=== PATIENT | male | born 1970 | race Two or more races ===

== ENCOUNTER 2018-01-15 20:19 | Inpatient (IN) | payer OTHER ==
[~2018-01-15] VITALS: Ht 175.3 cm; Wt 124.3 kg
[2018-01-15 20:30] VITALS: BP 57/24
[2018-01-15] MEDS ORDERED: Lidocaine 1% 10mg/ml/Epi 0.005mg/ml 30ml vial INJ ONE ×3 (21:14→22:18)
[2018-01-15] MEDS ORDERED: Vancomycin 1.5gm/D5W 250ml 250 ML IVPB ONE (21:30)
[2018-01-15] MEDS ORDERED: Piperacillin/Tazobactam 4.5 GM in NS 110 ML IVPB ONE (21:30)
[2018-01-15] MEDS ORDERED: NS 1000ml 3,500 ML IVLG ONE (21:30)
[2018-01-15 21:44] VITALS: BP 83/33
[2018-01-15 21:58] LABS: HEMATOCRIT 36.5 % (42.0-52.0); HEMOGLOBIN 12.8 G/DL (14.2-18.0); MEAN CORPUSCULAR VOLUME 92 FL (80-99); PLATELET COUNT 131 K/UL (150-450); RED BLOOD COUNT 3.95 M/UL (4.70-6.10); RED CELL DISTRIBUTION WIDTH 10.5 % (11.6-14.8)
[2018-01-15 22:00] VITALS: BP 79/83
[2018-01-15 22:10] LABS: WHITE BLOOD COUNT 22.9 K/UL (4.8-10.8)
[2018-01-15] MEDS ORDERED: Lidocaine 1% 10mg/ml/Epi 0.005mg/ml 30ml vial INJ SCH (22:15)
[2018-01-15 22:19] LABS: ALANINE AMINOTRANSFERASE 34 U/L (12-78); ALBUMIN 2.9 G/DL (3.4-5.0); ALBUMIN/GLOBULIN RATIO 0.9 (1.0-2.7); ALKALINE PHOSPHATASE 140 U/L (46-116); ANION GAP 29 mmol/L (5-15); ASPARTATE AMINO TRANSFERASE 20 U/L (15-37); BLOOD UREA NITROGEN 79 mg/dL (7-18); CALCIUM 7.8 MG/DL (8.5-10.1); CHLORIDE 74 MMOL/L (98-107); CREATININE 5.9 MG/DL (0.55-1.30); POTASSIUM 3.8 MMOL/L (3.5-5.1)
[2018-01-15 22:23] LABS: SODIUM 111 MMOL/L (136-145)
[2018-01-15 22:24] LABS: CARBON DIOXIDE 8 MMOL/L (21-32)
[2018-01-15 22:30] VITALS: BP 82/32
[2018-01-15 23:00] VITALS: BP 77/26
[2018-01-15 23:08] LABS: APPEARANCE,URINE CLEAR; BILIRUBIN, URINE NEGATIVE (NEGATIVE); COLOR,URINE PALE YELLOW; GLUCOSE, URINE (UA) 4+ (NEGATIVE); KETONES,URINE 3+ (NEGATIVE); LEUKOCYTE ESTERASE ,URINE NEGATIVE (NEGATIVE); NITRITE,URINE NEGATIVE (NEGATIVE); PH,URINE 5 (4.5-8.0); PROTEIN,URINE 1+ (NEGATIVE); UROBILINOGEN,URINE NORMAL MG/DL (0.0-1.0)
[2018-01-15 23:09] LABS: CKMB 7.9 NG/ML (0.0-3.6)
[2018-01-15] MEDS ORDERED: DOPamine 400mg/250ml 250 ML IV ONE (23:15)
[2018-01-15 23:30] VITALS: BP 91/36
[2018-01-16] VITALS (23 sets, daily range): BP systolic 85–129; BP diastolic 15–64
[2018-01-16] MEDS ORDERED: Insulin Human Regular 100units/ml 3ml ONE ×3 (00:27→03:20)
--- NOTE | 2018-01-16 01:57 | Emergency Room Report ---
History of Present Illness General Chief Complaint: Altered Mental Status Source: Family Member, EMS Present Illness HPI Patient presents with complaints of weakness Patient's girlfriend provides most of the history Patient himself is acutely ill altered Friend reports that the patient for the past 2 weeks has been feeling very weak He is on Humira shots And was seen last at [facility] At that time his blood pressure was low and it was recommended for him to hold his blood pressure medication Over the next several days patient continued to decompensate Last 2 days patient felt significantly worse and weak And was brought to the ER today again patient himself essentially too weak and lethargic to have appropriate history Girlfriend reports 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 There has been no reports of vomiting or diarrhea Patient has not been eating well Allergies: Coded Allergies: No Known Allergies (Unverified , 01/15/18) Patient History Past Medical History: see triage record Pertinent Family History: none Reviewed Nursing Documentation: PMH: Agreed; PSxH: Agreed Nursing Documentation-PMH Past Medical History: No History, Except For Hx Hypertension: Yes Review of Systems All Other Systems: negative except mentioned in HPI Physical Exam Vital Signs Date Time Temp Pulse Resp B/P (MAP) Pulse Ox O2 Delivery O2 Flow Rate FiO2 01/15/18 20:11 73 16 127/153 63 Nasal Cannula 3.0 01/15/18 22:31 100 Sp02 EP Interpretation: reviewed, abnormal - 63% which is abnormal oxygenation , on a nonrebreather patient is saturating at 95% which is normal General Appearance: severe distress - Lethargic Head: normocephalic, atraumatic Eyes: bilateral eye PERRL ENT: dry mucus membranes Neck: supple, thyroid normal Respiratory: crackles - Bilaterally, appears tachypneic Cardiovascular #1: regular rate, rhythm, no edema Gastrointestinal: non tender, soft Musculoskeletal: other - Patient is extremely weak and lethargic, sluggish to move and responds to physical stimuli Neurologic: responsive - 2 physical and verbal stimuli however extremely lethargic weak to respond, Skin: other - Patient has mottling of bilateral lower extremity with purpura Lymphatic: no adenopathy Procedures Critical Care Time Critical Care Time 90 minutes for multiple re-evaluations critical presentation Extended stay in the emergency room requiring multiple repeat evaluations critical findings concerning for organ failure and possible not including any procedural time, Central Line Central Line : Consent: Emergent Central Line Lumen: triple Maximal Sterile Barrier Tech: yes cap, yes mask, yes sterile gown, yes sterile gloves, yes large sterile sheet, yes hand hygiene, yes chlorhexidine prep Central Line Postion: femoral (R) Anesthesia: Lidocaine cc's of anesthesia: 3 Complications: none Central Line Post Position: sutured Attempts: One Patient Tolerated: Well Complications: None Intubation Intubation : Consent: Emergent Intubation Method: orotracheal Tube Size (cm): 8.0 Medications: Succinylcholine Breath Sounds after Intubation: equal Intubation Complications: no complications Post Intubation Xray: Yes Progress/Xray Impression: see xray note Attempts: One Patient Tolerated: Well Complications: None Medical Decision Making Diagnostic Impression: Primary Impression: Septic shock Additional Impression: DKA (diabetic ketoacidoses) ER Course Patient presents extremely ill In critical condition Requiring acute intervention with antibiotics and IV fluids Patient appears to be in septic shock requiring pressors Aggressive hydration was initiated Patient's white blood cell count is elevated Glucose is also dangerously elevated with signs of severe acidosis Patient requiring insulin drip and ICU admission Labs Test 01/15/18 20:23 01/15/18 21:28 01/15/18 21:35 01/15/18 23:30 Arterial Blood pH 7.069 (7.350-7.450) Arterial Blood Partial Pressure CO2 19.6 mmHg (35.0-45.0) Arterial Blood Partial Pressure O2 308.1 mmHg (75.0-100.0) Arterial Blood HCO3 5.5 mmol/L (22.0-26.0) Arterial Blood Oxygen Saturation 98.9 % (92.0-98.0) Arterial Blood Base Excess -22.9 Harsha Test Positive White Blood Count 22.9 K/UL (4.8-10.8) Red Blood Count 3.95 M/UL (4.70-6.10) Hemoglobin 12.8 G/DL (14.2-18.0) Hematocrit 36.5 % (42.0-52.0) Mean Corpuscular Volume 92 FL (80-99) Mean Corpuscular Hemoglobin 32.3 PG (27.0-31.0) Mean Corpuscular Hemoglobin Concent 35.0 G/DL (32.0-36.0) Red Cell Distribution Width 10.5 % (11.6-14.8) Platelet Count 131 K/UL (150-450) Mean Platelet Volume 8.4 FL (6.5-10.1) Neutrophils (%) (Auto) % (45.0-75.0) Lymphocytes (%) (Auto) % (20.0-45.0) Monocytes (%) (Auto) % (1.0-10.0) Eosinophils (%) (Auto) % (0.0-3.0) Basophils (%) (Auto) % (0.0-2.0) Differential Total Cells Counted 100 Neutrophils % (Manual) 78 % (45-75) Lymphocytes % (Manual) 9 % (20-45) Monocytes % (Manual) 6 % (1-10) Eosinophils % (Manual) 0 % (0-3) Basophils % (Manual) 0 % (0-2) Band Neutrophils 7 % (0-8) Platelet Estimate Decreased Platelet Morphology Normal Red Blood Cell Morphology Normal Sodium Level 111 MMOL/L (136-145) Potassium Level 3.8 MMOL/L (3.5-5.1) Chloride Level 74 MMOL/L (98-107) Carbon Dioxide Level 8 MMOL/L (21-32) Anion Gap 29 mmol/L (5-15) Blood Urea Nitrogen 79 mg/dL (7-18) Creatinine 5.9 MG/DL (0.55-1.30) Estimat Glomerular Filtration Rate 10.4 mL/min (>60) Glucose Level 1296 MG/DL (74-106) Osmolality 353 mOsm/kg (297-317) Lactic Acid Level 3.30 mmol/L (0.66-2.22) 2.20 mmol/L (0.66-2.22) Calcium Level 7.8 MG/DL (8.5-10.1) Magnesium Level 3.5 MG/DL (1.8-2.4) Total Bilirubin 1.0 MG/DL (0.2-1.0) Aspartate Amino Transf (AST/SGOT) 20 U/L (15-37) Alanine Aminotransferase (ALT/SGPT) 34 U/L (12-78) Alkaline Phosphatase 140 U/L (46-116) Total Creatine Kinase 309 U/L (26-308) Creatine Kinase MB 7.9 NG/ML (0.0-3.6) Creatine Kinase MB Relative Index 2.5 Troponin I 0.000 ng/mL (0.000-0.056) Total Protein 6.0 G/DL (6.4-8.2) Albumin 2.9 G/DL (3.4-5.0) Globulin 3.1 g/dL Albumin/Globulin Ratio 0.9 (1.0-2.7) Triglycerides Level 436 MG/DL (30-150) Lipase 05367 U/L (73-393) Serum Alcohol < 3 mg/dL Acetone Level Positive-moderate (NEGATIVE) Urine Color Pale yellow Urine Appearance Clear Urine pH 5 (4.5-8.0) Urine Specific [place] 1.010 (1.005-1.035) Urine Protein 1+ (NEGATIVE) Urine Glucose (UA) 4+ (NEGATIVE) Urine Ketones 3+ (NEGATIVE) Urine Occult Blood 4+ (NEGATIVE) Urine Nitrite Negative (NEGATIVE) Urine Bilirubin Negative (NEGATIVE) Urine Urobilinogen Normal MG/DL (0.0-1.0) Urine Leukocyte Esterase Negative (NEGATIVE) Urine RBC 2-4 /HPF (0 - 0) Urine WBC 0-2 /HPF (0 - 0) Urine Squamous Epithelial Cells None /LPF (NONE/OCC) Urine Bacteria Few /HPF (NONE) Urine Opiates Screen Negative (NEGATIVE) Urine Barbiturates Screen Negative (NEGATIVE) Phencyclidine (PCP) Screen Negative (NEGATIVE) Urine Amphetamines Screen Negative (NEGATIVE) Urine Benzodiazepines Screen Negative (NEGATIVE) Urine Cocaine Screen Negative (NEGATIVE) Urine Marijuana (THC) Screen Negative (NEGATIVE) Test 01/15/18 23:47 Arterial Blood pH 7.046 (7.350-7.450) Arterial Blood Partial Pressure CO2 22.7 mmHg (35.0-45.0) Arterial Blood Partial Pressure O2 104.2 mmHg (75.0-100.0) Arterial Blood HCO3 6.1 mmol/L (22.0-26.0) Arterial Blood Oxygen Saturation 96.6 % (92.0-98.0) Arterial Blood Base Excess -22.9 Harsha Test Positive Rhythm Strip Diag. Results EP Interpretation: yes Rate: 77 Rhythm: NSR, no PVC's, no ectopy Chest X-Ray Diagnostic Results Chest X-Ray Diagnostic Results #1: Chest X-Ray Ordered: Yes # of Views/Limited/Complete: 1 View Indication: Chest Pain EP Interpretation: Yes Interpretation: no consolidation, no pneumothorax, other - poor inspiraion Impression: No acute disease Electronically Signed by: Lakesha Heart DO Chest X-Ray Diagnostic Results #2: Chest X-Ray Ordered: Yes # of Views/Limited/Complete: 1 View Indication: Other - Intubation EP Interpretation: Yes Interpretation: no consolidation, no effusion, no pneumothorax, other - ET tube appropriate Impression: No acute disease - ET tube appropriately positioned Electronically Signed by: Lakesha Heart DO Last Vital Signs Date Time Temp Pulse Resp B/P (MAP) Pulse Ox O2 Delivery O2 Flow Rate FiO2 01/16/18 01:20 81/34 01/16/18 01:05 27 01/16/18 00:00 80 100 Mechanical Ventilator 01/15/18 22:31 100 01/15/18 20:30 15.0 Status: improved Disposition: ADMITTED INPATIENT Condition: Critical Referrals: [facility],REFERRING (PCP) Lakesha Heart DO January 16, 2018 01:57
[2018-01-16] MEDS ORDERED: fentaNYL 100 mcg/2 mL IV ONE (02:45)
[2018-01-16] MEDS ORDERED: Insulin Human Regular 100units/ml 3ml IV ONE ×2 (03:30)
--- NOTE | 2018-01-16 04:15 | History and Physical Report ---
DATE OF ADMISSION: 01/15/2018 HISTORY OF PRESENT ILLNESS: This is a 47-year-old male with history of psoriasis, on biologic agent Humira. The patient has been admitted to an outside hospital and was discharged. He was brought to the hospital today with hyperglycemia. He was also hypotensive. He required to be intubated. Because he is unable to provide any history, his /caregiver at the bedside provided most of the history. The patient is hypotensive. The patient has a previous history of Red man syndrome, etiology uncertain. The patient received a central line and IV antibiotics in the emergency room and [place]. He was was admitted to the hospital for further management and care. PAST MEDICAL HISTORY: Psoriasis only. There is no clear history of diabetes mellitus. MEDICATIONS: Home medications, not known or reconciled. ALLERGIES: None reported. REVIEW OF SYSTEMS: Unobtainable. PHYSICAL EXAMINATION: GENERAL: Reveals a 47-year-old male. VITAL SIGNS: Blood pressure 80/60, heart rate 104, respirations 18, and he is afebrile. HEENT: Unremarkable. LUNGS: Decreased breath sounds bilaterally. ABDOMEN: Soft. SKIN: He has bilateral skin mottling.g LABORATORY DATA: Lab testing shows white count 22,000, hemoglobin 12, and platelet count is normal. Sodium 111, bicarbonate of 8, chloride 74, creatinine 5.9, and glucose 1296. Osmolality 53. Lactic acid 3.3. IMPRESSION: 1. Respiratory failure. 2. Severe hyponatremia. 3. Hyperglycemia. 4. Diabetic ketoacidosis. 5. Sepsis. 6. Hypotension. DISCUSSION: The patient is critically ill. His chances of survival are poor. We will start him on normal saline, IV insulin, broad-spectrum antibiotics, aggressive IV fluid hydration, central line care, pressors, [place]. Full Code for now. Discussed with the ER physician. Prognosis again discussed was grave. The patient may also benefit from steroids given his use of Humira as a biologic agent. Matt Kessler M.D. DR: UBALDO JOB#: [id number] CC:
[2018-01-16] MEDS ORDERED: DOPamine 400mg/250ml 250 ML IV ONE ×2 (04:37→05:15)
[2018-01-16] MEDS ORDERED: Sodium Bicarbonate 50ml Carp IV ONE (05:15)
[2018-01-16] MEDS ORDERED: Morphine Sulfate 4mg/ml Inj IM PRN (08:15)
[2018-01-16] MEDS ORDERED: LORazepam Inj 2mg/ml 1ml IV PRN (08:30)
[2018-01-16] MEDS ORDERED: Insulin Human Regular 100units/ml 3ml IV PRN ×2 (08:45→12:00)
[2018-01-16] MEDS ORDERED: Insulin Rate Change 1 Each MISC PRN ×2 (09:00→12:00)
[2018-01-16] MEDS ORDERED: Pantoprazole Inj IVP SCH (09:00)
[2018-01-16] MEDS ORDERED: Morphine Sulfate 4mg/ml Inj IVP PRN (09:05)
[2018-01-16] MEDS: DOPamine 400mg/250ml 250 ML IV SCH ×3 (09:11→18:44)
[2018-01-16] MEDS: Heparin 5000 units/ml inj SUBQ SCH ×2 (09:17→20:58)
[2018-01-16 10:30] LABS: ANION GAP 20 mmol/L (5-15); BLOOD UREA NITROGEN 71 mg/dL (7-18); CALCIUM 7.1 MG/DL (8.5-10.1); CARBON DIOXIDE 12 MMOL/L (21-32); CHLORIDE 93 MMOL/L (98-107); CREATININE 4.9 MG/DL (0.55-1.30); PHOSPHORUS 1.2 MG/DL (2.5-4.9); SODIUM 125 MMOL/L (136-145)
[2018-01-16 10:35] LABS: POTASSIUM 2.2 MMOL/L (3.5-5.1)
[2018-01-16] MEDS: Insulin Human Regular 100units/ml 3ml IV PRN ×9 (11:20→23:23)
--- NOTE | 2018-01-16 11:25 | Diagnostic Imaging Report ---
Indication: Reason For Exam: SOB Technique: One view of the chest Comparison: none Findings: There is a lateral pulmonary interstitial edema. The pleural spaces are clear. The heart size is normal. Impression: Bilateral pulmonary interstitial edema
--- NOTE | 2018-01-16 11:30 | Diagnostic Imaging Report ---
Indication: Post intubation Technique: One view of the chest Comparison: 01/15/2018 Findings: Interim endotracheal intubation, endotracheal tube tip projecting approximately 4 cm above the tiesha. Slightly better aeration of the lungs. There is mild interstitial congestion again demonstrated Impression: Satisfactory endotracheal intubation Persistent mild interstitial congestion
[2018-01-16 11:47] LABS: HEMATOCRIT 35.3 % (42.0-52.0); HEMOGLOBIN 12.9 G/DL (14.2-18.0); MEAN CORPUSCULAR VOLUME 85 FL (80-99); PLATELET COUNT 81 K/UL (150-450); RED BLOOD COUNT 4.14 M/UL (4.70-6.10); RED CELL DISTRIBUTION WIDTH 9.7 % (11.6-14.8); WHITE BLOOD COUNT 8.2 K/UL (4.8-10.8)
[2018-01-16] MEDS ORDERED: Piperacillin/Tazobactam 3.375 GM in NS 110 ML IVPB SCH (12:00)
--- NOTE | 2018-01-16 12:50 | Consultation ---
Consult Note Consult Note asked to eval at the request of Dr Kessler Patient seen in ICU Intubated on Vent on Pressors low urine out put GF at bedside patient have history of HTN and Psoriasis on BP meds and [place] Assessment/Plan acute renal failure- Hypotensive on pressors acute respiratory failure Diabetic Ketoacidosis Low Na, Low K Sepsis Pressors- Insulin drip NS labs at 1600 discussed with RN per orders ALANNA MAHONEY January 16, 2018 12:50
[2018-01-16] MEDS: Hydrocortisone 100mg Inj IV SCH ×2 (13:10→18:57)
[2018-01-16] MEDS ORDERED: Potassium Chloride 40 MEQ in Sodium Chloride 500ML 550 ML IVPB ONE ×2 (13:30→20:00)
--- NOTE | 2018-01-16 13:53 | Pulmonology Progress Note ---
Assessment/Plan Assessment/Plan 1. Respiratory failure. 2. Severe hyponatremia. 3. Hyperglycemia. 4. Diabetic ketoacidosis. 5. Sepsis. 6. Hypotension. DISCUSSION: The patient is critically ill. His chances of survival are poor. continue normal saline, IV insulin, broad-spectrum antibiotics, aggressive IV fluid hydration, central line care, pressors, [place]. Full Code for now. Discussed with the ER physician. discussed with all consultants The patient may also benefit from steroids given his use of Humira as a biologic agent. Matt Kessler M.D. Subjective Interval Events: remains critically ill in ICU. On multiple pressors. Constitutional: Reports: no symptoms HEENT: Repors: no symptoms Respiratory: Reports: no symptoms Cardiovascular: Reports: no symptoms Gastrointestinal/Abdominal: Reports: no symptoms Genitourinary: Reports: no symptoms Allergies: Coded Allergies: No Known Allergies (Unverified , 01/15/18) Objective Last 24 Hour Vital Signs Date Time Temp Pulse Resp B/P (MAP) Pulse Ox O2 Delivery O2 Flow Rate FiO2 01/16/18 13:04 83/40 01/16/18 12:31 111 32 45 01/16/18 12:00 45 01/16/18 11:33 107 35 45 01/16/18 11:02 45/20 01/16/18 10:19 105 38 45 01/16/18 09:11 98/54 01/16/18 08:00 45 01/16/18 07:34 88 28 50 01/16/18 06:40 89 26 129/64 100 Mechanical Ventilator 01/16/18 06:30 86 27 100 01/16/18 06:20 89 26 129/64 100 Mechanical Ventilator 01/16/18 06:00 97.8 90 27 117/50 100 Mechanical Ventilator 97.8 01/16/18 05:39 27 119/56 01/16/18 05:30 86 22 119/56 100 Mechanical Ventilator 01/16/18 05:24 113/50 01/16/18 05:12 83 22 100 01/16/18 05:12 83 22 Mechanical Ventilator 100 01/16/18 05:00 81 25 109/46 100 Mechanical Ventilator 01/16/18 04:33 85 20 97/43 100 Mechanical Ventilator 01/16/18 04:00 86 20 111/48 100 Mechanical Ventilator 01/16/18 03:30 82 18 104/48 100 Mechanical Ventilator 01/16/18 03:20 84 21 Mechanical Ventilator 100 01/16/18 03:20 84 21 100 01/16/18 03:00 17 102/50 01/16/18 02:54 89 19 94/40 100 Mechanical Ventilator 01/16/18 02:30 88 27 98/44 100 Mechanical Ventilator 01/16/18 02:30 27 107/21 01/16/18 01:30 87 25 93/34 100 Mechanical Ventilator 01/16/18 01:20 81/34 01/16/18 01:15 88 27 100 01/16/18 01:15 88 27 Mechanical Ventilator 100 01/16/18 01:05 /17 01/16/18 01:05 27 /17 01/16/18 01:00 87 26 89/24 100 Mechanical Ventilator 01/16/18 00:50 78/24 01/16/18 00:50 28 78/24 01/16/18 00:30 84 27 99/18 100 Mechanical Ventilator 01/16/18 00:20 27 96/23 01/16/18 00:08 97/22 01/16/18 00:00 80 27 99/15 100 Mechanical Ventilator 01/15/18 23:55 25 96/22 01/15/18 23:40 91/46 01/15/18 23:40 29 91/36 01/15/18 23:30 74 27 91/36 100 Mechanical Ventilator 01/15/18 23:25 20 75/22 18 23:22 75/22 01/15/18 23:10 22 72/24 01/15/18 23:00 74 26 77/26 01/15/18 22:31 69 28 100 01/15/18 22:31 69 28 Mechanical Ventilator 100 01/15/18 22:30 74 25 82/32 100 Mechanical Ventilator 01/15/18 22:00 67 21 79/83 100 01/15/18 21:44 74 27 83/33 100 Non-Rebreather 01/15/18 20:30 99.1 73 23 57/24 99 Non-Rebreather 15.0 99.1 01/15/18 20:11 73 16 127/153 63 Nasal Cannula 3.0 Intake and Output 01/15/18 01/16/18 19:00 07:00 Output Total 225 ml Balance -225 ml Output Urine Total 225 ml General Appearance: no acute distress HEENT: normocephalic Respiratory/Chest: chest wall non-tender, lungs clear Cardiovascular: normal peripheral pulses, normal rate Abdomen: normal bowel sounds Laboratory Tests 01/15/18 20:23: Arterial Blood pH 7.069*L, Arterial Blood Partial Pressure CO2 19.6*L, Arterial Blood Partial Pressure O2 308.1H, Arterial Blood HCO3 5.5L, Arterial Blood Oxygen Saturation 98.9H, Arterial Blood Base Excess -22.9, Harsha Test Positive 01/15/18 21:28: White Blood Count 22.9*H, Red Blood Count 3.95L, Hemoglobin 12.8L, Hematocrit 36.5L, Mean Corpuscular Volume 92, Mean Corpuscular Hemoglobin 32.3H, Mean Corpuscular Hemoglobin Concent 35.0, Red Cell Distribution Width 10.5L, Platelet Count 131L, Mean Platelet Volume 8.4, Neutrophils (%) (Auto) , Lymphocytes (%) (Auto) , Monocytes (%) (Auto) , Eosinophils (%) (Auto) , Basophils (%) (Auto) , Differential Total Cells Counted 100, Neutrophils % ( Manual) 78H, Lymphocytes % (Manual) 9L, Monocytes % (Manual) 6, Eosinophils % ( Manual) 0, Basophils % (Manual) 0, Band Neutrophils 7, Platelet Estimate DecreasedL, Platelet Morphology Normal, Red Blood Cell Morphology Normal, Sodium Level 111*L, Potassium Level 3.8, Chloride Level 74L, Carbon Dioxide Level 8*L, Anion Gap 29H, Blood Urea Nitrogen 79H, Creatinine 5.9H, Estimat Glomerular Filtration Rate 10.4, Glucose Level 1296*H, Osmolality 353H, Lactic Acid Level 3.30H, Calcium Level 7.8L, Magnesium Level 3.5H, Total Bilirubin 1.0 , Aspartate Amino Transf (AST/SGOT) 20, Alanine Aminotransferase (ALT/SGPT) 34, Alkaline Phosphatase 140H, Total Creatine Kinase 309H, Creatine Kinase MB 7.9H, Creatine Kinase MB Relative Index 2.5, Troponin I 0.000, Total Protein 6.0L, Albumin 2.9L, Globulin 3.1, Albumin/Globulin Ratio 0.9L, Triglycerides Level 436H, Lipase 97354R, Serum Alcohol < 3, Acetone Level Positive-moderate 01/15/18 21:35: Urine Color Pale yellow, Urine Appearance Clear, Urine pH 5, Urine Specific [place] 1.010, Urine Protein 1+H, Urine Glucose (UA) 4+H, Urine Ketones 3+H, Urine Occult Blood 4+H, Urine Nitrite Negative, Urine Bilirubin Negative, Urine Urobilinogen Normal, Urine Leukocyte Esterase Negative, Urine RBC 2-4H, Urine WBC 0-2, Urine Squamous Epithelial Cells None, Urine Bacteria Few, Urine Opiates Screen Negative, Urine Barbiturates Screen Negative, Phencyclidine (PCP ) Screen Negative, Urine Amphetamines Screen Negative, Urine Benzodiazepines Screen Negative, Urine Cocaine Screen Negative, Urine Marijuana (THC) Screen Negative 01/15/18 23:30: Lactic Acid Level 2.20 01/15/18 23:47: Arterial Blood pH 7.046*L, Arterial Blood Partial Pressure CO2 22.7*L, Arterial Blood Partial Pressure O2 104.2H, Arterial Blood HCO3 6.1L, Arterial Blood Oxygen Saturation 96.6, Arterial Blood Base Excess -22.9, Harsha Test Positive 01/16/18 08:30: Sodium Level 125#L, Potassium Level 2.2*L, Chloride Level 93L, Carbon Dioxide Level 12L, Anion Gap 20H, Blood Urea Nitrogen 71H, Creatinine 4.9H, Estimat Glomerular Filtration Rate 12.9, Glucose Level 630#*H, Hemoglobin A1c 13.1H, Calcium Level 7.1L, Phosphorus Level 1.2L, Magnesium Level 2.7H, Triglycerides Level 836H 01/16/18 10:40: Arterial Blood pH 7.230*L, Arterial Blood Partial Pressure CO2 22.8*L, Arterial Blood Partial Pressure O2 169.4H, Arterial Blood HCO3 9.3L, Arterial Blood Oxygen Saturation 98.5H, Arterial Blood Base Excess -16.2, Harsha Test Positive 01/16/18 11:20: White Blood Count 8.2#, Red Blood Count 4.14L, Hemoglobin 12.9L, Hematocrit 35.3L, Mean Corpuscular Volume 85, Mean Corpuscular Hemoglobin 31.2H, Mean Corpuscular Hemoglobin Concent 36.7H, Red Cell Distribution Width 9.7L, Platelet Count 81L, Mean Platelet Volume 9.4, Neutrophils (%) (Auto) , Lymphocytes (%) (Auto) , Monocytes (%) (Auto) , Eosinophils (%) (Auto) , Basophils (%) (Auto) , Differential Total Cells Counted 100, Neutrophils % ( Manual) 68, Lymphocytes % (Manual) 13L, Monocytes % (Manual) 7, Eosinophils % ( Manual) 0, Basophils % (Manual) 0, Band Neutrophils 12H, Platelet Estimate DecreasedL, Platelet Morphology Normal, Red Blood Cell Morphology Normal, Prothrombin Time 10.5, Prothromb Time International Ratio 1.0, Activated Partial Thromboplast Time 25 Current Medications Medications (Trade) Dose Ordered Sig/Alana Route PRN Reason Start Time Stop Time Status Last Admin Dose Admin Dextrose (Dextrose 50%) 25 ml PRN PRN IV HYPOGLYCEMIA 01/16/18 12:00 02/15/18 11:59 Dextrose (Dextrose 50%) 50 ml PRN PRN IV HYPOGLYCEMIA 01/16/18 12:00 02/15/18 11:59 Dopamine HCl/ Dextrose 250 ml @ 0 mls/hr Q24H IV 01/16/18 08:45 02/15/18 08:44 01/16/18 09:11 Heparin Sodium (Porcine) (Heparin 5000 units/ml) 5,000 units EVERY 12 HOURS SUBQ 01/16/18 09:00 02/15/18 08:59 01/16/18 09:17 Hydrocortisone (Solu-CORTEF) 50 mg EVERY 6 HOURS IV 01/16/18 12:00 02/15/18 11:59 01/16/18 13:10 Insulin Human Regular (NovoLIN R) 5 units PRN PRN IV BS 200-299 01/16/18 12:00 02/15/18 11:59 Insulin Human Regular (NovoLIN R) 10 units PRN PRN IV BS=>300 01/16/18 12:00 02/15/18 11:59 01/16/18 13:07 Insulin Human Regular 100 units/ Sodium Chloride 101 ml @ 0 mls/hr Q24H IV 01/16/18 12:30 02/15/18 12:29 01/16/18 12:30 Linezolid 300 ml @ 300 mls/hr Q12HR IVPB 01/16/18 13:00 01/23/18 12:59 Lorazepam (Ativan 2mg/ml 1ml) 1 mg Q2H PRN IV For Anxiety 01/16/18 08:30 01/23/18 08:29 Miscellaneous Medication (Insulin Rate Change) 1 ea PRN PRN MISC Hyperglycemia 01/16/18 12:00 02/15/18 11:59 Morphine Sulfate (Morphine Sulfate) 2 mg Q2H PRN IVP For Pain 01/16/18 09:05 01/23/18 09:04 Norepinephrine Bitartrate 4 mg/ Dextrose 250 ml @ 0 mls/hr Q24H IV 01/16/18 10:45 02/15/18 10:44 01/16/18 13:04 Pantoprazole (Protonix) 40 mg Q12HR IVP 01/16/18 21:00 02/15/18 08:59 Piperacillin Sod/ Tazobactam Sod 2.25 gm/Sodium Chloride 55 ml @ 110 mls/hr Q8H IV 01/16/18 10:00 01/23/18 09:59 Potassium Chloride 40 meq/ Sodium Chloride 570 ml @ 142.5 mls/ hr ONCE ONCE IVPB 01/16/18 13:30 01/16/18 17:29 01/16/18 12:43 Potassium Chloride 40 meq/ Sodium Chloride 570 ml @ 142.5 mls/ hr ONCE ONCE IVPB 01/16/18 20:00 01/16/18 23:59 Sodium Chloride 1,000 ml @ 200 mls/hr Q5H IV 01/16/18 09:00 02/15/18 08:59 01/16/18 08:50 Sodium Phosphate 30 mm/Sodium Chloride 285 ml @ 47.5 mls/hr ONCE ONCE IVPB 01/16/18 14:30 01/16/18 20:29 Matt Kessler MD January 16, 2018 13:53
[2018-01-16] MEDS ORDERED: Sodium Phosphate 30 MM in NS 275 ML IVPB ONE (14:30)
--- NOTE | 2018-01-16 14:32 | Cardiology Report ---
APPROVED REPORT EKG Measurement Heart [id number] [id number] Normal sinus rhythm T wave abnormality, consider inferior ischemia Abnormal ECG
[2018-01-16] MEDS: Sodium Bicarbonate 100 ML in D5W 1000ml 1,000 ML IV SCH (15:36)
[2018-01-16 16:52] LABS: ALANINE AMINOTRANSFERASE 11 U/L (12-78); ALBUMIN 2.1 G/DL (3.4-5.0); ALBUMIN/GLOBULIN RATIO 0.7 (1.0-2.7); ALKALINE PHOSPHATASE 103 U/L (46-116); ANION GAP 23 mmol/L (5-15); ASPARTATE AMINO TRANSFERASE 79 U/L (15-37); BILIRUBIN,TOTAL 0.7 MG/DL (0.2-1.0); BLOOD UREA NITROGEN 69 mg/dL (7-18); CALCIUM 6.7 MG/DL (8.5-10.1); CARBON DIOXIDE 8 MMOL/L (21-32); CHLORIDE 100 MMOL/L (98-107); CREATINE KINASE 3401 U/L (26-308); CREATININE 5.6 MG/DL (0.55-1.30); GAMMA GLUTAMYL TRANSPEPTIDASE 289 U/L (5-85); PHOSPHORUS 0.6 MG/DL (2.5-4.9); POTASSIUM 2.5 MMOL/L (3.5-5.1); SODIUM 131 MMOL/L (136-145)
[2018-01-16 16:57] LABS: HEMATOCRIT 34.4 % (42.0-52.0); HEMOGLOBIN 12.9 G/DL (14.2-18.0); MEAN CORPUSCULAR VOLUME 82 FL (80-99); PLATELET COUNT 83 K/UL (150-450); RED BLOOD COUNT 4.17 M/UL (4.70-6.10); RED CELL DISTRIBUTION WIDTH 9.9 % (11.6-14.8); WHITE BLOOD COUNT 15.4 K/UL (4.8-10.8)
[2018-01-16] MEDS: Insulin Rate Change 1 Each MISC PRN ×2 (17:19→18:00)
--- NOTE | 2018-01-16 17:30 | Consultation ---
DATE OF CONSULTATION: 01/16/2018 INFECTIOUS DISEASES CONSULTATION CONSULTING PHYSICIAN: Bruce Waller M.D. REFERRING PHYSICIAN: Matt Kessler M.D. REASON FOR CONSULTATION: Sepsis. HISTORY OF PRESENT ILLNESS: This is a 47-year-old gentleman with history of psoriasis, on Humira, with history of heavy alcohol use who came in with hyperglycemia and hypotension. He has been intubated and an Infectious Diseases consultation has been obtained for antibiotics. PAST MEDICAL HISTORY: 1. History of psoriasis, on Humira. 2. History of red man syndrome. SOCIAL HISTORY: He used to drink alcohol heavily. Rest of the history is unknown. REVIEW OF SYSTEMS: Unable to obtain currently. FAMILY HISTORY: Unknown. MEDICATIONS: As an inpatient, he is on potassium, hydrocortisone, norepinephrine, Zosyn, morphine, Protonix, insulin, dopamine, lorazepam, and IV vancomycin. ALLERGIES: No known drug allergies. PHYSICAL EXAMINATION: VITAL SIGNS: Temperature of 97.8, T-max of 99.1, pulse of 105, respiratory rate 38, blood pressure 45/20, and O2 saturation of 100%. HEENT: Pupils are equally reactive to light and accommodation. Mouth appears clean without thrush. The patient is intubated. NECK: Supple. No adenopathy. No JVD. CARDIOVASCULAR: Regular rate and rhythm. No murmurs. LUNGS: Clear to auscultation bilaterally. No crackles. No wheezes. ABDOMEN: Soft and nontender. No organomegaly. EXTREMITIES: No cyanosis, no clubbing, no edema. Right groin catheter noted. LABORATORY DATA: White count of 22.9, hemoglobin 12.8, hematocrit 36.5, MCV 92, and platelet count of 131 with neutrophils of 78%. Sodium 125, potassium 2.2, chloride 93, bicarbonate of 12, BUN 71, creatinine 4.9, glucose of 630, calcium 7.1, triglycerides of 836. Lipase of 13,427. Glucose of 1296 on 01/15/2018. Sodium of 111, BUN of 79, creatinine of 5.9 on 01/15/2018. AST 20, ALT 34, alkaline phosphatase 140. CK of 309, CK-MB of 7.9. UA is showing 0 to 2 white cells. Blood cultures are pending. Chest x-ray is showing bilateral pulmonary edema. ASSESSMENT: This is a 47-year-old gentleman with history of heavy alcohol use and psoriasis, on Humira, who comes in with: 1. Diabetic ketoacidosis, could be secondary to urinary tract infection. 2. We would like to rule out pneumonia. 3. Renal failure. 4. Severe pancreatitis. 5. Renal failure. 6. Shock. PLAN: 1. Continue Zosyn. 2. Discontinue vancomycin. 3. We will start the patient on linezolid. 4. We will order urine cultures and sputum cultures. 5. We will follow up cultures and adjust antibiotics accordingly. I would like to thank Dr. Kessler for this consultation. Bruce Waller M.D. DR: PRATIMA JOB#: [id number] CC: Matt Kessler M.D.; Fax#: [phone]
[2018-01-16] MEDS ORDERED: D5W 275ml ONE (17:39)
[2018-01-16] MEDS: Piperacillin/Tazobactam 2.25 GM in NS 55 ML IV SCH ×2 (18:00→18:33)
[2018-01-16] MEDS: NOREPINEPHRINE BITARTRATE IV SCH (20:57)
[2018-01-16] MEDS: SODIUM CHLORIDE IV SCH (20:57)
[2018-01-16] MEDS: Pantoprazole Inj IVP SCH (20:58)
[2018-01-16] MEDS ORDERED: Sodium Phosphate 30 MM in NS 275 ML IVPB SCH (23:00)
[2018-01-16] MEDS ORDERED: NS IVPB SCH (23:30)
[2018-01-16] MEDS ORDERED: MEROPENEM IVPB SCH (23:30)
[2018-01-17] VITALS (57 sets, daily range): BP systolic 80–157; BP diastolic 24–67
[2018-01-17] MEDS: Hydrocortisone 100mg Inj IV SCH ×5 (00:02→23:50)
[2018-01-17] MEDS: Acetaminophen 650mg/20.3ml NG PRN ×2 (00:31→22:05)
[2018-01-17] MEDS: DOPamine 400mg/250ml 250 ML IV SCH ×8 (00:51→22:52)
[2018-01-17] MEDS: Insulin Human Regular 100units/ml 3ml IV PRN ×3 (03:56→22:58)
[2018-01-17] MEDS: NOREPINEPHRINE BITARTRATE IV SCH ×2 (05:57→15:27)
[2018-01-17] MEDS: SODIUM CHLORIDE IV SCH ×2 (05:57→15:27)
[2018-01-17] MEDS ORDERED: Lidocaine 1% Plain 30 ml INJ SCH (07:00)
[2018-01-17] MEDS ORDERED: Heparin 2000 units/Ns 1000ml INJ SCH (07:00)
--- NOTE | 2018-01-17 08:20 | Pulmonology Progress Note ---
Assessment/Plan Assessment/Plan 1. Respiratory failure. 2. Severe hyponatremia. 3. Hyperglycemia. 4. Diabetic ketoacidosis. 5. Sepsis. 6. Hypotension. DISCUSSION: The patient is critically ill. His chances of survival are poor. continue normal saline, IV insulin, broad-spectrum antibiotics, aggressive IV fluid hydration, central line care, pressors, Amrenta. Full Code for now. Discussed with the ER physician. discussed with all consultants The patient may also benefit from steroids given his use of Humira as a biologic agent. Slowly improving Discussed with mother and GF PICC today Matt Kessler M.D. Subjective Interval Events: Improved Constitutional: Reports: no symptoms HEENT: Repors: no symptoms Respiratory: Reports: no symptoms Cardiovascular: Reports: no symptoms Allergies: Coded Allergies: No Known Allergies (Unverified , 01/15/18) Objective Last 24 Hour Vital Signs Date Time Temp Pulse Resp B/P (MAP) Pulse Ox O2 Delivery O2 Flow Rate FiO2 01/17/18 07:30 102 34 94/55 94 Mechanical Ventilator 40 01/17/18 07:05 102 35 45 01/17/18 07:00 84/54 01/17/18 07:00 84/54 01/17/18 07:00 100 33 84/54 98 Mechanical Ventilator 40 01/17/18 06:47 84/34 01/17/18 06:30 100 33 83/48 97 Mechanical Ventilator 40 01/17/18 06:00 98.4 98 33 80/44 100 Mechanical Ventilator 40 98.4 01/17/18 06:00 85/43 01/17/18 06:00 85/43 01/17/18 05:57 86/49 01/17/18 05:30 98 33 88/48 100 Mechanical Ventilator 40 01/17/18 05:00 91/43 01/17/18 05:00 91/43 01/17/18 05:00 99 34 91/43 100 Mechanical Ventilator 40 01/17/18 04:52 100 35 45 01/17/18 04:30 100 34 81/26 100 Mechanical Ventilator 40 01/17/18 04:00 102 01/17/18 04:00 99.0 104 34 90/52 100 Mechanical Ventilator 40 99.0 01/17/18 04:00 45 01/17/18 04:00 90/52 01/17/18 04:00 /52 01/17/18 03:52 90/52 01/17/18 03:52 90/01/17/18 03:30 106 34 90/52 100 Mechanical Ventilator 40 01/17/18 03:30 104 36 45 01/17/18 03:00 85/52 01/17/18 03:00 85/52 01/17/18 03:00 100.5 108 35 85/52 100 Mechanical Ventilator 40 100.5 01/17/18 02:30 110 35 103/49 100 Mechanical Ventilator 40 01/17/18 02:00 101.0 114 35 97/59 100 Mechanical Ventilator 40 101.0 01/17/18 02:00 97/59 01/17/18 02:00 97/59 01/17/18 01:30 116 35 97/60 100 Mechanical Ventilator 40 01/17/18 01:30 112 36 45 01/17/18 01:26 102.3 01/17/18 01:00 102.6 119 38 104/55 100 Mechanical Ventilator 40 102.6 01/17/18 01:00 104/55 01/17/18 01:00 104/55 01/17/18 01:00 104/55 01/17/18 01:00 104/55 01/17/18 00:51 86/52 01/17/18 00:31 103.8 01/17/18 00:30 123 39 97/58 100 Mechanical Ventilator 40 01/17/18 00:00 45 01/17/18 00:00 128 01/17/18 00:00 103.0 127 39 94/58 100 Mechanical Ventilator 40 103.0 01/17/18 00:00 94/58 01/17/18 00:00 94/58 01/16/18 23:30 131 39 45 01/16/18 23:30 130 38 94/51 100 Mechanical Ventilator 40 01/16/18 23:00 104.0 132 38 85/50 100 Mechanical Ventilator 40 104.0 01/16/18 23:00 85/50 01/16/18 23:00 85/50 01/16/18 22:30 104.0 133 38 89/41 100 Mechanical Ventilator 40 104.0 01/16/18 22:00 102.9 133 38 92/47 100 Mechanical Ventilator 40 102.9 01/16/18 22:00 92/47 01/16/18 22:00 92/47 01/16/18 21:30 129 35 93/48 100 Mechanical Ventilator 40 01/16/18 21:02 134 38 45 01/16/18 21:00 101.0 129 35 85/46 100 Mechanical Ventilator 40 101.0 01/16/18 21:00 85/46 01/16/18 21:00 85/46 01/16/18 20:57 85/44 01/16/18 20:30 130 35 85/46 100 Mechanical Ventilator 40 01/16/18 20:00 45 01/16/18 20:00 101.0 131 35 100/53 100 Mechanical Ventilator 40 101.0 01/16/18 20:00 84/46 01/16/18 20:00 84/46 01/16/18 20:00 131 01/16/18 19:30 131 36 45 01/16/18 19:30 135 35 100/58 100 Mechanical Ventilator 40 01/16/18 19:00 136 35 86/46 100 Mechanical Ventilator 40 01/16/18 19:00 86/46 01/16/18 19:00 86/46 01/16/18 18:44 107/48 01/16/18 17:50 73/41 01/16/18 16:54 124 33 45 01/16/18 16:00 75/39 01/16/18 16:00 45 01/16/18 16:00 118 01/16/18 15:38 68/39 01/16/18 15:26 109 33 45 01/16/18 15:26 84/40 01/16/18 15:00 84/40 18 15:00 84/40 01/16/18 14:00 85/43 01/16/18 14:00 85/43 01/16/18 13:04 83/40 01/16/18 13:00 87/42 01/16/18 13:00 87/42 01/16/18 12:31 111 32 45 01/16/18 12:00 45 01/16/18 12:00 79/47 01/16/18 12:00 79/47 01/16/18 12:00 118 01/16/18 11:33 107 35 45 01/16/18 11:02 45/20 01/16/18 11:00 66/36 01/16/18 10:19 105 38 45 01/16/18 10:00 75/41 01/16/18 09:11 98/54 Intake and Output 01/16/18 01/17/18 19:00 07:00 Intake Total 1411.971 ml 4998.093 ml Output Total 233 ml 0 ml Balance 1178.971 ml 4998.093 ml Intake IV Total 1411.971 ml 4998.093 ml Output Urine Total 233 ml 0 ml General Appearance: no acute distress HEENT: normocephalic Respiratory/Chest: chest wall non-tender, lungs clear Cardiovascular: normal peripheral pulses, normal rate Abdomen: normal bowel sounds Microbiology Date/Time Source Procedure Growth Status 01/15/18 21:28 Blood Blood Culture - Preliminary NO GROWTH AFTER 24 HOURS Resulted 01/15/18 21:15 Blood Blood Culture - Preliminary NO GROWTH AFTER 24 HOURS Resulted Laboratory Tests 01/16/18 08:30: Sodium Level 125#L, Potassium Level 2.2*L, Chloride Level 93L, Carbon Dioxide Level 12L, Anion Gap 20H, Blood Urea Nitrogen 71H, Creatinine 4.9H, Estimat Glomerular Filtration Rate 12.9, Glucose Level 630#*H, Hemoglobin A1c 13.1H, Calcium Level 7.1L, Phosphorus Level 1.2L, Magnesium Level 2.7H, Triglycerides Level 836H 01/16/18 10:40: Arterial Blood pH 7.230*L, Arterial Blood Partial Pressure CO2 22.8*L, Arterial Blood Partial Pressure O2 169.4H, Arterial Blood HCO3 9.3L, Arterial Blood Oxygen Saturation 98.5H, Arterial Blood Base Excess -16.2, Harsha Test Positive 01/16/18 11:20: White Blood Count 8.2#, Red Blood Count 4.14L, Hemoglobin 12.9L, Hematocrit 35.3L, Mean Corpuscular Volume 85, Mean Corpuscular Hemoglobin 31.2H, Mean Corpuscular Hemoglobin Concent 36.7H, Red Cell Distribution Width 9.7L, Platelet Count 81L, Mean Platelet Volume 9.4, Neutrophils (%) (Auto) , Lymphocytes (%) (Auto) , Monocytes (%) (Auto) , Eosinophils (%) (Auto) , Basophils (%) (Auto) , Differential Total Cells Counted 100, Neutrophils % ( Manual) 68, Lymphocytes % (Manual) 13L, Monocytes % (Manual) 7, Eosinophils % ( Manual) 0, Basophils % (Manual) 0, Band Neutrophils 12H, Platelet Estimate DecreasedL, Platelet Morphology Normal, Red Blood Cell Morphology Normal, Prothrombin Time 10.5, Prothromb Time International Ratio 1.0, Activated Partial Thromboplast Time 25 01/16/18 16:00: Sodium Level 131L, Potassium Level 2.5*L, Chloride Level 100, Carbon Dioxide Level 8*L, Anion Gap 23H, Blood Urea Nitrogen 69H, Creatinine 5.6H, Estimat Glomerular Filtration Rate 11.1, Glucose Level 288#H, Calcium Level 6.7L, Phosphorus Level 0.6*L, Magnesium Level 2.0, White Blood Count 15.4#H, Red Blood Count 4.17L, Hemoglobin 12.9L, Hematocrit 34.4L, Mean Corpuscular Volume 82, Mean Corpuscular Hemoglobin 30.9, Mean Corpuscular Hemoglobin Concent 37.5H , Red Cell Distribution Width 9.9L, Platelet Count 83L, Mean Platelet Volume 9.0 , Neutrophils (%) (Auto) , Lymphocytes (%) (Auto) , Monocytes (%) (Auto) , Eosinophils (%) (Auto) , Basophils (%) (Auto) , Differential Total Cells Counted 100, Neutrophils % (Manual) 57, Lymphocytes % (Manual) 10L, Monocytes % (Manual) 9, Eosinophils % (Manual) 0, Basophils % (Manual) 0, Band Neutrophils 24H, Platelet Estimate DecreasedL, Platelet Morphology Normal, Red Blood Cell Morphology Normal, Lactic Acid Level 6.70H, Uric Acid 12.9H, Total Bilirubin 0.7 , Gamma Glutamyl Transpeptidase 289H, Aspartate Amino Transf (AST/SGOT) 79H, Alanine Aminotransferase (ALT/SGPT) 11L, Alkaline Phosphatase 103, Total Creatine Kinase 3401H, C-Reactive Protein, Quantitative 22.8H, Pro-B-Type Natriuretic Peptide 5311H, Total Protein 4.9L, Albumin 2.1L, Globulin 2.8, Albumin/Globulin Ratio 0.7L 01/16/18 18:18: Arterial Blood pH 7.177*L, Arterial Blood Partial Pressure CO2 23.5*L, Arterial Blood Partial Pressure O2 97.2, Arterial Blood HCO3 8.5L, Arterial Blood Oxygen Saturation 97.1, Arterial Blood Base Excess -18.1, Harsha Test Positive 01/16/18 19:20: Lactic Acid Level 5.60H Current Medications Medications (Trade) Dose Ordered Sig/Alana Route PRN Reason Start Time Stop Time Status Last Admin Dose Admin Acetaminophen (Tylenol) 500 mg Q6HR PRN NG Fever/Headache/Mild Pain 01/16/18 23:15 02/15/18 23:14 01/17/18 00:31 Chlorhexidine Gluconate (Марина-Hex 2%) 1 applic DAILY@2000 TOPIC 01/17/18 20:00 02/16/18 19:59 Dextrose (Dextrose 50%) 25 ml PRN PRN IV HYPOGLYCEMIA 01/16/18 14:30 02/15/18 14:29 Dextrose (Dextrose 50%) 50 ml PRN PRN IV HYPOGLYCEMIA 01/16/18 14:30 02/15/18 14:29 Dopamine HCl/ Dextrose 250 ml @ 0 mls/hr Q24H IV 01/16/18 08:45 02/15/18 08:44 01/17/18 06:47 Fluconazole/ Sodium Chloride 100 ml @ 100 mls/hr Q24H IV 01/17/18 00:00 01/24/18 00:00 01/17/18 00:20 Heparin Sodium (Porcine) (Heparin 5000 units/ml) 5,000 units EVERY 12 HOURS SUBQ 01/16/18 09:00 02/15/18 08:59 01/16/18 09:17 Hydrocortisone (Solu-CORTEF) 50 mg EVERY 6 HOURS IV 01/16/18 12:00 02/15/18 11:59 01/17/18 05:56 Insulin Human Regular (NovoLIN R) 5 units PRN PRN IV BS 200-299 01/16/18 14:30 02/15/18 14:29 01/17/18 03:56 Insulin Human Regular (NovoLIN R) 10 units PRN PRN IV BS=>300 01/16/18 14:30 02/15/18 14:29 01/16/18 16:14 Insulin Human Regular 100 units/ Sodium Chloride 101 ml @ 0 mls/hr Q24H IV 01/16/18 15:00 02/15/18 14:59 01/17/18 00:53 Linezolid 300 ml @ 300 mls/hr Q12HR IVPB 01/16/18 13:00 01/23/18 12:59 01/16/18 20:58 Lorazepam (Ativan 2mg/ml 1ml) 1 mg Q2H PRN IV For Anxiety 01/16/18 08:30 01/23/18 08:29 Meropenem 500 mg/ Sodium Chloride 55 ml @ 110 mls/hr Q24H IVPB 01/17/18 22:00 01/22/18 21:59 Miscellaneous Medication (Insulin Rate Change) 1 ea PRN PRN MISC Hyperglycemia 01/16/18 14:30 02/15/18 14:29 01/16/18 18:00 Morphine Sulfate (Morphine Sulfate) 2 mg Q2H PRN IVP For Pain 01/16/18 09:05 01/23/18 09:04 Norepinephrine Bitartrate 16 mg/ Sodium Chloride 566 ml @ 0 mls/hr Q24H IV 01/16/18 21:00 02/15/18 20:59 01/17/18 05:57 Pantoprazole (Protonix) 40 mg Q12HR IVP 01/16/18 21:00 02/15/18 08:59 01/16/18 20:58 Sodium Bicarbonate 100 ml/Dextrose 1,100 ml @ 50 mls/hr Q22H IV 01/16/18 15:30 02/15/18 15:29 01/16/18 15:36 Sodium Chloride 1,000 ml @ 100 mls/hr Q10H IV 01/16/18 15:30 02/15/18 15:29 01/17/18 01:50 Matt Kessler MD January 17, 2018 08:20
[2018-01-17] MEDS: Insulin Rate Change 1 Each MISC PRN ×8 (08:44→18:10)
[2018-01-17 08:50] LABS: HEMATOCRIT 36.6 % (42.0-52.0); MEAN CORPUSCULAR VOLUME 84 FL (80-99); PLATELET COUNT 68 K/UL (150-450); RED BLOOD COUNT 4.35 M/UL (4.70-6.10); RED CELL DISTRIBUTION WIDTH 10.3 % (11.6-14.8)
[2018-01-17 08:57] LABS: HEMOGLOBIN 13.4 G/DL (14.2-18.0)
[2018-01-17] MEDS: Heparin 5000 units/ml inj SUBQ SCH (09:00)
[2018-01-17] MEDS: Pantoprazole Inj IVP SCH ×2 (09:20→20:29)
--- NOTE | 2018-01-17 09:26 | Diagnostic Imaging Report ---
Indication: Shortness of breath Technique: One view of the chest Comparison: 01/15/2018 Findings: Interim nasogastric intubation, nasogastric tube tip projected at the level of the gastric antrum. Stable satisfactory position of endotracheal tube. Right infrahilar atelectatic changes are again demonstrated. The heart size is normal. Impression: Right infrahilar atelectasis. No acute process otherwise Satisfactory nasogastric intubation Other stable findings as described
--- NOTE | 2018-01-17 09:27 | Diagnostic Imaging Report ---
Indication: Post nasogastric tube placement Technique: Supine view of the upper abdomen Comparison: none Findings: There is a nasogastric tube in place. On the initial image, this is coiled in the gastric fundus. On subsequent image, it has been advanced, tip at the level gastric body antrum junction. The bowel gas pattern is grossly unremarkable. Impression: Satisfactory nasogastric intubation
[2018-01-17 09:46] LABS: ALANINE AMINOTRANSFERASE 42 U/L (12-78); ALBUMIN 1.9 G/DL (3.4-5.0); ALBUMIN/GLOBULIN RATIO 0.6 (1.0-2.7); ALKALINE PHOSPHATASE 116 U/L (46-116); ANION GAP 22 mmol/L (5-15); ASPARTATE AMINO TRANSFERASE 171 U/L (15-37); BILIRUBIN,TOTAL 1.2 MG/DL (0.2-1.0); BLOOD UREA NITROGEN 69 mg/dL (7-18); CARBON DIOXIDE 11 MMOL/L (21-32); CHLORIDE 97 MMOL/L (98-107); CREATININE 6.3 MG/DL (0.55-1.30); GAMMA GLUTAMYL TRANSPEPTIDASE 399 U/L (5-85); PHOSPHORUS 6.1 MG/DL (2.5-4.9); POTASSIUM 3.2 MMOL/L (3.5-5.1); SODIUM 130 MMOL/L (136-145)
[2018-01-17 09:49] LABS: CALCIUM 5.8 MG/DL (8.5-10.1)
[2018-01-17 10:11] LABS: BILIRUBIN,DIRECT 0.7 MG/DL (0.0-0.3)
[2018-01-17] MEDS ORDERED: Sodium Citrate 30ml NG ONE (10:15)
--- NOTE | 2018-01-17 10:21 | Nephrology Progress Note ---
Assessment/Plan Problem List: (1) Septic shock (2) DKA (diabetic ketoacidoses) (3) Acute renal failure (ARF) Assessment acute renal failure- Hypotensive on pressors acute respiratory failure Diabetic Ketoacidosis Low Na, Low K Sepsis Plan Pressors- Insulin drip NS HD trial discussed with RN per orders Subjective ROS Limited/Unobtainable: Yes Objective Objective Last 24 Hour Vital Signs Date Time Temp Pulse Resp B/P (MAP) Pulse Ox O2 Delivery O2 Flow Rate FiO2 01/17/18 09:56 98/50 01/17/18 09:12 107 33 45 01/17/18 07:30 102 34 94/55 94 Mechanical Ventilator 40 01/17/18 07:05 102 35 45 01/17/18 07:00 84/54 01/17/18 07:00 84/54 01/17/18 07:00 100 33 84/54 98 Mechanical Ventilator 40 01/17/18 06:47 84/34 01/17/18 06:30 100 33 83/48 97 Mechanical Ventilator 40 01/17/18 06:00 98.4 98 33 80/44 100 Mechanical Ventilator 40 98.4 01/17/18 06:00 85/43 01/17/18 06:00 85/43 01/17/18 05:57 86/49 01/17/18 05:30 98 33 88/48 100 Mechanical Ventilator 40 01/17/18 05:00 91/43 01/17/18 05:00 91/43 01/17/18 05:00 99 34 91/43 100 Mechanical Ventilator 40 01/17/18 04:52 100 35 45 01/17/18 04:30 100 34 81/26 100 Mechanical Ventilator 40 01/17/18 04:00 102 01/17/18 04:00 99.0 104 34 90/52 100 Mechanical Ventilator 40 99.0 01/17/18 04:00 45 01/17/18 04:00 90/52 01/17/18 04:00 90/52 01/17/18 03:52 90/52 01/17/18 03:52 90/52 01/17/18 03:30 106 34 90/52 100 Mechanical Ventilator 40 01/17/18 03:30 104 36 45 01/17/18 03:00 85/52 01/17/18 03:00 85/52 01/17/18 03:00 100.5 108 35 85/52 100 Mechanical Ventilator 40 100.5 01/17/18 02:30 110 35 103/49 100 Mechanical Ventilator 40 01/17/18 02:00 101.0 114 35 97/59 100 Mechanical Ventilator 40 101.0 01/17/18 02:00 97/59 01/17/18 02:00 97/59 01/17/18 01:30 116 35 97/60 100 Mechanical Ventilator 40 01/17/18 01:30 112 36 45 01/17/18 01:26 102.3 01/17/18 01:00 102.6 119 38 104/55 100 Mechanical Ventilator 40 102.6 01/17/18 01:00 104/55 01/17/18 01:00 104/55 01/17/18 01:00 104/55 01/17/18 01:00 104/55 01/17/18 00:51 86/52 01/17/18 00:31 103.8 01/17/18 00:30 123 39 97/58 100 Mechanical Ventilator 40 01/17/18 00:00 45 01/17/18 00:00 128 01/17/18 00:00 103.0 127 39 94/58 100 Mechanical Ventilator 40 103.0 01/17/18 00:00 94/58 01/17/18 00:00 94/58 01/16/18 23:30 131 39 45 01/16/18 23:30 130 38 94/51 100 Mechanical Ventilator 40 01/16/18 23:00 104.0 132 38 85/50 100 Mechanical Ventilator 40 104.0 01/16/18 23:00 85/50 01/16/18 23:00 85/50 01/16/18 22:30 104.0 133 38 89/41 100 Mechanical Ventilator 40 104.0 01/16/18 22:00 102.9 133 38 92/47 100 Mechanical Ventilator 40 102.9 01/16/18 22:00 92/47 01/16/18 22:00 92/47 01/16/18 21:30 129 35 93/48 100 Mechanical Ventilator 40 01/16/18 21:02 134 38 45 01/16/18 21:00 101.0 129 35 85/46 100 Mechanical Ventilator 40 101.0 01/16/18 21:00 85/46 01/16/18 21:00 85/46 01/16/18 20:57 85/44 01/16/18 20:30 130 35 85/46 100 Mechanical Ventilator 40 01/16/18 20:00 45 01/16/18 20:00 101.0 131 35 100/53 100 Mechanical Ventilator 40 101.0 01/16/18 20:00 84/46 18 20:00 84/46 18 20:00 131 01/16/18 19:30 131 36 45 01/16/18 19:30 135 35 100/58 100 Mechanical Ventilator 40 01/16/18 19:00 136 35 86/46 100 Mechanical Ventilator 40 01/16/18 19:00 86/46 01/16/18 19:00 86/46 01/16/18 18:44 107/48 01/16/18 17:50 73/41 01/16/18 16:54 124 33 45 01/16/18 16:00 75/39 01/16/18 16:00 45 01/16/18 16:00 118 01/16/18 15:38 68/39 01/16/18 15:26 109 33 45 01/16/18 15:26 84/40 01/16/18 15:00 84/40 01/16/18 15:00 84/40 01/16/18 14:00 85/43 01/16/18 14:00 85/43 01/16/18 13:04 83/40 01/16/18 13:00 87/42 01/16/18 13:00 87/42 01/16/18 12:31 111 32 45 01/16/18 12:00 45 01/16/18 12:00 79/47 01/16/18 12:00 79/47 01/16/18 12:00 118 01/16/18 11:33 107 35 45 01/16/18 11:02 45/20 01/16/18 11:00 66/36 Intake and Output 01/16/18 01/17/18 19:00 07:00 Intake Total 1411.971 ml 4998.093 ml Output Total 233 ml 0 ml Balance 1178.971 ml 4998.093 ml Intake IV Total 1411.971 ml 4998.093 ml Output Urine Total 233 ml 0 ml Laboratory Tests 01/16/18 10:40: Arterial Blood pH 7.230*L, Arterial Blood Partial Pressure CO2 22.8*L, Arterial Blood Partial Pressure O2 169.4H, Arterial Blood HCO3 9.3L, Arterial Blood Oxygen Saturation 98.5H, Arterial Blood Base Excess -16.2, Harsha Test Positive 01/16/18 11:20: White Blood Count 8.2#, Red Blood Count 4.14L, Hemoglobin 12.9L, Hematocrit 35.3L, Mean Corpuscular Volume 85, Mean Corpuscular Hemoglobin 31.2H, Mean Corpuscular Hemoglobin Concent 36.7H, Red Cell Distribution Width 9.7L, Platelet Count 81L, Mean Platelet Volume 9.4, Neutrophils (%) (Auto) , Lymphocytes (%) (Auto) , Monocytes (%) (Auto) , Eosinophils (%) (Auto) , Basophils (%) (Auto) , Differential Total Cells Counted 100, Neutrophils % ( Manual) 68, Lymphocytes % (Manual) 13L, Monocytes % (Manual) 7, Eosinophils % ( Manual) 0, Basophils % (Manual) 0, Band Neutrophils 12H, Platelet Estimate DecreasedL, Platelet Morphology Normal, Red Blood Cell Morphology Normal, Prothrombin Time 10.5, Prothromb Time International Ratio 1.0, Activated Partial Thromboplast Time 25 01/16/18 16:00: White Blood Count 15.4#H, Red Blood Count 4.17L, Hemoglobin 12.9L, Hematocrit 34.4L, Mean Corpuscular Volume 82, Mean Corpuscular Hemoglobin 30.9, Mean Corpuscular Hemoglobin Concent 37.5H, Red Cell Distribution Width 9.9L, Platelet Count 83L, Mean Platelet Volume 9.0, Neutrophils (%) (Auto) , Lymphocytes (%) (Auto) , Monocytes (%) (Auto) , Eosinophils (%) (Auto) , Basophils (%) (Auto) , Differential Total Cells Counted 100, Neutrophils % ( Manual) 57, Lymphocytes % (Manual) 10L, Monocytes % (Manual) 9, Eosinophils % ( Manual) 0, Basophils % (Manual) 0, Band Neutrophils 24H, Platelet Estimate DecreasedL, Platelet Morphology Normal, Red Blood Cell Morphology Normal, Sodium Level 131L, Potassium Level 2.5*L, Chloride Level 100, Carbon Dioxide Level 8*L, Anion Gap 23H, Blood Urea Nitrogen 69H, Creatinine 5.6H, Estimat Glomerular Filtration Rate 11.1, Glucose Level 288#H, Lactic Acid Level 6.70H, Uric Acid 12.9H, Calcium Level 6.7L, Phosphorus Level 0.6*L, Magnesium Level 2.0 , Total Bilirubin 0.7, Gamma Glutamyl Transpeptidase 289H, Aspartate Amino Transf (AST/SGOT) 79H, Alanine Aminotransferase (ALT/SGPT) 11L, Alkaline Phosphatase 103, Total Creatine Kinase 3401H, C-Reactive Protein, Quantitative 22.8H, Pro-B-Type Natriuretic Peptide 5311H, Total Protein 4.9L, Albumin 2.1L, Globulin 2.8, Albumin/Globulin Ratio 0.7L 01/16/18 18:18: Arterial Blood pH 7.177*L, Arterial Blood Partial Pressure CO2 23.5*L, Arterial Blood Partial Pressure O2 97.2, Arterial Blood HCO3 8.5L, Arterial Blood Oxygen Saturation 97.1, Arterial Blood Base Excess -18.1, Harsha Test Positive 01/16/18 19:20: Lactic Acid Level 5.60H 01/17/18 08:40: Lactic Acid Level 4.80H, White Blood Count 22.0H, Red Blood Count 4.35L, Hemoglobin 13.4L, Hematocrit 36.6L, Mean Corpuscular Volume 84, Mean Corpuscular Hemoglobin 31.2H, Mean Corpuscular Hemoglobin Concent 36.6H, Red Cell Distribution Width 10.3L, Platelet Count 68L, Mean Platelet Volume 11.9H, Neutrophils (%) (Auto) , Lymphocytes (%) (Auto) , Monocytes (%) (Auto) , Eosinophils (%) (Auto) , Basophils (%) (Auto) , Neutrophils % (Manual) [Pending] , Lymphocytes % (Manual) [Pending], Platelet Estimate [Pending], Platelet Morphology [Pending], Sodium Level 130L, Potassium Level 3.2L, Chloride Level 97L, Carbon Dioxide Level 11L, Anion Gap 22H, Blood Urea Nitrogen 69H, Creatinine 6.3H, Estimat Glomerular Filtration Rate 9.7, Glucose Level 186#H, Uric Acid 12.1H, Calcium Level 5.8*L, Phosphorus Level 6.1H, Magnesium Level 1.7L, Total Bilirubin 1.2H, Direct Bilirubin 0.7H, Gamma Glutamyl Transpeptidase 399H, Aspartate Amino Transf (AST/SGOT) 171H, Alanine Aminotransferase (ALT/SGPT) 42, Alkaline Phosphatase 116, Troponin I 0.661H, C- Reactive Protein, Quantitative 43.2H, Pro-B-Type Natriuretic Peptide 26685Q, Total Protein 5.2L, Albumin 1.9L, Globulin 3.3, Albumin/Globulin Ratio 0.6L Height (Feet): 5 Height (Inches): 7.00 Weight (Pounds): 264 EENT: other - on vent Cardiovascular: tachycardia Respiratory/Chest: decreased breath sounds Abdomen: distended ALANNA MAHONEY January 17, 2018 10:21
[2018-01-17] MEDS ORDERED: Sodium Citrate 30ml ORAL SCH (10:25)
--- NOTE | 2018-01-17 11:08 | Infectious Diseases Prog Note ---
Assessment/Plan Assessment/Plan A; Septic shock Pancreatitis Acute renal failure Acute respiratory failure DKA Pulmonry edema Psoriasis P: Continue Meropenem, Linezolid Will f/u cultures case was D/W mother in bedside Subjective ROS Limited/Unobtainable: Yes Constitutional: Reports: fever, other - [id number] Cardiovascular: Reports: other - on 2 pressors, on maximal dose Genitourinary: Reports: other - oliguric Allergies: Coded Allergies: No Known Allergies (Unverified , 01/15/18) Objective Vital Signs Last 24 Hour Vital Signs Date Time Temp Pulse Resp B/P (MAP) Pulse Ox O2 Delivery O2 Flow Rate FiO2 01/17/18 09:56 98/50 01/17/18 09:12 107 33 45 01/17/18 07:30 102 34 94/55 94 Mechanical Ventilator 40 01/17/18 07:05 102 35 45 01/17/18 07:00 84/54 01/17/18 07:00 84/54 01/17/18 07:00 100 33 84/54 98 Mechanical Ventilator 40 01/17/18 06:47 84/34 01/17/18 06:30 100 33 83/48 97 Mechanical Ventilator 40 01/17/18 06:00 98.4 98 33 80/44 100 Mechanical Ventilator 40 98.4 01/17/18 06:00 85/43 01/17/18 06:00 85/43 01/17/18 05:57 86/49 01/17/18 05:30 98 33 88/48 100 Mechanical Ventilator 40 01/17/18 05:00 91/43 01/17/18 05:00 91/43 01/17/18 05:00 99 34 91/43 100 Mechanical Ventilator 40 01/17/18 04:52 100 35 45 01/17/18 04:30 100 34 81/26 100 Mechanical Ventilator 40 01/17/18 04:00 102 01/17/18 04:00 99.0 104 34 90/52 100 Mechanical Ventilator 40 99.0 01/17/18 04:00 45 01/17/18 04:00 90/52 01/17/18 04:00 90/52 01/17/18 03:52 90/52 01/17/18 03:52 90/52 01/17/18 03:30 106 34 90/52 100 Mechanical Ventilator 40 01/17/18 03:30 104 36 45 01/17/18 03:00 85/52 01/17/18 03:00 85/52 01/17/18 03:00 100.5 108 35 85/52 100 Mechanical Ventilator 40 100.5 01/17/18 02:30 110 35 103/49 100 Mechanical Ventilator 40 01/17/18 02:00 101.0 114 35 97/59 100 Mechanical Ventilator 40 101.0 01/17/18 02:00 97/59 01/17/18 02:00 97/59 01/17/18 01:30 116 35 97/60 100 Mechanical Ventilator 40 01/17/18 01:30 112 36 45 01/17/18 01:26 102.3 01/17/18 01:00 102.6 119 38 104/55 100 Mechanical Ventilator 40 102.6 01/17/18 01:00 104/55 01/17/18 01:00 104/55 01/17/18 01:00 104/55 01/17/18 01:00 104/55 01/17/18 00:51 86/52 01/17/18 00:31 103.8 01/17/18 00:30 123 39 97/58 100 Mechanical Ventilator 40 01/17/18 00:00 45 01/17/18 00:00 128 01/17/18 00:00 103.0 127 39 94/58 100 Mechanical Ventilator 40 103.0 01/17/18 00:00 94/58 01/17/18 00:00 94/58 01/16/18 23:30 131 39 45 01/16/18 23:30 130 38 94/51 100 Mechanical Ventilator 40 01/16/18 23:00 104.0 132 38 85/50 100 Mechanical Ventilator 40 104.0 01/16/18 23:00 85/50 01/16/18 23:00 85/50 01/16/18 22:30 104.0 133 38 89/41 100 Mechanical Ventilator 40 104.0 01/16/18 22:00 102.9 133 38 92/47 100 Mechanical Ventilator 40 102.9 01/16/18 22:00 92/47 01/16/18 22:00 92/47 01/16/18 21:30 129 35 93/48 100 Mechanical Ventilator 40 01/16/18 21:02 134 38 45 5/15/18 21:00 101.0 129 35 85/46 100 Mechanical Ventilator 40 101.0 01/16/18 21:00 85/46 18 21:00 85/46 18 20:57 85/44 18 20:30 130 35 85/46 100 Mechanical Ventilator 40 18 20:00 45 01/16/18 20:00 101.0 131 35 100/53 100 Mechanical Ventilator 40 101.0 01/16/18 20:00 84/46 18 20:00 84/46 18 20:00 131 18 19:30 131 36 45 01/16/18 19:30 135 35 100/58 100 Mechanical Ventilator 40 01/16/18 19:00 136 35 86/46 100 Mechanical Ventilator 40 01/16/18 19:00 86/46 18 19:00 86/46 18 18:44 107/48 01/16/18 17:50 73/41 01/16/18 16:54 124 33 45 01/16/18 16:00 75/39 01/16/18 16:00 45 01/16/18 16:00 118 01/16/18 15:38 68/39 01/16/18 15:26 109 33 45 01/16/18 15:26 84/40 01/16/18 15:00 84/40 01/16/18 15:00 84/40 01/16/18 14:00 85/43 01/16/18 14:00 85/43 01/16/18 13:04 83/40 01/16/18 13:00 87/42 01/16/18 13:00 87/42 01/16/18 12:31 111 32 45 01/16/18 12:00 45 01/16/18 12:00 79/47 01/16/18 12:00 79/47 01/16/18 12:00 118 01/16/18 11:33 107 35 45 01/16/18 11:02 45/20 Height (Feet): 5 Height (Inches): 7.00 Weight (Pounds): 264 General Appearance: other - obese HEENT: other - orally intubated Respiratory/Chest: lungs clear, other - on ventilator Cardiovascular: tachycardia Abdomen: soft, non tender Extremities: no edema, other - cold extremities Skin: rash, other - levido reticularis on both legs Neurologic/Psychiatric: alert, responsive, other - on restraint Microbiology Date/Time Source Procedure Growth Status 01/15/18 21:28 Blood Blood Culture - Preliminary NO GROWTH AFTER 24 HOURS Resulted 01/15/18 21:15 Blood Blood Culture - Preliminary NO GROWTH AFTER 24 HOURS Resulted Laboratory Tests Test 01/16/18 11:20 01/16/18 16:00 01/16/18 18:18 01/16/18 19:20 White Blood Count 8.2 K/UL (4.8-10.8) # 15.4 K/UL (4.8-10.8) #H Red Blood Count 4.14 M/UL (4.70-6.10) L 4.17 M/UL (4.70-6.10) L Hemoglobin 12.9 G/DL (14.2-18.0) L 12.9 G/DL (14.2-18.0) L Hematocrit 35.3 % (42.0-52.0) L 34.4 % (42.0-52.0) L Mean Corpuscular Volume 85 FL (80-99) 82 FL (80-99) Mean Corpuscular Hemoglobin 31.2 PG (27.0-31.0) H 30.9 PG (27.0-31.0) Mean Corpuscular Hemoglobin Concent 36.7 G/DL (32.0-36.0) H 37.5 G/DL (32.0-36.0) H Red Cell Distribution Width 9.7 % (11.6-14.8) L 9.9 % (11.6-14.8) L Platelet Count 81 K/UL (150-450) L 83 K/UL (150-450) L Mean Platelet Volume 9.4 FL (6.5-10.1) 9.0 FL (6.5-10.1) Neutrophils (%) (Auto) % (45.0-75.0) % (45.0-75.0) Lymphocytes (%) (Auto) % (20.0-45.0) % (20.0-45.0) Monocytes (%) (Auto) % (1.0-10.0) % (1.0-10.0) Eosinophils (%) (Auto) % (0.0-3.0) % (0.0-3.0) Basophils (%) (Auto) % (0.0-2.0) % (0.0-2.0) Differential Total Cells Counted 100 100 Neutrophils % (Manual) 68 % (45-75) 57 % (45-75) Lymphocytes % (Manual) 13 % (20-45) L 10 % (20-45) L Monocytes % (Manual) 7 % (1-10) 9 % (1-10) Eosinophils % (Manual) 0 % (0-3) 0 % (0-3) Basophils % (Manual) 0 % (0-2) 0 % (0-2) Band Neutrophils 12 % (0-8) H 24 % (0-8) H Platelet Estimate Decreased L Decreased L Platelet Morphology Normal Normal Red Blood Cell Morphology Normal Normal Prothrombin Time 10.5 SEC (9.30-11.50) Prothromb Time International Ratio 1.0 (0.9-1.1) Activated Partial Thromboplast Time 25 SEC (23-33) Sodium Level 131 MMOL/L (136-145) L Potassium Level 2.5 MMOL/L (3.5-5.1) *L Chloride Level 100 MMOL/L (98-107) Carbon Dioxide Level 8 MMOL/L (21-32) *L Anion Gap 23 mmol/L (5-15) H Blood Urea Nitrogen 69 mg/dL (7-18) H Creatinine 5.6 MG/DL (0.55-1.30) H Estimat Glomerular Filtration Rate 11.1 mL/min (>60) Glucose Level 288 MG/DL (74-106) #H Lactic Acid Level 6.70 mmol/L (0.66-2.22) H 5.60 mmol/L (0.66-2.22) H Uric Acid 12.9 MG/DL (2.6-7.2) H Calcium Level 6.7 MG/DL (8.5-10.1) L Phosphorus Level 0.6 MG/DL (2.5-4.9) *L Magnesium Level 2.0 MG/DL (1.8-2.4) Total Bilirubin 0.7 MG/DL (0.2-1.0) Gamma Glutamyl Transpeptidase 289 U/L (5-85) H Aspartate Amino Transf (AST/SGOT) 79 U/L (15-37) H Alanine Aminotransferase (ALT/SGPT) 11 U/L (12-78) L Alkaline Phosphatase 103 U/L (46-116) Total Creatine Kinase 3401 U/L (26-308) H C-Reactive Protein, Quantitative 22.8 mg/dL (0.00-0.90) H Pro-B-Type Natriuretic Peptide 5311 pg/mL (0-125) H Total Protein 4.9 G/DL (6.4-8.2) L Albumin 2.1 G/DL (3.4-5.0) L Globulin 2.8 g/dL Albumin/Globulin Ratio 0.7 (1.0-2.7) L Arterial Blood pH 7.177 (7.350-7.450) Arterial Blood Partial Pressure CO2 23.5 mmHg (35.0-45.0) *L Arterial Blood Partial Pressure O2 97.2 mmHg (75.0-100.0) Arterial Blood HCO3 8.5 mmol/L (22.0-26.0) L Arterial Blood Oxygen Saturation 97.1 % (92.0-98.0) Arterial Blood Base Excess -18.1 Harsha Test Positive Test 01/17/18 08:40 White Blood Count 22.0 K/UL (4.8-10.8) H Red Blood Count 4.35 M/UL (4.70-6.10) L Hemoglobin 13.4 G/DL (14.2-18.0) L Hematocrit 36.6 % (42.0-52.0) L Mean Corpuscular Volume 84 FL (80-99) Mean Corpuscular Hemoglobin 31.2 PG (27.0-31.0) H Mean Corpuscular Hemoglobin Concent 36.6 G/DL (32.0-36.0) H Red Cell Distribution Width 10.3 % (11.6-14.8) L Platelet Count 68 K/UL (150-450) L Mean Platelet Volume 11.9 FL (6.5-10.1) H Neutrophils (%) (Auto) % (45.0-75.0) Lymphocytes (%) (Auto) % (20.0-45.0) Monocytes (%) (Auto) % (1.0-10.0) Eosinophils (%) (Auto) % (0.0-3.0) Basophils (%) (Auto) % (0.0-2.0) Differential Total Cells Counted 100 Neutrophils % (Manual) 41 % (45-75) L Lymphocytes % (Manual) 8 % (20-45) L Monocytes % (Manual) 9 % (1-10) Eosinophils % (Manual) 0 % (0-3) Basophils % (Manual) 0 % (0-2) Metamyelocytes % 5 % (0-0) H Myelocytes % 1 % (0-0) H Band Neutrophils 36 % (0-8) H Platelet Estimate Decreased L Platelet Morphology Normal Red Blood Cell Morphology Normal Sodium Level 130 MMOL/L (136-145) L Potassium Level 3.2 MMOL/L (3.5-5.1) L Chloride Level 97 MMOL/L (98-107) L Carbon Dioxide Level 11 MMOL/L (21-32) L Anion Gap 22 mmol/L (5-15) H Blood Urea Nitrogen 69 mg/dL (7-18) H Creatinine 6.3 MG/DL (0.55-1.30) H Estimat Glomerular Filtration Rate 9.7 mL/min (>60) Glucose Level 186 MG/DL (74-106) #H Lactic Acid Level 4.80 mmol/L (0.66-2.22) H Uric Acid 12.1 MG/DL (2.6-7.2) H Calcium Level 5.8 MG/DL (8.5-10.1) *L Phosphorus Level 6.1 MG/DL (2.5-4.9) H Magnesium Level 1.7 MG/DL (1.8-2.4) L Total Bilirubin 1.2 MG/DL (0.2-1.0) H Direct Bilirubin 0.7 MG/DL (0.0-0.3) H Gamma Glutamyl Transpeptidase 399 U/L (5-85) H Aspartate Amino Transf (AST/SGOT) 171 U/L (15-37) H Alanine Aminotransferase (ALT/SGPT) 42 U/L (12-78) Alkaline Phosphatase 116 U/L (46-116) Troponin I 0.661 ng/mL (0.000-0.056) C-Reactive Protein, Quantitative 43.2 mg/dL (0.00-0.90) H Pro-B-Type Natriuretic Peptide 17380 pg/mL (0-125) H Total Protein 5.2 G/DL (6.4-8.2) L Albumin 1.9 G/DL (3.4-5.0) L Globulin 3.3 g/dL Albumin/Globulin Ratio 0.6 (1.0-2.7) L Current Medications Medications (Trade) Dose Ordered Sig/Alana Route PRN Reason Start Time Stop Time Status Last Admin Dose Admin Acetaminophen (Tylenol) 500 mg Q6HR PRN NG Fever/Headache/Mild Pain 01/16/18 23:15 02/15/18 23:14 01/17/18 00:31 Calcium Gluconate 2 gm/Sodium Chloride 130 ml @ 130 mls/hr ONCE ONCE IVPB 01/17/18 11:30 01/17/18 12:29 Chlorhexidine Gluconate (Марина-Hex 2%) 1 applic DAILY@2000 TOPIC 01/17/18 20:00 02/16/18 19:59 Dextrose (Dextrose 50%) 25 ml PRN PRN IV HYPOGLYCEMIA 01/16/18 14:30 02/15/18 14:29 Dextrose (Dextrose 50%) 50 ml PRN PRN IV HYPOGLYCEMIA 01/16/18 14:30 02/15/18 14:29 Dopamine HCl/ Dextrose 250 ml @ 0 mls/hr Q24H IV 01/16/18 08:45 02/15/18 08:44 01/17/18 09:56 Fluconazole/ Sodium Chloride 100 ml @ 100 mls/hr Q24H IV 01/17/18 00:00 01/24/18 00:00 01/17/18 00:20 Heparin Sodium (Porcine) (Heparin 5000 units/ml) 5,000 units EVERY 12 HOURS SUBQ 01/16/18 09:00 02/15/18 08:59 01/16/18 09:17 Hydrocortisone (Solu-CORTEF) 50 mg EVERY 6 HOURS IV 01/16/18 12:00 02/15/18 11:59 01/17/18 05:56 Insulin Human Regular (NovoLIN R) 5 units PRN PRN IV BS 200-299 01/16/18 14:30 02/15/18 14:29 01/17/18 03:56 Insulin Human Regular (NovoLIN R) 10 units PRN PRN IV BS=>300 01/16/18 14:30 02/15/18 14:29 01/16/18 16:14 Insulin Human Regular 100 units/ Sodium Chloride 101 ml @ 0 mls/hr Q24H IV 01/16/18 15:00 02/15/18 14:59 01/17/18 00:53 Linezolid 300 ml @ 300 mls/hr Q12HR IVPB 01/16/18 13:00 01/23/18 12:59 01/17/18 10:53 Lorazepam (Ativan 2mg/ml 1ml) 1 mg Q2H PRN IV For Anxiety 01/16/18 08:30 01/23/18 08:29 Magnesium Sulfate 100 ml @ 100 mls/hr ONCE ONCE IVPB 01/17/18 10:30 01/17/18 11:29 01/17/18 10:53 Meropenem 500 mg/ Sodium Chloride 55 ml @ 110 mls/hr Q24H IVPB 01/17/18 22:00 01/22/18 21:59 Miscellaneous Medication (Insulin Rate Change) 1 ea PRN PRN MISC Hyperglycemia 01/16/18 14:30 02/15/18 14:29 01/17/18 10:09 Morphine Sulfate (Morphine Sulfate) 2 mg Q2H PRN IVP For Pain 01/16/18 09:05 01/23/18 09:04 Norepinephrine Bitartrate 16 mg/ Sodium Chloride 566 ml @ 0 mls/hr Q24H IV 01/16/18 21:00 02/15/18 20:59 01/17/18 05:57 Pantoprazole (Protonix) 40 mg Q12HR IVP 01/16/18 21:00 02/15/18 08:59 01/17/18 09:20 Sodium Bicarbonate 100 ml/Dextrose 1,100 ml @ 50 mls/hr Q22H IV 01/16/18 15:30 02/15/18 15:29 01/16/18 15:36 Sodium Chloride 1,000 ml @ 100 mls/hr Q10H IV 01/16/18 15:30 02/15/18 15:29 01/17/18 10:53 Sodium Citrate (Bicitra) 30 ml EVERY 6 HOURS NG 01/17/18 12:00 02/16/18 11:59 Sodium Citrate (Bicitra) 45 ml ONCE ORAL 01/17/18 10:25 02/16/18 10:24 01/17/18 10:53 KIRBY MONTES January 17, 2018 11:08
[2018-01-17] MEDS ORDERED: Calcium Gluconate 10% 2 GM in NS 110 ML IVPB ONE (11:30)
[2018-01-17] MEDS: Sodium Citrate 30ml NG SCH ×3 (12:34→23:50)
[2018-01-17] MEDS: Sodium Bicarbonate 100 ML in D5W 1000ml 1,000 ML IV SCH (12:47)
[2018-01-17] MEDS ORDERED: Calcium Gluconate 10% 2 GM in NS 110 ML IVPB SCH (13:00)
[2018-01-17] MEDS ORDERED: Heparin 5000 units/ml inj SUBQ SCH (13:30)
--- NOTE | 2018-01-17 15:22 | Diagnostic Imaging Report ---
Indication: Interim dialysis catheter placement Technique: One view of the chest Comparison: 6 hours earlier Findings: Interim placement of a left subclavian temporary dialysis catheter, tip which projects at the level of the superior vena cava. No gross pneumothorax. Normal heart size. Endotracheal and nasogastric tubes remain Impression: Satisfactory position of left subclavian temporary dialysis catheter, suitable for use. No radiographically evident complication
--- NOTE | 2018-01-17 17:45 | Consultation ---
DATE OF CONSULTATION: 01/17/2018 ENDOCRINOLOGY CONSULTATION CONSULTING PHYSICIAN: Milton Denis M.D. REFERRING PHYSICIAN: Matt Kessler M.D. REASON OF CONSULTATION: Diabetic ketoacidosis. HISTORY OF PRESENT ILLNESS: The patient is an unfortunate 47-year-old male who presented to the hospital with altered mental status and weakness. The patient has psoriasis, was on Humira, last dose at [facility], and at that time blood pressure was low and he was recommended to
--- NOTE | 2018-01-17 18:27 | Operative Note - PDOC ---
Operative Note Operative Note Date of Operation/Procedure: January 17, 2018 Pre-op Diagnosis: renal insufficiency requiring HD Procedure: left subclavian temp HD catheter insertion Post-op Diagnosis: same as pre-op Surgeon: meenakshi Anesthesia: local Specimen: none Complications: none Condition: stable Estimated Blood Loss: minimal Drains: none Implant(s) used?: No Indications for Procedure 47M requiring HD and needs temporary HD catheter. consent obtained from patient and family. procedure performed at bedside. Description of Procedure patient made comfortable at bedside. left chest wall prepped and draped in standard surgical fashion. left subclavian vein cannulated with finder needle on second pass. wire placed over finder needed. needle removed. skin incision made around wire. dilators used to dilate tract. following this the 13f 15cm temporary hemodialysis catheter was inserted over the wire. wire removed and discarded. ports aspirated and flushed without complication. heparin 1.2cc placed in each port as directed. line sutured in two places using nylon suture. site cleaned and dressings applied. xray performed and line in good positioning. Presley Sosa January 17, 2018 18:27
[2018-01-17] MEDS ORDERED: Dyna-Hex 2% Top Sol 2oz TOPIC SCH (20:00)
[2018-01-17] MEDS: Dyna-Hex 2% Top Sol 2oz TOPIC SCH (20:14)
[2018-01-17] MEDS: Meropenem 500mg/NS 55ml IVPB SCH ×2 (22:05)
[2018-01-17] MEDS ORDERED: Sterile Water Irrig 1000ml IRRIG ONE (22:14)
[2018-01-17] MEDS ORDERED: NS 275ml ONE (22:14)
[2018-01-17] MEDS ORDERED: Tubing IV Secondary IV ONE (22:14)
[2018-01-17] MEDS ORDERED: Sterile Water For Irrig 2000ml IRRIG ONE (22:14)
[2018-01-18] VITALS (54 sets, daily range): BP systolic 55–131; BP diastolic 19–84
[2018-01-18] MEDS: SODIUM CHLORIDE IV SCH ×3 (01:52→19:24)
[2018-01-18] MEDS: NOREPINEPHRINE BITARTRATE IV SCH ×3 (01:52→19:24)
[2018-01-18] MEDS: Hydrocortisone 100mg Inj IV SCH ×3 (05:23→21:46)
[2018-01-18] MEDS: Sodium Citrate 30ml NG SCH ×3 (05:23→18:09)
[2018-01-18 06:20] LABS: HEMATOCRIT 30.4 % (42.0-52.0); HEMOGLOBIN 11.1 G/DL (14.2-18.0); MEAN CORPUSCULAR VOLUME 84 FL (80-99); PLATELET COUNT 40 K/UL (150-450); RED BLOOD COUNT 3.61 M/UL (4.70-6.10); RED CELL DISTRIBUTION WIDTH 10.7 % (11.6-14.8); WHITE BLOOD COUNT 16.6 K/UL (4.8-10.8)
--- NOTE | 2018-01-18 06:51 | General Progress Note ---
Assessment/Plan Problem List: (1) Septic shock ICD Codes: A41.9 - Sepsis, unspecified organism; R65.21 - Severe sepsis with septic shock SNOMED: 71105064 (2) DKA (diabetic ketoacidoses) ICD Codes: E13.10 - Other specified diabetes mellitus with ketoacidosis without coma SNOMED: 720319734, 26245598 (3) Acute renal failure (ARF) ICD Codes: N17.9 - Acute kidney failure, unspecified SNOMED: 85364514 Assessment/Plan am labs pending condition remains critical continue to manage hyperglycemia with insulin gtt Subjective ROS Limited/Unobtainable: Yes Allergies: Coded Allergies: No Known Allergies (Unverified , 01/15/18) Subjective events noted - interval notes reviewed Objective Last 24 Hour Vital Signs Date Time Temp Pulse Resp B/P (MAP) Pulse Ox O2 Delivery O2 Flow Rate FiO2 01/18/18 04:48 115 26 40 01/18/18 04:00 40 01/18/18 03:00 112 30 92/49 100 Mechanical Ventilator 40 01/18/18 02:45 112 31 82/40 100 Mechanical Ventilator 40 01/18/18 02:44 113 31 40 01/18/18 02:30 118 32 91/34 100 Mechanical Ventilator 40 01/18/18 02:15 116 34 81/40 100 Mechanical Ventilator 40 01/18/18 02:00 118 34 82/44 100 Mechanical Ventilator 40 01/18/18 02:00 92/41 01/18/18 02:00 92/41 01/18/18 01:52 100/76 01/18/18 01:45 124 28 102/57 100 Mechanical Ventilator 40 01/18/18 01:30 124 28 102/57 100 Mechanical Ventilator 40 01/18/18 01:29 126 30 40 01/18/18 01:15 123 33 100/59 100 Mechanical Ventilator 40 01/18/18 01:00 122 33 89/47 100 Mechanical Ventilator 40 01/18/18 01:00 89/47 01/18/18 01:00 89/47 01/18/18 00:45 123 34 105/56 100 Mechanical Ventilator 40 01/18/18 00:30 123 33 98/63 100 Mechanical Ventilator 40 01/18/18 00:15 123 34 102/61 100 Mechanical Ventilator 40 01/18/18 00:00 101.0 124 33 102/57 100 Mechanical Ventilator 40 101.0 01/18/18 00:00 40 18 00:00 102/57 18 00:00 102/57 01/17/18 23:45 126 33 105/63 99 Mechanical Ventilator 40 01/17/18 23:30 126 33 105/63 99 Mechanical Ventilator 40 18 23:15 124 33 106/67 99 Mechanical Ventilator 40 01/17/18 23:10 121 34 40 01/17/18 23:00 100.6 119 31 108/58 99 Mechanical Ventilator 40 100.6 01/17/18 23:00 108/58 01/17/18 23:00 108/58 01/17/18 22:52 100.6 01/17/18 22:52 91/52 01/17/18 22:45 119 31 91/52 99 Mechanical Ventilator 40 01/17/18 22:30 120 31 111/61 96 Mechanical Ventilator 40 01/17/18 22:15 121 33 120/40 97 Mechanical Ventilator 40 01/17/18 22:05 100.2 01/17/18 22:00 100.2 120 33 102/61 97 Mechanical Ventilator 40 100.2 01/17/18 22:00 102/61 01/17/18 22:00 102/61 01/17/18 21:45 121 33 106/56 97 Mechanical Ventilator 40 01/17/18 21:30 118 33 111/55 97 Mechanical Ventilator 40 01/17/18 21:15 119 33 157/49 97 Mechanical Ventilator 40 01/17/18 21:04 123 31 40 01/17/18 21:00 119 33 119/63 97 Mechanical Ventilator 40 01/17/18 21:00 119/63 18 21:00 119/63 01/17/18 20:45 118 33 110/54 97 Mechanical Ventilator 40 01/17/18 20:30 117 33 119/58 97 Mechanical Ventilator 40 01/17/18 20:15 116 33 124/65 98 Mechanical Ventilator 40 01/17/18 20:00 99.0 114 31 101/62 98 Mechanical Ventilator 40 99.0 01/17/18 20:00 40 1618 20:00 101/62 18 20:00 101/62 01/17/18 19:31 Mechanical Ventilator 5/16/18 19:30 112 29 106/57 98 Mechanical Ventilator 40 5/16/18 19:15 100/49 5/16/18 19:10 94 29 40 5/16/18 19:00 100/49 5/16/18 19:00 100/49 5/16/18 19:00 107 29 100/49 98 Mechanical Ventilator 40 5/16/18 18:30 110 29 102/59 99 Mechanical Ventilator 45 5/16/18 18:00 108/64 5/16/18 18:00 108/64 5/16/18 18:00 112 29 108/64 93 Mechanical Ventilator 45 5/16/18 17:30 104 29 113/50 93 Mechanical Ventilator 45 5/16/18 17:00 92 29 105/50 94 Mechanical Ventilator 45 5/16/18 17:00 78/65 5/16/18 17:00 78/65 5/16/18 16:40 103 29 45 5/16/18 16:30 98.8 97 28 106/55 92 Mechanical Ventilator 45 98.8 5/16/18 16:05 101 5/16/18 16:00 45 5/16/18 16:00 91/53 5/16/18 16:00 91/53 5/16/18 16:00 99 31 91/53 96 Mechanical Ventilator 45 5/16/18 15:54 91/53 5/16/18 15:30 99 32 92/45 93 Mechanical Ventilator 45 5/16/18 15:27 81/46 5/16/18 15:11 98 33 45 5/16/18 15:10 Mechanical Ventilator 15.0 45 5/16/18 15:00 99 33 101/47 91 Mechanical Ventilator 45 5/16/18 15:00 101/47 5/16/18 14:30 99.9 107 36 100/64 96 Mechanical Ventilator 45 99.9 5/16/18 14:00 105 36 101/55 100 Mechanical Ventilator 45 5/16/18 14:00 101/55 5/16/18 14:00 101/55 5/16/18 13:45 105 35 88/46 97 Mechanical Ventilator 45 5/16/18 13:30 105 36 93/24 97 Mechanical Ventilator 45 5/16/18 13:00 109 37 80/43 94 Mechanical Ventilator 45 5/16/18 13:00 108 34 45 5/16/18 13:00 80/43 5/16/18 13:00 80/43 01/17/18 12:46 93/49 01/17/18 12:30 103 30 91/35 93 Mechanical Ventilator 45 01/17/18 12:05 111 01/17/18 12:00 45 01/17/18 12:00 100.6 111 38 97/36 93 Mechanical Ventilator 45 100.6 01/17/18 12:00 97/36 01/17/18 12:00 97/36 01/17/18 11:40 111 30 45 01/17/18 11:30 112 38 100/52 91 Mechanical Ventilator 45 01/17/18 11:00 112 37 97/58 98 Mechanical Ventilator 45 01/17/18 11:00 97/58 01/17/18 11:00 97/58 01/17/18 10:30 110 37 94/40 96 Mechanical Ventilator 45 01/17/18 10:00 108 35 97/59 98 Mechanical Ventilator 45 01/17/18 10:00 97/59 01/17/18 10:00 97/59 01/17/18 09:56 98/50 01/17/18 09:30 106 37 102/54 100 Mechanical Ventilator 45 01/17/18 09:12 107 33 45 01/17/18 09:00 105 30 85/52 98 Mechanical Ventilator 45 01/17/18 09:00 85/52 01/17/18 09:00 85/52 01/17/18 08:30 104 37 97/47 95 Mechanical Ventilator 45 01/17/18 08:00 92/58 01/17/18 08:00 92/58 01/17/18 08:00 99.0 103 38 92/58 96 Mechanical Ventilator 45 99.0 01/17/18 08:00 103 01/17/18 08:00 45 01/17/18 07:30 102 34 94/55 94 Mechanical Ventilator 40 01/17/18 07:05 102 35 45 01/17/18 07:00 84/54 01/17/18 07:00 84/54 01/17/18 07:00 100 33 84/54 98 Mechanical Ventilator 40 Intake and Output 01/17/18 01/18/18 19:00 07:00 Intake Total 4163.862 ml 2404.157 ml Output Total 20 ml 0 ml Balance 4143.862 ml 2404.157 ml Intake IV Total 4103.862 ml 2404.157 ml Other 60 ml Output Urine Total 20 ml 0 ml Hemodialysis UF 0 ml Laboratory Tests 01/17/18 08:40: White Blood Count 22.0H, Red Blood Count 4.35L, Hemoglobin 13.4L, Hematocrit 36.6L, Mean Corpuscular Volume 84, Mean Corpuscular Hemoglobin 31.2H, Mean Corpuscular Hemoglobin Concent 36.6H, Red Cell Distribution Width 10.3L, Platelet Count 68L, Mean Platelet Volume 11.9H, Neutrophils (%) (Auto) , Lymphocytes (%) (Auto) , Monocytes (%) (Auto) , Eosinophils (%) (Auto) , Basophils (%) (Auto) , Differential Total Cells Counted 100, Neutrophils % ( Manual) 41L, Lymphocytes % (Manual) 8L, Monocytes % (Manual) 9, Eosinophils % ( Manual) 0, Basophils % (Manual) 0, Metamyelocytes % 5H, Myelocytes % 1H, Band Neutrophils 36H, Platelet Estimate DecreasedL, Platelet Morphology Normal, Red Blood Cell Morphology Normal, Sodium Level 130L, Potassium Level 3.2L, Chloride Level 97L, Carbon Dioxide Level 11L, Anion Gap 22H, Blood Urea Nitrogen 69H, Creatinine 6.3H, Estimat Glomerular Filtration Rate 9.7, Glucose Level 186#H, Lactic Acid Level 4.80H, Uric Acid 12.1H, Calcium Level 5.8*L, Phosphorus Level 6.1H, Magnesium Level 1.7L, Total Bilirubin 1.2H, Direct Bilirubin 0.7H, Gamma Glutamyl Transpeptidase 399H, Aspartate Amino Transf (AST/SGOT) 171H, Alanine Aminotransferase (ALT/SGPT) 42, Alkaline Phosphatase 116, Troponin I 0.661H, C- Reactive Protein, Quantitative 43.2H, Pro-B-Type Natriuretic Peptide [id number], Total Protein 5.2L, Albumin 1.9L, Globulin 3.3, Albumin/Globulin Ratio 0.6L 01/18/18 05:15: White Blood Count 16.6H, Red Blood Count 3.61L, Hemoglobin 11.1L, Hematocrit 30.4L, Mean Corpuscular Volume 84, Mean Corpuscular Hemoglobin 30.6, Mean Corpuscular Hemoglobin Concent 36.4H, Red Cell Distribution Width 10.7L, Platelet Count 40L, Mean Platelet Volume 11.6H, Neutrophils (%) (Auto) , Lymphocytes (%) (Auto) , Monocytes (%) (Auto) , Eosinophils (%) (Auto) , Basophils (%) (Auto) , Neutrophils % (Manual) [Pending], Lymphocytes % (Manual) [Pending], Platelet Estimate [Pending], Platelet Morphology [Pending], Sodium Level [Pending], Potassium Level [Pending], Chloride Level [Pending], Carbon Dioxide Level [Pending], Blood Urea Nitrogen [Pending], Creatinine [Pending], Estimat Glomerular Filtration Rate [Pending], Glucose Level [Pending], Calcium Level [Pending] Height (Feet): 5 Height (Inches): 7.00 Weight (Pounds): 286 General Appearance: severe distress Neck: normal alignment Cardiovascular: tachycardia Respiratory/Chest: decreased breath sounds Abdomen: normal bowel sounds Pelvis: normal external exam Edema: 1+ Arm (L), 1+ Arm (R), 1+ Leg (L), 1+ Leg (R), 1+ Pedal (L), 1+ Pedal ( R), 1+ Generalized Objective Item Value Date Time Bedside Blood Glucose 167 mg/dl H 01/18/18 0600 Bedside Blood Glucose 198 mg/dl H 01/18/18 0200 Bedside Blood Glucose 200 mg/dl H 01/17/18 2258 Bedside Blood Glucose 139 mg/dl H 01/17/18 1810 Bedside Blood Glucose 219 mg/dl H 01/17/18 1419 Bedside Blood Glucose 165 mg/dl H 01/17/18 1009 Bedside Blood Glucose 151 mg/dl H 01/17/18 0600 MATTEO VU January 18, 2018 06:51
[2018-01-18 07:05] LABS: ANION GAP 20 mmol/L (5-15); BLOOD UREA NITROGEN 53 mg/dL (7-18); CARBON DIOXIDE 16 MMOL/L (21-32); CHLORIDE 99 MMOL/L (98-107); CREATININE 5.3 MG/DL (0.55-1.30); SODIUM 135 MMOL/L (136-145)
[2018-01-18 07:06] LABS: POTASSIUM 2.6 MMOL/L (3.5-5.1)
[2018-01-18 07:07] LABS: CALCIUM 5.6 MG/DL (8.5-10.1)
[2018-01-18 08:15] LABS: ALANINE AMINOTRANSFERASE 44 U/L (12-78); ALBUMIN 1.6 G/DL (3.4-5.0); ALKALINE PHOSPHATASE 121 U/L (46-116); ASPARTATE AMINO TRANSFERASE 167 U/L (15-37); BILIRUBIN,DIRECT 0.5 MG/DL (0.0-0.3); GAMMA GLUTAMYL TRANSPEPTIDASE 278 U/L (5-85); PHOSPHORUS 4.5 MG/DL (2.5-4.9)
[2018-01-18] MEDS: KCl 20mEq 100ml Premix IVPB SCH ×2 (08:45→11:48)
[2018-01-18] MEDS: Pantoprazole Inj IVP SCH ×2 (08:45→21:45)
[2018-01-18] MEDS: Sodium Bicarbonate 100 ML in D5W 1000ml 1,000 ML IV SCH ×2 (08:46→14:30)
[2018-01-18] MEDS ORDERED: Calcium Gluconate 10% 2 GM in NS 110 ML IVPB SCH (09:00)
[2018-01-18] MEDS ORDERED: Potassium Chloride 40 MEQ in Sodium Chloride 500ML 550 ML IVPB SCH (09:00)
[2018-01-18] MEDS: Insulin Rate Change 1 Each MISC PRN ×9 (09:11→19:17)
--- NOTE | 2018-01-18 09:58 | Pulmonology Progress Note ---
Assessment/Plan Assessment/Plan 1. Respiratory failure. 2. Severe hyponatremia. Improved 3. Hyperglycemia. On insulin gtt 4. Diabetic ketoacidosis. Improved; ph now 7.3 5. Sepsis. on broad spectrum abx; ID following 6. Hypotension. Remains on levo and dopa DISCUSSION: Continue normal saline, IV insulin, broad-spectrum, antibiotics, aggressive IV fluid hydration, central line care, pressors, [place]. Full Code for now. Discussed with all consultants I will decrease steroids S/p HD Has thrombocytopenia; likely drug related Slowly improving Discussed with mother and GF Matt Kessler M.D. Subjective Interval Events: Remains awake and responsive Constitutional: Reports: no symptoms HEENT: Repors: no symptoms Respiratory: Reports: no symptoms Cardiovascular: Reports: no symptoms Gastrointestinal/Abdominal: Reports: no symptoms Genitourinary: Reports: no symptoms Allergies: Coded Allergies: No Known Allergies (Unverified , 01/15/18) Objective Last 24 Hour Vital Signs Date Time Temp Pulse Resp B/P (MAP) Pulse Ox O2 Delivery O2 Flow Rate FiO2 01/18/18 08:34 116 27 40 01/18/18 07:11 112 27 40 01/18/18 07:00 105/49 01/18/18 07:00 105/49 01/18/18 07:00 115 27 98/41 97 Mechanical Ventilator 40 01/18/18 06:30 113 27 105/49 95 Mechanical Ventilator 40 01/18/18 06:00 114 27 95/46 95 Mechanical Ventilator 40 01/18/18 06:00 95/46 01/18/18 06:00 95/46 01/18/18 05:30 113 27 104/46 96 Mechanical Ventilator 40 01/18/18 05:00 114 27 102/49 95 Mechanical Ventilator 40 01/18/18 05:00 102/49 01/18/18 05:00 102/49 01/18/18 04:48 115 26 40 01/18/18 04:30 114 30 98/43 99 Mechanical Ventilator 40 01/18/18 04:00 99.3 114 30 84/35 99 Mechanical Ventilator 40 99.3 01/18/18 04:00 40 5/17/18 04:00 84/45 517/18 04:00 84/35 517/18 04:00 116 01/18/18 03:30 112 30 98/43 99 Mechanical Ventilator 40 517/18 03:00 92/49 517/18 03:00 92/49 17/18 03:00 112 30 92/49 100 Mechanical Ventilator 40 517/18 02:45 112 31 82/40 100 Mechanical Ventilator 40 517/18 02:44 113 31 40 17/18 02:30 118 32 91/34 100 Mechanical Ventilator 40 17/18 02:15 116 34 81/40 100 Mechanical Ventilator 40 17/18 02:00 118 34 82/44 100 Mechanical Ventilator 40 17/18 02:00 92/41 5/18 02:00 92/41 01/18/18 01:52 100/76 01/18/ 01:45 124 28 102/57 100 Mechanical Ventilator 40 01/18/18 01:30 124 28 102/57 100 Mechanical Ventilator 40 01/18/ 01:29 126 30 40 01/18/ 01:15 123 33 100/59 100 Mechanical Ventilator 40 01/18/18 01:00 122 33 89/47 100 Mechanical Ventilator 40 01/18/18 01:00 89/47 18 01:00 89/47 01/18/18 00:45 123 34 105/56 100 Mechanical Ventilator 40 01/18/18 00:30 123 33 98/63 100 Mechanical Ventilator 40 18 00:15 123 34 102/61 100 Mechanical Ventilator 40 18 00:00 101.0 124 33 102/57 100 Mechanical Ventilator 40 101.0 01/18/18 00:00 40 17/18 00:00 102/57 517/18 00:00 102/57 17/18 00:00 122 01/17/18 23:45 126 33 105/63 99 Mechanical Ventilator 40 516/18 23:30 126 33 105/63 99 Mechanical Ventilator 40 5/16/18 23:15 124 33 106/67 99 Mechanical Ventilator 40 516/18 23:10 121 34 40 5/16/18 23:00 100.6 119 31 108/58 99 Mechanical Ventilator 40 100.6 5/16/18 23:00 108/58 516/18 23:00 108/58 16/18 22:52 100.6 516/18 22:52 91/52 518 22:45 119 31 91/52 99 Mechanical Ventilator 40 16/18 22:30 120 31 111/61 96 Mechanical Ventilator 40 16/18 22:15 121 33 120/40 97 Mechanical Ventilator 40 18 22:05 100.2 1618 22:00 100.2 120 33 102/61 97 Mechanical Ventilator 40 100.2 1618 22:00 102/61 16/18 22:00 102/61 01/17/18 21:45 121 33 106/56 97 Mechanical Ventilator 40 01/17/18 21:30 118 33 111/55 97 Mechanical Ventilator 40 16/18 21:15 119 33 157/49 97 Mechanical Ventilator 40 18 21:04 123 31 40 01/17/18 21:00 119 33 119/63 97 Mechanical Ventilator 40 01/17/18 21:00 119/63 516/18 21:00 119/63 01/17/18 20:45 118 33 110/54 97 Mechanical Ventilator 40 01/17/18 20:30 117 33 119/58 97 Mechanical Ventilator 40 01/17/18 20:15 116 33 124/65 98 Mechanical Ventilator 40 01/17/18 20:00 99.0 114 31 101/62 98 Mechanical Ventilator 40 99.0 01/17/18 20:00 40 01/17/18 20:00 101/62 18 20:00 101/62 18 20:00 114 1618 19:31 Mechanical Ventilator 01/17/18 19:30 112 29 106/57 98 Mechanical Ventilator 40 16/18 19:15 100/49 16/18 19:10 94 29 40 16/18 19:00 100/49 16/18 19:00 100/49 16/18 19:00 107 29 100/49 98 Mechanical Ventilator 40 16/18 18:30 110 29 102/59 99 Mechanical Ventilator 45 16/18 18:00 108/64 516/18 18:00 108/64 5/16/18 18:00 112 29 108/64 93 Mechanical Ventilator 45 5/16/18 17:30 104 29 113/50 93 Mechanical Ventilator 45 5/16/18 17:00 92 29 105/50 94 Mechanical Ventilator 45 5/16/18 17:00 78/65 516/18 17:00 78/65 516/18 16:40 103 29 45 /16/18 16:30 98.8 97 28 106/55 92 Mechanical Ventilator 45 98.8 01/17/18 16:05 101 01/17/18 16:00 45 16/18 16:00 91/53 51618 16:00 91/53 16/18 16:00 99 31 91/53 96 Mechanical Ventilator 45 01/17/18 15:54 91/53 18 15:30 99 32 92/45 93 Mechanical Ventilator 45 16/18 15:27 81/46 16/18 15:11 98 33 45 01/17/18 15:10 Mechanical Ventilator 15.0 45 01/17/18 15:00 99 33 101/47 91 Mechanical Ventilator 45 18 15:00 101/47 18 14:30 99.9 107 36 100/64 96 Mechanical Ventilator 45 99.9 01/17/18 14:00 105 36 101/55 100 Mechanical Ventilator 45 01/17/18 14:00 101/55 18 14:00 101/55 01/17/18 13:45 105 35 88/46 97 Mechanical Ventilator 45 01/17/18 13:30 105 36 93/24 97 Mechanical Ventilator 45 01/17/18 13:00 109 37 80/43 94 Mechanical Ventilator 45 1618 13:00 108 34 45 1618 13:00 80/43 51618 13:00 80/43 16/18 12:46 93/49 01/17/18 12:30 103 30 91/35 93 Mechanical Ventilator 45 16 12:05 111 18 12:00 45 1618 12:00 100.6 111 38 97/36 93 Mechanical Ventilator 45 100.6 01/17/18 12:00 97/36 01/17/18 12:00 97/36 01/17/18 11:40 111 30 45 01/17/18 11:30 112 38 100/52 91 Mechanical Ventilator 45 01/17/18 11:00 112 37 97/58 98 Mechanical Ventilator 45 01/17/18 11:00 97/58 01/17/18 11:00 97/58 01/17/18 10:30 110 37 94/40 96 Mechanical Ventilator 45 01/17/18 10:00 108 35 97/59 98 Mechanical Ventilator 45 01/17/18 10:00 97/59 01/17/18 10:00 97/59 01/17/18 09:56 98/50 Intake and Output 01/17/18 01/18/18 19:00 07:00 Intake Total 4163.862 ml 3595.197 ml Output Total 20 ml 0 ml Balance 4143.862 ml 3595.197 ml Intake IV Total 4103.862 ml 3595.197 ml Other 60 ml Output Urine Total 20 ml 0 ml Hemodialysis UF 0 ml General Appearance: no acute distress HEENT: normocephalic Respiratory/Chest: chest wall non-tender, lungs clear Cardiovascular: normal peripheral pulses, normal rate Abdomen: normal bowel sounds Extremities: no cyanosis Skin: no rash Microbiology Date/Time Source Procedure Growth Status 01/15/18 21:28 Blood Blood Culture - Preliminary NO GROWTH AFTER 48 HOURS Resulted 01/15/18 21:15 Blood Blood Culture - Preliminary Resulted 01/15/18 21:20 Rectum VRE Culture - Final Enterococcus Faecalis - Vre Complete Laboratory Tests 01/18/18 05:15: White Blood Count 16.6H, Red Blood Count 3.61L, Hemoglobin 11.1L, Hematocrit 30.4L, Mean Corpuscular Volume 84, Mean Corpuscular Hemoglobin 30.6, Mean Corpuscular Hemoglobin Concent 36.4H, Red Cell Distribution Width 10.7L, Platelet Count 40L, Mean Platelet Volume 11.6H, Neutrophils (%) (Auto) , Lymphocytes (%) (Auto) , Monocytes (%) (Auto) , Eosinophils (%) (Auto) , Basophils (%) (Auto) , Differential Total Cells Counted 100, Neutrophils % ( Manual) 82H, Lymphocytes % (Manual) 3L, Monocytes % (Manual) 4, Eosinophils % ( Manual) 2, Basophils % (Manual) 2, Band Neutrophils 7, Platelet Estimate DecreasedL, Platelet Morphology Normal, Hypochromasia 1+, Anisocytosis 2+, Sodium Level 135L, Potassium Level 2.6*L, Chloride Level 99, Carbon Dioxide Level 16L, Anion Gap 20H, Blood Urea Nitrogen 53H, Creatinine 5.3H, Estimat Glomerular Filtration Rate 11.8, Glucose Level 178H, Calcium Level 5.6*L, Phosphorus Level 4.5, Magnesium Level 1.8, Total Bilirubin 1.0, Direct Bilirubin 0.5H, Gamma Glutamyl Transpeptidase 278H, Aspartate Amino Transf (AST/ SGOT) 167H, Alanine Aminotransferase (ALT/SGPT) 44, Alkaline Phosphatase 121H, Troponin I 0.183H, Total Protein 4.8L, Albumin 1.6L 01/18/18 08:40: Arterial Blood pH 7.303L, Arterial Blood Partial Pressure CO2 31.1L, Arterial Blood Partial Pressure O2 75.6, Arterial Blood HCO3 15.1L, Arterial Blood Oxygen Saturation 94.4, Arterial Blood Base Excess -10.2, Harsha Test Positive Current Medications Medications (Trade) Dose Ordered Sig/Alana Route PRN Reason Start Time Stop Time Status Last Admin Dose Admin Acetaminophen (Tylenol) 500 mg Q6HR PRN NG Fever/Headache/Mild Pain 01/16/18 23:15 02/15/18 23:14 01/17/18 22:05 Calcium Gluconate 2 gm/Sodium Chloride 130 ml @ 65 mls/hr ONCE IVPB 01/18/18 09:00 01/18/18 10:30 01/18/18 08:46 Chlorhexidine Gluconate (Марина-Hex 2%) 1 applic DAILY@2000 TOPIC 01/17/18 20:00 02/16/18 19:59 01/17/18 20:14 Dextrose (Dextrose 50%) 25 ml PRN PRN IV HYPOGLYCEMIA 01/16/18 14:30 02/15/18 14:29 Dextrose (Dextrose 50%) 50 ml PRN PRN IV HYPOGLYCEMIA 01/16/18 14:30 02/15/18 14:29 Dopamine HCl/ Dextrose 250 ml @ 0 mls/hr Q24H IV 01/16/18 08:45 02/15/18 08:44 01/17/18 22:52 Fluconazole/ Sodium Chloride 100 ml @ 100 mls/hr Q24H IV 01/17/18 00:00 01/24/18 00:00 01/17/18 23:50 Hydrocortisone (Solu-CORTEF) 50 mg EVERY 6 HOURS IV 01/16/18 12:00 02/15/18 11:59 01/18/18 05:23 Insulin Human Regular (NovoLIN R) 5 units PRN PRN IV BS 200-299 01/16/18 14:30 02/15/18 14:29 01/17/18 22:58 Insulin Human Regular (NovoLIN R) 10 units PRN PRN IV BS=>300 01/16/18 14:30 02/15/18 14:29 01/16/18 16:14 Insulin Human Regular 100 units/ Sodium Chloride 101 ml @ 0 mls/hr Q24H IV 01/16/18 15:00 02/15/18 14:59 01/18/18 01:51 Linezolid 300 ml @ 300 mls/hr Q12HR IVPB 01/16/18 13:00 01/23/18 12:59 01/17/18 20:29 Lorazepam (Ativan 2mg/ml 1ml) 1 mg Q2H PRN IV For Anxiety 01/16/18 08:30 01/23/18 08:29 Meropenem 500 mg/ Sodium Chloride 55 ml @ 110 mls/hr Q24H IVPB 01/17/18 22:00 01/22/18 21:59 01/17/18 22:05 Miscellaneous Medication (Insulin Rate Change) 1 ea PRN PRN MISC Hyperglycemia 01/16/18 14:30 02/15/18 14:29 01/18/18 09:11 Morphine Sulfate (Morphine Sulfate) 2 mg Q2H PRN IVP For Pain 01/16/18 09:05 01/23/18 09:04 Norepinephrine Bitartrate 16 mg/ Sodium Chloride 566 ml @ 0 mls/hr Q24H IV 01/16/18 21:00 02/15/18 20:59 01/18/18 01:52 Pantoprazole (Protonix) 40 mg Q12HR IVP 01/16/18 21:00 02/15/18 08:59 01/18/18 08:45 Potassium Chloride 100 ml @ 50 mls/hr Q2H IVPB 01/18/18 08:30 01/18/18 12:29 01/18/18 08:45 Sodium Bicarbonate 100 ml/Dextrose 1,100 ml @ 50 mls/hr Q22H IV 01/16/18 15:30 02/15/18 15:29 01/18/18 08:46 Sodium Chloride 1,000 ml @ 100 mls/hr Q10H IV 01/16/18 15:30 02/15/18 15:29 01/18/18 05:23 Sodium Citrate (Bicitra) 30 ml EVERY 6 HOURS NG 01/17/18 12:00 02/16/18 11:59 01/18/18 05:23 Matt Kessler MD January 18, 2018 09:57
--- NOTE | 2018-01-18 10:04 | Infectious Diseases Prog Note ---
Assessment/Plan Assessment/Plan A; Septic shock Bacteremia with GPC VRE colonization Pancreatitis Acute renal failure Acute respiratory failure DKA Pulmonary edema Psoriasis Thrombocytopenia Hypokalemia & Hypocalcemia P: Continue Meropenem, change Linezolid to Vancomycin Will f/u cultures case was D/W mother in bedside Subjective ROS Limited/Unobtainable: Yes Constitutional: Reports: fever, other - [id number] Cardiovascular: Reports: other - on Levophed & Dopamin Genitourinary: Reports: other - started on HD last night Endocrine: Reports: other - on Insulin drip Allergies: Coded Allergies: No Known Allergies (Unverified , 01/15/18) Objective Vital Signs Last 24 Hour Vital Signs Date Time Temp Pulse Resp B/P (MAP) Pulse Ox O2 Delivery O2 Flow Rate FiO2 01/18/18 08:34 116 27 40 01/18/18 07:11 112 27 40 01/18/18 07:00 105/49 01/18/18 07:00 105/49 01/18/18 07:00 115 27 98/41 97 Mechanical Ventilator 40 01/18/18 06:30 113 27 105/49 95 Mechanical Ventilator 40 01/18/18 06:00 114 27 95/46 95 Mechanical Ventilator 40 01/18/18 06:00 95/46 01/18/18 06:00 95/46 01/18/18 05:30 113 27 104/46 96 Mechanical Ventilator 40 01/18/18 05:00 114 27 102/49 95 Mechanical Ventilator 40 01/18/18 05:00 102/49 01/18/18 05:00 102/49 01/18/18 04:48 115 26 40 01/18/18 04:30 114 30 98/43 99 Mechanical Ventilator 40 01/18/18 04:00 99.3 114 30 84/35 99 Mechanical Ventilator 40 99.3 01/18/18 04:00 40 01/18/18 04:00 84/45 01/18/18 04:00 84/35 01/18/18 04:00 116 01/18/18 03:30 112 30 98/43 99 Mechanical Ventilator 40 01/18/18 03:00 92/49 01/18/18 03:00 92/49 01/18/18 03:00 112 30 92/49 100 Mechanical Ventilator 40 01/18/18 02:45 112 31 82/40 100 Mechanical Ventilator 40 5/17/18 02:44 113 31 40 517/18 02:30 118 32 91/34 100 Mechanical Ventilator 40 517/18 02:15 116 34 81/40 100 Mechanical Ventilator 40 17/18 02:00 118 34 82/44 100 Mechanical Ventilator 40 17/18 02:00 92/41 01/18/18 02:00 92/41 01/18/18 01:52 100/76 01/18/18 01:45 124 28 102/57 100 Mechanical Ventilator 40 01/18/18 01:30 124 28 102/57 100 Mechanical Ventilator 40 01/18/18 01:29 126 30 40 01/18/18 01:15 123 33 100/59 100 Mechanical Ventilator 40 01/18/ 01:00 122 33 89/47 100 Mechanical Ventilator 40 01/18/ 01:00 89/47 18 01:00 89/47 01/18/18 00:45 123 34 105/56 100 Mechanical Ventilator 40 01/18/18 00:30 123 33 98/63 100 Mechanical Ventilator 40 01/18/18 00:15 123 34 102/61 100 Mechanical Ventilator 40 01/18/18 00:00 101.0 124 33 102/57 100 Mechanical Ventilator 40 101.0 01/18/18 00:00 40 01/18/18 00:00 102/57 18 00:00 102/57 01/18/18 00:00 122 01/17/18 23:45 126 33 105/63 99 Mechanical Ventilator 40 01/17/18 23:30 126 33 105/63 99 Mechanical Ventilator 40 01/17/18 23:15 124 33 106/67 99 Mechanical Ventilator 40 01/17/18 23:10 121 34 40 16/18 23:00 100.6 119 31 108/58 99 Mechanical Ventilator 40 100.6 16/18 23:00 108/58 516/18 23:00 108/58 16/18 22:52 100.6 16/18 22:52 91/52 16/18 22:45 119 31 91/52 99 Mechanical Ventilator 40 16/18 22:30 120 31 111/61 96 Mechanical Ventilator 40 16/18 22:15 121 33 120/40 97 Mechanical Ventilator 40 16/18 22:05 100.2 5/16/18 22:00 100.2 120 33 102/61 97 Mechanical Ventilator 40 100.2 16/18 22:00 102/61 516/18 22:00 102/61 16/18 21:45 121 33 106/56 97 Mechanical Ventilator 40 5/16/18 21:30 118 33 111/55 97 Mechanical Ventilator 40 5/16/18 21:15 119 33 157/49 97 Mechanical Ventilator 40 16/18 21:04 123 31 40 16/18 21:00 119 33 119/63 97 Mechanical Ventilator 40 16/18 21:00 119/63 516/18 21:00 119/63 16/18 20:45 118 33 110/54 97 Mechanical Ventilator 40 16/18 20:30 117 33 119/58 97 Mechanical Ventilator 40 16/18 20:15 116 33 124/65 98 Mechanical Ventilator 40 16/18 20:00 99.0 114 31 101/62 98 Mechanical Ventilator 40 99.0 01/17/18 20:00 40 16/18 20:00 101/62 516/18 20:00 101/62 16/18 20:00 114 16/18 19:31 Mechanical Ventilator 18 19:30 112 29 106/57 98 Mechanical Ventilator 40 16/18 19:15 100/49 16/18 19:10 94 29 40 16/18 19:00 100/49 516/18 19:00 100/49 16/18 19:00 107 29 100/49 98 Mechanical Ventilator 40 16/18 18:30 110 29 102/59 99 Mechanical Ventilator 45 5/16/18 18:00 108/64 516/18 18:00 108/64 5/16/18 18:00 112 29 108/64 93 Mechanical Ventilator 45 5/16/18 17:30 104 29 113/50 93 Mechanical Ventilator 45 5/16/18 17:00 92 29 105/50 94 Mechanical Ventilator 45 5/16/18 17:00 78/65 516/18 17:00 78/65 5/16/18 16:40 103 29 45 5/16/18 16:30 98.8 97 28 106/55 92 Mechanical Ventilator 45 98.8 5/16/18 16:05 101 5/16/18 16:00 45 5/16/18 16:00 91/53 5/16/18 16:00 91/53 5/16/18 16:00 99 31 91/53 96 Mechanical Ventilator 45 5/16/18 15:54 91/53 5/16/18 15:30 99 32 92/45 93 Mechanical Ventilator 45 5/16/18 15:27 81/46 5/16/18 15:11 98 33 45 5/16/18 15:10 Mechanical Ventilator 15.0 45 5/16/18 15:00 99 33 101/47 91 Mechanical Ventilator 45 5/16/18 15:00 101/47 5/16/18 14:30 99.9 107 36 100/64 96 Mechanical Ventilator 45 99.9 1618 14:00 105 36 101/55 100 Mechanical Ventilator 45 /16/18 14:00 101/55 16/18 14:00 101/55 01/17/18 13:45 105 35 88/46 97 Mechanical Ventilator 45 16/18 13:30 105 36 93/24 97 Mechanical Ventilator 45 16/18 13:00 109 37 80/43 94 Mechanical Ventilator 45 16/18 13:00 108 34 45 5/16/18 13:00 80/43 5/16/18 13:00 80/43 5/16/18 12:46 93/49 16/18 12:30 103 30 91/35 93 Mechanical Ventilator 45 5/16/18 12:05 111 /16/18 12:00 45 16/18 12:00 100.6 111 38 97/36 93 Mechanical Ventilator 45 100.6 16/18 12:00 97/36 5/16/18 12:00 97/36 516/18 11:40 111 30 45 /16/18 11:30 112 38 100/52 91 Mechanical Ventilator 45 5/16/18 11:00 112 37 97/58 98 Mechanical Ventilator 45 5/16/18 11:00 97/58 516/18 11:00 97/58 16/18 10:30 110 37 94/40 96 Mechanical Ventilator 45 5/16/18 10:00 108 35 97/59 98 Mechanical Ventilator 45 5/16/18 10:00 97/59 5/16/18 10:00 97/59 Height (Feet): 5 Height (Inches): 7.00 Weight (Pounds): 286 HEENT: other - orally intubated Respiratory/Chest: lungs clear, other - on ventilator Cardiovascular: tachycardia, other - left subclavian HD catheter Abdomen: soft, non tender, other - NG tube Extremities: no edema Skin: rash, other - Levido reticularis Microbiology Date/Time Source Procedure Growth Status 01/15/18 21:28 Blood Blood Culture - Preliminary NO GROWTH AFTER 48 HOURS Resulted 01/15/18 21:15 Blood Blood Culture - Preliminary Resulted 01/15/18 21:20 Rectum VRE Culture - Final Enterococcus Faecalis - Vre Complete Laboratory Tests Test 01/18/18 05:15 01/18/18 08:40 White Blood Count 16.6 K/UL (4.8-10.8) H Red Blood Count 3.61 M/UL (4.70-6.10) L Hemoglobin 11.1 G/DL (14.2-18.0) L Hematocrit 30.4 % (42.0-52.0) L Mean Corpuscular Volume 84 FL (80-99) Mean Corpuscular Hemoglobin 30.6 PG (27.0-31.0) Mean Corpuscular Hemoglobin Concent 36.4 G/DL (32.0-36.0) H Red Cell Distribution Width 10.7 % (11.6-14.8) L Platelet Count 40 K/UL (150-450) L Mean Platelet Volume 11.6 FL (6.5-10.1) H Neutrophils (%) (Auto) % (45.0-75.0) Lymphocytes (%) (Auto) % (20.0-45.0) Monocytes (%) (Auto) % (1.0-10.0) Eosinophils (%) (Auto) % (0.0-3.0) Basophils (%) (Auto) % (0.0-2.0) Differential Total Cells Counted 100 Neutrophils % (Manual) 82 % (45-75) H Lymphocytes % (Manual) 3 % (20-45) L Monocytes % (Manual) 4 % (1-10) Eosinophils % (Manual) 2 % (0-3) Basophils % (Manual) 2 % (0-2) Band Neutrophils 7 % (0-8) Platelet Estimate Decreased L Platelet Morphology Normal Hypochromasia 1+ Anisocytosis 2+ Sodium Level 135 MMOL/L (136-145) L Potassium Level 2.6 MMOL/L (3.5-5.1) *L Chloride Level 99 MMOL/L (98-107) Carbon Dioxide Level 16 MMOL/L (21-32) L Anion Gap 20 mmol/L (5-15) H Blood Urea Nitrogen 53 mg/dL (7-18) H Creatinine 5.3 MG/DL (0.55-1.30) H Estimat Glomerular Filtration Rate 11.8 mL/min (>60) Glucose Level 178 MG/DL (74-106) H Calcium Level 5.6 MG/DL (8.5-10.1) *L Phosphorus Level 4.5 MG/DL (2.5-4.9) Magnesium Level 1.8 MG/DL (1.8-2.4) Total Bilirubin 1.0 MG/DL (0.2-1.0) Direct Bilirubin 0.5 MG/DL (0.0-0.3) H Gamma Glutamyl Transpeptidase 278 U/L (5-85) H Aspartate Amino Transf (AST/SGOT) 167 U/L (15-37) H Alanine Aminotransferase (ALT/SGPT) 44 U/L (12-78) Alkaline Phosphatase 121 U/L (46-116) H Troponin I 0.183 ng/mL (0.000-0.056) Total Protein 4.8 G/DL (6.4-8.2) L Albumin 1.6 G/DL (3.4-5.0) L Arterial Blood pH 7.303 (7.350-7.450) Arterial Blood Partial Pressure CO2 31.1 mmHg (35.0-45.0) L Arterial Blood Partial Pressure O2 75.6 mmHg (75.0-100.0) Arterial Blood HCO3 15.1 mmol/L (22.0-26.0) L Arterial Blood Oxygen Saturation 94.4 % (92.0-98.0) Arterial Blood Base Excess -10.2 Harsha Test Positive Current Medications Medications (Trade) Dose Ordered Sig/Alana Route PRN Reason Start Time Stop Time Status Last Admin Dose Admin Acetaminophen (Tylenol) 500 mg Q6HR PRN NG Fever/Headache/Mild Pain 01/16/18 23:15 02/15/18 23:14 01/17/18 22:05 Calcium Gluconate 2 gm/Sodium Chloride 130 ml @ 65 mls/hr ONCE IVPB 01/18/18 09:00 01/18/18 10:30 01/18/18 08:46 Chlorhexidine Gluconate (Марина-Hex 2%) 1 applic DAILY@2000 TOPIC 01/17/18 20:00 02/16/18 19:59 01/17/18 20:14 Dextrose (Dextrose 50%) 25 ml PRN PRN IV HYPOGLYCEMIA 01/16/18 14:30 02/15/18 14:29 Dextrose (Dextrose 50%) 50 ml PRN PRN IV HYPOGLYCEMIA 01/16/18 14:30 02/15/18 14:29 Dopamine HCl/ Dextrose 250 ml @ 0 mls/hr Q24H IV 01/16/18 08:45 02/15/18 08:44 01/17/18 22:52 Fluconazole/ Sodium Chloride 100 ml @ 100 mls/hr Q24H IV 01/17/18 00:00 01/24/18 00:00 01/17/18 23:50 Hydrocortisone (Solu-CORTEF) 50 mg EVERY 6 HOURS IV 01/16/18 12:00 02/15/18 11:59 01/18/18 05:23 Insulin Human Regular (NovoLIN R) 5 units PRN PRN IV BS 200-299 01/16/18 14:30 02/15/18 14:29 01/17/18 22:58 Insulin Human Regular (NovoLIN R) 10 units PRN PRN IV BS=>300 01/16/18 14:30 02/15/18 14:29 01/16/18 16:14 Insulin Human Regular 100 units/ Sodium Chloride 101 ml @ 0 mls/hr Q24H IV 01/16/18 15:00 02/15/18 14:59 01/18/18 01:51 Linezolid 300 ml @ 300 mls/hr Q12HR IVPB 01/16/18 13:00 01/23/18 12:59 01/17/18 20:29 Lorazepam (Ativan 2mg/ml 1ml) 1 mg Q2H PRN IV For Anxiety 01/16/18 08:30 01/23/18 08:29 Meropenem 500 mg/ Sodium Chloride 55 ml @ 110 mls/hr Q24H IVPB 01/17/18 22:00 01/22/18 21:59 01/17/18 22:05 Miscellaneous Medication (Insulin Rate Change) 1 ea PRN PRN MISC Hyperglycemia 01/16/18 14:30 02/15/18 14:29 01/18/18 09:11 Morphine Sulfate (Morphine Sulfate) 2 mg Q2H PRN IVP For Pain 01/16/18 09:05 01/23/18 09:04 Norepinephrine Bitartrate 16 mg/ Sodium Chloride 566 ml @ 0 mls/hr Q24H IV 01/16/18 21:00 02/15/18 20:59 01/18/18 01:52 Pantoprazole (Protonix) 40 mg Q12HR IVP 01/16/18 21:00 02/15/18 08:59 01/18/18 08:45 Potassium Chloride 100 ml @ 50 mls/hr Q2H IVPB 01/18/18 08:30 01/18/18 12:29 01/18/18 08:45 Sodium Bicarbonate 100 ml/Dextrose 1,100 ml @ 50 mls/hr Q22H IV 01/16/18 15:30 02/15/18 15:29 01/18/18 08:46 Sodium Chloride 1,000 ml @ 100 mls/hr Q10H IV 01/16/18 15:30 02/15/18 15:29 01/18/18 05:23 Sodium Citrate (Bicitra) 30 ml EVERY 6 HOURS NG 01/17/18 12:00 02/16/18 11:59 01/18/18 05:23 KIRBY MONTES January 18, 2018 10:04
[2018-01-18] MEDS: DOPamine 400mg/250ml 250 ML IV SCH ×2 (11:51→18:37)
[2018-01-18] MEDS ORDERED: Sodium Bicarbonate 50ml Carp ONE (12:00)
[2018-01-18] MEDS ORDERED: Calcium Chloride 10% 10ml carpuject IVP ONE (12:00)
--- NOTE | 2018-01-18 12:46 | Nephrology Progress Note ---
Assessment/Plan Problem List: (1) Septic shock (2) DKA (diabetic ketoacidoses) (3) Acute renal failure (ARF) Assessment acute renal failure- Hypotensive on pressors acute respiratory failure Diabetic Ketoacidosis Low Na, Low K Sepsis high lipase Plan monitor lipase Albumin bollous Pressors- Insulin drip bicitra HD 01/17 next 01/19 Ca iv discussed with RN discussed with Mom and GF Betsy per orders Subjective ROS Limited/Unobtainable: Yes Objective Objective Last 24 Hour Vital Signs Date Time Temp Pulse Resp B/P (MAP) Pulse Ox O2 Delivery O2 Flow Rate FiO2 01/18/18 12:00 40 01/18/18 11:51 94/51 01/18/18 11:00 99.2 110 24 105/52 99 Mechanical Ventilator 40 99.2 01/18/18 10:52 102 24 40 01/18/18 10:30 114 25 112/49 99 Mechanical Ventilator 40 01/18/18 10:07 70/35 01/18/18 10:00 113 25 83/42 100 Mechanical Ventilator 40 01/18/18 09:30 113 25 94/45 100 Mechanical Ventilator 40 01/18/18 09:00 113 25 97/47 100 Mechanical Ventilator 40 01/18/18 08:43 116 01/18/18 08:34 116 27 40 01/18/18 08:30 117 26 103/53 99 Mechanical Ventilator 40 01/18/18 08:00 99.6 112 26 101/49 98 Mechanical Ventilator 40 99.6 01/18/18 08:00 40 01/18/18 07:30 113 26 87/53 97 Mechanical Ventilator 40 01/18/18 07:11 112 27 40 01/18/18 07:00 105/49 01/18/18 07:00 105/49 01/18/18 07:00 115 27 98/41 97 Mechanical Ventilator 40 01/18/18 06:30 113 27 105/49 95 Mechanical Ventilator 40 01/18/18 06:00 114 27 95/46 95 Mechanical Ventilator 40 01/18/18 06:00 95/46 01/18/18 06:00 95/46 01/18/18 05:30 113 27 104/46 96 Mechanical Ventilator 40 01/18/18 05:00 114 27 102/49 95 Mechanical Ventilator 40 01/18/18 05:00 102/49 5/17/18 05:00 102/49 517/18 04:48 115 26 40 5/17/18 04:30 114 30 98/43 99 Mechanical Ventilator 40 517/18 04:00 99.3 114 30 84/35 99 Mechanical Ventilator 40 99.3 17/18 04:00 40 17/18 04:00 84/45 517/18 04:00 84/35 517/18 04:00 116 17/18 03:30 112 30 98/43 99 Mechanical Ventilator 40 517/18 03:00 92/49 517/18 03:00 92/49 517/18 03:00 112 30 92/49 100 Mechanical Ventilator 40 517/18 02:45 112 31 82/40 100 Mechanical Ventilator 40 517/18 02:44 113 31 40 17/18 02:30 118 32 91/34 100 Mechanical Ventilator 40 517/18 02:15 116 34 81/40 100 Mechanical Ventilator 40 17/18 02:00 118 34 82/44 100 Mechanical Ventilator 40 17/18 02:00 92/41 517/18 02:00 92/41 17/18 01:52 100/76 517/18 01:45 124 28 102/57 100 Mechanical Ventilator 40 01/18/18 01:30 124 28 102/57 100 Mechanical Ventilator 40 17/18 01:29 126 30 40 17/18 01:15 123 33 100/59 100 Mechanical Ventilator 40 517/18 01:00 122 33 89/47 100 Mechanical Ventilator 40 517/18 01:00 89/47 517/18 01:00 89/47 517/18 00:45 123 34 105/56 100 Mechanical Ventilator 40 517/18 00:30 123 33 98/63 100 Mechanical Ventilator 40 517/18 00:15 123 34 102/61 100 Mechanical Ventilator 40 517/18 00:00 101.0 124 33 102/57 100 Mechanical Ventilator 40 101.0 17/18 00:00 40 5/17/18 00:00 102/57 517/18 00:00 102/57 517/18 00:00 122 16/18 23:45 126 33 105/63 99 Mechanical Ventilator 40 5/16/18 23:30 126 33 105/63 99 Mechanical Ventilator 40 16/18 23:15 124 33 106/67 99 Mechanical Ventilator 40 16/18 23:10 121 34 40 16/18 23:00 100.6 119 31 108/58 99 Mechanical Ventilator 40 100.6 1618 23:00 108/58 16/18 23:00 108/58 18 22:52 100.6 1618 22:52 91/52 16/18 22:45 119 31 91/52 99 Mechanical Ventilator 40 16/18 22:30 120 31 111/61 96 Mechanical Ventilator 40 16/18 22:15 121 33 120/40 97 Mechanical Ventilator 40 01/17/18 22:05 100.2 01/17/18 22:00 100.2 120 33 102/61 97 Mechanical Ventilator 40 100.2 18 22:00 102/61 18 22:00 102/61 01/17/18 21:45 121 33 106/56 97 Mechanical Ventilator 40 01/17/18 21:30 118 33 111/55 97 Mechanical Ventilator 40 01/17/18 21:15 119 33 157/49 97 Mechanical Ventilator 40 18 21:04 123 31 40 18 21:00 119 33 119/63 97 Mechanical Ventilator 40 1618 21:00 119/63 1618 21:00 119/63 18 20:45 118 33 110/54 97 Mechanical Ventilator 40 01/17/18 20:30 117 33 119/58 97 Mechanical Ventilator 40 01/17/18 20:15 116 33 124/65 98 Mechanical Ventilator 40 18 20:00 99.0 114 31 101/62 98 Mechanical Ventilator 40 99.0 18 20:00 40 1618 20:00 101/62 18 20:00 101/62 01/17/18 20:00 114 01/17/18 19:31 Mechanical Ventilator 01/17/18 19:30 112 29 106/57 98 Mechanical Ventilator 40 16/18 19:15 100/49 516/18 19:10 94 29 40 1618 19:00 100/49 51618 19:00 100/49 5/16/18 19:00 107 29 100/49 98 Mechanical Ventilator 40 16/18 18:30 110 29 102/59 99 Mechanical Ventilator 45 16/18 18:00 108/64 51618 18:00 108/64 1618 18:00 112 29 108/64 93 Mechanical Ventilator 45 16/18 17:30 104 29 113/50 93 Mechanical Ventilator 45 1618 17:00 92 29 105/50 94 Mechanical Ventilator 45 16/18 17:00 78/65 1618 17:00 78/65 18 16:40 103 29 45 18 16:30 98.8 97 28 106/55 92 Mechanical Ventilator 45 98.8 01/17/18 16:05 101 01/17/18 16:00 45 01/17/18 16:00 91/53 18 16:00 91/53 01/17/18 16:00 99 31 91/53 96 Mechanical Ventilator 45 01/17/18 15:54 91/53 01/17/18 15:30 99 32 92/45 93 Mechanical Ventilator 45 01/17/18 15:27 81/46 18 15:11 98 33 45 01/17/18 15:10 Mechanical Ventilator 15.0 45 01/17/18 15:00 99 33 101/47 91 Mechanical Ventilator 45 18 15:00 101/47 01/17/18 14:30 99.9 107 36 100/64 96 Mechanical Ventilator 45 99.9 01/17/18 14:00 105 36 101/55 100 Mechanical Ventilator 45 01/17/18 14:00 101/55 18 14:00 101/55 01/17/18 13:45 105 35 88/46 97 Mechanical Ventilator 45 18 13:30 105 36 93/24 97 Mechanical Ventilator 45 18 13:00 109 37 80/43 94 Mechanical Ventilator 45 18 13:00 108 34 45 1618 13:00 80/43 1618 13:00 80/43 18 12:46 93/49 Intake and Output 18 01/18/18 19:00 07:00 Intake Total 4163.862 ml 3595.197 ml Output Total 20 ml 0 ml Balance 4143.862 ml 3595.197 ml Intake IV Total 4103.862 ml 3595.197 ml Other 60 ml Output Urine Total 20 ml 0 ml Hemodialysis UF 0 ml Laboratory Tests 01/18/18 05:15: White Blood Count 16.6H, Red Blood Count 3.61L, Hemoglobin 11.1L, Hematocrit 30.4L, Mean Corpuscular Volume 84, Mean Corpuscular Hemoglobin 30.6, Mean Corpuscular Hemoglobin Concent 36.4H, Red Cell Distribution Width 10.7L, Platelet Count 40L, Mean Platelet Volume 11.6H, Neutrophils (%) (Auto) , Lymphocytes (%) (Auto) , Monocytes (%) (Auto) , Eosinophils (%) (Auto) , Basophils (%) (Auto) , Differential Total Cells Counted 100, Neutrophils % ( Manual) 82H, Lymphocytes % (Manual) 3L, Monocytes % (Manual) 4, Eosinophils % ( Manual) 2, Basophils % (Manual) 2, Band Neutrophils 7, Platelet Estimate DecreasedL, Platelet Morphology Normal, Hypochromasia 1+, Anisocytosis 2+, Sodium Level 135L, Potassium Level 2.6*L, Chloride Level 99, Carbon Dioxide Level 16L, Anion Gap 20H, Blood Urea Nitrogen 53H, Creatinine 5.3H, Estimat Glomerular Filtration Rate 11.8, Glucose Level 178H, Calcium Level 5.6*L, Phosphorus Level 4.5, Magnesium Level 1.8, Total Bilirubin 1.0, Direct Bilirubin 0.5H, Gamma Glutamyl Transpeptidase 278H, Aspartate Amino Transf (AST/ SGOT) 167H, Alanine Aminotransferase (ALT/SGPT) 44, Alkaline Phosphatase 121H, Troponin I 0.183H, Total Protein 4.8L, Albumin 1.6L 01/18/18 08:40: Arterial Blood pH 7.303L, Arterial Blood Partial Pressure CO2 31.1L, Arterial Blood Partial Pressure O2 75.6, Arterial Blood HCO3 15.1L, Arterial Blood Oxygen Saturation 94.4, Arterial Blood Base Excess -10.2, Harsha Test Positive Height (Feet): 5 Height (Inches): 7.00 Weight (Pounds): 286 General Appearance: no apparent distress EENT: other - on vent Cardiovascular: tachycardia Respiratory/Chest: decreased breath sounds Abdomen: distended FORADANJanuary 18, 2018 12:46
--- NOTE | 2018-01-18 13:58 | Emergency Room Report ---
History of Present Illness General Chief Complaint: Altered Mental Status Source: Significant Other Present Illness Allergies: Coded Allergies: No Known Allergies (Unverified , 01/15/18) Nursing Documentation-[facility] Past Medical History Deferred: Pt Cognitively Impaired Past Medical History: No History, Except For Hx Hypertension: Yes Physical Exam Vital Signs Date Time Temp Pulse Resp B/P (MAP) Pulse Ox O2 Delivery O2 Flow Rate FiO2 01/15/18 20:11 73 16 127/153 63 Nasal Cannula 3.0 01/15/18 20:30 99.1 99.1 01/15/18 22:31 100 Procedures Central Line Central Line : Consent: Emergent Central Line Lumen: triple Maximal Sterile Barrier Tech: yes cap, yes mask, yes sterile gown, yes sterile gloves, yes large sterile sheet, yes hand hygiene, yes chlorhexidine prep Central Line Postion: femoral (R) Complications: none Central Line Post Position: sutured Attempts: One Patient Tolerated: Well Complications: None CPR/Code Blue CPR/Code Blue Narrative I was called upstairs to a CODE BLUE Upon arrival the patient was in asystole CPR in progress There was no IV access as it was reported that the central line had been dislodged Patient has CPR in progress Central line is placed refer to the note for specifics Patient provided with epinephrine Calcium chloride and sodium bicarbonate refer to the code sheet for full specifics Accu-Chek was over 150 CPR continued and we did regain palpable pulses Blood pressure retaken shows a 130/70 Patient's care is handed to the admitting physician Patient is in critical condition Status post cardiopulmonary arrest Medical Decision Making Last Vital Signs Date Time Temp Pulse Resp B/P (MAP) Pulse Ox O2 Delivery O2 Flow Rate FiO2 01/18/18 12:53 108 26 40 01/18/18 11:51 94/51 01/18/18 11:00 99.2 99 Mechanical Ventilator 99.2 01/17/18 15:10 15.0 Disposition: ADMITTED INPATIENT Condition: Critical Referrals: [facility],REFERRING (PCP) Lakesha Heart DO January 18, 2018 13:58
[2018-01-18] MEDS: Insulin Human Regular 100units/ml 3ml IV PRN ×2 (14:31→16:23)
[2018-01-18] MEDS: Calcium Gluconate 10% 1 GM in NS 110 ML IVPB SCH ×2 (15:30→21:46)
[2018-01-18 19:22] LABS: ALANINE AMINOTRANSFERASE 47 U/L (12-78); ALBUMIN 2.1 G/DL (3.4-5.0); ALBUMIN/GLOBULIN RATIO 0.8 (1.0-2.7); ALKALINE PHOSPHATASE 151 U/L (46-116); ANION GAP 19 mmol/L (5-15); ASPARTATE AMINO TRANSFERASE 139 U/L (15-37); BLOOD UREA NITROGEN 57 mg/dL (7-18); CARBON DIOXIDE 18 MMOL/L (21-32); CHLORIDE 101 MMOL/L (98-107); CREATININE 5.7 MG/DL (0.55-1.30); PHOSPHORUS 5.8 MG/DL (2.5-4.9); POTASSIUM 3.2 MMOL/L (3.5-5.1); SODIUM 138 MMOL/L (136-145)
[2018-01-18 19:25] LABS: CALCIUM 5.8 MG/DL (8.5-10.1)
[2018-01-18] MEDS: Dyna-Hex 2% Top Sol 2oz TOPIC SCH (19:54)
[2018-01-18] MEDS ORDERED: Vancomycin 1.5 GM/D5W 250ML IVPB ONE (20:00)
[2018-01-18] MEDS: Meropenem 500mg/NS 55ml IVPB SCH ×2 (21:46)
[2018-01-19] VITALS (56 sets, daily range): BP systolic 88–146; BP diastolic 35–98
[2018-01-19] MEDS ORDERED: DOPamine 400mg/250ml 250 ML IV ONE (00:32)
[2018-01-19] MEDS: Sodium Bicarbonate 100 ML in D5W 1000ml 1,000 ML IV SCH ×2 (00:36→17:00)
[2018-01-19] MEDS: DOPamine 400mg/250ml 250 ML IV SCH ×2 (00:37→10:09)
[2018-01-19] MEDS: Sodium Citrate 30ml NG SCH ×3 (00:44→12:23)
[2018-01-19 05:05] LABS: HEMATOCRIT 24.2 % (42.0-52.0); MEAN CORPUSCULAR VOLUME 86 FL (80-99); PLATELET COUNT 39 K/UL (150-450); RED BLOOD COUNT 2.81 M/UL (4.70-6.10); RED CELL DISTRIBUTION WIDTH 11.3 % (11.6-14.8); WHITE BLOOD COUNT 13.9 K/UL (4.8-10.8)
[2018-01-19 05:52] LABS: AMMONIA 35 umol/L (11-32)
[2018-01-19 06:01] LABS: ALANINE AMINOTRANSFERASE 47 U/L (12-78); ALBUMIN 1.9 G/DL (3.4-5.0); ALBUMIN/GLOBULIN RATIO 0.6 (1.0-2.7); ALKALINE PHOSPHATASE 227 U/L (46-116); ANION GAP 16 mmol/L (5-15); ASPARTATE AMINO TRANSFERASE 117 U/L (15-37); BILIRUBIN,TOTAL 1.2 MG/DL (0.2-1.0); BLOOD UREA NITROGEN 58 mg/dL (7-18); CARBON DIOXIDE 20 MMOL/L (21-32); CHLORIDE 99 MMOL/L (98-107); CHOLESTEROL 109 MG/DL (< 200); CREATININE 5.8 MG/DL (0.55-1.30); GAMMA GLUTAMYL TRANSPEPTIDASE 365 U/L (5-85); HDL CHOLESTEROL 6 MG/DL (40-60); POTASSIUM 2.9 MMOL/L (3.5-5.1); SODIUM 135 MMOL/L (136-145); TRIGLYCERIDES 257 MG/DL (30-150)
[2018-01-19] MEDS: Hydrocortisone 100mg Inj IV SCH ×3 (06:26→21:54)
[2018-01-19] MEDS: Calcium Gluconate 10% 1 GM in NS 110 ML IVPB SCH (06:26)
--- NOTE | 2018-01-19 06:30 | Consultation ---
DATE OF CONSULTATION: 01/17/2018 CARDIOLOGY CONSULTATION CONSULTING PHYSICIAN: Ernie Ashford M.D. REQUESTING PHYSICIAN: Matt Kessler M.D. REASON FOR CONSULTATION: Elevated troponin following cardiopulmonary arrest. HISTORY OF PRESENT ILLNESS: This 47-year-old male with history of psoriatic arthritis on immunosuppressive therapy, presented to the emergency room two days ago with diabetes out of control and associated hypotension. DKA was diagnosed and he was admitted to the intensive care unit. Central access was obtained. IV antibiotics were initiated as well as volume resuscitation. His blood pressure remained low and pressors were required. He did have a slight elevation in his troponin level subsequently as well. This morning however his central line was pulled out, bleeding was noted, and subsequently a cardiopulmonary arrest occurred. The patient was rapidly resuscitated and is now on dual pressors and ventilator support. OBJECTIVE: GENERAL: Orally intubated. VITAL SIGNS: Blood pressure 90/50, pulse 124, respiratory rate 25 and afebrile. LUNGS: Bilateral breath sounds. HEART: Regular rhythm. Rapid rate. Normal S1 and S2. ABDOMEN: Soft. EXTREMITIES: Trace edema. Decreased peripheral perfusion. LABORATORY AND DIAGNOSTIC DATA: Monitor reveals sinus tachycardia with episodes of atrial fibrillation. Labs, white count 16.6 and hemoglobin 11.1. Sodium 138, potassium 3.3, bicarbonate 18, BUN 57, and creatinine 5.7. Albumin 2.1. Troponin peak is 0.183 and presently 0.099. IMPRESSION: 1. DKA. 2. Cardiopulmonary arrest. 3. Multiorgan system failure. 4. Acute myocardial infarction due to hypoperfusion. 5. Probable sepsis with shock. 6. Paroxysmal atrial fibrillation. 7. Acute renal failure. PLAN: 1. Continue ventilator support. 2. Volume resuscitation. 3. Electrolyte replacement. 4. Taper pressors as able. 5. Continue renal dopamine once able. 6. DVT and stress ulcer prophylaxes. 7. Condition is critical and prognosis is guarded. Ernie Ashford M.D. DR: JOHN JOB#: [id number] CC:
[2018-01-19 06:40] LABS: BILIRUBIN,DIRECT 0.7 MG/DL (0.0-0.3)
[2018-01-19] MEDS ORDERED: Calcium Gluconate 10% 1 GM in NS 110 ML IVPB ONE (08:15)
--- NOTE | 2018-01-19 08:58 | Pulmonology Progress Note ---
Assessment/Plan Assessment/Plan 1. Respiratory failure. 2. Severe hyponatremia. Improved 3. Hyperglycemia. On insulin gtt 4. Diabetic ketoacidosis. Improved; ph now 7.3 5. Sepsis. on broad spectrum abx; ID following 6. Hypotension. Remains on levo and dopa 7. S/p arrest DISCUSSION: Continue normal saline, IV insulin, broad-spectrum, antibiotics, aggressive IV fluid hydration, central line care, pressors, Armenta. Full Code for now. Discussed with all consultants I will decrease steroids; continue for now S/p HD; will again get HD today Continue bicarb gtt Has thrombocytopenia; likely drug related; stable for now Slowly improving Begin nutrition Matt Kessler M.D. Subjective Interval Events: Suffered arrest yesterday after triple lumen dislodged Constitutional: Reports: no symptoms HEENT: Repors: no symptoms Respiratory: Reports: no symptoms Cardiovascular: Reports: no symptoms Gastrointestinal/Abdominal: Reports: no symptoms Genitourinary: Reports: no symptoms Allergies: Coded Allergies: No Known Allergies (Unverified , 01/15/18) Objective Last 24 Hour Vital Signs Date Time Temp Pulse Resp B/P (MAP) Pulse Ox O2 Delivery O2 Flow Rate FiO2 01/19/18 07:07 117 23 50 01/19/18 07:00 104 14 119/53 100 Mechanical Ventilator 50 01/19/18 06:30 103 14 114/49 100 Mechanical Ventilator 50 01/19/18 06:00 104 16 114/62 100 Mechanical Ventilator 50 01/19/18 05:30 106 17 106/47 99 Mechanical Ventilator 50 01/19/18 05:08 115 19 50 01/19/18 05:00 110 18 106/39 100 Mechanical Ventilator 50 01/19/18 04:30 110 18 112/41 100 Mechanical Ventilator 50 01/19/18 04:00 98.6 115 19 138/51 100 Mechanical Ventilator 50 98.6 01/19/18 04:00 50 01/19/18 04:00 115 01/19/18 03:30 112 19 132/61 100 Mechanical Ventilator 50 01/19/18 03:10 101 20 50 01/19/18 03:00 105 18 132/55 100 Mechanical Ventilator 50 5/18/18 02:30 102 19 109/63 100 Mechanical Ventilator 50 5/18/18 02:00 101 16 105/62 100 Mechanical Ventilator 50 5/18/18 01:30 101 16 126/47 99 Mechanical Ventilator 50 5/18/18 01:22 104 23 50 5/18/18 01:00 108 19 133/48 99 Mechanical Ventilator 50 5/18/18 00:37 128/56 5/18/18 00:30 109 18 128/56 99 Mechanical Ventilator 50 5/18/18 00:00 50 5/18/18 00:00 98.7 114 20 124/49 99 Mechanical Ventilator 50 98.7 5/18/18 00:00 111 5/17/18 23:30 112 18 101/71 99 Mechanical Ventilator 50 5/17/18 23:05 117 19 50 5/17/18 23:00 115 19 110/49 100 Mechanical Ventilator 50 5/17/18 22:30 105 21 126/59 100 Mechanical Ventilator 50 5/17/18 22:00 105 19 130/62 100 Mechanical Ventilator 50 5/17/18 21:30 105 19 131/64 100 Mechanical Ventilator 100 5/17/18 21:08 92 23 60 5/17/18 21:00 98 19 74/26 100 Mechanical Ventilator 100 5/17/18 20:30 101 21 102/61 100 Mechanical Ventilator 100 5/17/18 20:00 108 5/17/18 20:00 108 17 109/55 100 Mechanical Ventilator 100 5/17/18 20:00 100 5/17/18 19:30 98.3 111 17 115/44 99 Mechanical Ventilator 100 98.3 517/18 19:25 114 21 70 5/17/18 19:24 112/67 5/17/18 19:00 101/46 5/17/18 19:00 101/46 5/17/18 19:00 97.9 113 22 112/67 97 Mechanical Ventilator 100 97.9 5/17/18 18:37 107/40 5/17/18 18:30 97.2 111 22 107/40 97 Mechanical Ventilator 100 97.2 5/17/18 18:00 101/38 5/17/18 18:00 101/38 5/17/18 18:00 97.2 109 22 101/38 97 Mechanical Ventilator 100 97.2 5/17/18 17:30 97.2 115 22 89/44 97 Mechanical Ventilator 100 97.2 18 17:10 113 18 40 18 17:00 97.4 115 22 99/53 97 Mechanical Ventilator 100 97.4 18 17:00 99/53 18 17:00 99/53 01/18/18 16:30 97.5 115 21 102/49 97 Mechanical Ventilator 100 97.5 18 16:00 97.5 116 21 100/49 97 Mechanical Ventilator 100 97.5 18 16:00 100/49 18 16:00 100/49 18 16:00 100 01/18/18 16:00 117 18 15:30 97.9 116 23 100/52 98 Mechanical Ventilator 100 97.9 01/18/18 15:00 97.8 115 22 89/52 96 Mechanical Ventilator 100 97.8 01/18/18 15:00 89/52 18 15:00 89/52 18 14:39 118 20 40 18 14:30 97.8 105 22 87/63 90 Mechanical Ventilator 100 97.8 01/18/18 14:00 97.8 109 20 102/84 97 Mechanical Ventilator 100 97.8 18 14:00 102/84 18 14:00 102/84 01/18/18 13:30 98.1 117 16 105/49 96 Mechanical Ventilator 100 98.1 01/18/18 13:25 108 22 40 18 13:00 87 25 55/19 98 Mechanical Ventilator 40 18 13:00 55/19 18 13:00 55/19 18 12:53 108 26 40 18 12:30 99.1 114 23 121/50 99 Mechanical Ventilator 40 99.1 01/18/18 12:00 108 18 12:00 40 01/18/18 12:00 107/51 01/18/18 12:00 107/51 18 12:00 99.1 110 24 107/51 99 Mechanical Ventilator 40 99.1 18 11:51 94/51 5/17/18 11:30 99.2 110 23 98/48 99 Mechanical Ventilator 40 99.2 01/18/18 11:00 86/47 01/18/18 11:00 86/46 01/18/18 11:00 99.2 110 24 105/52 99 Mechanical Ventilator 40 99.2 01/18/18 10:52 102 24 40 01/18/18 10:30 114 25 112/49 99 Mechanical Ventilator 40 01/18/18 10:07 70/35 01/18/18 10:00 83/42 01/18/18 10:00 83/42 01/18/18 10:00 113 25 83/42 100 Mechanical Ventilator 40 01/18/18 09:30 113 25 94/45 100 Mechanical Ventilator 40 01/18/18 09:00 97/47 01/18/18 09:00 97/47 01/18/18 09:00 113 25 97/47 100 Mechanical Ventilator 40 Intake and Output 01/18/18 01/19/18 19:00 07:00 Intake Total 3725.735 ml 1796.6958 ml Output Total 60 ml 80 ml Balance 3665.735 ml 1716.6958 ml Intake IV Total 3725.735 ml 1796.6958 ml Output Urine Total 60 ml 80 ml General Appearance: no acute distress HEENT: normocephalic Respiratory/Chest: chest wall non-tender, lungs clear Cardiovascular: normal peripheral pulses, normal rate Abdomen: normal bowel sounds Extremities: no cyanosis Laboratory Tests 01/18/18 13:15: C-Reactive Protein, Quantitative 50.6H, Random Vancomycin Level 7.8 01/18/18 13:55: Arterial Blood pH 7.142*L, Arterial Blood Partial Pressure CO2 47.4H, Arterial Blood Partial Pressure O2 102.4H, Arterial Blood HCO3 15.8L, Arterial Blood Oxygen Saturation 95.9, Arterial Blood Base Excess -12.7, Harsha Test Positive 01/18/18 18:15: Sodium Level 138, Potassium Level 3.2L, Chloride Level 101, Carbon Dioxide Level 18L, Anion Gap 19H, Blood Urea Nitrogen 57H, Creatinine 5.7H, Estimat Glomerular Filtration Rate 10.8, Glucose Level 129H, Calcium Level 5.8*L, Phosphorus Level 5.8H, Total Bilirubin 1.0, Aspartate Amino Transf (AST/SGOT) 139H, Alanine Aminotransferase (ALT/SGPT) 47, Alkaline Phosphatase 151H, Troponin I 0.099H, Total Protein 4.7L, Albumin 2.1L, Globulin 2.6, Albumin/ Globulin Ratio 0.8L 01/19/18 04:30: Sodium Level 135L, Potassium Level 2.9L, Chloride Level 99, Carbon Dioxide Level 20L, Anion Gap 16H, Blood Urea Nitrogen 58H, Creatinine 5.8H, Estimat Glomerular Filtration Rate 10.6, Glucose Level 145H, Calcium Level 6.0L, Phosphorus Level 5.0H, Total Bilirubin 1.2H, Aspartate Amino Transf (AST/SGOT) 117H, Alanine Aminotransferase (ALT/SGPT) 47, Alkaline Phosphatase 227H, Troponin I 0.066H, Total Protein 5.0L, Albumin 1.9L, Globulin 3.1, Albumin/ Globulin Ratio 0.6L, White Blood Count 13.9H, Red Blood Count 2.81L, Hemoglobin 9.0L, Hematocrit 24.2L, Mean Corpuscular Volume 86, Mean Corpuscular Hemoglobin 32.2H, Mean Corpuscular Hemoglobin Concent 37.3H, Red Cell Distribution Width 11.3L, Platelet Count 39L, Mean Platelet Volume 11.8H, Neutrophils (%) (Auto) , Lymphocytes (%) (Auto) , Monocytes (%) (Auto) , Eosinophils (%) (Auto) , Basophils (%) (Auto) , Differential Total Cells Counted 100, Neutrophils % ( Manual) 59, Lymphocytes % (Manual) 8L, Monocytes % (Manual) 9, Eosinophils % ( Manual) 0, Basophils % (Manual) 0, Metamyelocytes % 4H, Band Neutrophils 20H, Platelet Estimate DecreasedL, Platelet Morphology Normal, Red Blood Cell Morphology Normal, Lactic Acid Level 3.40H, Uric Acid 8.5H, Magnesium Level 1.7L , Direct Bilirubin 0.7H, Gamma Glutamyl Transpeptidase 365H, Ammonia 35H, Pro-B- Type Natriuretic Peptide 9107H, Triglycerides Level 257H, Cholesterol Level 109 , LDL Cholesterol 39, HDL Cholesterol 6L, Cholesterol/HDL Ratio 18.2H, Lipase 680H Current Medications Medications (Trade) Dose Ordered Sig/Alana Route PRN Reason Start Time Stop Time Status Last Admin Dose Admin Acetaminophen (Tylenol) 500 mg Q6HR PRN NG Fever/Headache/Mild Pain 01/16/18 23:15 02/15/18 23:14 01/17/18 22:05 Calcium Gluconate 2 gm/Sodium Chloride 130 ml @ 120 mls/hr Q8H IVPB 01/19/18 14:00 02/17/18 13:59 Chlorhexidine Gluconate (Марина-Hex 2%) 1 applic DAILY@2000 TOPIC 01/17/18 20:00 02/16/18 19:59 01/18/18 19:54 Dextrose (Dextrose 50%) 25 ml PRN PRN IV HYPOGLYCEMIA 01/16/18 14:30 02/15/18 14:29 Dextrose (Dextrose 50%) 50 ml PRN PRN IV HYPOGLYCEMIA 01/16/18 14:30 02/15/18 14:29 Dopamine HCl/ Dextrose 250 ml @ 0 mls/hr Q24H IV 01/16/18 08:45 02/15/18 08:44 01/19/18 00:37 Fluconazole/ Sodium Chloride 100 ml @ 100 mls/hr Q24H IV 01/17/18 00:00 01/24/18 00:00 01/19/18 00:00 Hydrocortisone (Solu-CORTEF) 25 mg EVERY 8 HOURS IV 01/18/18 14:00 02/17/18 13:59 01/19/18 06:26 Insulin Human Regular (NovoLIN R) 5 units PRN PRN IV BS 200-299 01/16/18 14:30 02/15/18 14:29 01/18/18 16:23 Insulin Human Regular (NovoLIN R) 10 units PRN PRN IV BS=>300 01/16/18 14:30 02/15/18 14:29 01/16/18 16:14 Insulin Human Regular 100 units/ Sodium Chloride 101 ml @ 0 mls/hr Q24H IV 01/16/18 15:00 02/15/18 14:59 01/18/18 17:26 Lorazepam (Ativan 2mg/ml 1ml) 1 mg Q2H PRN IV For Anxiety 01/16/18 08:30 01/23/18 08:29 Magnesium Sulfate 100 ml @ 100 mls/hr ONCE ONCE IVPB 01/19/18 09:00 01/19/18 09:59 Meropenem 500 mg/ Sodium Chloride 55 ml @ 110 mls/hr Q24H IVPB 01/17/18 22:00 01/22/18 21:59 01/18/18 21:46 Miscellaneous Medication (Insulin Rate Change) 1 ea PRN PRN MISC Hyperglycemia 01/16/18 14:30 02/15/18 14:29 01/18/18 19:17 Morphine Sulfate (Morphine Sulfate) 2 mg Q2H PRN IVP For Pain 01/16/18 09:05 01/23/18 09:04 Norepinephrine Bitartrate 16 mg/ Sodium Chloride 566 ml @ 0 mls/hr Q24H IV 01/16/18 21:00 02/15/18 20:59 01/18/18 19:24 Pantoprazole (Protonix) 40 mg Q12HR IVP 01/16/18 21:00 02/15/18 08:59 01/18/18 21:45 Potassium Chloride 100 ml @ 50 mls/hr ONCE ONCE IVPB 01/19/18 09:00 01/19/18 10:59 Sodium Bicarbonate 100 ml/Dextrose 1,100 ml @ 75 mls/hr [id number] IV 01/18/18 14:00 02/15/18 13:59 01/19/18 00:36 Sodium Citrate (Bicitra) 30 ml EVERY 6 HOURS NG 01/17/18 12:00 02/16/18 11:59 01/19/18 06:26 Vancomycin HCl (Vanco rx to dose) 1 ea DAILY PRN MISC Per rx protocol 01/18/18 10:15 02/17/18 10:14 Matt Kessler MD January 19, 2018 08:58
[2018-01-19] MEDS: Insulin Rate Change 1 Each MISC PRN ×2 (09:33→10:21)
[2018-01-19] MEDS: Pantoprazole Inj IVP SCH ×2 (09:39→20:22)
[2018-01-19] MEDS: Acetaminophen 650mg/20.3ml NG PRN (10:02)
--- NOTE | 2018-01-19 11:10 | Infectious Diseases Prog Note ---
Assessment/Plan Assessment/Plan antibiotics : vancomycin iv, meropenem, fluconazole A 1. gram positive sepsis 2. septic shock improving 3. pancreatitis improving 4. DKA resolved 5. renal failure 6. respiratory failure 7. 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 continue vancomycin iv, meropenem, fluconazole 2. will follow up cultures 3. 2 d echo Subjective ROS Limited/Unobtainable: Yes Allergies: Coded Allergies: No Known Allergies (Unverified , 01/15/18) Objective Vital Signs Last 24 Hour Vital Signs Date Time Temp Pulse Resp B/P (MAP) Pulse Ox O2 Delivery O2 Flow Rate FiO2 01/19/18 10:43 98 16 40 01/19/18 10:09 112/71 01/19/18 10:02 99.5 01/19/18 09:00 95 23 50 01/19/18 08:00 50 01/19/18 08:00 107 01/19/18 07:07 117 23 50 18 07:00 104 14 119/53 100 Mechanical Ventilator 50 01/19/18 06:30 103 14 114/49 100 Mechanical Ventilator 50 01/19/18 06:00 104 16 114/62 100 Mechanical Ventilator 50 18 05:30 106 17 106/47 99 Mechanical Ventilator 50 01/19/18 05:08 115 19 50 01/19/18 05:00 110 18 106/39 100 Mechanical Ventilator 50 18 04:30 110 18 112/41 100 Mechanical Ventilator 50 01/19/18 04:00 98.6 115 19 138/51 100 Mechanical Ventilator 50 98.6 18 04:00 50 18 04:00 115 01/19/18 03:30 112 19 132/61 100 Mechanical Ventilator 50 18 03:10 101 20 50 18/18 03:00 105 18 132/55 100 Mechanical Ventilator 50 01/19/18 02:30 102 19 109/63 100 Mechanical Ventilator 50 18 02:00 101 16 105/62 100 Mechanical Ventilator 50 01/19/18 01:30 101 16 126/47 99 Mechanical Ventilator 50 01/19/18 01:22 104 23 50 01/19/18 01:00 108 19 133/48 99 Mechanical Ventilator 50 01/19/18 00:37 128/56 518/18 00:30 109 18 128/56 99 Mechanical Ventilator 50 18/18 00:00 50 18/18 00:00 98.7 114 20 124/49 99 Mechanical Ventilator 50 98.7 18/18 00:00 111 17/18 23:30 112 18 101/71 99 Mechanical Ventilator 50 17/18 23:05 117 19 50 517/18 23:00 115 19 110/49 100 Mechanical Ventilator 50 17/18 22:30 105 21 126/59 100 Mechanical Ventilator 50 17/18 22:00 105 19 130/62 100 Mechanical Ventilator 50 17/18 21:30 105 19 131/64 100 Mechanical Ventilator 100 17/18 21:08 92 23 60 17/18 21:00 98 19 74/26 100 Mechanical Ventilator 100 17/18 20:30 101 21 102/61 100 Mechanical Ventilator 100 17/18 20:00 108 17/18 20:00 108 17 109/55 100 Mechanical Ventilator 100 01/18/18 20:00 100 01/18/18 19:30 98.3 111 17 115/44 99 Mechanical Ventilator 100 98.3 01/18/18 19:25 114 21 70 17/18 19:24 112/67 17/18 19:00 101/46 17/18 19:00 101/46 01/18/18 19:00 97.9 113 22 112/67 97 Mechanical Ventilator 100 97.9 17/18 18:37 107/40 17/18 18:30 97.2 111 22 107/40 97 Mechanical Ventilator 100 97.2 17/18 18:00 101/38 17/18 18:00 101/38 17/18 18:00 97.2 109 22 101/38 97 Mechanical Ventilator 100 97.2 17/18 17:30 97.2 115 22 89/44 97 Mechanical Ventilator 100 97.2 17/18 17:10 113 18 40 17/18 17:00 97.4 115 22 99/53 97 Mechanical Ventilator 100 97.4 17/18 17:00 99/53 517/18 17:00 99/53 17/18 16:30 97.5 115 21 102/49 97 Mechanical Ventilator 100 97.5 01/18/18 16:00 97.5 116 21 100/49 97 Mechanical Ventilator 100 97.5 01/18/18 16:00 100/49 01/18/18 16:00 100/49 01/18/18 16:00 100 01/18/18 16:00 117 01/18/18 15:30 97.9 116 23 100/52 98 Mechanical Ventilator 100 97.9 01/18/18 15:00 97.8 115 22 89/52 96 Mechanical Ventilator 100 97.8 01/18/18 15:00 89/52 01/18/18 15:00 89/52 01/18/18 14:39 118 20 40 01/18/18 14:30 97.8 105 22 87/63 90 Mechanical Ventilator 100 97.8 01/18/18 14:00 97.8 109 20 102/84 97 Mechanical Ventilator 100 97.8 01/18/18 14:00 102/84 01/18/18 14:00 102/84 01/18/18 13:30 98.1 117 16 105/49 96 Mechanical Ventilator 100 98.1 01/18/18 13:25 108 22 40 01/18/18 13:00 87 25 55/19 98 Mechanical Ventilator 40 01/18/18 13:00 55/19 01/18/18 13:00 55/19 01/18/18 12:53 108 26 40 01/18/18 12:30 99.1 114 23 121/50 99 Mechanical Ventilator 40 99.1 01/18/18 12:00 108 01/18/18 12:00 40 01/18/18 12:00 107/51 01/18/18 12:00 107/51 01/18/18 12:00 99.1 110 24 107/51 99 Mechanical Ventilator 40 99.1 01/18/18 11:51 94/51 01/18/18 11:30 99.2 110 23 98/48 99 Mechanical Ventilator 40 99.2 Height (Feet): 5 Height (Inches): 9.00 Weight (Pounds): 283 HEENT: other - intubated Respiratory/Chest: lungs clear Cardiovascular: normal rate, regular rhythm, no gallop/murmur Abdomen: soft, non tender Extremities: no clubbing - + edema, left subclavian catheter, other Laboratory Tests Test 5/17/18 13:15 01/18/18 13:55 01/18/18 18:15 01/19/18 04:30 C-Reactive Protein, Quantitative 50.6 mg/dL (0.00-0.90) H Random Vancomycin Level 7.8 ug/mL Arterial Blood pH 7.142 (7.350-7.450) Arterial Blood Partial Pressure CO2 47.4 mmHg (35.0-45.0) H Arterial Blood Partial Pressure O2 102.4 mmHg (75.0-100.0) H Arterial Blood HCO3 15.8 mmol/L (22.0-26.0) L Arterial Blood Oxygen Saturation 95.9 % (92.0-98.0) Arterial Blood Base Excess -12.7 Harsha Test Positive Sodium Level 138 MMOL/L (136-145) 135 MMOL/L (136-145) L Potassium Level 3.2 MMOL/L (3.5-5.1) L 2.9 MMOL/L (3.5-5.1) L Chloride Level 101 MMOL/L (98-107) 99 MMOL/L (98-107) Carbon Dioxide Level 18 MMOL/L (21-32) L 20 MMOL/L (21-32) L Anion Gap 19 mmol/L (5-15) H 16 mmol/L (5-15) H Blood Urea Nitrogen 57 mg/dL (7-18) H 58 mg/dL (7-18) H Creatinine 5.7 MG/DL (0.55-1.30) H 5.8 MG/DL (0.55-1.30) H Estimat Glomerular Filtration Rate 10.8 mL/min (>60) 10.6 mL/min (>60) Glucose Level 129 MG/DL (74-106) H 145 MG/DL (74-106) H Calcium Level 5.8 MG/DL (8.5-10.1) *L 6.0 MG/DL (8.5-10.1) L Phosphorus Level 5.8 MG/DL (2.5-4.9) H 5.0 MG/DL (2.5-4.9) H Total Bilirubin 1.0 MG/DL (0.2-1.0) 1.2 MG/DL (0.2-1.0) H Aspartate Amino Transf (AST/SGOT) 139 U/L (15-37) H 117 U/L (15-37) H Alanine Aminotransferase (ALT/SGPT) 47 U/L (12-78) 47 U/L (12-78) Alkaline Phosphatase 151 U/L (46-116) H 227 U/L (46-116) H Troponin I 0.099 ng/mL (0.000-0.056) 0.066 ng/mL (0.000-0.056) Total Protein 4.7 G/DL (6.4-8.2) L 5.0 G/DL (6.4-8.2) L Albumin 2.1 G/DL (3.4-5.0) L 1.9 G/DL (3.4-5.0) L Globulin 2.6 g/dL 3.1 g/dL Albumin/Globulin Ratio 0.8 (1.0-2.7) L 0.6 (1.0-2.7) L White Blood Count 13.9 K/UL (4.8-10.8) H Red Blood Count 2.81 M/UL (4.70-6.10) L Hemoglobin 9.0 G/DL (14.2-18.0) L Hematocrit 24.2 % (42.0-52.0) L Mean Corpuscular Volume 86 FL (80-99) Mean Corpuscular Hemoglobin 32.2 PG (27.0-31.0) H Mean Corpuscular Hemoglobin Concent 37.3 G/DL (32.0-36.0) H Red Cell Distribution Width 11.3 % (11.6-14.8) L Platelet Count 39 K/UL (150-450) L Mean Platelet Volume 11.8 FL (6.5-10.1) H Neutrophils (%) (Auto) % (45.0-75.0) Lymphocytes (%) (Auto) % (20.0-45.0) Monocytes (%) (Auto) % (1.0-10.0) Eosinophils (%) (Auto) % (0.0-3.0) Basophils (%) (Auto) % (0.0-2.0) Differential Total Cells Counted 100 Neutrophils % (Manual) 59 % (45-75) Lymphocytes % (Manual) 8 % (20-45) L Monocytes % (Manual) 9 % (1-10) Eosinophils % (Manual) 0 % (0-3) Basophils % (Manual) 0 % (0-2) Metamyelocytes % 4 % (0-0) H Band Neutrophils 20 % (0-8) H Platelet Estimate Decreased L Platelet Morphology Normal Red Blood Cell Morphology Normal Lactic Acid Level 3.40 mmol/L (0.66-2.22) H Uric Acid 8.5 MG/DL (2.6-7.2) H Magnesium Level 1.7 MG/DL (1.8-2.4) L Direct Bilirubin 0.7 MG/DL (0.0-0.3) H Gamma Glutamyl Transpeptidase 365 U/L (5-85) H Ammonia 35 umol/L (11-32) H Pro-B-Type Natriuretic Peptide 9107 pg/mL (0-125) H Triglycerides Level 257 MG/DL (30-150) H Cholesterol Level 109 MG/DL (< 200) LDL Cholesterol 39 mg/dL (<100) HDL Cholesterol 6 MG/DL (40-60) L Cholesterol/HDL Ratio 18.2 (3.3-4.4) H Lipase 680 U/L (73-393) H Test 01/19/18 08:50 Arterial Blood pH 7.290 (7.350-7.450) Arterial Blood Partial Pressure CO2 43.3 mmHg (35.0-45.0) Arterial Blood Partial Pressure O2 93.4 mmHg (75.0-100.0) Arterial Blood HCO3 20.6 mmol/L (22.0-26.0) L Arterial Blood Oxygen Saturation 96.7 % (92.0-98.0) Arterial Blood Base Excess -5.5 Harsha Test Positive Current Medications Medications (Trade) Dose Ordered Sig/Alana Route PRN Reason Start Time Stop Time Status Last Admin Dose Admin Acetaminophen (Tylenol) 500 mg Q6HR PRN NG Fever/Headache/Mild Pain 01/16/18 23:15 02/15/18 23:14 01/19/18 10:02 Calcium Gluconate 2 gm/Sodium Chloride 130 ml @ 120 mls/hr Q8H IVPB 01/19/18 14:00 02/17/18 13:59 Chlorhexidine Gluconate (Марина-Hex 2%) 1 applic DAILY@2000 TOPIC 01/17/18 20:00 02/16/18 19:59 01/18/18 19:54 Dextrose (Dextrose 50%) 25 ml PRN PRN IV HYPOGLYCEMIA 01/16/18 14:30 02/15/18 14:29 Dextrose (Dextrose 50%) 50 ml PRN PRN IV HYPOGLYCEMIA 01/16/18 14:30 02/15/18 14:29 Dopamine HCl/ Dextrose 250 ml @ 0 mls/hr Q24H IV 01/16/18 08:45 02/15/18 08:44 01/19/18 10:09 Fluconazole/ Sodium Chloride 100 ml @ 100 mls/hr Q24H IV 01/17/18 00:00 01/24/18 00:00 01/19/18 00:00 Hydrocortisone (Solu-CORTEF) 25 mg EVERY 8 HOURS IV 01/18/18 14:00 02/17/18 13:59 01/19/18 06:26 Insulin Human Regular (NovoLIN R) 5 units PRN PRN IV BS 200-299 01/16/18 14:30 02/15/18 14:29 01/18/18 16:23 Insulin Human Regular (NovoLIN R) 10 units PRN PRN IV BS=>300 01/16/18 14:30 02/15/18 14:29 01/16/18 16:14 Insulin Human Regular 100 units/ Sodium Chloride 101 ml @ 0 mls/hr Q24H IV 01/16/18 15:00 02/15/18 14:59 01/19/18 10:21 Lorazepam (Ativan 2mg/ml 1ml) 1 mg Q2H PRN IV For Anxiety 01/16/18 08:30 01/23/18 08:29 Meropenem 500 mg/ Sodium Chloride 55 ml @ 110 mls/hr Q24H IVPB 01/17/18 22:00 01/22/18 21:59 01/18/18 21:46 Miscellaneous Medication (Insulin Rate Change) 1 ea PRN PRN MISC Hyperglycemia 01/16/18 14:30 02/15/18 14:29 01/19/18 10:21 Morphine Sulfate (Morphine Sulfate) 2 mg Q2H PRN IVP For Pain 01/16/18 09:05 01/23/18 09:04 Norepinephrine Bitartrate 16 mg/ Sodium Chloride 566 ml @ 0 mls/hr Q24H IV 5/15/18 21:00 02/15/18 20:59 01/18/18 19:24 Pantoprazole (Protonix) 40 mg Q12HR IVP 01/16/18 21:00 02/15/18 08:59 01/19/18 09:39 Sodium Bicarbonate 100 ml/Dextrose 1,100 ml @ 75 mls/hr [id number] IV 01/18/18 14:00 02/15/18 13:59 01/19/18 00:36 Sodium Citrate (Bicitra) 30 ml EVERY 6 HOURS NG 01/17/18 12:00 02/16/18 11:59 01/19/18 06:26 Vancomycin HCl (Vanco rx to dose) 1 ea DAILY PRN MISC Per rx protocol 01/18/18 10:15 02/17/18 10:14 NADEGE MALIK January 19, 2018 11:10
--- NOTE | 2018-01-19 11:48 | Diagnostic Imaging Report ---
Indication: Dyspnea Technique: One view of the chest Comparison: 01/17/2018 Findings: Left subclavian temporary dialysis catheter, nasogastric tube, endotracheal tube all remain in stable satisfactory positions. There is increasing left perihilar and right perihilar and basilar atelectasis. There may be a small amount of pleural fluid bilaterally. Heart size is normal. Impression: Increasing bilateral atelectasis and possible small bilateral pleural effusions, over 2 days Other stable findings as described
--- NOTE | 2018-01-19 16:01 | Nephrology Progress Note ---
Assessment/Plan Problem List: (1) Septic shock (2) DKA (diabetic ketoacidoses) (3) Acute renal failure (ARF) Assessment acute renal failure- Hypotensive on pressors acute respiratory failure Diabetic Ketoacidosis Low Na, Low K Sepsis high lipase Plan HD today monitor lipase Pressors- Insulin drip DC bicitra HD 01/17 next 01/19 Ca iv discussed with RN discussed with Mom and GF Betsy per orders Subjective ROS Limited/Unobtainable: Yes Objective Objective Last 24 Hour Vital Signs Date Time Temp Pulse Resp B/P (MAP) Pulse Ox O2 Delivery O2 Flow Rate FiO2 01/19/18 15:30 105 16 120/60 100 Mechanical Ventilator 40 01/19/18 15:09 Mechanical Ventilator 15.0 40 01/19/18 15:00 88 16 115/45 100 Mechanical Ventilator 40 01/19/18 14:47 104 19 40 01/19/18 14:30 98.5 98 16 110/50 100 Mechanical Ventilator 40 98.5 01/19/18 14:00 82 16 97/42 100 Mechanical Ventilator 40 01/19/18 13:30 111 16 137/62 100 Mechanical Ventilator 40 01/19/18 13:29 101 16 40 01/19/18 13:00 107 16 127/70 100 Mechanical Ventilator 40 01/19/18 13:00 Mechanical Ventilator 15.0 40 01/19/18 12:30 103 16 106/58 100 Mechanical Ventilator 40 01/19/18 12:00 99.4 105 16 103/44 100 Mechanical Ventilator 40 99.4 01/19/18 12:00 40 01/19/18 12:00 105 01/19/18 11:30 103 16 108/48 100 Mechanical Ventilator 40 01/19/18 11:00 100 16 107/43 100 Mechanical Ventilator 40 01/19/18 10:43 98 16 40 01/19/18 10:32 99.2 01/19/18 10:30 106 16 111/42 100 Mechanical Ventilator 40 01/19/18 10:09 112/71 01/19/18 10:02 99.5 01/19/18 10:00 106 16 146/54 100 Mechanical Ventilator 50 01/19/18 09:30 95 16 88/35 100 Mechanical Ventilator 50 01/19/18 09:00 95 23 50 01/19/18 09:00 103 16 113/45 100 Mechanical Ventilator 50 5/18/18 08:30 108 16 132/54 100 Mechanical Ventilator 50 5/18/18 08:00 104 16 128/63 100 Mechanical Ventilator 50 5/18/18 08:00 50 5/18/18 08:00 107 5/18/18 07:30 99.0 103 14 117/56 100 Mechanical Ventilator 50 99.0 5/18/18 07:07 117 23 50 5/18/18 07:00 104 14 119/53 100 Mechanical Ventilator 50 5/18/18 06:30 103 14 114/49 100 Mechanical Ventilator 50 5/18/18 06:00 104 16 114/62 100 Mechanical Ventilator 50 5/18/18 05:30 106 17 106/47 99 Mechanical Ventilator 50 5/18/18 05:08 115 19 50 5/18/18 05:00 110 18 106/39 100 Mechanical Ventilator 50 5/18/18 04:30 110 18 112/41 100 Mechanical Ventilator 50 5/18/18 04:00 98.6 115 19 138/51 100 Mechanical Ventilator 50 98.6 5/18/18 04:00 50 5/18/18 04:00 115 5/18/18 03:30 112 19 132/61 100 Mechanical Ventilator 50 5/18/18 03:10 101 20 50 5/18/18 03:00 105 18 132/55 100 Mechanical Ventilator 50 5/18/18 02:30 102 19 109/63 100 Mechanical Ventilator 50 5/18/18 02:00 101 16 105/62 100 Mechanical Ventilator 50 5/18/18 01:30 101 16 126/47 99 Mechanical Ventilator 50 5/18/18 01:22 104 23 50 5/18/18 01:00 108 19 133/48 99 Mechanical Ventilator 50 5/18/18 00:37 128/56 5/18/18 00:30 109 18 128/56 99 Mechanical Ventilator 50 5/18/18 00:00 50 5/18/18 00:00 98.7 114 20 124/49 99 Mechanical Ventilator 50 98.7 5/18/18 00:00 111 5/17/18 23:30 112 18 101/71 99 Mechanical Ventilator 50 5/17/18 23:05 117 19 50 5/17/18 23:00 115 19 110/49 100 Mechanical Ventilator 50 5/17/18 22:30 105 21 126/59 100 Mechanical Ventilator 50 5/17/18 22:00 105 19 130/62 100 Mechanical Ventilator 50 01/18/18 21:30 105 19 131/64 100 Mechanical Ventilator 100 01/18/18 21:08 92 23 60 01/18/18 21:00 98 19 74/26 100 Mechanical Ventilator 100 01/18/18 20:30 101 21 102/61 100 Mechanical Ventilator 100 01/18/18 20:00 108 01/18/18 20:00 108 17 109/55 100 Mechanical Ventilator 100 01/18/18 20:00 100 01/18/18 19:30 98.3 111 17 115/44 99 Mechanical Ventilator 100 98.3 01/18/18 19:25 114 21 70 01/18/18 19:24 112/67 01/18/18 19:00 101/46 01/18/18 19:00 101/46 01/18/18 19:00 97.9 113 22 112/67 97 Mechanical Ventilator 100 97.9 01/18/18 18:37 107/40 01/18/18 18:30 97.2 111 22 107/40 97 Mechanical Ventilator 100 97.2 01/18/18 18:00 101/38 18 18:00 101/38 01/18/18 18:00 97.2 109 22 101/38 97 Mechanical Ventilator 100 97.2 01/18/18 17:30 97.2 115 22 89/44 97 Mechanical Ventilator 100 97.2 01/18/18 17:10 113 18 40 01/18/18 17:00 97.4 115 22 99/53 97 Mechanical Ventilator 100 97.4 01/18/18 17:00 99/53 01/18/18 17:00 99/53 01/18/18 16:30 97.5 115 21 102/49 97 Mechanical Ventilator 100 97.5 Intake and Output 01/18/18 01/19/18 19:00 07:00 Intake Total 3725.735 ml 1796.6958 ml Output Total 60 ml 80 ml Balance 3665.735 ml 1716.6958 ml Intake IV Total 3725.735 ml 1796.6958 ml Output Urine Total 60 ml 80 ml Laboratory Tests 01/18/18 18:15: Sodium Level 138, Potassium Level 3.2L, Chloride Level 101, Carbon Dioxide Level 18L, Anion Gap 19H, Blood Urea Nitrogen 57H, Creatinine 5.7H, Estimat Glomerular Filtration Rate 10.8, Glucose Level 129H, Calcium Level 5.8*L, Phosphorus Level 5.8H, Total Bilirubin 1.0, Aspartate Amino Transf (AST/SGOT) 139H, Alanine Aminotransferase (ALT/SGPT) 47, Alkaline Phosphatase 151H, Troponin I 0.099H, Total Protein 4.7L, Albumin 2.1L, Globulin 2.6, Albumin/ Globulin Ratio 0.8L 01/19/18 04:30: Sodium Level 135L, Potassium Level 2.9L, Chloride Level 99, Carbon Dioxide Level 20L, Anion Gap 16H, Blood Urea Nitrogen 58H, Creatinine 5.8H, Estimat Glomerular Filtration Rate 10.6, Glucose Level 145H, Calcium Level 6.0L, Phosphorus Level 5.0H, Total Bilirubin 1.2H, Aspartate Amino Transf (AST/SGOT) 117H, Alanine Aminotransferase (ALT/SGPT) 47, Alkaline Phosphatase 227H, Troponin I 0.066H, Total Protein 5.0L, Albumin 1.9L, Globulin 3.1, Albumin/ Globulin Ratio 0.6L, White Blood Count 13.9H, Red Blood Count 2.81L, Hemoglobin 9.0L, Hematocrit 24.2L, Mean Corpuscular Volume 86, Mean Corpuscular Hemoglobin 32.2H, Mean Corpuscular Hemoglobin Concent 37.3H, Red Cell Distribution Width 11.3L, Platelet Count 39L, Mean Platelet Volume 11.8H, Neutrophils (%) (Auto) , Lymphocytes (%) (Auto) , Monocytes (%) (Auto) , Eosinophils (%) (Auto) , Basophils (%) (Auto) , Differential Total Cells Counted 100, Neutrophils % ( Manual) 59, Lymphocytes % (Manual) 8L, Monocytes % (Manual) 9, Eosinophils % ( Manual) 0, Basophils % (Manual) 0, Metamyelocytes % 4H, Band Neutrophils 20H, Platelet Estimate DecreasedL, Platelet Morphology Normal, Red Blood Cell Morphology Normal, Lactic Acid Level 3.40H, Uric Acid 8.5H, Magnesium Level 1.7L , Direct Bilirubin 0.7H, Gamma Glutamyl Transpeptidase 365H, Ammonia 35H, Pro-B- Type Natriuretic Peptide 9107H, Triglycerides Level 257H, Cholesterol Level 109 , LDL Cholesterol 39, HDL Cholesterol 6L, Cholesterol/HDL Ratio 18.2H, Lipase 680H 01/19/18 08:50: Arterial Blood pH 7.290L, Arterial Blood Partial Pressure CO2 43.3, Arterial Blood Partial Pressure O2 93.4, Arterial Blood HCO3 20.6L, Arterial Blood Oxygen Saturation 96.7, Arterial Blood Base Excess -5.5, Harsha Test Positive 01/19/18 15:30: Lactic Acid Level [Pending] Height (Feet): 5 Height (Inches): 9.00 Weight (Pounds): 283 General Appearance: lethargic Cardiovascular: tachycardia Respiratory/Chest: decreased breath sounds Abdomen: distended Extremities: other - swollen ALANNA MAHONEY January 19, 2018 16:01
[2018-01-19] MEDS: Calcium Gluconate 10% 2 GM in NS 110 ML IVPB SCH ×2 (16:31→21:54)
[2018-01-19] MEDS: NOREPINEPHRINE BITARTRATE IV SCH (17:00)
[2018-01-19] MEDS: SODIUM CHLORIDE IV SCH (17:00)
[2018-01-19] MEDS: Dyna-Hex 2% Top Sol 2oz TOPIC SCH (19:44)
[2018-01-19] MEDS: Meropenem 500mg/NS 55ml IVPB SCH ×2 (21:54)
--- NOTE | 2018-01-19 23:46 | Progress Note ---
DATE: 01/19/2018 CARDIOLOGY PROGRESS NOTE SUBJECTIVE: The patient remains in the intensive care unit, orally intubated, hypotensive, on pressors. He is responsive. Pressors were tapered significantly over the last 8 hours with dopamine discontinued, but Levophed remained now at high dose. The patient has been on hemodialysis for acute renal failure. OBJECTIVE: VITAL SIGNS: Blood pressure 110/50, pulse 98, respiratory rate 16, and afebrile. CARDIOVASCULAR: A 1+ dependent edema. LUNGS: Bilateral breath sounds. Oral ET tube. ABDOMEN: Distended, but soft. LABORATORY AND DIAGNOSTIC DATA: sinus tachycardia with paroxysms of atrial fibrillation albeit less frequent over the past 24 hours. White count 13.9, hemoglobin 9. ABG, pH 7.29, pCO2 43, pO2 93. Sodium 135, potassium 2.9, BUN 58, creatinine 5.8. Lactic acid 3.4 this morning and 1.9 this afternoon. Magnesium 1.7. Albumin 1.9. Natriuretic peptide assay is 9100. IMPRESSION: 1. Diabetic ketoacidosis. 2. Shock. 3. Sepsis. 4. Hypovolemia. 5. Acute myocardial infarction. 6. Paroxysmal atrial fibrillation. 7. Hypokalemia. 8. Hypomagnesemia. 9. Lactic acidosis, resolved. 10. Acute renal failure, now on dialysis. PLAN: 1. Adjust dialysis bath for low potassium. 2. Continue tapering off pressors. 3. Broad-spectrum antibiotic. 4. Magnesium supplementation. 5. Monitor for malignant arrhythmias. 6. Fluid removal as tolerated by blood pressure parameters. 7. Trend natriuretic peptide assay. 8. The patient remains critical and guarded. Kalpesh Lucio JOB#: [id number] CC:
[2018-01-20] VITALS (59 sets, daily range): BP systolic 85–126; BP diastolic 34–64
[2018-01-20 05:10] LABS: HEMATOCRIT 21.4 % (42.0-52.0); HEMOGLOBIN 7.6 G/DL (14.2-18.0); MEAN CORPUSCULAR VOLUME 87 FL (80-99); PLATELET COUNT 29 K/UL (150-450); RED BLOOD COUNT 2.47 M/UL (4.70-6.10); RED CELL DISTRIBUTION WIDTH 11.4 % (11.6-14.8); WHITE BLOOD COUNT 10.4 K/UL (4.8-10.8)
[2018-01-20] MEDS: NOREPINEPHRINE BITARTRATE IV SCH (05:36)
[2018-01-20] MEDS: SODIUM CHLORIDE IV SCH (05:36)
[2018-01-20 05:57] LABS: ALANINE AMINOTRANSFERASE 48 U/L (12-78); ALBUMIN 1.6 G/DL (3.4-5.0); ALBUMIN/GLOBULIN RATIO 0.5 (1.0-2.7); ALKALINE PHOSPHATASE 499 U/L (46-116); ANION GAP 12 mmol/L (5-15); ASPARTATE AMINO TRANSFERASE 83 U/L (15-37); BILIRUBIN,TOTAL 1.3 MG/DL (0.2-1.0); BLOOD UREA NITROGEN 41 mg/dL (7-18); CALCIUM 6.9 MG/DL (8.5-10.1); CARBON DIOXIDE 25 MMOL/L (21-32); CHLORIDE 101 MMOL/L (98-107); PHOSPHORUS 4.3 MG/DL (2.5-4.9); POTASSIUM 2.8 MMOL/L (3.5-5.1); SODIUM 137 MMOL/L (136-145)
[2018-01-20 06:01] LABS: BILIRUBIN,DIRECT 0.6 MG/DL (0.0-0.3)
[2018-01-20] MEDS: Calcium Gluconate 10% 2 GM in NS 110 ML IVPB SCH ×3 (06:07→22:27)
[2018-01-20] MEDS: Hydrocortisone 100mg Inj IV SCH ×3 (06:07→22:00)
--- NOTE | 2018-01-20 06:38 | General Progress Note ---
Assessment/Plan Problem List: (1) Septic shock ICD Codes: A41.9 - Sepsis, unspecified organism; R65.21 - Severe sepsis with septic shock SNOMED: 59754175 (2) DKA (diabetic ketoacidoses) ICD Codes: E13.10 - Other specified diabetes mellitus with ketoacidosis without coma SNOMED: 568050127, 79764329 (3) Acute renal failure (ARF) ICD Codes: N17.9 - Acute kidney failure, unspecified SNOMED: 62236207 Assessment/Plan condition remains critical insulin gtt rate at 3-4 units/hour will DC insulin gtt start Novolog 6 units every 4 hours + NISS q4h Subjective ROS Limited/Unobtainable: Yes Allergies: Coded Allergies: No Known Allergies (Unverified , 01/15/18) Subjective events noted - interval notes reviewed remained intubated in icu - on pressors and insulin drip Objective Last 24 Hour Vital Signs Date Time Temp Pulse Resp B/P (MAP) Pulse Ox O2 Delivery O2 Flow Rate FiO2 01/20/18 06:15 100 17 110/49 99 Mechanical Ventilator 40 01/20/18 06:00 99 15 94/46 99 Mechanical Ventilator 40 01/20/18 05:45 100 18 110/56 99 Mechanical Ventilator 40 01/20/18 05:36 104/50 01/20/18 05:30 104 18 104/50 99 Mechanical Ventilator 40 01/20/18 05:28 102 22 40 01/20/18 05:15 104 18 104/50 99 Mechanical Ventilator 40 01/20/18 05:00 106 13 88/60 97 Mechanical Ventilator 40 01/20/18 04:45 98 16 87/63 99 Mechanical Ventilator 40 01/20/18 04:30 93 16 92/45 100 Mechanical Ventilator 40 01/20/18 04:15 93 16 110/42 100 Mechanical Ventilator 40 01/20/18 04:00 98.3 99 15 106/42 100 Mechanical Ventilator 40 98.3 01/20/18 04:00 40 01/20/18 04:00 93 01/20/18 03:45 99 17 104/50 100 Mechanical Ventilator 40 01/20/18 03:30 95 16 107/38 99 Mechanical Ventilator 40 01/20/18 03:15 93 17 92/64 100 Mechanical Ventilator 40 01/20/18 03:00 97 17 106/49 Mechanical Ventilator 40 5/19/18 02:58 95 19 40 5/19/18 02:45 94 17 98/40 Mechanical Ventilator 40 5/19/18 02:30 84 14 115/47 Mechanical Ventilator 40 5/19/18 02:15 97 17 122/49 Mechanical Ventilator 40 5/19/18 02:00 95 18 97/47 Mechanical Ventilator 40 5/19/18 01:45 94 17 102/43 Mechanical Ventilator 40 5/19/18 01:30 93 17 112/50 100 Mechanical Ventilator 40 5/19/18 01:18 89 20 40 5/19/18 01:15 95 16 93/41 100 Mechanical Ventilator 40 5/19/18 01:00 94 16 93/50 100 Mechanical Ventilator 40 5/19/18 00:45 96 17 108/45 100 Mechanical Ventilator 40 5/19/18 00:30 92 16 96/52 100 Mechanical Ventilator 40 5/19/18 00:15 96 14 109/50 100 Mechanical Ventilator 40 5/19/18 00:00 89 5/19/18 00:00 97.8 99 18 116/49 99 Mechanical Ventilator 40 97.8 5/19/18 00:00 40 5/18/18 23:45 95 16 100/37 100 Mechanical Ventilator 40 5/18/18 23:30 90 17 118/50 100 Mechanical Ventilator 40 5/18/18 23:20 102 17 40 5/18/18 23:15 97 18 103/54 100 Mechanical Ventilator 40 5/18/18 23:00 93 16 121/49 100 Mechanical Ventilator 40 5/18/18 22:45 100 19 114/41 100 Mechanical Ventilator 40 5/18/18 22:30 96 15 116/60 100 Mechanical Ventilator 40 5/18/18 22:15 102 18 123/57 100 Mechanical Ventilator 40 5/18/18 22:00 97.9 96 17 123/55 100 Mechanical Ventilator 40 97.9 5/18/18 21:45 99 18 116/56 100 Mechanical Ventilator 40 5/18/18 21:30 100 18 127/61 100 Mechanical Ventilator 40 5/18/18 21:13 104 23 40 5/18/18 21:00 99 16 144/98 100 Mechanical Ventilator 40 5/18/18 20:45 99 18 123/63 100 Mechanical Ventilator 40 5/18/18 20:30 103 19 129/57 100 Mechanical Ventilator 40 5/18/18 20:15 99 15 130/52 100 Mechanical Ventilator 40 5/18/18 20:00 97 5/18/18 20:00 98.0 91 15 130/57 100 Mechanical Ventilator 40 98.0 5/18/18 20:00 40 5/18/18 19:45 94 18 138/57 100 Mechanical Ventilator 40 5/18/18 19:30 98 19 129/49 99 Mechanical Ventilator 40 5/18/18 19:12 92 19 40 5/18/18 19:00 98.6 98 16 131/56 100 Mechanical Ventilator 40 98.6 5/18/18 18:30 93 16 121/61 98 Mechanical Ventilator 40 5/18/18 18:00 95 16 105/44 100 Mechanical Ventilator 40 5/18/18 17:30 102 16 115/46 100 Mechanical Ventilator 40 5/18/18 17:27 Mechanical Ventilator 15.0 40 5/18/18 17:25 Mechanical Ventilator 15.0 40 5/18/18 17:25 95 19 40 5/18/18 17:00 105/66 5/18/18 17:00 104 16 104/46 100 Mechanical Ventilator 40 5/18/18 16:30 113 16 130/70 100 Mechanical Ventilator 40 5/18/18 16:00 111 16 116/66 100 Mechanical Ventilator 40 5/18/18 16:00 103 5/18/18 16:00 40 5/18/18 15:30 105 16 120/60 100 Mechanical Ventilator 40 5/18/18 15:09 Mechanical Ventilator 15.0 40 5/18/18 15:00 88 16 115/45 100 Mechanical Ventilator 40 5/18/18 14:47 104 19 40 5/18/18 14:30 98.5 98 16 110/50 100 Mechanical Ventilator 40 98.5 5/18/18 14:00 82 16 97/42 100 Mechanical Ventilator 40 5/18/18 13:30 111 16 137/62 100 Mechanical Ventilator 40 5/18/18 13:29 101 16 40 5/18/18 13:00 107 16 127/70 100 Mechanical Ventilator 40 5/18/18 13:00 Mechanical Ventilator 15.0 40 5/18/18 12:30 103 16 106/58 100 Mechanical Ventilator 40 5/18/18 12:00 99.4 105 16 103/44 100 Mechanical Ventilator 40 99.4 5/18/18 12:00 40 01/19/18 12:00 105 01/19/18 11:30 103 16 108/48 100 Mechanical Ventilator 40 01/19/18 11:00 100 16 107/43 100 Mechanical Ventilator 40 01/19/18 10:43 98 16 40 01/19/18 10:32 99.2 01/19/18 10:30 106 16 111/42 100 Mechanical Ventilator 40 01/19/18 10:09 112/71 01/19/18 10:02 99.5 01/19/18 10:00 106 16 146/54 100 Mechanical Ventilator 50 01/19/18 09:30 95 16 88/35 100 Mechanical Ventilator 50 01/19/18 09:00 95 23 50 01/19/18 09:00 103 16 113/45 100 Mechanical Ventilator 50 01/19/18 08:30 108 16 132/54 100 Mechanical Ventilator 50 01/19/18 08:00 104 16 128/63 100 Mechanical Ventilator 50 01/19/18 08:00 50 01/19/18 08:00 107 01/19/18 07:30 99.0 103 14 117/56 100 Mechanical Ventilator 50 99.0 01/19/18 07:07 117 23 50 01/19/18 07:00 104 14 119/53 100 Mechanical Ventilator 50 Intake and Output 01/19/18 01/20/18 19:00 07:00 Intake Total 2118.375 ml 1105.64 ml Output Total 180 ml 195 ml Balance 1938.375 ml 910.64 ml Intake IV Total 2118.375 ml 1105.64 ml Output Urine Total 180 ml 195 ml Hemodialysis UF 0 ml # Bowel Movements 1 Laboratory Tests 01/19/18 08:50: Arterial Blood pH 7.290L, Arterial Blood Partial Pressure CO2 43.3, Arterial Blood Partial Pressure O2 93.4, Arterial Blood HCO3 20.6L, Arterial Blood Oxygen Saturation 96.7, Arterial Blood Base Excess -5.5, Harsha Test Positive 01/19/18 15:30: Lactic Acid Level 1.90 01/20/18 04:20: Lactic Acid Level 1.70, White Blood Count 10.4, Red Blood Count 2.47L, Hemoglobin 7.6L, Hematocrit 21.4L, Mean Corpuscular Volume 87, Mean Corpuscular Hemoglobin 30.7, Mean Corpuscular Hemoglobin Concent 35.3, Red Cell Distribution Width 11.4L, Platelet Count 29L, Mean Platelet Volume 13.4H, Neutrophils (%) (Auto) , Lymphocytes (%) (Auto) , Monocytes (%) (Auto) , Eosinophils (%) (Auto) , Basophils (%) (Auto) , Neutrophils % (Manual) [Pending] , Lymphocytes % (Manual) [Pending], Platelet Estimate [Pending], Platelet Morphology [Pending], Sodium Level 137, Potassium Level 2.8L, Chloride Level 101 , Carbon Dioxide Level 25, Anion Gap 12, Blood Urea Nitrogen 41H, Creatinine 4.0H, Estimat Glomerular Filtration Rate 16.3, Glucose Level 137H, Uric Acid 6.1 , Calcium Level 6.9L, Phosphorus Level 4.3, Magnesium Level 1.8, Total Bilirubin 1.3H, Direct Bilirubin 0.6H, Aspartate Amino Transf (AST/SGOT) 83H, Alanine Aminotransferase (ALT/SGPT) 48, Alkaline Phosphatase 499H, Troponin I 0.040, C-Reactive Protein, Quantitative 28.5H, Pro-B-Type Natriuretic Peptide 7074H, Total Protein 4.7L, Albumin 1.6L, Globulin 3.1, Albumin/Globulin Ratio 0.5L, Lipase 161 Height (Feet): 5 Height (Inches): 9.00 Weight (Pounds): 285 General Appearance: severe distress Neck: normal alignment Cardiovascular: tachycardia Respiratory/Chest: decreased breath sounds Abdomen: hypoactive bowel sounds Pelvis: normal external exam Edema: no edema noted Arm (L), no edema noted Arm (R), no edema noted Leg (L), no edema noted Leg (R), no edema noted Pedal (L), no edema noted Pedal (R), no edema noted Generalized Objective Current Medications Medications (Trade) Dose Ordered Sig/Alana Route PRN Reason Start Time Stop Time Status Last Admin Dose Admin Acetaminophen (Tylenol) 500 mg Q6HR PRN NG Fever/Headache/Mild Pain 01/16/18 23:15 02/15/18 23:14 01/19/18 10:02 Calcium Gluconate 2 gm/Sodium Chloride 130 ml @ 120 mls/hr Q8H IVPB 01/19/18 14:00 02/17/18 13:59 01/20/18 06:07 Chlorhexidine Gluconate (Марина-Hex 2%) 1 applic DAILY@2000 TOPIC 01/17/18 20:00 02/16/18 19:59 01/19/18 19:44 Dextrose (Dextrose 50%) 25 ml PRN PRN IV HYPOGLYCEMIA 01/16/18 14:30 02/15/18 14:29 Dextrose (Dextrose 50%) 50 ml PRN PRN IV HYPOGLYCEMIA 01/16/18 14:30 02/15/18 14:29 Dopamine HCl/ Dextrose 250 ml @ 0 mls/hr Q24H IV 01/16/18 08:45 02/15/18 08:44 01/19/18 10:09 Fluconazole/ Sodium Chloride 100 ml @ 100 mls/hr Q24H IV 01/17/18 00:00 01/24/18 00:00 01/19/18 23:37 Hydrocortisone (Solu-CORTEF) 25 mg EVERY 8 HOURS IV 01/18/18 14:00 02/17/18 13:59 01/20/18 06:07 Insulin Human Regular (NovoLIN R) 5 units PRN PRN IV BS 200-299 01/16/18 14:30 02/15/18 14:29 01/18/18 16:23 Insulin Human Regular (NovoLIN R) 10 units PRN PRN IV BS=>300 01/16/18 14:30 02/15/18 14:29 01/16/18 16:14 Insulin Human Regular 100 units/ Sodium Chloride 101 ml @ 0 mls/hr Q24H IV 01/16/18 15:00 02/15/18 14:59 01/19/18 10:21 Lorazepam (Ativan 2mg/ml 1ml) 1 mg Q2H PRN IV For Anxiety 01/16/18 08:30 01/23/18 08:29 01/19/18 13:42 Meropenem 500 mg/ Sodium Chloride 55 ml @ 110 mls/hr Q24H IVPB 01/17/18 22:00 01/22/18 21:59 01/19/18 21:54 Miscellaneous Medication (Insulin Rate Change) 1 ea PRN PRN MISC Hyperglycemia 01/16/18 14:30 02/15/18 14:29 01/19/18 10:21 Morphine Sulfate (Morphine Sulfate) 2 mg Q2H PRN IVP For Pain 01/16/18 09:05 01/23/18 09:04 Norepinephrine Bitartrate 16 mg/ Sodium Chloride 566 ml @ 0 mls/hr Q24H IV 01/16/18 21:00 02/15/18 20:59 01/20/18 05:36 Pantoprazole (Protonix) 40 mg Q12HR IVP 01/16/18 21:00 02/15/18 08:59 01/19/18 20:22 Sodium Bicarbonate 100 ml/Dextrose 1,100 ml @ 75 mls/hr [id number] IV 01/18/18 14:00 02/15/18 13:59 01/19/18 17:00 Vancomycin HCl (Vanco rx to dose) 1 ea DAILY PRN MISC Per rx protocol 01/18/18 10:15 02/17/18 10:14 Item Value Date Time Bedside Blood Glucose 129 mg/dl H 01/20/18 0600 Bedside Blood Glucose 111 mg/dl 01/20/18 0200 Bedside Blood Glucose 135 mg/dl H 01/19/18 2200 Bedside Blood Glucose 124 mg/dl H 01/19/18 1800 Bedside Blood Glucose 128 mg/dl H 01/19/18 1400 Bedside Blood Glucose 135 mg/dl H 01/19/18 1021 MATTEO VU January 20, 2018 06:38
[2018-01-20] MEDS: Pantoprazole Inj IVP SCH ×2 (08:49→20:51)
[2018-01-20] MEDS: NovoLOG Insulin Flexpen SUBQ SCH ×8 (08:51→20:54)
[2018-01-20] MEDS: D5NS 1,000 ML IV SCH ×2 (10:02→22:27)
--- NOTE | 2018-01-20 10:32 | Pulmonology Progress Note ---
Assessment/Plan Assessment/Plan 1. Respiratory failure. 2. Severe hyponatremia. Improved 3. Hyperglycemia. Off insulin gtt 4. Diabetic ketoacidosis. Improved; ph now 7.36 5. Sepsis. on broad spectrum abx; ID following 6. Hypotension. Remains on levo; no longer on dopa 7. S/p arrest DISCUSSION: Continue normal saline, broad-spectrum, antibiotics, aggressive IV fluid hydration, central line care, pressors, Armenta. Full Code for now. Discussed with all consultants I will decrease steroids; continue for now S/p HD; Continue bicarb gtt Has thrombocytopenia; likely drug related; stable for now Slowly improving Begin weaning Begin nutrition Matt Kessler M.D. Subjective Interval Events: awake and responsive Constitutional: Reports: no symptoms HEENT: Repors: no symptoms Respiratory: Reports: no symptoms Cardiovascular: Reports: no symptoms Gastrointestinal/Abdominal: Reports: no symptoms Allergies: Coded Allergies: No Known Allergies (Unverified , 01/15/18) Objective Last 24 Hour Vital Signs Date Time Temp Pulse Resp B/P (MAP) Pulse Ox O2 Delivery O2 Flow Rate FiO2 01/20/18 09:07 92 16 40 01/20/18 08:00 40 01/20/18 08:00 96 16 90/40 100 Mechanical Ventilator 40 01/20/18 08:00 96 01/20/18 07:30 98.5 92 16 96/41 100 Mechanical Ventilator 40 98.5 01/20/18 07:00 94 16 97/36 100 Mechanical Ventilator 40 01/20/18 07:00 105/49 01/20/18 06:35 102 17 40 01/20/18 06:30 100 16 107/43 100 Mechanical Ventilator 40 01/20/18 06:15 100 17 110/49 99 Mechanical Ventilator 40 01/20/18 06:00 99 15 94/46 99 Mechanical Ventilator 40 01/20/18 05:45 100 18 110/56 99 Mechanical Ventilator 40 01/20/18 05:36 104/50 01/20/18 05:30 104 18 104/50 99 Mechanical Ventilator 40 01/20/18 05:28 102 22 40 5/19/18 05:15 104 18 104/50 99 Mechanical Ventilator 40 5/19/18 05:00 106 13 88/60 97 Mechanical Ventilator 40 5/19/18 04:45 98 16 87/63 99 Mechanical Ventilator 40 5/19/18 04:30 93 16 92/45 100 Mechanical Ventilator 40 5/19/18 04:15 93 16 110/42 100 Mechanical Ventilator 40 5/19/18 04:00 98.3 99 15 106/42 100 Mechanical Ventilator 40 98.3 01/20/18 04:00 40 19/18 04:00 93 5/19/18 03:45 99 17 104/50 100 Mechanical Ventilator 40 5/19/18 03:30 95 16 107/38 99 Mechanical Ventilator 40 5//18 03:15 93 17 92/64 100 Mechanical Ventilator 40 5/18 03:00 97 17 106/49 Mechanical Ventilator 40 5/18 02:58 95 19 40 5/18 02:45 94 17 98/40 Mechanical Ventilator 40 01/20/18 02:30 84 14 115/47 Mechanical Ventilator 40 5/18 02:15 97 17 122/49 Mechanical Ventilator 40 5/18 02:00 95 18 97/47 Mechanical Ventilator 40 519/18 01:45 94 17 102/43 Mechanical Ventilator 40 5/18 01:30 93 17 112/50 100 Mechanical Ventilator 40 519/18 01:18 89 20 40 5/19/18 01:15 95 16 93/41 100 Mechanical Ventilator 40 5/19/18 01:00 94 16 93/50 100 Mechanical Ventilator 40 519/18 00:45 96 17 108/45 100 Mechanical Ventilator 40 519/18 00:30 92 16 96/52 100 Mechanical Ventilator 40 5/19/18 00:15 96 14 109/50 100 Mechanical Ventilator 40 5/19/18 00:00 89 5/19/18 00:00 97.8 99 18 116/49 99 Mechanical Ventilator 40 97.8 5/19/18 00:00 40 5/18/18 23:45 95 16 100/37 100 Mechanical Ventilator 40 5/18/18 23:30 90 17 118/50 100 Mechanical Ventilator 40 5/18/18 23:20 102 17 40 5/18/18 23:15 97 18 103/54 100 Mechanical Ventilator 40 5/18/18 23:00 93 16 121/49 100 Mechanical Ventilator 40 5/18/18 22:45 100 19 114/41 100 Mechanical Ventilator 40 5/18/18 22:30 96 15 116/60 100 Mechanical Ventilator 40 5/18/18 22:15 102 18 123/57 100 Mechanical Ventilator 40 5/18/18 22:00 97.9 96 17 123/55 100 Mechanical Ventilator 40 97.9 5/18/18 21:45 99 18 116/56 100 Mechanical Ventilator 40 5/18/18 21:30 100 18 127/61 100 Mechanical Ventilator 40 5/18/18 21:13 104 23 40 5/18/18 21:00 99 16 144/98 100 Mechanical Ventilator 40 5/18/18 20:45 99 18 123/63 100 Mechanical Ventilator 40 5/18/18 20:30 103 19 129/57 100 Mechanical Ventilator 40 5/18/18 20:15 99 15 130/52 100 Mechanical Ventilator 40 5/18/18 20:00 97 5/18/18 20:00 98.0 91 15 130/57 100 Mechanical Ventilator 40 98.0 5/18/18 20:00 40 5/18/18 19:45 94 18 138/57 100 Mechanical Ventilator 40 5/18/18 19:30 98 19 129/49 99 Mechanical Ventilator 40 5/18/18 19:12 92 19 40 5/18/18 19:00 98.6 98 16 131/56 100 Mechanical Ventilator 40 98.6 5/18/18 18:30 93 16 121/61 98 Mechanical Ventilator 40 5/18/18 18:00 95 16 105/44 100 Mechanical Ventilator 40 5/18/18 17:30 102 16 115/46 100 Mechanical Ventilator 40 5/18/18 17:27 Mechanical Ventilator 15.0 40 5/18/18 17:25 Mechanical Ventilator 15.0 40 5/18/18 17:25 95 19 40 5/18/18 17:00 105/66 5/18/18 17:00 104 16 104/46 100 Mechanical Ventilator 40 5/18/18 16:30 113 16 130/70 100 Mechanical Ventilator 40 5/18/18 16:00 111 16 116/66 100 Mechanical Ventilator 40 5/18/18 16:00 103 5/18/18 16:00 40 5/18/18 15:30 105 16 120/60 100 Mechanical Ventilator 40 5/18/18 15:09 Mechanical Ventilator 15.0 40 01/19/18 15:00 88 16 115/45 100 Mechanical Ventilator 40 01/19/18 14:47 104 19 40 01/19/18 14:30 98.5 98 16 110/50 100 Mechanical Ventilator 40 98.5 01/19/18 14:00 82 16 97/42 100 Mechanical Ventilator 40 01/19/18 13:30 111 16 137/62 100 Mechanical Ventilator 40 01/19/18 13:29 101 16 40 01/19/18 13:00 107 16 127/70 100 Mechanical Ventilator 40 01/19/18 13:00 Mechanical Ventilator 15.0 40 01/19/18 12:30 103 16 106/58 100 Mechanical Ventilator 40 01/19/18 12:00 99.4 105 16 103/44 100 Mechanical Ventilator 40 99.4 01/19/18 12:00 40 01/19/18 12:00 105 01/19/18 11:30 103 16 108/48 100 Mechanical Ventilator 40 01/19/18 11:00 100 16 107/43 100 Mechanical Ventilator 40 01/19/18 10:43 98 16 40 01/19/18 10:32 99.2 Intake and Output 01/19/18 01/20/18 19:00 07:00 Intake Total 2118.375 ml 1624.02 ml Output Total 180 ml 220 ml Balance 1938.375 ml 1404.02 ml Intake IV Total 2118.375 ml 1624.02 ml Output Urine Total 180 ml 220 ml Hemodialysis UF 0 ml # Bowel Movements 1 General Appearance: no acute distress HEENT: normocephalic Respiratory/Chest: chest wall non-tender, lungs clear Cardiovascular: normal peripheral pulses, normal rate Abdomen: normal bowel sounds Laboratory Tests 01/19/18 15:30: Lactic Acid Level 1.90 01/20/18 04:00: Arterial Blood pH 7.360, Arterial Blood Partial Pressure CO2 46.0H, Arterial Blood Partial Pressure O2 96.4, Arterial Blood HCO3 25.6, Arterial Blood Oxygen Saturation 96.5, Arterial Blood Base Excess 0, Harsha Test Positive 01/20/18 04:20: Lactic Acid Level 1.70, White Blood Count 10.4, Red Blood Count 2.47L, Hemoglobin 7.6L, Hematocrit 21.4L, Mean Corpuscular Volume 87, Mean Corpuscular Hemoglobin 30.7, Mean Corpuscular Hemoglobin Concent 35.3, Red Cell Distribution Width 11.4L, Platelet Count 29L, Mean Platelet Volume 13.4H, Neutrophils (%) (Auto) , Lymphocytes (%) (Auto) , Monocytes (%) (Auto) , Eosinophils (%) (Auto) , Basophils (%) (Auto) , Differential Total Cells Counted 100, Neutrophils % (Manual) 75, Lymphocytes % (Manual) 15L, Monocytes % (Manual) 9, Eosinophils % (Manual) 1, Basophils % (Manual) 0, Band Neutrophils 0 , Platelet Estimate DecreasedL, Platelet Morphology Normal, Hypochromasia 1+, Sodium Level 137, Potassium Level 2.8L, Chloride Level 101, Carbon Dioxide Level 25, Anion Gap 12, Blood Urea Nitrogen 41H, Creatinine 4.0H, Estimat Glomerular Filtration Rate 16.3, Glucose Level 137H, Uric Acid 6.1, Calcium Level 6.9L, Phosphorus Level 4.3, Magnesium Level 1.8, Total Bilirubin 1.3H, Direct Bilirubin 0.6H, Aspartate Amino Transf (AST/SGOT) 83H, Alanine Aminotransferase (ALT/SGPT) 48, Alkaline Phosphatase 499H, Troponin I 0.040, C- Reactive Protein, Quantitative 28.5H, Pro-B-Type Natriuretic Peptide 7074H, Total Protein 4.7L, Albumin 1.6L, Globulin 3.1, Albumin/Globulin Ratio 0.5L, Lipase 161 Current Medications Medications (Trade) Dose Ordered Sig/Alana Route PRN Reason Start Time Stop Time Status Last Admin Dose Admin Acetaminophen (Tylenol) 500 mg Q6HR PRN NG Fever/Headache/Mild Pain 01/16/18 23:15 02/15/18 23:14 01/19/18 10:02 Calcium Gluconate 2 gm/Sodium Chloride 130 ml @ 120 mls/hr Q8H IVPB 01/19/18 14:00 02/17/18 13:59 01/20/18 06:07 Chlorhexidine Gluconate (Марина-Hex 2%) 1 applic DAILY@2000 TOPIC 01/17/18 20:00 02/16/18 19:59 01/19/18 19:44 Dextrose (Dextrose 50%) 25 ml STAT PRN IV Hypoglycemia 01/20/18 06:45 02/19/18 06:44 Dextrose (Dextrose 50%) 50 ml STAT PRN IV Hypoglycemia 01/20/18 06:45 02/19/18 06:44 Dextrose/Sodium Chloride 1,000 ml @ 75 mls/hr [id number] IV 01/20/18 09:15 02/19/18 09:14 01/20/18 10:02 Dopamine HCl/ Dextrose 250 ml @ 0 mls/hr Q24H IV 01/16/18 08:45 02/15/18 08:44 01/19/18 10:09 Fluconazole/ Sodium Chloride 100 ml @ 100 mls/hr Q24H IV 01/17/18 00:00 01/24/18 00:00 01/19/18 23:37 Hydrocortisone (Solu-CORTEF) 25 mg EVERY 8 HOURS IV 01/18/18 14:00 02/17/18 13:59 01/20/18 06:07 Insulin Aspart (NovoLOG) EVERY 4 HOURS SUBQ 01/20/18 09:00 02/19/18 08:59 01/20/18 08:51 Insulin Aspart (NovoLOG) 6 units EVERY 4 HOURS SUBQ 01/20/18 09:00 02/19/18 08:59 01/20/18 08:51 Lorazepam (Ativan 2mg/ml 1ml) 1 mg Q2H PRN IV For Anxiety 01/16/18 08:30 01/23/18 08:29 01/19/18 13:42 Meropenem 500 mg/ Sodium Chloride 55 ml @ 110 mls/hr Q24H IVPB 01/17/18 22:00 01/22/18 21:59 01/19/18 21:54 Morphine Sulfate (Morphine Sulfate) 2 mg Q2H PRN IVP For Pain 01/16/18 09:05 01/23/18 09:04 Norepinephrine Bitartrate 16 mg/ Sodium Chloride 566 ml @ 0 mls/hr Q24H IV 01/16/18 21:00 02/15/18 20:59 01/20/18 05:36 Pantoprazole (Protonix) 40 mg Q12HR IVP 01/16/18 21:00 02/15/18 08:59 01/20/18 08:49 Potassium Chloride 100 ml @ 100 mls/hr Q1H IVPB 01/20/18 11:00 01/20/18 12:59 Vancomycin HCl (Vanco rx to dose) 1 ea DAILY PRN MISC Per rx protocol 01/18/18 10:15 02/17/18 10:14 Matt Kessler MD January 20, 2018 10:32
[2018-01-20] MEDS ORDERED: Heparin 2000 units/Ns 1000ml INJ PRN (12:00)
[2018-01-20] MEDS ORDERED: Lidocaine 1% Plain 30 ml INJ PRN (12:00)
--- NOTE | 2018-01-20 14:29 | Nephrology Progress Note ---
Assessment/Plan Problem List: (1) Septic shock (2) DKA (diabetic ketoacidoses) (3) Acute renal failure (ARF) Assessment acute renal failure- DIALYSED Hypotensive on pressors- IMPROVED acute respiratory failure- ON VENT Diabetic Ketoacidosis Low Na, Low K Sepsis high lipase Plan HD 01/19 monitor lipase Pressors- Insulin drip DC bicitra HD 01/17 next 01/19 Ca iv discussed with RN discussed with Mom and GF Betsy per orders Subjective ROS Limited/Unobtainable: Yes Objective Objective Last 24 Hour Vital Signs Date Time Temp Pulse Resp B/P (MAP) Pulse Ox O2 Delivery O2 Flow Rate FiO2 01/20/18 13:00 95/36 01/20/18 13:00 101 17 95/36 100 Mechanical Ventilator 40 01/20/18 12:42 102 15 40 01/20/18 12:30 97 17 90/39 100 Mechanical Ventilator 40 01/20/18 12:00 102 01/20/18 12:00 98.6 102 17 96/39 100 Mechanical Ventilator 40 98.6 01/20/18 11:45 101 15 90/37 100 Mechanical Ventilator 40 01/20/18 11:30 101 15 94/46 100 Mechanical Ventilator 40 01/20/18 11:20 40 01/20/18 11:19 104 17 40 01/20/18 11:15 102 17 92/45 100 Mechanical Ventilator 40 01/20/18 11:00 102 17 107/40 100 Mechanical Ventilator 40 01/20/18 11:00 108/61 01/20/18 10:30 105 18 108/61 100 Mechanical Ventilator 40 01/20/18 10:00 105 18 101/46 100 Mechanical Ventilator 40 01/20/18 10:00 101/46 01/20/18 09:30 104 17 100/45 99 Mechanical Ventilator 40 01/20/18 09:07 92 16 40 01/20/18 09:00 99 16 99/41 99 Mechanical Ventilator 40 01/20/18 08:30 96 16 85/41 100 Mechanical Ventilator 40 01/20/18 08:00 40 01/20/18 08:00 96 16 90/40 100 Mechanical Ventilator 40 01/20/18 08:00 96 01/20/18 07:30 98.5 92 16 96/41 100 Mechanical Ventilator 40 98.5 01/20/18 07:00 94 16 97/36 100 Mechanical Ventilator 40 5/19/18 07:00 105/49 5/19/18 06:35 102 17 40 5/19/18 06:30 100 16 107/43 100 Mechanical Ventilator 40 5/19/18 06:15 100 17 110/49 99 Mechanical Ventilator 40 5/19/18 06:00 99 15 94/46 99 Mechanical Ventilator 40 5/19/18 05:45 100 18 110/56 99 Mechanical Ventilator 40 5/19/18 05:36 104/50 5/19/18 05:30 104 18 104/50 99 Mechanical Ventilator 40 5/19/18 05:28 102 22 40 5/19/18 05:15 104 18 104/50 99 Mechanical Ventilator 40 5/19/18 05:00 106 13 88/60 97 Mechanical Ventilator 40 5/19/18 04:45 98 16 87/63 99 Mechanical Ventilator 40 5/19/18 04:30 93 16 92/45 100 Mechanical Ventilator 40 5/19/18 04:15 93 16 110/42 100 Mechanical Ventilator 40 5/19/18 04:00 98.3 99 15 106/42 100 Mechanical Ventilator 40 98.3 5/19/18 04:00 40 5/19/18 04:00 93 5/19/18 03:45 99 17 104/50 100 Mechanical Ventilator 40 5/19/18 03:30 95 16 107/38 99 Mechanical Ventilator 40 5/19/18 03:15 93 17 92/64 100 Mechanical Ventilator 40 5/19/18 03:00 97 17 106/49 Mechanical Ventilator 40 5/19/18 02:58 95 19 40 5/19/18 02:45 94 17 98/40 Mechanical Ventilator 40 5/19/18 02:30 84 14 115/47 Mechanical Ventilator 40 5/19/18 02:15 97 17 122/49 Mechanical Ventilator 40 5/19/18 02:00 95 18 97/47 Mechanical Ventilator 40 5/19/18 01:45 94 17 102/43 Mechanical Ventilator 40 5/19/18 01:30 93 17 112/50 100 Mechanical Ventilator 40 5/19/18 01:18 89 20 40 5/19/18 01:15 95 16 93/41 100 Mechanical Ventilator 40 5/19/18 01:00 94 16 93/50 100 Mechanical Ventilator 40 5/19/18 00:45 96 17 108/45 100 Mechanical Ventilator 40 5/19/18 00:30 92 16 96/52 100 Mechanical Ventilator 40 5/19/18 00:15 96 14 109/50 100 Mechanical Ventilator 40 5/19/18 00:00 89 5/19/18 00:00 97.8 99 18 116/49 99 Mechanical Ventilator 40 97.8 5/19/18 00:00 40 5/18/18 23:45 95 16 100/37 100 Mechanical Ventilator 40 5/18/18 23:30 90 17 118/50 100 Mechanical Ventilator 40 5/18/18 23:20 102 17 40 5/18/18 23:15 97 18 103/54 100 Mechanical Ventilator 40 5/18/18 23:00 93 16 121/49 100 Mechanical Ventilator 40 5/18/18 22:45 100 19 114/41 100 Mechanical Ventilator 40 5/18/18 22:30 96 15 116/60 100 Mechanical Ventilator 40 5/18/18 22:15 102 18 123/57 100 Mechanical Ventilator 40 5/18/18 22:00 97.9 96 17 123/55 100 Mechanical Ventilator 40 97.9 5/18/18 21:45 99 18 116/56 100 Mechanical Ventilator 40 5/18/18 21:30 100 18 127/61 100 Mechanical Ventilator 40 5/18/18 21:13 104 23 40 5/18/18 21:00 99 16 144/98 100 Mechanical Ventilator 40 5/18/18 20:45 99 18 123/63 100 Mechanical Ventilator 40 5/18/18 20:30 103 19 129/57 100 Mechanical Ventilator 40 5/18/18 20:15 99 15 130/52 100 Mechanical Ventilator 40 5/18/18 20:00 97 5/18/18 20:00 98.0 91 15 130/57 100 Mechanical Ventilator 40 98.0 5/18/18 20:00 40 5/18/18 19:45 94 18 138/57 100 Mechanical Ventilator 40 5/18/18 19:30 98 19 129/49 99 Mechanical Ventilator 40 5/18/18 19:12 92 19 40 5/18/18 19:00 98.6 98 16 131/56 100 Mechanical Ventilator 40 98.6 5/18/18 18:30 93 16 121/61 98 Mechanical Ventilator 40 5/18/18 18:00 95 16 105/44 100 Mechanical Ventilator 40 5/18/18 17:30 102 16 115/46 100 Mechanical Ventilator 40 01/19/18 17:27 Mechanical Ventilator 15.0 40 18 17:25 Mechanical Ventilator 15.0 40 18 17:25 95 19 40 01/19/18 17:00 105/66 01/19/18 17:00 104 16 104/46 100 Mechanical Ventilator 40 01/19/18 16:30 113 16 130/70 100 Mechanical Ventilator 40 01/19/18 16:00 111 16 116/66 100 Mechanical Ventilator 40 01/19/18 16:00 103 01/19/18 16:00 40 01/19/18 15:30 105 16 120/60 100 Mechanical Ventilator 40 01/19/18 15:09 Mechanical Ventilator 15.0 40 01/19/18 15:00 88 16 115/45 100 Mechanical Ventilator 40 01/19/18 14:47 104 19 40 01/19/18 14:30 98.5 98 16 110/50 100 Mechanical Ventilator 40 98.5 Intake and Output 01/19/18 01/20/18 19:00 07:00 Intake Total 2118.375 ml 1624.02 ml Output Total 180 ml 220 ml Balance 1938.375 ml 1404.02 ml Intake IV Total 2118.375 ml 1624.02 ml Output Urine Total 180 ml 220 ml Hemodialysis UF 0 ml # Bowel Movements 1 Laboratory Tests 01/19/18 15:30: Lactic Acid Level 1.90 01/20/18 04:00: Arterial Blood pH 7.360, Arterial Blood Partial Pressure CO2 46.0H, Arterial Blood Partial Pressure O2 96.4, Arterial Blood HCO3 25.6, Arterial Blood Oxygen Saturation 96.5, Arterial Blood Base Excess 0, Harsha Test Positive 01/20/18 04:20: Lactic Acid Level 1.70, White Blood Count 10.4, Red Blood Count 2.47L, Hemoglobin 7.6L, Hematocrit 21.4L, Mean Corpuscular Volume 87, Mean Corpuscular Hemoglobin 30.7, Mean Corpuscular Hemoglobin Concent 35.3, Red Cell Distribution Width 11.4L, Platelet Count 29L, Mean Platelet Volume 13.4H, Neutrophils (%) (Auto) , Lymphocytes (%) (Auto) , Monocytes (%) (Auto) , Eosinophils (%) (Auto) , Basophils (%) (Auto) , Differential Total Cells Counted 100, Neutrophils % (Manual) 75, Lymphocytes % (Manual) 15L, Monocytes % (Manual) 9, Eosinophils % (Manual) 1, Basophils % (Manual) 0, Band Neutrophils 0 , Platelet Estimate DecreasedL, Platelet Morphology Normal, Hypochromasia 1+, Sodium Level 137, Potassium Level 2.8L, Chloride Level 101, Carbon Dioxide Level 25, Anion Gap 12, Blood Urea Nitrogen 41H, Creatinine 4.0H, Estimat Glomerular Filtration Rate 16.3, Glucose Level 137H, Uric Acid 6.1, Calcium Level 6.9L, Phosphorus Level 4.3, Magnesium Level 1.8, Total Bilirubin 1.3H, Direct Bilirubin 0.6H, Aspartate Amino Transf (AST/SGOT) 83H, Alanine Aminotransferase (ALT/SGPT) 48, Alkaline Phosphatase 499H, Troponin I 0.040, C- Reactive Protein, Quantitative 28.5H, Pro-B-Type Natriuretic Peptide 7074H, Total Protein 4.7L, Albumin 1.6L, Globulin 3.1, Albumin/Globulin Ratio 0.5L, Lipase 161 Height (Feet): 5 Height (Inches): 9.00 Weight (Pounds): 285 General Appearance: no apparent distress Cardiovascular: tachycardia Respiratory/Chest: decreased breath sounds Abdomen: distended ALANNA MAHONEY January 20, 2018 14:29
[2018-01-20] MEDS ORDERED: Tubing IV Secondary IV ONE ×3 (15:09→15:19)
[2018-01-20] MEDS ORDERED: NS 275ml ONE ×2 (15:11→15:19)
[2018-01-20] MEDS ORDERED: NS 500ML ONE (15:19)
[2018-01-20] MEDS: Dyna-Hex 2% Top Sol 2oz TOPIC SCH (20:25)
[2018-01-20] MEDS: Meropenem 500mg/NS 55ml IVPB SCH ×2 (22:00)
[2018-01-21] VITALS (24 sets, daily range): BP systolic 90–124; BP diastolic 37–76
[2018-01-21] MEDS: NovoLOG Insulin Flexpen SUBQ SCH ×12 (00:54→20:41)
--- NOTE | 2018-01-21 02:15 | Progress Note ---
DATE: 01/20/2018 CARDIOLOGY PROGRESS NOTE SUBJECTIVE: The patient is status post hemodialysis with ultrafiltration yesterday. He is on tapering doses of pressors. He remains on ventilator support with weaning initiated. PHYSICAL EXAMINATION: VITAL SIGNS: Blood pressure 95/36, heart rate 101, and respirations 17. LUNGS: Bilateral breath sounds. Few rales. HEART: Regular rhythm and rate. Normal S1, S2 with a fourth heart sound. ABDOMEN: Soft. Slightly distended. No guarding or rebound. EXTREMITIES: A 1+ dependent edema. LABORATORY DATA: White count 10 and hemoglobin 7.6. Lactic acid has normalized. Potassium 2.8. BUN 41 and creatinine 4. Troponin 0.04. Pro-natriuretic peptide 7000. Albumin 1.6. IMPRESSION: 1. Sepsis with shock. 2. Respiratory failure. 3. Severe protein-calorie malnutrition. 4. Acute diastolic congestive heart failure due to volume overload and renal failure. 5. Diabetic ketoacidosis status post arrest. 6. Paroxysmal atrial fibrillation. 7. Hypokalemia. PLAN: 1. Replace potassium. 2. Continue weaning efforts. 3. Continue efforts to taper off pressors. 4. Antimicrobials. 5. Once off pressors, we will consider additional medications for the management of diastolic heart failure. Ernie Ashford M.D. DR: PRANAY JOB#: [id number] CC:
[2018-01-21 05:44] LABS: HEMATOCRIT 25.8 % (42.0-52.0); HEMOGLOBIN 9.4 G/DL (14.2-18.0); MEAN CORPUSCULAR VOLUME 89 FL (80-99); PLATELET COUNT 32 K/UL (150-450); RED BLOOD COUNT 2.91 M/UL (4.70-6.10); WHITE BLOOD COUNT 9.8 K/UL (4.8-10.8)
[2018-01-21] MEDS: Hydrocortisone 100mg Inj IV SCH (05:46)
[2018-01-21] MEDS: Calcium Gluconate 10% 2 GM in NS 110 ML IVPB SCH ×3 (05:46→21:15)
[2018-01-21 06:10] LABS: ALANINE AMINOTRANSFERASE 54 U/L (12-78); ALBUMIN 1.7 G/DL (3.4-5.0); ALBUMIN/GLOBULIN RATIO 0.5 (1.0-2.7); ALKALINE PHOSPHATASE 628 U/L (46-116); ANION GAP 11 mmol/L (5-15); ASPARTATE AMINO TRANSFERASE 75 U/L (15-37); BILIRUBIN,TOTAL 1.1 MG/DL (0.2-1.0); BLOOD UREA NITROGEN 50 mg/dL (7-18); CALCIUM 7.2 MG/DL (8.5-10.1); CARBON DIOXIDE 25 MMOL/L (21-32); CHLORIDE 103 MMOL/L (98-107); CHOLESTEROL 109 MG/DL (< 200); GAMMA GLUTAMYL TRANSPEPTIDASE 848 U/L (5-85); HDL CHOLESTEROL 7 MG/DL (40-60); PHOSPHORUS 4.1 MG/DL (2.5-4.9); SODIUM 139 MMOL/L (136-145); TRIGLYCERIDES 145 MG/DL (30-150)
[2018-01-21 06:20] LABS: POTASSIUM 2.6 MMOL/L (3.5-5.1)
[2018-01-21 06:51] LABS: BILIRUBIN,DIRECT 0.6 MG/DL (0.0-0.3)
--- NOTE | 2018-01-21 07:11 | General Progress Note ---
Assessment/Plan Problem List: (1) Septic shock ICD Codes: A41.9 - Sepsis, unspecified organism; R65.21 - Severe sepsis with septic shock SNOMED: 12016539 (2) DKA (diabetic ketoacidoses) ICD Codes: E13.10 - Other specified diabetes mellitus with ketoacidosis without coma SNOMED: 553651682, 81809409 (3) Acute renal failure (ARF) ICD Codes: N17.9 - Acute kidney failure, unspecified SNOMED: 52821496 Assessment/Plan condition remains critical increase Novolog 6 to 8 units every 4 hours + NISS q4h Subjective ROS Limited/Unobtainable: Yes Allergies: Coded Allergies: No Known Allergies (Unverified , 01/15/18) Subjective events noted - interval notes reviewed remained intubated in icu - on pressors started on TF - having diarrhea Objective Last 24 Hour Vital Signs Date Time Temp Pulse Resp B/P (MAP) Pulse Ox O2 Delivery O2 Flow Rate FiO2 01/21/18 06:00 93 14 111/61 99 Mechanical Ventilator 35 01/21/18 05:01 88 16 35 01/21/18 05:00 98.2 93 14 111/61 99 Mechanical Ventilator 35 98.2 01/21/18 04:00 95 01/21/18 04:00 35 01/21/18 04:00 92 14 96/74 99 Mechanical Ventilator 35 01/21/18 03:30 89 16 35 01/21/18 03:00 92 16 110/50 99 Mechanical Ventilator 35 01/21/18 02:00 91 16 108/52 99 Mechanical Ventilator 35 01/21/18 01:30 101 20 35 01/21/18 01:00 90 17 119/54 99 Mechanical Ventilator 40 01/21/18 00:00 98.5 87 17 105/53 100 Mechanical Ventilator 40 98.5 01/21/18 00:00 35 01/20/18 23:12 90 16 35 01/20/18 23:00 65 16 104/50 100 Mechanical Ventilator 01/20/18 22:00 95 17 104/50 100 Mechanical Ventilator 01/20/18 21:00 96 18 92/40 100 Mechanical Ventilator 01/20/18 20:49 95 19 35 01/20/18 20:00 35 01/20/18 20:00 97 01/20/18 20:00 97.7 97 18 102/46 99 Mechanical Ventilator 97.7 18 19:30 96 18 35 01/20/18 19:00 96 16 126/51 98 Mechanical Ventilator 40 01/20/18 18:30 98 16 109/47 98 Mechanical Ventilator 40 01/20/18 18:00 92 16 107/53 100 Mechanical Ventilator 40 18 18:00 107/53 01/20/18 17:30 96 16 92/40 100 Mechanical Ventilator 40 18 17:15 93 16 91/42 100 Mechanical Ventilator 40 18 17:10 35 01/20/18 17:00 111/55 18 17:00 98.5 93 16 111/55 99 Mechanical Ventilator 40 98.5 01/20/18 16:43 96 18 40 01/20/18 16:30 40 18 16:30 99 15 117/52 99 Mechanical Ventilator 40 18 16:00 96 18 16:00 96 16 102/48 99 Mechanical Ventilator 40 01/20/18 16:00 117/52 01/20/18 15:30 93 18 92/46 99 Mechanical Ventilator 40 18 15:00 96 17 97/48 99 Mechanical Ventilator 40 18 14:52 102 20 40 18 14:50 40 18 14:30 102 17 90/60 99 Mechanical Ventilator 40 18 14:00 103 17 89/34 100 Mechanical Ventilator 40 18 13:30 101 18 90/36 100 Mechanical Ventilator 40 18 13:00 95/36 18 13:00 101 17 95/36 100 Mechanical Ventilator 40 18 12:42 102 15 40 18 12:40 40 18 12:30 97 17 90/39 100 Mechanical Ventilator 40 18 12:00 102 18 12:00 98.6 102 17 96/39 100 Mechanical Ventilator 40 98.6 18 11:45 101 15 90/37 100 Mechanical Ventilator 40 01/20/18 11:30 101 15 94/46 100 Mechanical Ventilator 40 01/20/18 11:20 40 01/20/18 11:19 104 17 40 18 11:15 102 17 92/45 100 Mechanical Ventilator 40 01/20/18 11:00 102 17 107/40 100 Mechanical Ventilator 40 01/20/18 11:00 108/61 01/20/18 10:30 105 18 108/61 100 Mechanical Ventilator 40 01/20/18 10:00 105 18 101/46 100 Mechanical Ventilator 40 01/20/18 10:00 101/46 01/20/18 09:30 104 17 100/45 99 Mechanical Ventilator 40 01/20/18 09:07 92 16 40 01/20/18 09:00 99 16 99/41 99 Mechanical Ventilator 40 01/20/18 08:30 96 16 85/41 100 Mechanical Ventilator 40 01/20/18 08:00 40 01/20/18 08:00 96 16 90/40 100 Mechanical Ventilator 40 01/20/18 08:00 96 01/20/18 07:30 98.5 92 16 96/41 100 Mechanical Ventilator 40 98.5 Intake and Output 01/20/18 01/21/18 19:00 07:00 Intake Total 1649.24 ml 1227.5 ml Output Total 415 ml 740 ml Balance 1234.24 ml 487.5 ml Intake Free Water 50 ml IV Total 1129.24 ml 847.5 ml Tube Feeding 270 ml 330 ml Blood Product 250 ml Output Urine Total 415 ml 540 ml Stool Total 200 ml # Bowel Movements 3 2 Laboratory Tests 01/20/18 15:46: Arterial Blood pH 7.340L, Arterial Blood Partial Pressure CO2 47.6H, Arterial Blood Partial Pressure O2 108.7H, Arterial Blood HCO3 25.5, Arterial Blood Oxygen Saturation [Pending], Arterial Blood Base Excess -0.7, Harsha Test Positive 01/20/18 16:24: Arterial Blood pH 7.320L, Arterial Blood Partial Pressure CO2 52.4H, Arterial Blood Partial Pressure O2 101.3H, Arterial Blood HCO3 26.5H, Arterial Blood Oxygen Saturation 96.6, Arterial Blood Base Excess 0.1, Harsha Test Positive 01/21/18 02:00: Stool Occult Blood [Pending] 01/21/18 04:00: White Blood Count 9.8, Red Blood Count 2.91L, Hemoglobin 9.4L, Hematocrit 25.8L , Mean Corpuscular Volume 89, Mean Corpuscular Hemoglobin 32.2H, Mean Corpuscular Hemoglobin Concent 36.3H, Red Cell Distribution Width 12.0, Platelet Count 32L, Mean Platelet Volume 9.2, Neutrophils (%) (Auto) , Lymphocytes (%) (Auto) , Monocytes (%) (Auto) , Eosinophils (%) (Auto) , Basophils (%) (Auto) , Neutrophils % (Manual) [Pending], Lymphocytes % (Manual) [Pending], Platelet Estimate [Pending], Platelet Morphology [Pending], Sodium Level 139, Potassium Level 2.6*L, Chloride Level 103, Carbon Dioxide Level 25, Anion Gap 11, Blood Urea Nitrogen 50H, Creatinine 4.0H, Estimat Glomerular Filtration Rate 16.3, Glucose Level 211H, Uric Acid 7.1, Calcium Level 7.2L, Phosphorus Level 4.1, Magnesium Level 2.0, Total Bilirubin 1.1H, Direct Bilirubin 0.6H, Gamma Glutamyl Transpeptidase 848H, Aspartate Amino Transf (AST/ SGOT) 75H, Alanine Aminotransferase (ALT/SGPT) 54, Alkaline Phosphatase 628H, Troponin I 0.011, C-Reactive Protein, Quantitative [Pending], Pro-B-Type Natriuretic Peptide 5662H, Total Protein 4.9L, Albumin 1.7L, Globulin 3.2, Albumin/Globulin Ratio 0.5L, Triglycerides Level 145, Cholesterol Level 109, LDL Cholesterol 78, HDL Cholesterol 7L, Cholesterol/HDL Ratio 15.6H, Random Vancomycin Level 13.4 Height (Feet): 5 Height (Inches): 9.00 Weight (Pounds): 319 General Appearance: other - intubated Neck: normal alignment Cardiovascular: regular rhythm Respiratory/Chest: decreased breath sounds Abdomen: normal bowel sounds Edema: 1+ Arm (L), 1+ Arm (R), 1+ Leg (L), 1+ Leg (R), 1+ Pedal (L), 1+ Pedal ( R), 1+ Generalized Objective Current Medications Medications (Trade) Dose Ordered Sig/Alana Route PRN Reason Start Time Stop Time Status Last Admin Dose Admin Acetaminophen (Tylenol) 500 mg Q6HR PRN NG Fever/Headache/Mild Pain 01/16/18 23:15 02/15/18 23:14 01/19/18 10:02 Calcium Gluconate 2 gm/Sodium Chloride 130 ml @ 120 mls/hr Q8H IVPB 01/19/18 14:00 02/17/18 13:59 5/19/18 06:07 Chlorhexidine Gluconate (Марина-Hex 2%) 1 applic DAILY@2000 TOPIC 01/17/18 20:00 02/16/18 19:59 01/19/18 19:44 Dextrose (Dextrose 50%) 25 ml PRN PRN IV HYPOGLYCEMIA 01/16/18 14:30 02/15/18 14:29 Dextrose (Dextrose 50%) 50 ml PRN PRN IV HYPOGLYCEMIA 01/16/18 14:30 02/15/18 14:29 Dopamine HCl/ Dextrose 250 ml @ 0 mls/hr Q24H IV 01/16/18 08:45 02/15/18 08:44 01/19/18 10:09 Fluconazole/ Sodium Chloride 100 ml @ 100 mls/hr Q24H IV 01/17/18 00:00 01/24/18 00:00 01/19/18 23:37 Hydrocortisone (Solu-CORTEF) 25 mg EVERY 8 HOURS IV 01/18/18 14:00 02/17/18 13:59 01/20/18 06:07 Insulin Human Regular (NovoLIN R) 5 units PRN PRN IV BS 200-299 01/16/18 14:30 02/15/18 14:29 01/18/18 16:23 Insulin Human Regular (NovoLIN R) 10 units PRN PRN IV BS=>300 01/16/18 14:30 02/15/18 14:29 01/16/18 16:14 Insulin Human Regular 100 units/ Sodium Chloride 101 ml @ 0 mls/hr Q24H IV 01/16/18 15:00 02/15/18 14:59 01/19/18 10:21 Lorazepam (Ativan 2mg/ml 1ml) 1 mg Q2H PRN IV For Anxiety 01/16/18 08:30 01/23/18 08:29 01/19/18 13:42 Meropenem 500 mg/ Sodium Chloride 55 ml @ 110 mls/hr Q24H IVPB 01/17/18 22:00 01/22/18 21:59 01/19/18 21:54 Miscellaneous Medication (Insulin Rate Change) 1 ea PRN PRN MISC Hyperglycemia 01/16/18 14:30 02/15/18 14:29 01/19/18 10:21 Morphine Sulfate (Morphine Sulfate) 2 mg Q2H PRN IVP For Pain 01/16/18 09:05 01/23/18 09:04 Norepinephrine Bitartrate 16 mg/ Sodium Chloride 566 ml @ 0 mls/hr Q24H IV 01/16/18 21:00 02/15/18 20:59 01/20/18 05:36 Pantoprazole (Protonix) 40 mg Q12HR IVP 01/16/18 21:00 02/15/18 08:59 01/19/18 20:22 Sodium Bicarbonate 100 ml/Dextrose 1,100 ml @ 75 mls/hr [id number] IV 01/18/18 14:00 02/15/18 13:59 01/19/18 17:00 Vancomycin HCl (Vanco rx to dose) 1 ea DAILY PRN MISC Per rx protocol 01/18/18 10:15 02/17/18 10:14 Item Value Date Time Bedside Blood Glucose 129 mg/dl H 01/20/18 0600 Bedside Blood Glucose 111 mg/dl 01/20/18 0200 Bedside Blood Glucose 135 mg/dl H 01/19/18 2200 Bedside Blood Glucose 124 mg/dl H 01/19/18 1800 Bedside Blood Glucose 128 mg/dl H 01/19/18 1400 Bedside Blood Glucose 135 mg/dl H 01/19/18 1021 MATTEO VU January 21, 2018 07:11
[2018-01-21] MEDS: DOPamine 400mg/250ml 250 ML IV SCH ×2 (08:45→21:50)
[2018-01-21] MEDS ORDERED: Vancomycin 1gm/D5W 275ml IVPB ONE ×2 (09:00)
[2018-01-21] MEDS: Pantoprazole Inj IVP SCH (09:18)
--- NOTE | 2018-01-21 09:58 | Pulmonology Progress Note ---
Assessment/Plan Assessment/Plan 1. Respiratory failure. 2. Severe hyponatremia. Improved 3. Hyperglycemia. Off insulin gtt 4. Diabetic ketoacidosis. Improved; ph now 7.36 5. Sepsis. on broad spectrum abx; ID following 6. Hypotension. Resolved. 7. S/p arrest DISCUSSION: Continue normal saline, broad-spectrum, antibiotics, aggressive IV fluid hydration, central line care, pressors, [place]. Full Code for now. Discussed with all consultants I will decrease steroids; continue for now S/p HD; Continue bicarb gtt Has thrombocytopenia; likely drug related; stable for now Slowly improving Continue weaning Hold nutrition in anticipation of extubation Matt Kessler M.D. Subjective Interval Events: Much improved. Awake and responsive Constitutional: Reports: no symptoms HEENT: Repors: no symptoms Respiratory: Reports: no symptoms Cardiovascular: Reports: no symptoms Gastrointestinal/Abdominal: Reports: no symptoms Genitourinary: Reports: no symptoms Allergies: Coded Allergies: No Known Allergies (Unverified , 01/15/18) Objective Last 24 Hour Vital Signs Date Time Temp Pulse Resp B/P (MAP) Pulse Ox O2 Delivery O2 Flow Rate FiO2 01/21/18 09:00 98 17 124/56 99 Mechanical Ventilator 35 01/21/18 08:51 100 01/21/18 08:51 90 15 35 01/21/18 08:45 115/59 01/21/18 08:00 98.5 90 16 105/52 99 Mechanical Ventilator 35 98.5 01/21/18 08:00 35 01/21/18 08:00 90 01/21/18 07:24 90 16 35 01/21/18 07:00 91 15 111/61 99 Mechanical Ventilator 35 01/21/18 06:00 93 14 111/61 99 Mechanical Ventilator 35 01/21/18 05:01 88 16 35 01/21/18 05:00 98.2 93 14 111/61 99 Mechanical Ventilator 35 98.2 01/21/18 04:00 95 01/21/18 04:00 35 01/21/18 04:00 92 14 96/74 99 Mechanical Ventilator 35 01/21/18 03:30 89 16 35 5/20/18 03:00 92 16 110/50 99 Mechanical Ventilator 35 5/20/18 02:00 91 16 108/52 99 Mechanical Ventilator 35 5/20/18 01:30 101 20 35 5/20/18 01:00 90 17 119/54 99 Mechanical Ventilator 40 5/20/18 00:00 98.5 87 17 105/53 100 Mechanical Ventilator 40 98.5 5/20/18 00:00 35 5/19/18 23:12 90 16 35 5/19/18 23:00 65 16 104/50 100 Mechanical Ventilator 5/19/18 22:00 95 17 104/50 100 Mechanical Ventilator 5/19/18 21:00 96 18 92/40 100 Mechanical Ventilator 5/19/18 20:49 95 19 35 5/19/18 20:00 35 5/19/18 20:00 97 5/19/18 20:00 97.7 97 18 102/46 99 Mechanical Ventilator 97.7 519/18 19:30 96 18 35 5/19/18 19:00 96 16 126/51 98 Mechanical Ventilator 40 5/19/18 18:30 98 16 109/47 98 Mechanical Ventilator 40 5/19/18 18:00 92 16 107/53 100 Mechanical Ventilator 40 5/19/18 18:00 107/53 5/19/18 17:30 96 16 92/40 100 Mechanical Ventilator 40 5/19/18 17:15 93 16 91/42 100 Mechanical Ventilator 40 5/19/18 17:10 35 5/19/18 17:00 111/55 519/18 17:00 98.5 93 16 111/55 99 Mechanical Ventilator 40 98.5 5/19/18 16:43 96 18 40 5/19/18 16:30 40 5/19/18 16:30 99 15 117/52 99 Mechanical Ventilator 40 5/19/18 16:00 96 5/19/18 16:00 96 16 102/48 99 Mechanical Ventilator 40 5/19/18 16:00 117/52 5/19/18 15:30 93 18 92/46 99 Mechanical Ventilator 40 5/19/18 15:00 96 17 97/48 99 Mechanical Ventilator 40 5/19/18 14:52 102 20 40 5/19/18 14:50 40 5/19/18 14:30 102 17 90/60 99 Mechanical Ventilator 40 5/19/18 14:00 103 17 89/34 100 Mechanical Ventilator 40 01/20/18 13:30 101 18 90/36 100 Mechanical Ventilator 40 01/20/18 13:00 95/36 01/20/18 13:00 101 17 95/36 100 Mechanical Ventilator 40 01/20/18 12:42 102 15 40 01/20/18 12:40 40 01/20/18 12:30 97 17 90/39 100 Mechanical Ventilator 40 01/20/18 12:00 102 01/20/18 12:00 98.6 102 17 96/39 100 Mechanical Ventilator 40 98.6 01/20/18 11:45 101 15 90/37 100 Mechanical Ventilator 40 01/20/18 11:30 101 15 94/46 100 Mechanical Ventilator 40 01/20/18 11:20 40 01/20/18 11:19 104 17 40 01/20/18 11:15 102 17 92/45 100 Mechanical Ventilator 40 01/20/18 11:00 102 17 107/40 100 Mechanical Ventilator 40 01/20/18 11:00 108/61 01/20/18 10:30 105 18 108/61 100 Mechanical Ventilator 40 01/20/18 10:00 105 18 101/46 100 Mechanical Ventilator 40 01/20/18 10:00 101/46 Intake and Output 01/20/18 01/21/18 19:00 07:00 Intake Total 1649.24 ml 1462.5 ml Output Total 415 ml 770 ml Balance 1234.24 ml 692.5 ml Intake Free Water 50 ml IV Total 1129.24 ml 1052.5 ml Tube Feeding 270 ml 360 ml Blood Product 250 ml Output Urine Total 415 ml 570 ml Stool Total 200 ml # Bowel Movements 3 2 General Appearance: no acute distress HEENT: normocephalic Respiratory/Chest: chest wall non-tender, lungs clear Cardiovascular: normal peripheral pulses, normal rate Abdomen: normal bowel sounds, soft, non tender Laboratory Tests 01/20/18 15:46: Arterial Blood pH 7.340L, Arterial Blood Partial Pressure CO2 47.6H, Arterial Blood Partial Pressure O2 108.7H, Arterial Blood HCO3 25.5, Arterial Blood Oxygen Saturation [Pending], Arterial Blood Base Excess -0.7, Harsha Test Positive 01/20/18 16:24: Arterial Blood pH 7.320L, Arterial Blood Partial Pressure CO2 52.4H, Arterial Blood Partial Pressure O2 101.3H, Arterial Blood HCO3 26.5H, Arterial Blood Oxygen Saturation 96.6, Arterial Blood Base Excess 0.1, Harsha Test Positive 01/21/18 02:00: Stool Occult Blood [Pending] 01/21/18 04:00: White Blood Count 9.8, Red Blood Count 2.91L, Hemoglobin 9.4L, Hematocrit 25.8L , Mean Corpuscular Volume 89, Mean Corpuscular Hemoglobin 32.2H, Mean Corpuscular Hemoglobin Concent 36.3H, Red Cell Distribution Width 12.0, Platelet Count 32L, Mean Platelet Volume 9.2, Neutrophils (%) (Auto) , Lymphocytes (%) (Auto) , Monocytes (%) (Auto) , Eosinophils (%) (Auto) , Basophils (%) (Auto) , Differential Total Cells Counted 100, Neutrophils % ( Manual) 78H, Lymphocytes % (Manual) 14L, Monocytes % (Manual) 8, Eosinophils % ( Manual) 0, Basophils % (Manual) 0, Band Neutrophils 0, Platelet Estimate DecreasedL, Platelet Morphology , Giant Platelets Occasional, Hypochromasia 1+, Anisocytosis 1+, Sodium Level 139, Potassium Level 2.6*L, Chloride Level 103, Carbon Dioxide Level 25, Anion Gap 11, Blood Urea Nitrogen 50H, Creatinine 4.0H , Estimat Glomerular Filtration Rate 16.3, Glucose Level 211H, Uric Acid 7.1, Calcium Level 7.2L, Phosphorus Level 4.1, Magnesium Level 2.0, Total Bilirubin 1.1H, Direct Bilirubin 0.6H, Gamma Glutamyl Transpeptidase 848H, Aspartate Amino Transf (AST/SGOT) 75H, Alanine Aminotransferase (ALT/SGPT) 54, Alkaline Phosphatase 628H, Troponin I 0.011, C-Reactive Protein, Quantitative > 70.0H, Pro-B-Type Natriuretic Peptide 5662H, Total Protein 4.9L, Albumin 1.7L, Globulin 3.2, Albumin/Globulin Ratio 0.5L, Triglycerides Level 145, Cholesterol Level 109, LDL Cholesterol 78, HDL Cholesterol 7L, Cholesterol/HDL Ratio 15.6H, Random Vancomycin Level 13.4 Current Medications Medications (Trade) Dose Ordered Sig/Alana Route PRN Reason Start Time Stop Time Status Last Admin Dose Admin Acetaminophen (Tylenol) 500 mg Q6HR PRN NG Fever/Headache/Mild Pain 01/16/18 23:15 02/15/18 23:14 01/19/18 10:02 Calcium Gluconate 2 gm/Sodium Chloride 130 ml @ 120 mls/hr Q8H IVPB 01/19/18 14:00 02/17/18 13:59 01/21/18 05:46 Chlorhexidine Gluconate (Марина-Hex 2%) 1 applic DAILY@2000 TOPIC 01/17/18 20:00 02/16/18 19:59 01/20/18 20:25 Dextrose (Dextrose 50%) 25 ml STAT PRN IV Hypoglycemia 01/20/18 06:45 02/19/18 06:44 Dextrose (Dextrose 50%) 50 ml STAT PRN IV Hypoglycemia 01/20/18 06:45 02/19/18 06:44 Dextrose/Sodium Chloride 1,000 ml @ 75 mls/hr [id number] IV 01/20/18 09:15 02/19/18 09:14 01/20/18 22:27 Dopamine HCl/ Dextrose 250 ml @ 0 mls/hr Q24H IV 01/16/18 08:45 02/15/18 08:44 01/19/18 10:09 Fluconazole/ Sodium Chloride 100 ml @ 100 mls/hr Q24H IV 01/17/18 00:00 01/24/18 00:00 01/21/18 00:19 Heparin Sodium/ Sodium Chloride (Heparin 2000 units/Ns 1000ml premix) 2,000 unit ONCE PRN INJ PICC PLACEMENT 01/20/18 12:00 01/22/18 23:59 Hydrocortisone (Solu-CORTEF) 25 mg EVERY 8 HOURS IV 01/18/18 14:00 02/17/18 13:59 01/21/18 05:46 Insulin Aspart (NovoLOG) EVERY 4 HOURS SUBQ 01/20/18 09:00 02/19/18 08:59 01/21/18 09:40 Insulin Aspart (NovoLOG) 8 units EVERY 4 HOURS SUBQ 01/21/18 09:00 02/19/18 08:59 01/21/18 09:39 Lidocaine HCl (Xylocaine 1% 30ml) 30 ml ONCE PRN INJ PICC PLACEMENT 01/20/18 12:00 01/22/18 23:59 Lorazepam (Ativan 2mg/ml 1ml) 1 mg Q2H PRN IV For Anxiety 01/16/18 08:30 01/23/18 08:29 01/19/18 13:42 Meropenem 500 mg/ Sodium Chloride 55 ml @ 110 mls/hr Q24H IVPB 01/17/18 22:00 01/22/18 21:59 01/20/18 22:00 Morphine Sulfate (Morphine Sulfate) 2 mg Q2H PRN IVP For Pain 01/16/18 09:05 01/23/18 09:04 Norepinephrine Bitartrate 16 mg/ Sodium Chloride 566 ml @ 0 mls/hr Q24H IV 01/16/18 21:00 02/15/18 20:59 01/20/18 05:36 Pantoprazole (Protonix) 40 mg Q12HR IVP 01/16/18 21:00 02/15/18 08:59 01/21/18 09:18 Potassium Chloride 100 ml @ 50 mls/hr Q1H IVPB 01/21/18 09:00 01/21/18 10:59 01/21/18 09:18 Vancomycin HCl (Vanco rx to dose) 1 ea DAILY PRN MISC Per rx protocol 01/18/18 10:15 02/17/18 10:14 Vancomycin HCl 1 gm/Dextrose 275 ml @ 183.708 mls/hr ONCE ONCE IVPB 01/21/18 09:00 01/21/18 10:29 01/21/18 09:18 Matt Kessler MD January 21, 2018 09:58
--- NOTE | 2018-01-21 10:36 | Infectious Diseases Prog Note ---
Assessment/Plan Assessment/Plan antibiotics : vancomycin iv, meropenem, fluconazole A 1. gram positive sepsis 2. septic shock improving 3. pancreatitis improving 4. DKA resolved 5. renal failure 6. respiratory failure 7. 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 continue vancomycin iv 2. d/c meropenem, fluconazole 3. will follow up cultures Subjective ROS Limited/Unobtainable: Yes Allergies: Coded Allergies: No Known Allergies (Unverified , 01/15/18) Objective Vital Signs Last 24 Hour Vital Signs Date Time Temp Pulse Resp B/P (MAP) Pulse Ox O2 Delivery O2 Flow Rate FiO2 01/21/18 10:21 Nasal Cannula 5.0 40 01/21/18 10:20 95 Nasal Cannula 5.0 40 01/21/18 10:14 Nasal Cannula 5.0 40 01/21/18 10:00 99 17 121/58 99 Mechanical Ventilator 35 01/21/18 09:00 35 01/21/18 09:00 98 17 124/56 99 Mechanical Ventilator 35 01/21/18 08:51 100 01/21/18 08:51 90 15 35 01/21/18 08:45 115/59 01/21/18 08:00 98.5 90 16 105/52 99 Mechanical Ventilator 35 98.5 01/21/18 08:00 35 01/21/18 08:00 90 01/21/18 07:24 90 16 35 01/21/18 07:00 91 15 111/61 99 Mechanical Ventilator 35 01/21/18 06:00 93 14 111/61 99 Mechanical Ventilator 35 01/21/18 05:01 88 16 35 01/21/18 05:00 98.2 93 14 111/61 99 Mechanical Ventilator 35 98.2 01/21/18 04:00 95 01/21/18 04:00 35 01/21/18 04:00 92 14 96/74 99 Mechanical Ventilator 35 01/21/18 03:30 89 16 35 01/21/18 03:00 92 16 110/50 99 Mechanical Ventilator 35 01/21/18 02:00 91 16 108/52 99 Mechanical Ventilator 35 01/21/18 01:30 101 20 35 01/21/18 01:00 90 17 119/54 99 Mechanical Ventilator 40 01/21/18 00:00 98.5 87 17 105/53 100 Mechanical Ventilator 40 98.5 5/20/18 00:00 35 5/19/18 23:12 90 16 35 5/19/18 23:00 65 16 104/50 100 Mechanical Ventilator 5/19/18 22:00 95 17 104/50 100 Mechanical Ventilator 5/19/18 21:00 96 18 92/40 100 Mechanical Ventilator 5/19/18 20:49 95 19 35 5/19/18 20:00 35 5/19/18 20:00 97 5/19/18 20:00 97.7 97 18 102/46 99 Mechanical Ventilator 97.7 519/18 19:30 96 18 35 5/19/18 19:00 96 16 126/51 98 Mechanical Ventilator 40 519/18 18:30 98 16 109/47 98 Mechanical Ventilator 40 01/20/18 18:00 92 16 107/53 100 Mechanical Ventilator 40 519/18 18:00 107/53 5/18 17:30 96 16 92/40 100 Mechanical Ventilator 40 01/20/18 17:15 93 16 91/42 100 Mechanical Ventilator 40 01/20/18 17:10 35 01/20/18 17:00 111/55 5/18 17:00 98.5 93 16 111/55 99 Mechanical Ventilator 40 98.5 01/20/18 16:43 96 18 40 01/20/18 16:30 40 19/18 16:30 99 15 117/52 99 Mechanical Ventilator 40 19/18 16:00 96 //18 16:00 96 16 102/48 99 Mechanical Ventilator 40 519/18 16:00 117/52 5/18 15:30 93 18 92/46 99 Mechanical Ventilator 40 519/18 15:00 96 17 97/48 99 Mechanical Ventilator 40 5/19/18 14:52 102 20 40 5/19/18 14:50 40 5/19/18 14:30 102 17 90/60 99 Mechanical Ventilator 40 5/19/18 14:00 103 17 89/34 100 Mechanical Ventilator 40 5/19/18 13:30 101 18 90/36 100 Mechanical Ventilator 40 5/19/18 13:00 95/36 5/19/18 13:00 101 17 95/36 100 Mechanical Ventilator 40 5/19/18 12:42 102 15 40 5/19/18 12:40 40 5/19/18 12:30 97 17 90/39 100 Mechanical Ventilator 40 01/20/18 12:00 102 01/20/18 12:00 98.6 102 17 96/39 100 Mechanical Ventilator 40 98.6 01/20/18 11:45 101 15 90/37 100 Mechanical Ventilator 40 01/20/18 11:30 101 15 94/46 100 Mechanical Ventilator 40 01/20/18 11:20 40 01/20/18 11:19 104 17 40 01/20/18 11:15 102 17 92/45 100 Mechanical Ventilator 40 01/20/18 11:00 102 17 107/40 100 Mechanical Ventilator 40 01/20/18 11:00 108/61 Height (Feet): 5 Height (Inches): 9.00 Weight (Pounds): 319 HEENT: other - intubated Respiratory/Chest: lungs clear Cardiovascular: normal rate, regular rhythm, no gallop/murmur Abdomen: soft, non tender, distended Extremities: other - + edema, left subclavian catheter Microbiology Date/Time Source Procedure Growth Status 01/21/18 02:00 Stool Clostridium difficile Toxin Assay - Final Complete Laboratory Tests Test 01/20/18 15:46 01/20/18 16:24 01/21/18 02:00 01/21/18 04:00 Arterial Blood pH 7.340 (7.350-7.450) 7.320 (7.350-7.450) Arterial Blood Partial Pressure CO2 47.6 mmHg (35.0-45.0) H 52.4 mmHg (35.0-45.0) H Arterial Blood Partial Pressure O2 108.7 mmHg (75.0-100.0) H 101.3 mmHg (75.0-100.0) H Arterial Blood HCO3 25.5 mmol/L (22.0-26.0) 26.5 mmol/L (22.0-26.0) H Arterial Blood Oxygen Saturation Pending 96.6 % (92.0-98.0) Arterial Blood Base Excess -0.7 0.1 Harsha Test Positive Positive Stool Occult Blood Pending White Blood Count 9.8 K/UL (4.8-10.8) Red Blood Count 2.91 M/UL (4.70-6.10) L Hemoglobin 9.4 G/DL (14.2-18.0) L Hematocrit 25.8 % (42.0-52.0) L Mean Corpuscular Volume 89 FL (80-99) Mean Corpuscular Hemoglobin 32.2 PG (27.0-31.0) H Mean Corpuscular Hemoglobin Concent 36.3 G/DL (32.0-36.0) H Red Cell Distribution Width 12.0 % (11.6-14.8) Platelet Count 32 K/UL (150-450) L Mean Platelet Volume 9.2 FL (6.5-10.1) Neutrophils (%) (Auto) % (45.0-75.0) Lymphocytes (%) (Auto) % (20.0-45.0) Monocytes (%) (Auto) % (1.0-10.0) Eosinophils (%) (Auto) % (0.0-3.0) Basophils (%) (Auto) % (0.0-2.0) Differential Total Cells Counted 100 Neutrophils % (Manual) 78 % (45-75) H Lymphocytes % (Manual) 14 % (20-45) L Monocytes % (Manual) 8 % (1-10) Eosinophils % (Manual) 0 % (0-3) Basophils % (Manual) 0 % (0-2) Band Neutrophils 0 % (0-8) Platelet Estimate Decreased L Platelet Morphology Giant Platelets Occasional Hypochromasia 1+ Anisocytosis 1+ Sodium Level 139 MMOL/L (136-145) Potassium Level 2.6 MMOL/L (3.5-5.1) *L Chloride Level 103 MMOL/L (98-107) Carbon Dioxide Level 25 MMOL/L (21-32) Anion Gap 11 mmol/L (5-15) Blood Urea Nitrogen 50 mg/dL (7-18) H Creatinine 4.0 MG/DL (0.55-1.30) H Estimat Glomerular Filtration Rate 16.3 mL/min (>60) Glucose Level 211 MG/DL (74-106) H Uric Acid 7.1 MG/DL (2.6-7.2) Calcium Level 7.2 MG/DL (8.5-10.1) L Phosphorus Level 4.1 MG/DL (2.5-4.9) Magnesium Level 2.0 MG/DL (1.8-2.4) Total Bilirubin 1.1 MG/DL (0.2-1.0) H Direct Bilirubin 0.6 MG/DL (0.0-0.3) H Gamma Glutamyl Transpeptidase 848 U/L (5-85) H Aspartate Amino Transf (AST/SGOT) 75 U/L (15-37) H Alanine Aminotransferase (ALT/SGPT) 54 U/L (12-78) Alkaline Phosphatase 628 U/L (46-116) H Troponin I 0.011 ng/mL (0.000-0.056) C-Reactive Protein, Quantitative > 70.0 mg/dL (0.00-0.90) H Pro-B-Type Natriuretic Peptide 5662 pg/mL (0-125) H Total Protein 4.9 G/DL (6.4-8.2) L Albumin 1.7 G/DL (3.4-5.0) L Globulin 3.2 g/dL Albumin/Globulin Ratio 0.5 (1.0-2.7) L Triglycerides Level 145 MG/DL (30-150) Cholesterol Level 109 MG/DL (< 200) LDL Cholesterol 78 mg/dL (<100) HDL Cholesterol 7 MG/DL (40-60) L Cholesterol/HDL Ratio 15.6 (3.3-4.4) H Random Vancomycin Level 13.4 ug/mL Test 01/21/18 09:53 Arterial Blood pH 7.364 (7.350-7.450) Arterial Blood Partial Pressure CO2 45.5 mmHg (35.0-45.0) H Arterial Blood Partial Pressure O2 84.1 mmHg (75.0-100.0) Arterial Blood HCO3 25.4 mmol/L (22.0-26.0) Arterial Blood Oxygen Saturation 95.6 % (92.0-98.0) Arterial Blood Base Excess -0.2 Harsha Test Positive Current Medications Medications (Trade) Dose Ordered Sig/Alana Route PRN Reason Start Time Stop Time Status Last Admin Dose Admin Acetaminophen (Tylenol) 500 mg Q6HR PRN NG Fever/Headache/Mild Pain 01/16/18 23:15 02/15/18 23:14 01/19/18 10:02 Calcium Gluconate 2 gm/Sodium Chloride 130 ml @ 120 mls/hr Q8H IVPB 01/19/18 14:00 02/17/18 13:59 01/21/18 05:46 Chlorhexidine Gluconate (Марина-Hex 2%) 1 applic DAILY@2000 TOPIC 01/17/18 20:00 02/16/18 19:59 01/20/18 20:25 Dextrose (Dextrose 50%) 25 ml STAT PRN IV Hypoglycemia 01/20/18 06:45 02/19/18 06:44 Dextrose (Dextrose 50%) 50 ml STAT PRN IV Hypoglycemia 01/20/18 06:45 02/19/18 06:44 Dextrose/Sodium Chloride 1,000 ml @ 75 mls/hr [id number] IV 01/20/18 09:15 02/19/18 09:14 01/20/18 22:27 Dopamine HCl/ Dextrose 250 ml @ 0 mls/hr Q24H IV 01/16/18 08:45 02/15/18 08:44 01/19/18 10:09 Fluconazole/ Sodium Chloride 100 ml @ 100 mls/hr Q24H IV 01/17/18 00:00 01/24/18 00:00 01/21/18 00:19 Heparin Sodium/ Sodium Chloride (Heparin 2000 units/Ns 1000ml premix) 2,000 unit ONCE PRN INJ PICC PLACEMENT 01/20/18 12:00 01/22/18 23:59 Insulin Aspart (NovoLOG) EVERY 4 HOURS SUBQ 01/20/18 09:00 02/19/18 08:59 01/21/18 09:40 Insulin Aspart (NovoLOG) 8 units EVERY 4 HOURS SUBQ 01/21/18 09:00 02/19/18 08:59 01/21/18 09:39 Lidocaine HCl (Xylocaine 1% 30ml) 30 ml ONCE PRN INJ PICC PLACEMENT 01/20/18 12:00 01/22/18 23:59 Lorazepam (Ativan 2mg/ml 1ml) 1 mg Q2H PRN IV For Anxiety 01/16/18 08:30 01/23/18 08:29 01/19/18 13:42 Meropenem 500 mg/ Sodium Chloride 55 ml @ 110 mls/hr Q24H IVPB 01/17/18 22:00 01/22/18 21:59 01/20/18 22:00 Morphine Sulfate (Morphine Sulfate) 2 mg Q2H PRN IVP For Pain 01/16/18 09:05 01/23/18 09:04 Norepinephrine Bitartrate 16 mg/ Sodium Chloride 566 ml @ 0 mls/hr Q24H IV 01/16/18 21:00 02/15/18 20:59 01/20/18 05:36 Pantoprazole (Protonix) 40 mg Q12HR IVP 01/16/18 21:00 02/15/18 08:59 01/21/18 09:18 Potassium Chloride 100 ml @ 50 mls/hr Q1H IVPB 01/21/18 09:00 01/21/18 10:59 01/21/18 09:18 Vancomycin HCl (Vanco rx to dose) 1 ea DAILY PRN MISC Per rx protocol 01/18/18 10:15 02/17/18 10:14 NADEGE MALIK January 21, 2018 10:35
[2018-01-21] MEDS: D5NS 1,000 ML IV SCH (11:35)
--- NOTE | 2018-01-21 14:42 | Diagnostic Imaging Report ---
EXAM: US Abdomen Complete CLINICAL HISTORY: GB TECHNIQUE: Real-time ultrasound of the abdomen (complete) with image documentation. COMPARISON: No relevant prior studies available. FINDINGS: Limitations: Limited study due to patient's body habitus. Liver: Dense enlarged liver likely fatty. Liver, measuring 18.2 cm. No intrahepatic bile duct dilation. Gallbladder: Gallbladder wall normal, 2.3 mm. Negative Wheeler's sign. No definite gallstones. Common bile duct: CBD normal, 2.3 mm. No stones. No dilation. Pancreas: Unremarkable as visualized. Kidneys: Right kidney measures 11.0 x 6.3 x 6.8 cm. No stones. No hydronephrosis. IMPRESSION: 1. Limited study due to patient's body habitus. 2. Dense enlarged liver likely fatty. 3. No definite cholelithiasis or acute cholecystitis.
--- NOTE | 2018-01-21 15:32 | Diagnostic Imaging Report ---
EXAM: XR Chest, 1 View CLINICAL HISTORY: ABN CHST TECHNIQUE: Frontal view of the chest. COMPARISON: Chest x-ray dated 01/19/18 FINDINGS: Lungs: Increased interstitial and patchy perihilar markings suggesting mild pulmonary vascular congestion/pulmonary edema. There are decreased lung volumes, unchanged. Pleural space: Blunting of bilateral costophrenic angles suggesting small layering pleural effusions bilaterally. No pneumothorax. Heart: Unremarkable. No cardiomegaly. Mediastinum: Unremarkable. Bones/joints: Unremarkable. Tubes, lines and devices: Endotracheal tube tip is 3.2 cm above the tiesha. EKG leads overlie the thorax. Radiodense tubing overlies the right neck soft tissues, and may be external to the patient. An NG tube extends below the diaphragm and its tip is not visualized. IMPRESSION: 1. No significant change compared to the prior chest x-ray from 01/19/18. 2. Blunting of bilateral costophrenic angles suggesting small layering pleural effusions. 3. Increased interstitial and patchy perihilar markings suggesting mild pulmonary vascular congestion/pulmonary edema. Cannot exclude underlying pneumonia.
--- NOTE | 2018-01-21 16:01 | Nephrology Progress Note ---
Assessment/Plan Problem List: (1) Septic shock (2) DKA (diabetic ketoacidoses) (3) Acute renal failure (ARF) Assessment acute renal failure- now Cr stable off dialysis Hypotensive on pressors- IMPROVED acute respiratory failure- ON VENT Diabetic Ketoacidosis Low Na, Low K Sepsis high lipase Plan HD last 01/19 check MARION abd monitor lipase Pressors- Insulin drip DC bicitra Ca iv discussed with RN discussed with Mom and GF Betsy per orders Subjective ROS Limited/Unobtainable: No Constitutional: Reports: malaise Objective Objective Last 24 Hour Vital Signs Date Time Temp Pulse Resp B/P (MAP) Pulse Ox O2 Delivery O2 Flow Rate FiO2 01/21/18 15:00 91 17 96/55 99 Nasal Cannula 5.0 01/21/18 14:00 92 17 103/51 99 Nasal Cannula 5.0 01/21/18 13:00 94 16 96/70 97 Nasal Cannula 5.0 01/21/18 12:00 89.6 94 17 106/50 97 Nasal Cannula 5.0 89.6 01/21/18 12:00 96 01/21/18 11:00 98 17 100/54 97 Nasal Cannula 5.0 01/21/18 10:21 Nasal Cannula 5.0 40 01/21/18 10:20 95 Nasal Cannula 5.0 40 01/21/18 10:14 Nasal Cannula 5.0 40 01/21/18 10:00 99 17 121/58 99 Mechanical Ventilator 35 01/21/18 09:00 35 01/21/18 09:00 98 17 124/56 99 Mechanical Ventilator 35 01/21/18 08:51 100 01/21/18 08:51 90 15 35 01/21/18 08:45 115/59 01/21/18 08:00 98.5 90 16 105/52 99 Mechanical Ventilator 35 98.5 01/21/18 08:00 35 01/21/18 08:00 90 01/21/18 07:24 90 16 35 01/21/18 07:00 91 15 111/61 99 Mechanical Ventilator 35 01/21/18 06:00 93 14 111/61 99 Mechanical Ventilator 35 01/21/18 05:01 88 16 35 01/21/18 05:00 98.2 93 14 111/61 99 Mechanical Ventilator 35 98.2 01/21/18 04:00 95 5/20/18 04:00 35 5/20/18 04:00 92 14 96/74 99 Mechanical Ventilator 35 5/20/18 03:30 89 16 35 5/20/18 03:00 92 16 110/50 99 Mechanical Ventilator 35 5/20/18 02:00 91 16 108/52 99 Mechanical Ventilator 35 5/20/18 01:30 101 20 35 5/20/18 01:00 90 17 119/54 99 Mechanical Ventilator 40 5/20/18 00:00 98.5 87 17 105/53 100 Mechanical Ventilator 40 98.5 520/18 00:00 35 5/19/18 23:12 90 16 35 5/19/18 23:00 65 16 104/50 100 Mechanical Ventilator 5/18 22:00 95 17 104/50 100 Mechanical Ventilator 5/18 21:00 96 18 92/40 100 Mechanical Ventilator 519/18 20:49 95 19 35 519/18 20:00 35 519/18 20:00 97 519/18 20:00 97.7 97 18 102/46 99 Mechanical Ventilator 97.7 01/20/18 19:30 96 18 35 5/18 19:00 96 16 126/51 98 Mechanical Ventilator 40 5/18 18:30 98 16 109/47 98 Mechanical Ventilator 40 01/20/18 18:00 92 16 107/53 100 Mechanical Ventilator 40 19/18 18:00 107/53 5/18 17:30 96 16 92/40 100 Mechanical Ventilator 40 19/18 17:15 93 16 91/42 100 Mechanical Ventilator 40 519/18 17:10 35 519/18 17:00 111/55 519/18 17:00 98.5 93 16 111/55 99 Mechanical Ventilator 40 98.5 519/18 16:43 96 18 40 519/18 16:30 40 519/18 16:30 99 15 117/52 99 Mechanical Ventilator 40 519/18 16:00 96 519/18 16:00 96 16 102/48 99 Mechanical Ventilator 40 519/18 16:00 117/52 Intake and Output 519/18 5/20/18 19:00 07:00 Intake Total 1649.24 ml 1462.5 ml Output Total 415 ml 770 ml Balance 1234.24 ml 692.5 ml Intake Free Water 50 ml IV Total 1129.24 ml 1052.5 ml Tube Feeding 270 ml 360 ml Blood Product 250 ml Output Urine Total 415 ml 570 ml Stool Total 200 ml # Bowel Movements 3 2 Laboratory Tests 01/20/18 16:24: Arterial Blood pH 7.320L, Arterial Blood Partial Pressure CO2 52.4H, Arterial Blood Partial Pressure O2 101.3H, Arterial Blood HCO3 26.5H, Arterial Blood Oxygen Saturation 96.6, Arterial Blood Base Excess 0.1, Harsha Test Positive 01/21/18 02:00: Stool Occult Blood Positive 01/21/18 04:00: White Blood Count 9.8, Red Blood Count 2.91L, Hemoglobin 9.4L, Hematocrit 25.8L , Mean Corpuscular Volume 89, Mean Corpuscular Hemoglobin 32.2H, Mean Corpuscular Hemoglobin Concent 36.3H, Red Cell Distribution Width 12.0, Platelet Count 32L, Mean Platelet Volume 9.2, Neutrophils (%) (Auto) , Lymphocytes (%) (Auto) , Monocytes (%) (Auto) , Eosinophils (%) (Auto) , Basophils (%) (Auto) , Differential Total Cells Counted 100, Neutrophils % ( Manual) 78H, Lymphocytes % (Manual) 14L, Monocytes % (Manual) 8, Eosinophils % ( Manual) 0, Basophils % (Manual) 0, Band Neutrophils 0, Platelet Estimate DecreasedL, Platelet Morphology , Giant Platelets Occasional, Hypochromasia 1+, Anisocytosis 1+, Sodium Level 139, Potassium Level 2.6*L, Chloride Level 103, Carbon Dioxide Level 25, Anion Gap 11, Blood Urea Nitrogen 50H, Creatinine 4.0H , Estimat Glomerular Filtration Rate 16.3, Glucose Level 211H, Uric Acid 7.1, Calcium Level 7.2L, Phosphorus Level 4.1, Magnesium Level 2.0, Total Bilirubin 1.1H, Direct Bilirubin 0.6H, Gamma Glutamyl Transpeptidase 848H, Aspartate Amino Transf (AST/SGOT) 75H, Alanine Aminotransferase (ALT/SGPT) 54, Alkaline Phosphatase 628H, Troponin I 0.011, C-Reactive Protein, Quantitative > 70.0H, Pro-B-Type Natriuretic Peptide 5662H, Total Protein 4.9L, Albumin 1.7L, Globulin 3.2, Albumin/Globulin Ratio 0.5L, Triglycerides Level 145, Cholesterol Level 109, LDL Cholesterol 78, HDL Cholesterol 7L, Cholesterol/HDL Ratio 15.6H, Random Vancomycin Level 13.4 01/21/18 09:53: Arterial Blood pH 7.364, Arterial Blood Partial Pressure CO2 45.5H, Arterial Blood Partial Pressure O2 84.1, Arterial Blood HCO3 25.4, Arterial Blood Oxygen Saturation 95.6, Arterial Blood Base Excess -0.2, Harsha Test Positive Height (Feet): 5 Height (Inches): 9.00 Weight (Pounds): 319 General Appearance: other - extubated Cardiovascular: tachycardia Respiratory/Chest: decreased breath sounds Abdomen: distended ALANNA MAHONEY January 21, 2018 16:01
--- NOTE | 2018-01-21 19:30 | Progress Note ---
DATE: 01/21/2018 CARDIOLOGY PROGRESS NOTE SUBJECTIVE: The patient is off dialysis. Blood pressure remains marginal, but pressors are being tapered off. Renal function has stabilized. OBJECTIVE: VITAL SIGNS: Blood pressure 96/55, pulse 91, respiratory rate 17, and temperature 98.5 degrees. LUNGS: Bilateral breath sounds. Orally intubated. HEART: Regular rhythm and rate. Normal S1 and S2. ABDOMEN: Obese and soft. EXTREMITIES: With dependent edema. LABORATORY AND DIAGNOSTIC DATA: White count is 9.8 and hemoglobin 9.4. Potassium is 2.6. BUN 50 and creatinine 4. Troponin is 0.011. Pro-natriuretic peptide is 5662 down from 27,000. IMPRESSION: 1. Diabetic ketoacidosis. 2. Status post arrest. 3. Acute myocardial ischemia. 4. Resolved hyponatremia. 5. Sepsis, improved. 6. Acute renal failure, slowly improving. 7. Shock, recovering. PLAN: Continue taper off pressors. Continue aggressive volume resuscitation. Continue antimicrobials. Ventilator support with weaning ongoing. Hold additional cardiac therapy until off pressor support. Ernie Ashford M.D. DR: JOHN JOB#: [id number] CC:
[2018-01-21] MEDS: Dyna-Hex 2% Top Sol 2oz TOPIC SCH (20:39)
[2018-01-22] VITALS (34 sets, daily range): BP systolic 80–140; BP diastolic 39–95
[2018-01-22] MEDS: NovoLOG Insulin Flexpen SUBQ SCH ×12 (00:47→20:51)
[2018-01-22] MEDS: D5NS 1,000 ML IV SCH (01:00)
[2018-01-22] MEDS: Calcium Gluconate 10% 2 GM in NS 110 ML IVPB SCH ×3 (06:09→22:08)
--- NOTE | 2018-01-22 06:33 | General Progress Note ---
Assessment/Plan Problem List: (1) Septic shock ICD Codes: A41.9 - Sepsis, unspecified organism; R65.21 - Severe sepsis with septic shock SNOMED: 15503791 (2) DKA (diabetic ketoacidoses) ICD Codes: E13.10 - Other specified diabetes mellitus with ketoacidosis without coma SNOMED: 406387201, 82589846 (3) Acute renal failure (ARF) ICD Codes: N17.9 - Acute kidney failure, unspecified SNOMED: 39582361 Assessment/Plan continue Novolog 8 units every 4 hours + NISS q4h Subjective ROS Limited/Unobtainable: Yes Allergies: Coded Allergies: No Known Allergies (Unverified , 01/15/18) Subjective events noted - interval notes reviewed extubated on BiPAP - pressors are being tapered down Objective Last 24 Hour Vital Signs Date Time Temp Pulse Resp B/P (MAP) Pulse Ox O2 Delivery O2 Flow Rate FiO2 01/22/18 06:00 105 19 136/81 96 Bi-pap 50 01/22/18 06:00 138/81 01/22/18 05:00 129/75 01/22/18 05:00 105 19 129/75 96 Bi-pap 50 01/22/18 04:41 105 21 98 Facial 50 01/22/18 04:00 86 01/22/18 04:00 98.5 104 19 125/81 98 Bi-pap 50 98.5 01/22/18 04:00 125/81 01/22/18 03:17 104 22 98 Facial 50 01/22/18 03:00 105 19 124/93 99 Bi-pap 50 01/22/18 03:00 124/93 01/22/18 02:00 107 18 126/76 100 Bi-pap 50 01/22/18 02:00 125/76 01/22/18 01:04 101 21 98 Facial 50 01/22/18 01:00 135/71 01/22/18 01:00 103 17 135/71 99 Bi-pap 50 01/22/18 00:00 90 01/22/18 00:00 117/73 01/22/18 00:00 98.1 95 15 117/73 97 Bi-pap 50 98.1 01/21/18 23:00 105 15 98/76 94 Bi-pap 50 01/21/18 23:00 96/76 5/20/18 22:31 92 20 97 Facial 50 01/21/18 22:00 103 18 107/70 95 Bi-pap 50 01/21/18 22:00 107/70 01/21/18 21:50 118/54 01/21/18 21:27 83 21 99 Facial 50 01/21/18 21:00 85 21 118/54 100 Bi-pap 50 01/21/18 20:00 85 01/21/18 20:00 97.9 85 21 92/54 97 Nasal Cannula 5.0 97.9 01/21/18 19:00 83 17 108/71 96 Nasal Cannula 5.0 01/21/18 19:00 81 19 108/71 95 Nasal Cannula 5.0 01/21/18 18:45 Nasal Cannula 4.0 36 01/21/18 18:45 98 Nasal Cannula 4.0 36 01/21/18 18:00 80 17 97/48 97 Nasal Cannula 5.0 01/21/18 17:00 87 17 90/45 99 Nasal Cannula 5.0 01/21/18 16:00 88 01/21/18 16:00 98.3 87 21 90/37 99 Nasal Cannula 5.0 98.3 01/21/18 15:00 91 17 96/55 99 Nasal Cannula 5.0 01/21/18 14:00 92 17 103/51 99 Nasal Cannula 5.0 01/21/18 13:00 94 16 96/70 97 Nasal Cannula 5.0 01/21/18 12:00 89.6 94 17 106/50 97 Nasal Cannula 5.0 89.6 01/21/18 12:00 96 01/21/18 11:00 98 17 100/54 97 Nasal Cannula 5.0 01/21/18 10:21 Nasal Cannula 5.0 40 01/21/18 10:20 95 Nasal Cannula 5.0 40 01/21/18 10:14 Nasal Cannula 5.0 40 01/21/18 10:00 99 17 121/58 99 Mechanical Ventilator 35 01/21/18 09:00 35 01/21/18 09:00 98 17 124/56 99 Mechanical Ventilator 35 01/21/18 08:51 100 01/21/18 08:51 90 15 35 01/21/18 08:45 115/59 01/21/18 08:00 98.5 90 16 105/52 99 Mechanical Ventilator 35 98.5 5/20/18 08:00 35 01/21/18 08:00 90 01/21/18 07:24 90 16 35 01/21/18 07:00 91 15 111/61 99 Mechanical Ventilator 35 Intake and Output 01/21/18 01/22/18 19:00 07:00 Intake Total 1710.7 ml 2295.474 ml Output Total 1130 ml 3840 ml Balance 580.7 ml -1544.526 ml IV Total 1630.7 ml 2295.474 ml Tube Feeding 30 ml Other 50 ml Output Urine Total 880 ml 3840 ml Stool Total 250 ml Laboratory Tests 01/21/18 09:53: Arterial Blood pH 7.364, Arterial Blood Partial Pressure CO2 45.5H, Arterial Blood Partial Pressure O2 84.1, Arterial Blood HCO3 25.4, Arterial Blood Oxygen Saturation 95.6, Arterial Blood Base Excess -0.2, Harsha Test Positive 01/21/18 20:06: Arterial Blood pH 7.141*L, Arterial Blood Partial Pressure CO2 80.2*H, Arterial Blood Partial Pressure O2 74.3L, Arterial Blood HCO3 26.7H, Arterial Blood Oxygen Saturation 92.6, Arterial Blood Base Excess -3.5, Harsha Test Positive Height (Feet): 5 Height (Inches): 9.00 Weight (Pounds): 315 General Appearance: no apparent distress Neck: normal alignment Cardiovascular: tachycardia Respiratory/Chest: decreased breath sounds Abdomen: normal bowel sounds Pelvis: normal external exam Edema: 1+ Arm (L), 1+ Arm (R), 1+ Leg (L), 1+ Leg (R), 1+ Pedal (L), 1+ Pedal ( R), 1+ Generalized Objective Current Medications Medications (Trade) Dose Ordered Sig/Alana Route PRN Reason Start Time Stop Time Status Last Admin Dose Admin Acetaminophen (Tylenol) 500 mg Q6HR PRN NG Fever/Headache/Mild Pain 01/16/18 23:15 02/15/18 23:14 01/19/18 10:02 Calcium Gluconate 2 gm/Sodium Chloride 130 ml @ 120 mls/hr Q8H IVPB 01/19/18 14:00 02/17/18 13:59 01/22/18 06:09 Chlorhexidine Gluconate (Марина-Hex 2%) 1 applic DAILY@2000 TOPIC 01/17/18 20:00 6/15/18 19:59 01/21/18 20:39 Dextrose (Dextrose 50%) 25 ml STAT PRN IV Hypoglycemia 01/20/18 06:45 02/19/18 06:44 Dextrose (Dextrose 50%) 50 ml STAT PRN IV Hypoglycemia 01/20/18 06:45 02/19/18 06:44 Dextrose/Sodium Chloride 1,000 ml @ 75 mls/hr [id number] IV 01/20/18 09:15 02/19/18 09:14 01/22/18 01:00 Dopamine HCl/ Dextrose 250 ml @ 0 mls/hr Q24H IV 01/21/18 21:30 02/20/18 21:29 01/21/18 21:50 Furosemide 100 mg/ Dextrose 100 ml @ 10 mls/hr Q10H IV 01/21/18 22:30 02/20/18 22:29 01/21/18 22:32 Heparin Sodium/ Sodium Chloride (Heparin 2000 units/Ns 1000ml premix) 2,000 unit ONCE PRN INJ PICC PLACEMENT 01/20/18 12:00 01/22/18 23:59 Insulin Aspart (NovoLOG) EVERY 4 HOURS SUBQ 01/20/18 09:00 02/19/18 08:59 01/22/18 05:05 Insulin Aspart (NovoLOG) 8 units EVERY 4 HOURS SUBQ 01/21/18 09:00 02/19/18 08:59 01/22/18 05:06 Lidocaine HCl (Xylocaine 1% 30ml) 30 ml ONCE PRN INJ PICC PLACEMENT 01/20/18 12:00 01/22/18 23:59 Lorazepam (Ativan 2mg/ml 1ml) 1 mg Q2H PRN IV For Anxiety 01/16/18 08:30 01/23/18 08:29 01/19/18 13:42 Morphine Sulfate (Morphine Sulfate) 2 mg Q2H PRN IVP For Pain 01/16/18 09:05 01/23/18 09:04 Norepinephrine Bitartrate 4 mg/ Dextrose 250 ml @ 0 mls/hr Q24H IV 01/21/18 20:00 02/20/18 19:59 Pantoprazole (Protonix) 40 mg DAILY IVP 01/22/18 09:00 02/15/18 08:59 Vancomycin HCl (Vanco rx to dose) 1 ea DAILY PRN MISC Per rx protocol 01/18/18 10:15 02/17/18 10:14 Item Value Date Time Bedside Blood Glucose 251 mg/dl H 01/21/18 0500 Bedside Blood Glucose 256 mg/dl H 01/21/18 0100 Bedside Blood Glucose 185 mg/dl H 01/20/18 2100 Bedside Blood Glucose 204 mg/dl H 01/20/18 1733 Bedside Blood Glucose 226 mg/dl H 01/20/18 1326 Bedside Blood Glucose 190 mg/dl H 01/20/18 0900 Bedside Blood Glucose 168 mg/dl H 01/22/18 0506 Bedside Blood Glucose 198 mg/dl H 01/22/18 0048 Bedside Blood Glucose 195 mg/dl H 01/21/18 2041 Bedside Blood Glucose 168 mg/dl H 01/21/18 1713 Bedside Blood Glucose 221 mg/dl H 01/21/18 1310 Bedside Blood Glucose 220 mg/dl H 01/21/18 0940 MATTEO VU January 22, 2018 06:33
[2018-01-22 07:21] LABS: HEMATOCRIT 30.7 % (42.0-52.0); HEMOGLOBIN 10.7 G/DL (14.2-18.0); MEAN CORPUSCULAR VOLUME 90 FL (80-99); PLATELET COUNT 45 K/UL (150-450); RED BLOOD COUNT 3.39 M/UL (4.70-6.10); RED CELL DISTRIBUTION WIDTH 12.6 % (11.6-14.8); WHITE BLOOD COUNT 11.5 K/UL (4.8-10.8)
[2018-01-22 07:47] LABS: ALANINE AMINOTRANSFERASE 57 U/L (12-78); ALBUMIN 1.8 G/DL (3.4-5.0); ALBUMIN/GLOBULIN RATIO 0.5 (1.0-2.7); ALKALINE PHOSPHATASE 648 U/L (46-116); ANION GAP 13 mmol/L (5-15); ASPARTATE AMINO TRANSFERASE 56 U/L (15-37); BILIRUBIN,TOTAL 0.8 MG/DL (0.2-1.0); BLOOD UREA NITROGEN 50 mg/dL (7-18); CALCIUM 7.9 MG/DL (8.5-10.1); CARBON DIOXIDE 26 MMOL/L (21-32); CHLORIDE 106 MMOL/L (98-107); CREATININE 3.2 MG/DL (0.55-1.30); GAMMA GLUTAMYL TRANSPEPTIDASE 902 U/L (5-85); PHOSPHORUS 4.4 MG/DL (2.5-4.9); SODIUM 144 MMOL/L (136-145)
[2018-01-22 07:48] LABS: POTASSIUM 2.7 MMOL/L (3.5-5.1)
[2018-01-22] MEDS: Pantoprazole Inj IVP SCH (08:50)
--- NOTE | 2018-01-22 09:15 | Pulmonology Progress Note ---
Assessment/Plan Assessment/Plan 1. Respiratory failure. Now extubated; but on BiPAP 2. Severe hyponatremia. Improved 3. Hyperglycemia. Off insulin gtt 4. Diabetic ketoacidosis. Improved; ph now 7.38 5. Sepsis. on broad spectrum abx; ID following 6. Hypotension. Resolved. 7. S/p arrest DISCUSSION: Continue broad-spectrum, antibiotics, aggressive central line care, [place]. Full Code for now. Discussed with all consultants Started LAsix gtt DC steroids Off HD Has thrombocytopenia; likely drug related; stable for now Slowly improving Begin diet Matt Kessler M.D. Subjective Interval Events: Better; post extubation day #1 Constitutional: Reports: no symptoms HEENT: Repors: no symptoms Respiratory: Reports: no symptoms Cardiovascular: Reports: no symptoms Gastrointestinal/Abdominal: Reports: no symptoms Allergies: Coded Allergies: No Known Allergies (Unverified , 01/15/18) Objective Last 24 Hour Vital Signs Date Time Temp Pulse Resp B/P (MAP) Pulse Ox O2 Delivery O2 Flow Rate FiO2 01/22/18 07:30 96 20 Venturi Mask 15.0 55 01/22/18 07:00 97 20 98 Facial 50 01/22/18 07:00 100 20 122/71 96 Bi-pap 50 01/22/18 06:00 105 19 136/81 96 Bi-pap 50 01/22/18 06:00 138/81 01/22/18 05:00 129/75 01/22/18 05:00 105 19 129/75 96 Bi-pap 50 01/22/18 04:41 105 21 98 Facial 50 01/22/18 04:00 86 01/22/18 04:00 98.5 104 19 125/81 98 Bi-pap 50 98.5 01/22/18 04:00 125/81 01/22/18 03:17 104 22 98 Facial 50 01/22/18 03:00 105 19 124/93 99 Bi-pap 50 01/22/18 03:00 124/93 01/22/18 02:00 107 18 126/76 100 Bi-pap 50 01/22/18 02:00 125/76 01/22/18 01:04 101 21 98 Facial 50 01/22/18 01:00 135/71 01/22/18 01:00 103 17 135/71 99 Bi-pap 50 01/22/18 00:00 90 01/22/18 00:00 117/73 01/22/18 00:00 98.1 95 15 117/73 97 Bi-pap 50 98.1 01/21/18 23:00 105 15 98/76 94 Bi-pap 50 01/21/18 23:00 96/76 01/21/18 22:31 92 20 97 Facial 50 01/21/18 22:00 103 18 107/70 95 Bi-pap 50 01/21/18 22:00 107/70 01/21/18 21:50 118/54 01/21/18 21:27 83 21 99 Facial 50 01/21/18 21:00 85 21 118/54 100 Bi-pap 50 01/21/18 20:00 85 01/21/18 20:00 97.9 85 21 92/54 97 Nasal Cannula 5.0 97.9 01/21/18 19:00 83 17 108/71 96 Nasal Cannula 5.0 01/21/18 19:00 81 19 108/71 95 Nasal Cannula 5.0 01/21/18 18:45 Nasal Cannula 4.0 36 01/21/18 18:45 98 Nasal Cannula 4.0 36 01/21/18 18:00 80 17 97/48 97 Nasal Cannula 5.0 01/21/18 17:00 87 17 90/45 99 Nasal Cannula 5.0 01/21/18 16:00 88 01/21/18 16:00 98.3 87 21 90/37 99 Nasal Cannula 5.0 98.3 01/21/18 15:00 91 17 96/55 99 Nasal Cannula 5.0 01/21/18 14:00 92 17 103/51 99 Nasal Cannula 5.0 01/21/18 13:00 94 16 96/70 97 Nasal Cannula 5.0 01/21/18 12:00 89.6 94 17 106/50 97 Nasal Cannula 5.0 89.6 01/21/18 12:00 96 01/21/18 11:00 98 17 100/54 97 Nasal Cannula 5.0 01/21/18 10:21 Nasal Cannula 5.0 40 01/21/18 10:20 95 Nasal Cannula 5.0 40 01/21/18 10:14 Nasal Cannula 5.0 40 01/21/18 10:00 99 17 121/58 99 Mechanical Ventilator 35 Intake and Output 01/21/18 01/22/18 19:00 07:00 Intake Total 1710.7 ml 2295.474 ml Output Total 1130 ml 4390 ml Balance 580.7 ml -2094.526 ml IV Total 1630.7 ml 2295.474 ml Tube Feeding 30 ml Other 50 ml Output Urine Total 880 ml 4390 ml Stool Total 250 ml General Appearance: no acute distress HEENT: normocephalic Respiratory/Chest: chest wall non-tender, decreased breath sounds Cardiovascular: normal peripheral pulses, normal rate Abdomen: normal bowel sounds Microbiology Date/Time Source Procedure Growth Status 01/20/18 18:30 Sputum Gram Stain - Final Resulted 01/20/18 18:30 Sputum Sputum Culture - Preliminary Resulted 01/21/18 02:00 Stool Clostridium difficile Toxin Assay - Final Complete Laboratory Tests 01/21/18 09:53: Arterial Blood pH 7.364, Arterial Blood Partial Pressure CO2 45.5H, Arterial Blood Partial Pressure O2 84.1, Arterial Blood HCO3 25.4, Arterial Blood Oxygen Saturation 95.6, Arterial Blood Base Excess -0.2, Harsha Test Positive 01/21/18 20:06: Arterial Blood pH 7.141*L, Arterial Blood Partial Pressure CO2 80.2*H, Arterial Blood Partial Pressure O2 74.3L, Arterial Blood HCO3 26.7H, Arterial Blood Oxygen Saturation 92.6, Arterial Blood Base Excess -3.5, Harsha Test Positive 01/22/18 04:00: White Blood Count 11.5H, Red Blood Count 3.39L, Hemoglobin 10.7L, Hematocrit 30.7L, Mean Corpuscular Volume 90, Mean Corpuscular Hemoglobin 31.4H, Mean Corpuscular Hemoglobin Concent 34.7, Red Cell Distribution Width 12.6, Platelet Count 45L, Mean Platelet Volume 9.2, Neutrophils (%) (Auto) , Lymphocytes (%) ( Auto) , Monocytes (%) (Auto) , Eosinophils (%) (Auto) , Basophils (%) (Auto) , Differential Total Cells Counted 100, Neutrophils % (Manual) 74, Lymphocytes % ( Manual) 13L, Monocytes % (Manual) 10, Eosinophils % (Manual) 2, Basophils % ( Manual) 0, Band Neutrophils 1, Nucleated Red Blood Cells 2, Platelet Estimate DecreasedL, Platelet Morphology Normal, Hypochromasia 1+, Anisocytosis 1+, Sodium Level 144, Potassium Level 2.7*L, Chloride Level 106, Carbon Dioxide Level 26, Anion Gap 13, Blood Urea Nitrogen 50H, Creatinine 3.2H, Estimat Glomerular Filtration Rate 21.1, Glucose Level 164H, Uric Acid 8.1H, Calcium Level 7.9L, Phosphorus Level 4.4, Magnesium Level 1.8, Total Bilirubin 0.8, Gamma Glutamyl Transpeptidase 902H, Aspartate Amino Transf (AST/SGOT) 56H, Alanine Aminotransferase (ALT/SGPT) 57, Alkaline Phosphatase 648H, Pro-B-Type Natriuretic Peptide 4942H, Total Protein 5.4L, Albumin 1.8L, Globulin 3.6, Albumin/Globulin Ratio 0.5L 01/22/18 07:00: Arterial Blood pH 7.385, Arterial Blood Partial Pressure CO2 44.9, Arterial Blood Partial Pressure O2 87.3, Arterial Blood HCO3 26.3H, Arterial Blood Oxygen Saturation 96.5, Arterial Blood Base Excess 0.9, Harsha Test Positive Current Medications Medications (Trade) Dose Ordered Sig/Alana Route PRN Reason Start Time Stop Time Status Last Admin Dose Admin Acetaminophen (Tylenol) 500 mg Q6HR PRN NG Fever/Headache/Mild Pain 01/16/18 23:15 02/15/18 23:14 01/19/18 10:02 Calcium Gluconate 2 gm/Sodium Chloride 130 ml @ 120 mls/hr Q8H IVPB 01/19/18 14:00 02/17/18 13:59 01/22/18 06:09 Chlorhexidine Gluconate (Марина-Hex 2%) 1 applic DAILY@2000 TOPIC 01/17/18 20:00 02/16/18 19:59 01/21/18 20:39 Dextrose (Dextrose 50%) 25 ml STAT PRN IV Hypoglycemia 01/20/18 06:45 02/19/18 06:44 Dextrose (Dextrose 50%) 50 ml STAT PRN IV Hypoglycemia 01/20/18 06:45 02/19/18 06:44 Dopamine HCl/ Dextrose 250 ml @ 0 mls/hr Q24H IV 01/21/18 21:30 02/20/18 21:29 01/21/18 21:50 Furosemide 100 mg/ Dextrose 100 ml @ 10 mls/hr Q10H IV 01/21/18 22:30 02/20/18 22:29 01/22/18 08:50 Heparin Sodium/ Sodium Chloride (Heparin 2000 units/Ns 1000ml premix) 2,000 unit ONCE PRN INJ PICC PLACEMENT 01/20/18 12:00 01/22/18 23:59 Insulin Aspart (NovoLOG) EVERY 4 HOURS SUBQ 01/20/18 09:00 02/19/18 08:59 01/22/18 08:51 Insulin Aspart (NovoLOG) 8 units EVERY 4 HOURS SUBQ 01/21/18 09:00 02/19/18 08:59 01/22/18 08:52 Lidocaine HCl (Xylocaine 1% 30ml) 30 ml ONCE PRN INJ PICC PLACEMENT 01/20/18 12:00 01/22/18 23:59 Lorazepam (Ativan 2mg/ml 1ml) 1 mg Q2H PRN IV For Anxiety 01/16/18 08:30 01/23/18 08:29 01/19/18 13:42 Morphine Sulfate (Morphine Sulfate) 2 mg Q2H PRN IVP For Pain 01/16/18 09:05 01/23/18 09:04 Norepinephrine Bitartrate 4 mg/ Dextrose 250 ml @ 0 mls/hr Q24H IV 01/21/18 20:00 02/20/18 19:59 Pantoprazole (Protonix) 40 mg DAILY IVP 01/22/18 09:00 02/15/18 08:59 01/22/18 08:50 Potassium Chloride 100 ml @ 50 mls/hr Q2H IVPB 01/22/18 09:30 01/22/18 19:29 Vancomycin HCl (Vanco rx to dose) 1 ea DAILY PRN MISC Per rx protocol 01/18/18 10:15 02/17/18 10:14 Matt Kessler MD January 22, 2018 09:15
--- NOTE | 2018-01-22 11:23 | Nephrology Progress Note ---
Assessment/Plan Problem List: (1) Septic shock (2) DKA (diabetic ketoacidoses) (3) Acute renal failure (ARF) Assessment acute renal failure- now Cr stable off dialysis Hypotensive on pressors- IMPROVED acute respiratory failure- ON VENT Diabetic Ketoacidosis Low Na, Low K Sepsis high lipase Plan on lasix drip will give K IV HD last 01/19 check MARION abd monitor lipase Pressors- Insulin drip DC bicitra Ca iv discussed with RN discussed with Mom and GF Betsy per orders Subjective ROS Limited/Unobtainable: Yes Objective Objective Last 24 Hour Vital Signs Date Time Temp Pulse Resp B/P (MAP) Pulse Ox O2 Delivery O2 Flow Rate FiO2 01/22/18 09:24 98 20 94 15.0 55 01/22/18 09:00 106 21 118/59 94 Venturi Mask 55 01/22/18 08:30 108 21 129/64 93 Venturi Mask 55 01/22/18 08:00 98.8 107 20 140/72 33 Venturi Mask 55 98.8 01/22/18 07:30 96 20 Venturi Mask 15.0 55 01/22/18 07:30 102 19 125/63 96 Bi-pap 50 01/22/18 07:00 97 20 98 Facial 50 01/22/18 07:00 100 20 122/71 96 Bi-pap 50 01/22/18 06:00 105 19 136/81 96 Bi-pap 50 01/22/18 06:00 138/81 01/22/18 05:00 129/75 01/22/18 05:00 105 19 129/75 96 Bi-pap 50 01/22/18 04:41 105 21 98 Facial 50 01/22/18 04:00 86 01/22/18 04:00 98.5 104 19 125/81 98 Bi-pap 50 98.5 01/22/18 04:00 125/81 01/22/18 03:17 104 22 98 Facial 50 01/22/18 03:00 105 19 124/93 99 Bi-pap 50 01/22/18 03:00 124/93 01/22/18 02:00 107 18 126/76 100 Bi-pap 50 01/22/18 02:00 125/76 01/22/18 01:04 101 21 98 Facial 50 01/22/18 01:00 135/71 01/22/18 01:00 103 17 135/71 99 Bi-pap 50 01/22/18 00:00 90 01/22/18 00:00 117/73 01/22/18 00:00 98.1 95 15 117/73 97 Bi-pap 50 98.1 01/21/18 23:00 105 15 98/76 94 Bi-pap 50 01/21/18 23:00 96/76 01/21/18 22:31 92 20 97 Facial 50 01/21/18 22:00 103 18 107/70 95 Bi-pap 50 01/21/18 22:00 107/70 01/21/18 21:50 118/54 01/21/18 21:27 83 21 99 Facial 50 01/21/18 21:00 85 21 118/54 100 Bi-pap 50 01/21/18 20:00 85 01/21/18 20:00 97.9 85 21 92/54 97 Nasal Cannula 5.0 97.9 01/21/18 19:00 83 17 108/71 96 Nasal Cannula 5.0 01/21/18 19:00 81 19 108/71 95 Nasal Cannula 5.0 01/21/18 18:45 Nasal Cannula 4.0 36 01/21/18 18:45 98 Nasal Cannula 4.0 36 01/21/18 18:00 80 17 97/48 97 Nasal Cannula 5.0 01/21/18 17:00 87 17 90/45 99 Nasal Cannula 5.0 01/21/18 16:00 88 01/21/18 16:00 98.3 87 21 90/37 99 Nasal Cannula 5.0 98.3 01/21/18 15:00 91 17 96/55 99 Nasal Cannula 5.0 01/21/18 14:00 92 17 103/51 99 Nasal Cannula 5.0 01/21/18 13:00 94 16 96/70 97 Nasal Cannula 5.0 01/21/18 12:00 89.6 94 17 106/50 97 Nasal Cannula 5.0 89.6 01/21/18 12:00 96 Intake and Output 01/21/18 01/22/18 18:59 06:59 Intake Total 1820.7 ml 2420.474 ml Output Total 1110 ml 3890 ml Balance 710.7 ml -1469.526 ml IV Total 1710.7 ml 2420.474 ml Tube Feeding 60 ml Other 50 ml Output Urine Total 860 ml 3890 ml Stool Total 250 ml Laboratory Tests 01/21/18 20:06: Arterial Blood pH 7.141*L, Arterial Blood Partial Pressure CO2 80.2*H, Arterial Blood Partial Pressure O2 74.3L, Arterial Blood HCO3 26.7H, Arterial Blood Oxygen Saturation 92.6, Arterial Blood Base Excess -3.5, Harsha Test Positive 01/22/18 04:00: White Blood Count 11.5H, Red Blood Count 3.39L, Hemoglobin 10.7L, Hematocrit 30.7L, Mean Corpuscular Volume 90, Mean Corpuscular Hemoglobin 31.4H, Mean Corpuscular Hemoglobin Concent 34.7, Red Cell Distribution Width 12.6, Platelet Count 45L, Mean Platelet Volume 9.2, Neutrophils (%) (Auto) , Lymphocytes (%) ( Auto) , Monocytes (%) (Auto) , Eosinophils (%) (Auto) , Basophils (%) (Auto) , Differential Total Cells Counted 100, Neutrophils % (Manual) 74, Lymphocytes % ( Manual) 13L, Monocytes % (Manual) 10, Eosinophils % (Manual) 2, Basophils % ( Manual) 0, Band Neutrophils 1, Nucleated Red Blood Cells 2, Platelet Estimate DecreasedL, Platelet Morphology Normal, Hypochromasia 1+, Anisocytosis 1+, Sodium Level 144, Potassium Level 2.7*L, Chloride Level 106, Carbon Dioxide Level 26, Anion Gap 13, Blood Urea Nitrogen 50H, Creatinine 3.2H, Estimat Glomerular Filtration Rate 21.1, Glucose Level 164H, Uric Acid 8.1H, Calcium Level 7.9L, Phosphorus Level 4.4, Magnesium Level 1.8, Total Bilirubin 0.8, Gamma Glutamyl Transpeptidase 902H, Aspartate Amino Transf (AST/SGOT) 56H, Alanine Aminotransferase (ALT/SGPT) 57, Alkaline Phosphatase 648H, Pro-B-Type Natriuretic Peptide 4942H, Total Protein 5.4L, Albumin 1.8L, Globulin 3.6, Albumin/Globulin Ratio 0.5L 01/22/18 07:00: Arterial Blood pH 7.385, Arterial Blood Partial Pressure CO2 44.9, Arterial Blood Partial Pressure O2 87.3, Arterial Blood HCO3 26.3H, Arterial Blood Oxygen Saturation 96.5, Arterial Blood Base Excess 0.9, Harsha Test Positive Height (Feet): 5 Height (Inches): 9.00 Weight (Pounds): 315 General Appearance: no apparent distress Cardiovascular: tachycardia Respiratory/Chest: decreased breath sounds Abdomen: distended ALANNA MAHONEY January 22, 2018 11:23
--- NOTE | 2018-01-22 13:34 | Cardiology Report ---
APPROVED REPORT EXAM: Two-dimensional and M-mode echocardiogram with Doppler and color Doppler. INDICATION ACUTE MYOCARD INFARCTION M-Mode DIMENSIONS IVSd1.4 (0.7-1.1cm)Left Atrium (MM)4.4 (1.6-4.0cm) LVDd4.0 (3.5-5.6cm)Aortic Root3.2 (2.0-3.7cm) PWd1.2 (0.7-1.1cm)Aortic Cusp Exc.2.2 (1.5-2.0cm) IVSs1.6 cm LVDs2.3 (2.5-4.0cm) PWs1.3 cm Normal left ventricular chamber size, hyperdynamic systolic function and wall motion to extent visualized. Left ventricular ejection fraction estimated to be at least 75%. No evidence of left ventricular hypertrophy . No evidence of pericardial effusion. All other cardiac chamber sizes are within normal limits. Focal aortic valve sclerosis with adequate cusp excursion. Mildly Thickened mitral valve leaflets with normal excursion. Mildly Mitral annulus and aortic root calcification. Pulmonic valve not well visualized. Normal tricuspid valve structure. IVC dilated at 2.6 cm without physiologic collapse suggestive of increased RA pressure. A color flow and spectral Doppler study was performed and revealed: No aortic regurgitation. Trace mitral regurgitation. Noemal left ventricular diastolic function . Trace tricuspid regurgitation. Tricuspid systolic velocities suggests peak right ventricular systolic pressure of 21 mmHg No Pulmonic regurgitation present.
[2018-01-22] MEDS: DOPamine 400mg/250ml 250 ML IV SCH (17:27)
[2018-01-22] MEDS: Dyna-Hex 2% Top Sol 2oz TOPIC SCH (19:48)
[2018-01-22] MEDS ORDERED: Dyna-Hex 2% Top Sol 2oz TOPIC SCH (20:00)
--- NOTE | 2018-01-22 20:15 | Progress Note ---
DATE: 01/22/2018 CARDIOLOGY PROGRESS NOTE SUBJECTIVE: The patient was extubated today. He is on a Venturi mask and intermittently requiring BiPAP support. Blood pressure parameters improved, but remained tenuous. He is on a dopamine drip. He is off hemodialysis, but he is on a furosemide drip for diuresis. OBJECTIVE: VITAL SIGNS: Blood pressure 80/39 to 100/42, heart rate 90 to 110, respiratory rate 17 to 25. He is afebrile. GENERAL: Alert, but withdrawn. LUNGS: Diminished breath sounds. No wheezing. HEART: Regular rhythm. Rapid rate. Normal S1, S2 with no murmur. Few atrial ectopic beats. ABDOMEN: Slightly distended, but soft. EXTREMITIES: With 1+ dependent edema. LABORATORY DATA: White count 11.5, hemoglobin 10.7, and platelet count is . ABG, pH 7.38, pCO2 45, and pO2 87 just following extubation. Potassium 2.7, BUN 50, and creatinine 3.2. Pro-natriuretic peptide 4900. Albumin 1.8. Magnesium 1.8. IMPRESSION: 1. Diabetic ketoacidosis, resolving. 2. Shock, slow to resolve. 3. Hypokalemia. 4. Acute renal failure, improving. 5. Sepsis. 6. Acute diastolic congestive heart failure, improved. 7. Severe protein-calorie malnutrition. 8. Status post cardiopulmonary arrest. 9. Remains critical and guarded following extubation. 10. Paroxysmal atrial tachyarrhythmias. PLAN: 1. BiPAP support. 2. Taper dopamine to renal perfusion dosing if able. 3. Continued cautious diuresis efforts. Hold furosemide if hypotensive. 4. Monitor volume status and cardiorenal parameters. 5. Replace potassium. 6. Respiratory hygiene. 7. DVT and stress ulcer prophylaxes. 8. Antimicrobials per Infectious Disease [employer] payroll consultant. 9. NG-tube nutrition with aspiration precautions. Ernie Ashford M.D. DR: PRANAY JOB#: [id number] CC:
[2018-01-23] VITALS (39 sets, daily range): BP systolic 97–144; BP diastolic 57–80
[2018-01-23] MEDS: NovoLOG Insulin Flexpen SUBQ SCH ×12 (02:09→20:53)
[2018-01-23] MEDS: DOPamine 400mg/250ml 250 ML IV SCH ×3 (02:49→22:40)
[2018-01-23] MEDS: Calcium Gluconate 10% 2 GM in NS 110 ML IVPB SCH (05:37)
[2018-01-23 06:10] LABS: HEMATOCRIT 31.4 % (42.0-52.0); HEMOGLOBIN 11.1 G/DL (14.2-18.0); MEAN CORPUSCULAR VOLUME 90 FL (80-99); PLATELET COUNT 79 K/UL (150-450); RED BLOOD COUNT 3.48 M/UL (4.70-6.10); RED CELL DISTRIBUTION WIDTH 12.3 % (11.6-14.8); WHITE BLOOD COUNT 16.6 K/UL (4.8-10.8)
--- NOTE | 2018-01-23 06:32 | General Progress Note ---
Assessment/Plan Problem List: (1) Septic shock ICD Codes: A41.9 - Sepsis, unspecified organism; R65.21 - Severe sepsis with septic shock SNOMED: 56406625 (2) DKA (diabetic ketoacidoses) ICD Codes: E13.10 - Other specified diabetes mellitus with ketoacidosis without coma SNOMED: 958262083, 45832550 (3) Acute renal failure (ARF) ICD Codes: N17.9 - Acute kidney failure, unspecified SNOMED: 58394476 Assessment/Plan continue Novolog 8 units every 4 hours + NISS q4h Subjective Allergies: Coded Allergies: No Known Allergies (Unverified , 01/15/18) All Systems: reviewed and negative except above Subjective events noted - interval notes reviewed Objective Last 24 Hour Vital Signs Date Time Temp Pulse Resp B/P (MAP) Pulse Ox O2 Delivery O2 Flow Rate FiO2 01/23/18 05:23 102 17 96 Facial 50 01/23/18 04:00 50 01/23/18 03:12 110 19 95 Facial 50 01/23/18 02:49 121/72 01/23/18 01:07 104 17 95 Facial 50 01/23/18 00:00 98.6 106 17 144/69 95 Bi-pap 50 98.6 01/23/18 00:00 50 01/23/18 00:00 104 01/22/18 23:01 107 20 97 Facial 50 01/22/18 23:00 109 19 132/65 95 Bi-pap 50 01/22/18 22:00 108 21 126/68 95 Bi-pap 50 01/22/18 21:16 102 16 97 Facial 50 01/22/18 21:00 98.8 107 18 116/60 97 Bi-pap 50 98.8 01/22/18 20:00 50 01/22/18 20:00 104 01/22/18 19:52 103 20 116/67 97 Bi-pap 50 01/22/18 19:41 116/67 01/22/18 19:27 104 20 Bi-pap 50 01/22/18 19:27 105 21 97 Facial 50 01/22/18 18:30 105 21 103/95 95 Bi-pap 50 01/22/18 18:00 97/57 01/22/18 18:00 102 19 97/57 96 Bi-pap 50 5/21/18 17:30 93 17 108/42 96 Venturi Mask 55 01/22/18 17:27 80/39 18 17:23 107 19 94 Facial 50 01/22/18 17:00 91 25 80/39 92 Venturi Mask 55 01/22/18 17:00 97/50 01/22/18 16:30 99 23 97/50 93 Venturi Mask 55 01/22/18 16:00 106/49 01/22/18 16:00 98.8 100 23 106/49 93 Venturi Mask 55 98.8 01/22/18 16:00 100 01/22/18 15:30 100 23 108/59 93 Venturi Mask 55 01/22/18 15:10 97 20 94 15.0 55 01/22/18 15:00 100 22 105/56 93 Venturi Mask 55 01/22/18 15:00 105/56 01/22/18 14:30 101 22 112/53 93 Venturi Mask 55 01/22/18 14:00 100 21 109/52 95 Venturi Mask 55 01/22/18 14:00 109/52 01/22/18 13:30 101 22 107/56 93 Venturi Mask 55 01/22/18 13:00 145/95 01/22/18 13:00 101 23 114/56 93 Venturi Mask 55 01/22/18 12:42 99 20 95 15.0 55 01/22/18 12:30 101 21 109/59 94 Venturi Mask 55 01/22/18 12:00 98.1 101 22 111/61 94 Venturi Mask 55 98.1 01/22/18 12:00 152/106 01/22/18 12:00 99 01/22/18 11:30 96 20 95 15.0 55 01/22/18 11:30 102 26 122/67 94 Venturi Mask 55 01/22/18 11:00 102 25 120/66 93 Venturi Mask 55 01/22/18 11:00 175/110 01/22/18 10:30 103 25 118/62 94 Venturi Mask 55 01/22/18 10:00 165/106 01/22/18 10:00 104 24 117/58 94 Venturi Mask 55 01/22/18 09:24 98 20 94 15.0 55 01/22/18 09:00 106 21 118/59 94 Venturi Mask 55 01/22/18 09:00 147/101 01/22/18 08:30 108 21 129/64 93 Venturi Mask 55 01/22/18 08:00 98.8 107 20 140/72 33 Venturi Mask 55 98.8 01/22/18 08:00 107 01/22/18 08:00 162/100 01/22/18 07:30 96 20 Venturi Mask 15.0 55 01/22/18 07:30 102 19 125/63 96 Bi-pap 50 01/22/18 07:00 97 20 98 Facial 50 01/22/18 07:00 138/88 01/22/18 07:00 100 20 122/71 96 Bi-pap 50 Intake and Output 01/22/18 01/23/18 19:00 07:00 Intake Total 965.572 ml 501.310 ml Output Total 3385 ml 2490 ml Balance -2419.428 ml -1988.690 ml IV Total 935.572 ml 501.310 ml Other 30 ml Output Urine Total 3385 ml 2190 ml Stool Total 300 ml Laboratory Tests 01/22/18 07:00: Arterial Blood pH 7.385, Arterial Blood Partial Pressure CO2 44.9, Arterial Blood Partial Pressure O2 87.3, Arterial Blood HCO3 26.3H, Arterial Blood Oxygen Saturation 96.5, Arterial Blood Base Excess 0.9, Harsha Test Positive 01/23/18 05:00: White Blood Count 16.6H, Red Blood Count 3.48L, Hemoglobin 11.1L, Hematocrit 31.4L, Mean Corpuscular Volume 90, Mean Corpuscular Hemoglobin 31.9H, Mean Corpuscular Hemoglobin Concent 35.3, Red Cell Distribution Width 12.3, Platelet Count 79#L, Mean Platelet Volume 8.7, Neutrophils (%) (Auto) , Lymphocytes (%) ( Auto) , Monocytes (%) (Auto) , Eosinophils (%) (Auto) , Basophils (%) (Auto) , Neutrophils % (Manual) [Pending], Lymphocytes % (Manual) [Pending], Platelet Estimate [Pending], Platelet Morphology [Pending], Sodium Level [Pending], Potassium Level [Pending], Chloride Level [Pending], Carbon Dioxide Level [ Pending], Blood Urea Nitrogen [Pending], Creatinine [Pending], Estimat Glomerular Filtration Rate [Pending], Glucose Level [Pending], Calcium Level [ Pending], Phosphorus Level [Pending], Magnesium Level [Pending], Total Bilirubin [Pending], Gamma Glutamyl Transpeptidase [Pending], Aspartate Amino Transf (AST/SGOT) [Pending], Alanine Aminotransferase (ALT/SGPT) [Pending], Alkaline Phosphatase [Pending], Pro-B-Type Natriuretic Peptide [Pending], Total Protein [Pending], Albumin [Pending], Globulin [Pending], Random Vancomycin Level [Pending] Height (Feet): 5 Height (Inches): 9.00 Weight (Pounds): 315 General Appearance: no apparent distress Neck: normal alignment Cardiovascular: normal rate Respiratory/Chest: decreased breath sounds Abdomen: normal bowel sounds Edema: 1+ Arm (L), 1+ Arm (R), 1+ Leg (L), 1+ Leg (R), 1+ Pedal (L), 1+ Pedal ( R), 1+ Generalized Objective Current Medications Medications (Trade) Dose Ordered Sig/Alana Route PRN Reason Start Time Stop Time Status Last Admin Dose Admin Acetaminophen (Tylenol) 500 mg Q6HR PRN NG Fever/Headache/Mild Pain 01/16/18 23:15 02/15/18 23:14 01/19/18 10:02 Calcium Gluconate 2 gm/Sodium Chloride 130 ml @ 120 mls/hr Q8H IVPB 01/19/18 14:00 02/17/18 13:59 01/23/18 05:37 Chlorhexidine Gluconate (Марина-Hex 2%) 1 applic DAILY@2000 TOPIC 01/17/18 20:00 02/16/18 19:59 01/22/18 19:48 Dextrose (Dextrose 50%) 25 ml STAT PRN IV Hypoglycemia 01/20/18 06:45 02/19/18 06:44 Dextrose (Dextrose 50%) 50 ml STAT PRN IV Hypoglycemia 01/20/18 06:45 02/19/18 06:44 Dopamine HCl/ Dextrose 250 ml @ 0 mls/hr Q24H IV 01/21/18 21:30 02/20/18 21:29 01/23/18 02:49 Furosemide 100 mg/ Dextrose 100 ml @ 10 mls/hr Q10H IV 01/21/18 22:30 02/20/18 22:29 01/23/18 02:11 Insulin Aspart (NovoLOG) EVERY 4 HOURS SUBQ 01/20/18 09:00 02/19/18 08:59 01/23/18 05:35 Insulin Aspart (NovoLOG) 8 units EVERY 4 HOURS SUBQ 01/21/18 09:00 02/19/18 08:59 01/23/18 05:36 Lorazepam (Ativan 2mg/ml 1ml) 1 mg Q2H PRN IV For Anxiety 01/16/18 08:30 01/23/18 08:29 01/19/18 13:42 Morphine Sulfate (Morphine Sulfate) 2 mg Q2H PRN IVP For Pain 01/16/18 09:05 01/23/18 09:04 01/22/18 12:00 Norepinephrine Bitartrate 4 mg/ Dextrose 250 ml @ 0 mls/hr Q24H IV 01/21/18 20:00 02/20/18 19:59 Pantoprazole (Protonix) 40 mg DAILY IVP 01/22/18 09:00 02/15/18 08:59 01/22/18 08:50 Vancomycin HCl (Vanco rx to dose) 1 ea DAILY PRN MISC Per rx protocol 01/18/18 10:15 02/17/18 10:14 Item Value Date Time Bedside Blood Glucose 112 mg/dl 01/23/18 0536 Bedside Blood Glucose 145 mg/dl H 01/23/18 0211 Bedside Blood Glucose 141 mg/dl H 01/22/18 2100 Bedside Blood Glucose 157 mg/dl H 01/22/18 1723 Bedside Blood Glucose 79 mg/dl 01/22/18 1248 Bedside Blood Glucose 113 mg/dl 01/22/18 0852 Bedside Blood Glucose 168 mg/dl H 01/22/18 0506 MATTEO VU January 23, 2018 06:32
[2018-01-23 06:33] LABS: ALANINE AMINOTRANSFERASE 47 U/L (12-78); ALBUMIN 1.7 G/DL (3.4-5.0); ALBUMIN/GLOBULIN RATIO 0.5 (1.0-2.7); ALKALINE PHOSPHATASE 577 U/L (46-116); ANION GAP 9 mmol/L (5-15); ASPARTATE AMINO TRANSFERASE 39 U/L (15-37); BILIRUBIN,TOTAL 0.8 MG/DL (0.2-1.0); BLOOD UREA NITROGEN 50 mg/dL (7-18); CALCIUM 8.6 MG/DL (8.5-10.1); CARBON DIOXIDE 31 MMOL/L (21-32); CHLORIDE 106 MMOL/L (98-107); CREATININE 2.3 MG/DL (0.55-1.30); POTASSIUM 2.8 MMOL/L (3.5-5.1); SODIUM 146 MMOL/L (136-145)
[2018-01-23 06:51] LABS: PHOSPHORUS 3.7 MG/DL (2.5-4.9)
[2018-01-23] MEDS ORDERED: Vancomycin 1250mg/D5W 250ml IVPB ONE (09:00)
[2018-01-23] MEDS: Pantoprazole Inj IVP SCH (09:18)
--- NOTE | 2018-01-23 09:37 | Pulmonology Progress Note ---
Assessment/Plan Assessment/Plan 1. Respiratory failure. Now extubated; not on BiPAP 2. Severe hyponatremia. Improved 3. Hyperglycemia. Off insulin gtt 4. Diabetic ketoacidosis. Improved; ph now normal 5. Sepsis. on broad spectrum abx; ID following 6. Hypotension. Resolved. 7. S/p arrest DISCUSSION: Continue broad-spectrum, antibiotics, aggressive central line care, [place]. Full Code for now. Discussed with all consultants Off LAsix gtt DC steroids Off HD Has thrombocytopenia; likely drug related; stable for now; improving Slowly improving Begin diet Matt Kessler M.D. Subjective Interval Events: Much improved Constitutional: Reports: no symptoms HEENT: Repors: no symptoms Respiratory: Reports: no symptoms Cardiovascular: Reports: no symptoms Gastrointestinal/Abdominal: Reports: no symptoms Allergies: Coded Allergies: No Known Allergies (Unverified , 01/15/18) Objective Last 24 Hour Vital Signs Date Time Temp Pulse Resp B/P (MAP) Pulse Ox O2 Delivery O2 Flow Rate FiO2 01/23/18 09:18 96 Venturi Mask 14.0 55 01/23/18 07:24 84 Venturi Mask 14.0 55 01/23/18 07:23 Venturi Mask 14.0 55 01/23/18 07:20 71 24 Venturi Mask 14.0 55 01/23/18 07:13 103 17 96 Facial 50 01/23/18 07:00 106 18 116/71 96 Bi-pap 50 01/23/18 06:00 104 17 139/70 96 Bi-pap 50 01/23/18 05:30 101 17 123/68 96 Bi-pap 50 01/23/18 05:23 102 17 96 Facial 50 01/23/18 05:00 106 18 127/66 96 Bi-pap 50 01/23/18 04:00 50 01/23/18 04:00 98.7 109 17 118/68 95 Bi-pap 50 98.7 01/23/18 04:00 109 01/23/18 03:30 113 21 126/75 94 Bi-pap 50 01/23/18 03:12 110 19 95 Facial 50 01/23/18 03:00 110 20 128/72 93 Bi-pap 50 01/23/18 02:49 121/72 01/23/18 02:30 108 18 121/72 94 Bi-pap 50 01/23/18 02:00 107 17 97/74 96 Bi-pap 50 01/23/18 01:30 100 16 144/69 95 Bi-pap 50 01/23/18 01:07 104 17 95 Facial 50 01/23/18 01:00 104 18 124/76 93 Bi-pap 50 01/23/18 00:00 98.6 106 17 144/69 95 Bi-pap 50 98.6 01/23/18 00:00 50 01/23/18 00:00 104 01/22/18 23:01 107 20 97 Facial 50 01/22/18 23:00 109 19 132/65 95 Bi-pap 50 01/22/18 22:00 108 21 126/68 95 Bi-pap 50 01/22/18 21:16 102 16 97 Facial 50 01/22/18 21:00 98.8 107 18 116/60 97 Bi-pap 50 98.8 01/22/18 20:00 50 01/22/18 20:00 104 01/22/18 19:52 103 20 116/67 97 Bi-pap 50 01/22/18 19:41 116/67 01/22/18 19:27 104 20 Bi-pap 50 01/22/18 19:27 105 21 97 Facial 50 01/22/18 18:30 105 21 103/95 95 Bi-pap 50 01/22/18 18:00 97/57 01/22/18 18:00 102 19 97/57 96 Bi-pap 50 01/22/18 17:30 93 17 108/42 96 Venturi Mask 55 01/22/18 17:27 80/39 01/22/18 17:23 107 19 94 Facial 50 01/22/18 17:00 91 25 80/39 92 Venturi Mask 55 01/22/18 17:00 97/50 01/22/18 16:30 99 23 97/50 93 Venturi Mask 55 01/22/18 16:00 106/49 01/22/18 16:00 98.8 100 23 106/49 93 Venturi Mask 55 98.8 01/22/18 16:00 100 01/22/18 15:30 100 23 108/59 93 Venturi Mask 55 01/22/18 15:10 97 20 94 15.0 55 01/22/18 15:00 100 22 105/56 93 Venturi Mask 55 01/22/18 15:00 105/56 01/22/18 14:30 101 22 112/53 93 Venturi Mask 55 01/22/18 14:00 100 21 109/52 95 Venturi Mask 55 01/22/18 14:00 109/52 01/22/18 13:30 101 22 107/56 93 Venturi Mask 55 01/22/18 13:00 145/95 01/22/18 13:00 101 23 114/56 93 Venturi Mask 55 01/22/18 12:42 99 20 95 15.0 55 01/22/18 12:30 101 21 109/59 94 Venturi Mask 55 01/22/18 12:00 98.1 101 22 111/61 94 Venturi Mask 55 98.1 01/22/18 12:00 152/106 01/22/18 12:00 99 01/22/18 11:30 96 20 95 15.0 55 01/22/18 11:30 102 26 122/67 94 Venturi Mask 55 01/22/18 11:00 102 25 120/66 93 Venturi Mask 55 01/22/18 11:00 175/110 01/22/18 10:30 103 25 118/62 94 Venturi Mask 55 01/22/18 10:00 165/106 01/22/18 10:00 104 24 117/58 94 Venturi Mask 55 Intake and Output 01/22/18 01/23/18 19:00 07:00 Intake Total 965.572 ml 705.572 ml Output Total 3385 ml 2990 ml Balance -2419.428 ml -2284.428 ml IV Total 935.572 ml 705.572 ml Other 30 ml Output Urine Total 3385 ml 2690 ml Stool Total 300 ml General Appearance: no acute distress HEENT: normocephalic Respiratory/Chest: chest wall non-tender, lungs clear Cardiovascular: normal peripheral pulses, normal rate Abdomen: normal bowel sounds Microbiology Date/Time Source Procedure Growth Status 01/20/18 18:30 Sputum Gram Stain - Final Resulted 01/20/18 18:30 Sputum Culture - Preliminary Gram Negative Bacillus 1 Resulted 01/21/18 02:00 Stool Clostridium difficile Toxin Assay - Final Complete Laboratory Tests 01/23/18 05:00: White Blood Count 16.6H, Red Blood Count 3.48L, Hemoglobin 11.1L, Hematocrit 31.4L, Mean Corpuscular Volume 90, Mean Corpuscular Hemoglobin 31.9H, Mean Corpuscular Hemoglobin Concent 35.3, Red Cell Distribution Width 12.3, Platelet Count 79#L, Mean Platelet Volume 8.7, Neutrophils (%) (Auto) , Lymphocytes (%) ( Auto) , Monocytes (%) (Auto) , Eosinophils (%) (Auto) , Basophils (%) (Auto) , Differential Total Cells Counted 100, Neutrophils % (Manual) 75, Lymphocytes % ( Manual) 13L, Monocytes % (Manual) 9, Eosinophils % (Manual) 3, Basophils % ( Manual) 0, Band Neutrophils 0, Platelet Estimate Adequate, Platelet Morphology Normal, Hypochromasia 1+, Anisocytosis 1+, Sodium Level 146H, Potassium Level 2.8L, Chloride Level 106, Carbon Dioxide Level 31, Anion Gap 9, Blood Urea Nitrogen 50H, Creatinine 2.3H, Estimat Glomerular Filtration Rate 30.9, Glucose Level 127H, Calcium Level 8.6, Phosphorus Level 3.7, Magnesium Level 1.4L, Total Bilirubin 0.8, Gamma Glutamyl Transpeptidase 835H, Aspartate Amino Transf (AST/SGOT) 39H, Alanine Aminotransferase (ALT/SGPT) 47, Alkaline Phosphatase 577H, Pro-B-Type Natriuretic Peptide 4312H, Total Protein 5.4L, Albumin 1.7L, Globulin 3.7, Albumin/Globulin Ratio 0.5L, Random Vancomycin Level 11.8 Current Medications Medications (Trade) Dose Ordered Sig/Alana Route PRN Reason Start Time Stop Time Status Last Admin Dose Admin Acetaminophen (Tylenol) 500 mg Q6HR PRN NG Fever/Headache/Mild Pain 01/16/18 23:15 02/15/18 23:14 01/19/18 10:02 Calcium Gluconate 2 gm/Sodium Chloride 130 ml @ 120 mls/hr Q8H IVPB 01/19/18 14:00 02/17/18 13:59 01/23/18 05:37 Chlorhexidine Gluconate (Марина-Hex 2%) 1 applic DAILY@2000 TOPIC 01/17/18 20:00 02/16/18 19:59 5/21/18 19:48 Dextrose (Dextrose 50%) 25 ml STAT PRN IV Hypoglycemia 01/20/18 06:45 02/19/18 06:44 Dextrose (Dextrose 50%) 50 ml STAT PRN IV Hypoglycemia 01/20/18 06:45 02/19/18 06:44 Dopamine HCl/ Dextrose 250 ml @ 0 mls/hr Q24H IV 01/21/18 21:30 02/20/18 21:29 01/23/18 02:49 Insulin Aspart (NovoLOG) EVERY 4 HOURS SUBQ 01/20/18 09:00 02/19/18 08:59 01/23/18 05:35 Insulin Aspart (NovoLOG) 8 units EVERY 4 HOURS SUBQ 01/21/18 09:00 02/19/18 08:59 01/23/18 05:36 Norepinephrine Bitartrate 4 mg/ Dextrose 250 ml @ 0 mls/hr Q24H IV 01/21/18 20:00 02/20/18 19:59 Pantoprazole (Protonix) 40 mg DAILY IVP 01/22/18 09:00 02/15/18 08:59 01/23/18 09:18 Potassium Chloride 100 ml @ 50 mls/hr Q2H IVPB 01/23/18 08:00 01/23/18 13:59 01/23/18 09:19 Vancomycin HCl (Vanco rx to dose) 1 ea DAILY PRN MISC Per rx protocol 01/18/18 10:15 02/17/18 10:14 Vancomycin HCl/ Dextrose 250 ml @ 166.667 mls/hr ONCE ONCE IVPB 01/23/18 09:00 01/23/18 10:29 01/23/18 09:18 Matt Kessler MD January 23, 2018 09:37
[2018-01-23] MEDS ORDERED: Morphine Sulfate 4mg/ml Inj IVP PRN (10:00)
--- NOTE | 2018-01-23 11:09 | Infectious Diseases Prog Note ---
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 Pancreatitis Acute renal failure improving Acute respiratory failure resolving DKA Pulmonary edema Psoriasis Thrombocytopenia Hypokalemia & Hypocalcemia P: Change Vancomycin to Zosyn Will f/u cultures Subjective ROS Limited/Unobtainable: No Constitutional: Reports: other - doing better Respiratory: Reports: productive cough Cardiovascular: Reports: no symptoms Gastrointestinal/Abdominal: Reports: no symptoms Genitourinary: Reports: no symptoms Allergies: Coded Allergies: No Known Allergies (Unverified , 01/15/18) Objective Vital Signs Last 24 Hour Vital Signs Date Time Temp Pulse Resp B/P (MAP) Pulse Ox O2 Delivery O2 Flow Rate FiO2 01/23/18 10:00 106 18 124/76 95 Non-Rebreather 15.0 01/23/18 09:30 107 18 102/80 96 Non-Rebreather 15.0 01/23/18 09:18 96 Venturi Mask 14.0 55 01/23/18 09:00 106 18 116/71 97 Non-Rebreather 15.0 01/23/18 08:30 105 18 115/75 96 Non-Rebreather 15.0 01/23/18 08:00 98.7 109 17 118/68 95 Non-Rebreather 15.0 98.7 01/23/18 07:30 106 18 116/71 96 Bi-pap 50 01/23/18 07:24 84 Venturi Mask 14.0 55 01/23/18 07:23 Venturi Mask 14.0 55 01/23/18 07:20 71 24 Venturi Mask 14.0 55 01/23/18 07:13 103 17 96 Facial 50 01/23/18 07:00 106 18 116/71 96 Bi-pap 50 01/23/18 06:00 104 17 139/70 96 Bi-pap 50 01/23/18 05:30 101 17 123/68 96 Bi-pap 50 01/23/18 05:23 102 17 96 Facial 50 01/23/18 05:00 106 18 127/66 96 Bi-pap 50 01/23/18 04:00 50 01/23/18 04:00 98.7 109 17 118/68 95 Bi-pap 50 98.7 01/23/18 04:00 109 5/22/18 03:30 113 21 126/75 94 Bi-pap 50 01/23/18 03:12 110 19 95 Facial 50 01/23/18 03:00 110 20 128/72 93 Bi-pap 50 01/23/18 02:49 121/72 01/23/18 02:30 108 18 121/72 94 Bi-pap 50 01/23/18 02:00 107 17 97/74 96 Bi-pap 50 01/23/18 01:30 100 16 144/69 95 Bi-pap 50 01/23/18 01:07 104 17 95 Facial 50 01/23/18 01:00 104 18 124/76 93 Bi-pap 50 01/23/18 00:00 98.6 106 17 144/69 95 Bi-pap 50 98.6 01/23/18 00:00 50 01/23/18 00:00 104 01/22/18 23:01 107 20 97 Facial 50 01/22/18 23:00 109 19 132/65 95 Bi-pap 50 01/22/18 22:00 108 21 126/68 95 Bi-pap 50 01/22/18 21:16 102 16 97 Facial 50 01/22/18 21:00 98.8 107 18 116/60 97 Bi-pap 50 98.8 01/22/18 20:00 50 01/22/18 20:00 104 01/22/18 19:52 103 20 116/67 97 Bi-pap 50 01/22/18 19:41 116/67 01/22/18 19:27 104 20 Bi-pap 50 01/22/18 19:27 105 21 97 Facial 50 01/22/18 18:30 105 21 103/95 95 Bi-pap 50 01/22/18 18:00 97/57 01/22/18 18:00 102 19 97/57 96 Bi-pap 50 01/22/18 17:30 93 17 108/42 96 Venturi Mask 55 01/22/18 17:27 80/39 01/22/18 17:23 107 19 94 Facial 50 01/22/18 17:00 91 25 80/39 92 Venturi Mask 55 01/22/18 17:00 97/50 01/22/18 16:30 99 23 97/50 93 Venturi Mask 55 01/22/18 16:00 106/49 01/22/18 16:00 98.8 100 23 106/49 93 Venturi Mask 55 98.8 01/22/18 16:00 100 01/22/18 15:30 100 23 108/59 93 Venturi Mask 55 01/22/18 15:10 97 20 94 15.0 55 01/22/18 15:00 100 22 105/56 93 Venturi Mask 55 01/22/18 15:00 105/56 01/22/18 14:30 101 22 112/53 93 Venturi Mask 55 01/22/18 14:00 100 21 109/52 95 Venturi Mask 55 01/22/18 14:00 109/52 01/22/18 13:30 101 22 107/56 93 Venturi Mask 55 01/22/18 13:00 145/95 01/22/18 13:00 101 23 114/56 93 Venturi Mask 55 01/22/18 12:42 99 20 95 15.0 55 01/22/18 12:30 101 21 109/59 94 Venturi Mask 55 01/22/18 12:00 98.1 101 22 111/61 94 Venturi Mask 55 98.1 01/22/18 12:00 152/106 01/22/18 12:00 99 01/22/18 11:30 96 20 95 15.0 55 01/22/18 11:30 102 26 122/67 94 Venturi Mask 55 Height (Feet): 5 Height (Inches): 9.00 Weight (Pounds): 311 General Appearance: no acute distress HEENT: mucous membranes moist Respiratory/Chest: lungs clear Cardiovascular: tachycardia, other - R femoral central line Abdomen: soft, non tender Extremities: other - generalized edema Skin: ulcers, other - shins Neurologic/Psychiatric: alert, responsive Microbiology Date/Time Source Procedure Growth Status 01/20/18 18:30 Sputum Gram Stain - Final Resulted 01/20/18 18:30 Sputum Culture - Preliminary Gram Negative Bacillus 1 Resulted 01/21/18 02:00 Stool Clostridium difficile Toxin Assay - Final Complete Laboratory Tests Test 01/23/18 05:00 White Blood Count 16.6 K/UL (4.8-10.8) H Red Blood Count 3.48 M/UL (4.70-6.10) L Hemoglobin 11.1 G/DL (14.2-18.0) L Hematocrit 31.4 % (42.0-52.0) L Mean Corpuscular Volume 90 FL (80-99) Mean Corpuscular Hemoglobin 31.9 PG (27.0-31.0) H Mean Corpuscular Hemoglobin Concent 35.3 G/DL (32.0-36.0) Red Cell Distribution Width 12.3 % (11.6-14.8) Platelet Count 79 K/UL (150-450) #L Mean Platelet Volume 8.7 FL (6.5-10.1) Neutrophils (%) (Auto) % (45.0-75.0) Lymphocytes (%) (Auto) % (20.0-45.0) Monocytes (%) (Auto) % (1.0-10.0) Eosinophils (%) (Auto) % (0.0-3.0) Basophils (%) (Auto) % (0.0-2.0) Differential Total Cells Counted 100 Neutrophils % (Manual) 75 % (45-75) Lymphocytes % (Manual) 13 % (20-45) L Monocytes % (Manual) 9 % (1-10) Eosinophils % (Manual) 3 % (0-3) Basophils % (Manual) 0 % (0-2) Band Neutrophils 0 % (0-8) Platelet Estimate Adequate Platelet Morphology Normal Hypochromasia 1+ Anisocytosis 1+ Sodium Level 146 MMOL/L (136-145) H Potassium Level 2.8 MMOL/L (3.5-5.1) L Chloride Level 106 MMOL/L (98-107) Carbon Dioxide Level 31 MMOL/L (21-32) Anion Gap 9 mmol/L (5-15) Blood Urea Nitrogen 50 mg/dL (7-18) H Creatinine 2.3 MG/DL (0.55-1.30) H Estimat Glomerular Filtration Rate 30.9 mL/min (>60) Glucose Level 127 MG/DL (74-106) H Calcium Level 8.6 MG/DL (8.5-10.1) Phosphorus Level 3.7 MG/DL (2.5-4.9) Magnesium Level 1.4 MG/DL (1.8-2.4) L Total Bilirubin 0.8 MG/DL (0.2-1.0) Gamma Glutamyl Transpeptidase 835 U/L (5-85) H Aspartate Amino Transf (AST/SGOT) 39 U/L (15-37) H Alanine Aminotransferase (ALT/SGPT) 47 U/L (12-78) Alkaline Phosphatase 577 U/L (46-116) H Pro-B-Type Natriuretic Peptide 4312 pg/mL (0-125) H Total Protein 5.4 G/DL (6.4-8.2) L Albumin 1.7 G/DL (3.4-5.0) L Globulin 3.7 g/dL Albumin/Globulin Ratio 0.5 (1.0-2.7) L Random Vancomycin Level 11.8 ug/mL Current Medications Medications (Trade) Dose Ordered Sig/Alana Route PRN Reason Start Time Stop Time Status Last Admin Dose Admin Acetaminophen (Tylenol) 500 mg Q6HR PRN NG Fever/Headache/Mild Pain 01/16/18 23:15 02/15/18 23:14 01/19/18 10:02 Calcium Gluconate 1 gm/Sodium Chloride 120 ml @ 120 mls/hr Q8H IVPB 01/23/18 14:00 02/17/18 13:59 Chlorhexidine Gluconate (Марина-Hex 2%) 1 applic DAILY@2000 TOPIC 01/17/18 20:00 02/16/18 19:59 01/22/18 19:48 Dextrose (Dextrose 50%) 25 ml STAT PRN IV Hypoglycemia 01/20/18 06:45 02/19/18 06:44 Dextrose (Dextrose 50%) 50 ml STAT PRN IV Hypoglycemia 01/20/18 06:45 02/19/18 06:44 Dopamine HCl/ Dextrose 250 ml @ 0 mls/hr Q24H IV 01/21/18 21:30 02/20/18 21:29 01/23/18 02:49 Insulin Aspart (NovoLOG) EVERY 4 HOURS SUBQ 01/20/18 09:00 02/19/18 08:59 01/23/18 05:35 Insulin Aspart (NovoLOG) 8 units EVERY 4 HOURS SUBQ 01/21/18 09:00 02/19/18 08:59 01/23/18 05:36 Magnesium Sulfate 100 ml @ 100 mls/hr Q1H IVPB 01/23/18 10:30 01/23/18 14:29 01/23/18 10:28 Morphine Sulfate (Morphine Sulfate) 4 mg Q4H PRN IVP For Pain 01/23/18 10:00 01/30/18 09:59 UNV Norepinephrine Bitartrate 4 mg/ Dextrose 250 ml @ 0 mls/hr Q24H IV 01/21/18 20:00 02/20/18 19:59 Pantoprazole (Protonix) 40 mg DAILY IVP 01/22/18 09:00 02/15/18 08:59 01/23/18 09:18 Potassium Chloride 100 ml @ 50 mls/hr ONCE IVPB 01/23/18 13:00 01/23/18 14:00 Potassium Chloride 100 ml @ 50 mls/hr ONCE IVPB 01/23/18 15:00 01/23/18 16:00 Potassium Chloride 100 ml @ 50 mls/hr Q2H IVPB 01/23/18 08:00 01/23/18 13:59 01/23/18 10:28 Potassium Chloride (K-Dur) 40 meq TWICE A DAY ORAL 01/23/18 10:15 02/22/18 10:14 Vancomycin HCl (Vanco rx to dose) 1 ea DAILY PRN MISC Per rx protocol 01/18/18 10:15 02/17/18 10:14 KIRBY MONTES January 23, 2018 11:09
[2018-01-23] MEDS: Morphine Sulfate 4mg/ml Inj IVP PRN ×2 (11:58→21:16)
--- NOTE | 2018-01-23 12:09 | Nephrology Progress Note ---
Assessment/Plan Problem List: (1) Septic shock (2) DKA (diabetic ketoacidoses) (3) Acute renal failure (ARF) Assessment acute renal failure- now Cr stable and loweringoff dialysis Hypotensive on pressors- IMPROVED acute respiratory failure- ON VENT Diabetic Ketoacidosis Low Na, Low K Sepsis high lipase Plan stop lasix drip will give K IV HD last 01/19 check MARION abd : 2. Dense enlarged liver likely fatty. monitor lipase Pressors- Insulin drip DC bicitra Ca iv discussed with RN discussed with Mom and GF Betsy per orders Subjective ROS Limited/Unobtainable: No Constitutional: Reports: malaise, weakness Objective Objective Last 24 Hour Vital Signs Date Time Temp Pulse Resp B/P (MAP) Pulse Ox O2 Delivery O2 Flow Rate FiO2 01/23/18 11:58 98.7 01/23/18 11:00 106 18 120/72 95 Non-Rebreather 15.0 01/23/18 10:30 105 16 112/69 95 Non-Rebreather 15.0 01/23/18 10:00 106 18 124/76 95 Non-Rebreather 15.0 01/23/18 09:30 107 18 102/80 96 Non-Rebreather 15.0 01/23/18 09:18 96 Venturi Mask 14.0 55 01/23/18 09:00 106 18 116/71 97 Non-Rebreather 15.0 01/23/18 08:30 105 18 115/75 96 Non-Rebreather 15.0 01/23/18 08:00 107 01/23/18 08:00 15.0 01/23/18 08:00 98.7 109 17 118/68 95 Non-Rebreather 15.0 98.7 01/23/18 07:30 106 18 116/71 96 Bi-pap 50 01/23/18 07:24 84 Venturi Mask 14.0 55 01/23/18 07:23 Venturi Mask 14.0 55 01/23/18 07:20 71 24 Venturi Mask 14.0 55 01/23/18 07:13 103 17 96 Facial 50 01/23/18 07:00 106 18 116/71 96 Bi-pap 50 01/23/18 06:00 104 17 139/70 96 Bi-pap 50 01/23/18 05:30 101 17 123/68 96 Bi-pap 50 01/23/18 05:23 102 17 96 Facial 50 01/23/18 05:00 106 18 127/66 96 Bi-pap 50 01/23/18 04:00 50 01/23/18 04:00 98.7 109 17 118/68 95 Bi-pap 50 98.7 01/23/18 04:00 109 01/23/18 03:30 113 21 126/75 94 Bi-pap 50 01/23/18 03:12 110 19 95 Facial 50 01/23/18 03:00 110 20 128/72 93 Bi-pap 50 01/23/18 02:49 121/72 01/23/18 02:30 108 18 121/72 94 Bi-pap 50 01/23/18 02:00 107 17 97/74 96 Bi-pap 50 01/23/18 01:30 100 16 144/69 95 Bi-pap 50 01/23/18 01:07 104 17 95 Facial 50 01/23/18 01:00 104 18 124/76 93 Bi-pap 50 01/23/18 00:00 98.6 106 17 144/69 95 Bi-pap 50 98.6 01/23/18 00:00 50 01/23/18 00:00 104 01/22/18 23:01 107 20 97 Facial 50 01/22/18 23:00 109 19 132/65 95 Bi-pap 50 01/22/18 22:00 108 21 126/68 95 Bi-pap 50 01/22/18 21:16 102 16 97 Facial 50 01/22/18 21:00 98.8 107 18 116/60 97 Bi-pap 50 98.8 01/22/18 20:00 50 01/22/18 20:00 104 01/22/18 19:52 103 20 116/67 97 Bi-pap 50 01/22/18 19:41 116/67 01/22/18 19:27 104 20 Bi-pap 50 01/22/18 19:27 105 21 97 Facial 50 01/22/18 18:30 105 21 103/95 95 Bi-pap 50 01/22/18 18:00 97/57 01/22/18 18:00 102 19 97/57 96 Bi-pap 50 01/22/18 17:30 93 17 108/42 96 Venturi Mask 55 01/22/18 17:27 80/39 01/22/18 17:23 107 19 94 Facial 50 01/22/18 17:00 91 25 80/39 92 Venturi Mask 55 01/22/18 17:00 97/50 01/22/18 16:30 99 23 97/50 93 Venturi Mask 55 01/22/18 16:00 106/49 01/22/18 16:00 98.8 100 23 106/49 93 Venturi Mask 55 98.8 01/22/18 16:00 100 01/22/18 15:30 100 23 108/59 93 Venturi Mask 55 01/22/18 15:10 97 20 94 15.0 55 01/22/18 15:00 100 22 105/56 93 Venturi Mask 55 01/22/18 15:00 105/56 01/22/18 14:30 101 22 112/53 93 Venturi Mask 55 01/22/18 14:00 100 21 109/52 95 Venturi Mask 55 01/22/18 14:00 109/52 01/22/18 13:30 101 22 107/56 93 Venturi Mask 55 01/22/18 13:00 145/95 01/22/18 13:00 101 23 114/56 93 Venturi Mask 55 01/22/18 12:42 99 20 95 15.0 55 01/22/18 12:30 101 21 109/59 94 Venturi Mask 55 Intake and Output 01/22/18 01/23/18 19:00 07:00 Intake Total 965.572 ml 705.572 ml Output Total 3385 ml 2990 ml Balance -2419.428 ml -2284.428 ml IV Total 935.572 ml 705.572 ml Other 30 ml Output Urine Total 3385 ml 2690 ml Stool Total 300 ml Laboratory Tests 01/23/18 05:00: White Blood Count 16.6H, Red Blood Count 3.48L, Hemoglobin 11.1L, Hematocrit 31.4L, Mean Corpuscular Volume 90, Mean Corpuscular Hemoglobin 31.9H, Mean Corpuscular Hemoglobin Concent 35.3, Red Cell Distribution Width 12.3, Platelet Count 79#L, Mean Platelet Volume 8.7, Neutrophils (%) (Auto) , Lymphocytes (%) ( Auto) , Monocytes (%) (Auto) , Eosinophils (%) (Auto) , Basophils (%) (Auto) , Differential Total Cells Counted 100, Neutrophils % (Manual) 75, Lymphocytes % ( Manual) 13L, Monocytes % (Manual) 9, Eosinophils % (Manual) 3, Basophils % ( Manual) 0, Band Neutrophils 0, Platelet Estimate Adequate, Platelet Morphology Normal, Hypochromasia 1+, Anisocytosis 1+, Sodium Level 146H, Potassium Level 2.8L, Chloride Level 106, Carbon Dioxide Level 31, Anion Gap 9, Blood Urea Nitrogen 50H, Creatinine 2.3H, Estimat Glomerular Filtration Rate 30.9, Glucose Level 127H, Calcium Level 8.6, Phosphorus Level 3.7, Magnesium Level 1.4L, Total Bilirubin 0.8, Gamma Glutamyl Transpeptidase 835H, Aspartate Amino Transf (AST/SGOT) 39H, Alanine Aminotransferase (ALT/SGPT) 47, Alkaline Phosphatase 577H, Pro-B-Type Natriuretic Peptide 4312H, Total Protein 5.4L, Albumin 1.7L, Globulin 3.7, Albumin/Globulin Ratio 0.5L, Random Vancomycin Level 11.8 Height (Feet): 5 Height (Inches): 9.00 Weight (Pounds): 311 General Appearance: no apparent distress Respiratory/Chest: decreased breath sounds Abdomen: soft, other - obese + diarrhea ALANNA MAHONEY January 23, 2018 12:09
[2018-01-23] MEDS: Lactobacillus-GG tablet ORAL SCH ×2 (13:09→17:58)
[2018-01-23] MEDS: Zoysn 3.37gm in NS 100ML IVPB SCH ×2 (14:00→20:53)
[2018-01-23] MEDS ORDERED: Piperacillin/Tazobactam 2.25 GM in D5W 55 ML IVPB SCH (14:00)
[2018-01-23] MEDS: metroNIDAZOLE 250mg tab ORAL SCH ×2 (14:00→21:16)
[2018-01-23] MEDS: Calcium Gluconate 10% 1 GM in NS 110 ML IVPB SCH ×2 (14:00→22:15)
[2018-01-23] MEDS: Dyna-Hex 2% Top Sol 2oz TOPIC SCH (20:42)
[2018-01-24] VITALS (23 sets, daily range): BP systolic 99–126; BP diastolic 47–91
[2018-01-24] MEDS: NovoLOG Insulin Flexpen SUBQ SCH ×9 (00:32→21:00)
--- NOTE | 2018-01-24 02:00 | Progress Note ---
DATE: 01/23/2018 CARDIOLOGY PROGRESS NOTE SUBJECTIVE: The patient remains on renal dose dopamine. He is awake, alert and in no respiratory distress. Urine output is improved. OBJECTIVE: VITAL SIGNS: Blood pressure 120/72, pulse 106, and respiratory rate 18. LUNGS: Clear. CARDIAC: Regular. Normal S1 and S2. ABDOMEN: Soft. EXTREMITIES: Trace edema. IMPRESSION: 1. Acute renal failure, resolved. 2. Sepsis with shock recovered. 3. DKA, improved. 4. Respiratory failure, resolved. 5. Acute myocardial ischemia. 6. Status post cardiopulmonary arrest. PLAN: 1. Hold diuretics. 2. Monitor volume status and cardiorenal parameters. 3. Continue renal dose dopamine for the next 24 hours and reassess. 4. Replace potassium as needed. 5. DVT and stress ulcer prophylaxis. 6. Beta-zen therapy and angiotensin-converting enzyme inhibitors long-term once acute conditions have stabilized. Ernie Ashford M.D. DR: JOHN JOB#: [id number] CC:
[2018-01-24 04:51] LABS: BASOPHILS % (AUTO) 0.5 % (0.0-2.0); EOSINOPHILS % (AUTO) 1.2 % (0.0-3.0); HEMATOCRIT 28.1 % (42.0-52.0); HEMOGLOBIN 9.7 G/DL (14.2-18.0); LYMPHOCYTES % (AUTO) 9.7 % (20.0-45.0); MEAN CORPUSCULAR VOLUME 91 FL (80-99); MONOCYTES % (AUTO) 9.5 % (1.0-10.0); NEUTROPHILS % (AUTO) 79.1 % (45.0-75.0); PLATELET COUNT 119 K/UL (150-450); RED BLOOD COUNT 3.08 M/UL (4.70-6.10); RED CELL DISTRIBUTION WIDTH 12.6 % (11.6-14.8); WHITE BLOOD COUNT 12.6 K/UL (4.8-10.8)
[2018-01-24] MEDS: Zoysn 3.37gm in NS 100ML IVPB SCH ×3 (05:13→21:44)
[2018-01-24] MEDS: metroNIDAZOLE 250mg tab ORAL SCH ×3 (05:13→21:44)
[2018-01-24] MEDS: Calcium Gluconate 10% 1 GM in NS 110 ML IVPB SCH (05:13)
[2018-01-24 05:22] LABS: ALANINE AMINOTRANSFERASE 38 U/L (12-78); ALBUMIN 1.6 G/DL (3.4-5.0); ALBUMIN/GLOBULIN RATIO 0.4 (1.0-2.7); ALKALINE PHOSPHATASE 598 U/L (46-116); ANION GAP 6 mmol/L (5-15); ASPARTATE AMINO TRANSFERASE 32 U/L (15-37); BILIRUBIN,TOTAL 0.6 MG/DL (0.2-1.0); BLOOD UREA NITROGEN 41 mg/dL (7-18); CALCIUM 7.9 MG/DL (8.5-10.1); CARBON DIOXIDE 33 MMOL/L (21-32); CHLORIDE 108 MMOL/L (98-107); CREATININE 1.7 MG/DL (0.55-1.30); POTASSIUM 3.3 MMOL/L (3.5-5.1); SODIUM 147 MMOL/L (136-145)
--- NOTE | 2018-01-24 06:32 | General Progress Note ---
Assessment/Plan Problem List: (1) Septic shock ICD Codes: A41.9 - Sepsis, unspecified organism; R65.21 - Severe sepsis with septic shock SNOMED: 38388481 (2) DKA (diabetic ketoacidoses) ICD Codes: E13.10 - Other specified diabetes mellitus with ketoacidosis without coma SNOMED: 256028911, 25002150 (3) Acute renal failure (ARF) ICD Codes: N17.9 - Acute kidney failure, unspecified SNOMED: 39988972 Assessment/Plan DC continue Novolog 8 units every 4 hours + NISS q4h - start Levemir 10 units bid - start Novolog 6 units ac tid - start NISS ac / hs Subjective Allergies: Coded Allergies: No Known Allergies (Unverified , 01/15/18) All Systems: reviewed and negative except above Subjective events noted - interval notes reviewed awake and alert - on BiPAP - on diet Objective Last 24 Hour Vital Signs Date Time Temp Pulse Resp B/P (MAP) Pulse Ox O2 Delivery O2 Flow Rate FiO2 01/24/18 06:00 105 16 118/74 97 Bi-pap 40 01/24/18 05:18 103 15 97 Facial 40 01/24/18 05:00 93 15 124/70 96 Bi-pap 40 01/24/18 04:00 96 01/24/18 04:00 40 01/24/18 04:00 99.2 82 15 123/73 98 Bi-pap 40 99.2 01/24/18 03:10 84 15 96 Facial 40 01/24/18 03:00 98 13 99/65 96 Bi-pap 40 01/24/18 02:00 92 14 120/91 96 Bi-pap 40 01/24/18 01:02 103 15 96 Facial 40 01/24/18 01:00 104 12 112/58 96 Bi-pap 40 01/24/18 00:00 40 01/24/18 00:00 99.0 105 14 109/56 97 Bi-pap 40 99.0 01/24/18 00:00 98 01/23/18 23:00 98 12 111/63 96 Bi-pap 40 01/23/18 22:46 98 16 96 Facial 40 01/23/18 22:40 109/57 01/23/18 22:00 100 16 109/57 97 Bi-pap 40 01/23/18 21:28 107 17 96 Facial 40 01/23/18 21:00 99 15 114/72 97 Bi-pap 40 01/23/18 20:00 40 01/23/18 20:00 99.1 101 17 120/64 96 Bi-pap 40 99.1 01/23/18 20:00 101 01/23/18 19:40 95 Venturi Mask 14.0 55 01/23/18 19:40 Venturi Mask 14.0 55 01/23/18 19:00 104 15 119/60 96 Non-Rebreather 15.0 01/23/18 18:00 106 15 109/60 95 Non-Rebreather 15.0 01/23/18 17:30 102 18 115/75 98 Non-Rebreather 15.0 01/23/18 17:00 106 18 113/69 97 Non-Rebreather 15.0 01/23/18 16:30 105 16 114/75 95 Non-Rebreather 15.0 01/23/18 16:00 108 01/23/18 16:00 106 14 106/80 95 Non-Rebreather 15.0 01/23/18 16:00 15.0 01/23/18 15:30 107 18 110/80 96 Non-Rebreather 15.0 01/23/18 15:00 106 19 108/72 97 Non-Rebreather 15.0 01/23/18 14:49 120/72 01/23/18 14:30 102 18 106/57 95 Non-Rebreather 15.0 01/23/18 14:00 106 14 102/72 100 Non-Rebreather 15.0 01/23/18 13:30 105 18 109/73 95 Non-Rebreather 15.0 01/23/18 13:00 106 16 110/69 96 Non-Rebreather 15.0 01/23/18 12:39 98.7 01/23/18 12:30 104 18 108/80 99 Non-Rebreather 15.0 01/23/18 12:00 104 01/23/18 12:00 15.0 01/23/18 12:00 98.3 106 16 111/79 95 Non-Rebreather 15.0 98.3 01/23/18 11:58 98.7 01/23/18 11:30 105 18 108/75 95 Non-Rebreather 15.0 01/23/18 11:00 106 18 120/72 95 Non-Rebreather 15.0 01/23/18 10:30 105 16 112/69 95 Non-Rebreather 15.0 01/23/18 10:00 106 18 124/76 95 Non-Rebreather 15.0 01/23/18 09:30 107 18 102/80 96 Non-Rebreather 15.0 01/23/18 09:18 96 Venturi Mask 14.0 55 01/23/18 09:00 106 18 116/71 97 Non-Rebreather 15.0 01/23/18 08:30 105 18 115/75 96 Non-Rebreather 15.0 01/23/18 08:00 107 01/23/18 08:00 15.0 01/23/18 08:00 98.7 109 17 118/68 95 Non-Rebreather 15.0 98.7 01/23/18 07:30 106 18 116/71 96 Bi-pap 50 01/23/18 07:24 84 Venturi Mask 14.0 55 01/23/18 07:23 Venturi Mask 14.0 55 01/23/18 07:20 71 24 Venturi Mask 14.0 55 01/23/18 07:13 103 17 96 Facial 50 01/23/18 07:00 106 18 116/71 96 Bi-pap 50 Intake and Output 01/23/18 01/24/18 19:00 07:00 Intake Total 1507.513 ml 806.393 ml Output Total 2510 ml 2125 ml Balance -1002.487 ml -1318.607 ml Intake Oral 35 ml IV Total 1507.513 ml 771.393 ml Output Urine Total 2360 ml 2075 ml Stool Total 150 ml 50 ml Laboratory Tests 01/24/18 04:00: White Blood Count 12.6H, Red Blood Count 3.08L, Hemoglobin 9.7L, Hematocrit 28.1L, Mean Corpuscular Volume 91, Mean Corpuscular Hemoglobin 31.4H, Mean Corpuscular Hemoglobin Concent 34.4, Red Cell Distribution Width 12.6, Platelet Count 119#L, Mean Platelet Volume 6.9, Neutrophils (%) (Auto) 79.1H, Lymphocytes (%) (Auto) 9.7L, Monocytes (%) (Auto) 9.5, Eosinophils (%) (Auto) 1.2, Basophils (%) (Auto) 0.5, Sodium Level 147H, Potassium Level 3.3L, Chloride Level 108H, Carbon Dioxide Level 33H, Anion Gap 6, Blood Urea Nitrogen 41H, Creatinine 1.7H, Estimat Glomerular Filtration Rate 43.8, Glucose Level 153H, Uric Acid 10.1H, Calcium Level 7.9L, Phosphorus Level 3.0, Magnesium Level 1.8, Total Bilirubin 0.6, Gamma Glutamyl Transpeptidase 849H, Aspartate Amino Transf (AST/SGOT) 32, Alanine Aminotransferase (ALT/SGPT) 38, Alkaline Phosphatase 598H, Pro-B-Type Natriuretic Peptide 1905H, Total Protein 5.3L, Albumin 1.6L, Globulin 3.7, Albumin/Globulin Ratio 0.4L, Lipase 130 Height (Feet): 5 Height (Inches): 9.00 Weight (Pounds): 309 General Appearance: moderate distress Neck: normal alignment Cardiovascular: normal rate Respiratory/Chest: decreased breath sounds Abdomen: normal bowel sounds Edema: 1+ Arm (L), 1+ Arm (R), 1+ Leg (L), 1+ Leg (R), 1+ Pedal (L), 1+ Pedal ( R), 1+ Generalized Objective Current Medications Medications (Trade) Dose Ordered Sig/Alana Route PRN Reason Start Time Stop Time Status Last Admin Dose Admin Acetaminophen (Tylenol) 500 mg Q6HR PRN NG Fever/Headache/Mild Pain 01/16/18 23:15 02/15/18 23:14 01/19/18 10:02 Calcium Gluconate 2 gm/Sodium Chloride 130 ml @ 120 mls/hr Q8H IVPB 01/19/18 14:00 02/17/18 13:59 01/23/18 05:37 Chlorhexidine Gluconate (Марина-Hex 2%) 1 applic DAILY@2000 TOPIC 01/17/18 20:00 02/16/18 19:59 01/22/18 19:48 Dextrose (Dextrose 50%) 25 ml STAT PRN IV Hypoglycemia 01/20/18 06:45 02/19/18 06:44 Dextrose (Dextrose 50%) 50 ml STAT PRN IV Hypoglycemia 01/20/18 06:45 02/19/18 06:44 Dopamine HCl/ Dextrose 250 ml @ 0 mls/hr Q24H IV 01/21/18 21:30 02/20/18 21:29 01/23/18 02:49 Furosemide 100 mg/ Dextrose 100 ml @ 10 mls/hr Q10H IV 01/21/18 22:30 02/20/18 22:29 01/23/18 02:11 Insulin Aspart (NovoLOG) EVERY 4 HOURS SUBQ 01/20/18 09:00 02/19/18 08:59 01/23/18 05:35 Insulin Aspart (NovoLOG) 8 units EVERY 4 HOURS SUBQ 01/21/18 09:00 02/19/18 08:59 01/23/18 05:36 Lorazepam (Ativan 2mg/ml 1ml) 1 mg Q2H PRN IV For Anxiety 01/16/18 08:30 01/23/18 08:29 01/19/18 13:42 Morphine Sulfate (Morphine Sulfate) 2 mg Q2H PRN IVP For Pain 01/16/18 09:05 01/23/18 09:04 01/22/18 12:00 Norepinephrine Bitartrate 4 mg/ Dextrose 250 ml @ 0 mls/hr Q24H IV 01/21/18 20:00 02/20/18 19:59 Pantoprazole (Protonix) 40 mg DAILY IVP 01/22/18 09:00 02/15/18 08:59 01/22/18 08:50 Vancomycin HCl (Vanco rx to dose) 1 ea DAILY PRN MISC Per rx protocol 01/18/18 10:15 02/17/18 10:14 Item Value Date Time Bedside Blood Glucose 112 mg/dl 01/23/18 0536 Bedside Blood Glucose 145 mg/dl H 01/23/18 0211 Bedside Blood Glucose 141 mg/dl H 01/22/18 2100 Bedside Blood Glucose 157 mg/dl H 01/22/18 1723 Bedside Blood Glucose 79 mg/dl 01/22/18 1248 Bedside Blood Glucose 113 mg/dl 01/22/18 0852 Bedside Blood Glucose 168 mg/dl H 01/22/18 0506 MATTEO VU January 24, 2018 06:32
[2018-01-24] MEDS: Lactobacillus-GG tablet ORAL SCH ×3 (08:28→17:39)
[2018-01-24] MEDS: Levemir Flexpen SUBQ SCH ×2 (08:28→17:42)
--- NOTE | 2018-01-24 09:19 | Pulmonology Progress Note ---
Assessment/Plan Assessment/Plan 1. Respiratory failure. Now extubated; not on BiPAP 2. Severe hyponatremia. Improved 3. Hyperglycemia. Off insulin gtt 4. Diabetic ketoacidosis. Improved; ph now normal 5. Sepsis. on broad spectrum abx; ID following 6. Hypotension. Resolved. 7. S/p arrest DISCUSSION: Continue broad-spectrum, antibiotics, aggressive central line care, DC [place]. Full Code for now. Discussed with all consultants Off LAsix gtt DC steroids Off HD Has thrombocytopenia; likely drug related; stable for now; improving Slowly improving Continue diet To P2 Matt Kessler M.D. Subjective Interval Events: Much better Constitutional: Reports: no symptoms HEENT: Repors: no symptoms Respiratory: Reports: no symptoms Cardiovascular: Reports: no symptoms Gastrointestinal/Abdominal: Reports: no symptoms Allergies: Coded Allergies: No Known Allergies (Unverified , 01/15/18) Objective Last 24 Hour Vital Signs Date Time Temp Pulse Resp B/P (MAP) Pulse Ox O2 Delivery O2 Flow Rate FiO2 01/24/18 08:00 15.0 01/24/18 08:00 98.8 95 15 114/74 96 Simple Mask 15.0 98.8 01/24/18 07:33 Venturi Mask 14.0 55 01/24/18 07:32 94 Venturi Mask 14.0 55 01/24/18 06:00 99.7 105 16 118/74 97 Bi-pap 40 99.7 01/24/18 05:18 103 15 97 Facial 40 01/24/18 05:00 93 15 124/70 96 Bi-pap 40 01/24/18 04:00 96 01/24/18 04:00 40 01/24/18 04:00 99.2 82 15 123/73 98 Bi-pap 40 99.2 01/24/18 03:10 84 15 96 Facial 40 01/24/18 03:00 98 13 99/65 96 Bi-pap 40 01/24/18 02:00 92 14 120/91 96 Bi-pap 40 01/24/18 01:02 103 15 96 Facial 40 01/24/18 01:00 104 12 112/58 96 Bi-pap 40 01/24/18 00:00 40 01/24/18 00:00 99.0 105 14 109/56 97 Bi-pap 40 99.0 01/24/18 00:00 98 01/23/18 23:00 98 12 111/63 96 Bi-pap 40 01/23/18 22:46 98 16 96 Facial 40 01/23/18 22:40 109/57 01/23/18 22:00 100 16 109/57 97 Bi-pap 40 01/23/18 21:28 107 17 96 Facial 40 01/23/18 21:00 99 15 114/72 97 Bi-pap 40 01/23/18 20:00 40 01/23/18 20:00 99.1 101 17 120/64 96 Bi-pap 40 99.1 01/23/18 20:00 101 01/23/18 19:40 95 Venturi Mask 14.0 55 01/23/18 19:40 Venturi Mask 14.0 55 01/23/18 19:00 104 15 119/60 96 Non-Rebreather 15.0 01/23/18 18:00 106 15 109/60 95 Non-Rebreather 15.0 01/23/18 17:30 102 18 115/75 98 Non-Rebreather 15.0 01/23/18 17:00 106 18 113/69 97 Non-Rebreather 15.0 01/23/18 16:30 105 16 114/75 95 Non-Rebreather 15.0 01/23/18 16:00 108 01/23/18 16:00 106 14 106/80 95 Non-Rebreather 15.0 01/23/18 16:00 15.0 01/23/18 15:30 107 18 110/80 96 Non-Rebreather 15.0 01/23/18 15:00 106 19 108/72 97 Non-Rebreather 15.0 01/23/18 14:49 120/72 01/23/18 14:30 102 18 106/57 95 Non-Rebreather 15.0 01/23/18 14:00 106 14 102/72 100 Non-Rebreather 15.0 01/23/18 13:30 105 18 109/73 95 Non-Rebreather 15.0 01/23/18 13:00 106 16 110/69 96 Non-Rebreather 15.0 01/23/18 12:39 98.7 01/23/18 12:30 104 18 108/80 99 Non-Rebreather 15.0 01/23/18 12:00 104 01/23/18 12:00 15.0 01/23/18 12:00 98.3 106 16 111/79 95 Non-Rebreather 15.0 98.3 01/23/18 11:58 98.7 01/23/18 11:30 105 18 108/75 95 Non-Rebreather 15.0 01/23/18 11:00 106 18 120/72 95 Non-Rebreather 15.0 01/23/18 10:30 105 16 112/69 95 Non-Rebreather 15.0 01/23/18 10:00 106 18 124/76 95 Non-Rebreather 15.0 01/23/18 09:30 107 18 102/80 96 Non-Rebreather 15.0 Intake and Output 01/23/18 01/24/18 19:00 07:00 Intake Total 1507.513 ml 981.024 ml Output Total 2510 ml 2125 ml Balance -1002.487 ml -1143.976 ml Intake Oral 35 ml IV Total 1507.513 ml 946.024 ml Output Urine Total 2360 ml 2075 ml Stool Total 150 ml 50 ml General Appearance: no acute distress HEENT: normocephalic Respiratory/Chest: chest wall non-tender, lungs clear Cardiovascular: normal peripheral pulses, normal rate Microbiology Date/Time Source Procedure Growth Status 01/23/18 15:30 Indwelling Cath Urine Culture - Preliminary NO GROWTH Resulted Laboratory Tests 01/24/18 04:00: White Blood Count 12.6H, Red Blood Count 3.08L, Hemoglobin 9.7L, Hematocrit 28.1L, Mean Corpuscular Volume 91, Mean Corpuscular Hemoglobin 31.4H, Mean Corpuscular Hemoglobin Concent 34.4, Red Cell Distribution Width 12.6, Platelet Count 119#L, Mean Platelet Volume 6.9, Neutrophils (%) (Auto) 79.1H, Lymphocytes (%) (Auto) 9.7L, Monocytes (%) (Auto) 9.5, Eosinophils (%) (Auto) 1.2, Basophils (%) (Auto) 0.5, Sodium Level 147H, Potassium Level 3.3L, Chloride Level 108H, Carbon Dioxide Level 33H, Anion Gap 6, Blood Urea Nitrogen 41H, Creatinine 1.7H, Estimat Glomerular Filtration Rate 43.8, Glucose Level 153H, Uric Acid 10.1H, Calcium Level 7.9L, Phosphorus Level 3.0, Magnesium Level 1.8, Total Bilirubin 0.6, Gamma Glutamyl Transpeptidase 849H, Aspartate Amino Transf (AST/SGOT) 32, Alanine Aminotransferase (ALT/SGPT) 38, Alkaline Phosphatase 598H, Pro-B-Type Natriuretic Peptide 1905H, Total Protein 5.3L, Albumin 1.6L, Globulin 3.7, Albumin/Globulin Ratio 0.4L, Lipase 130 Current Medications Medications (Trade) Dose Ordered Sig/Alana Route PRN Reason Start Time Stop Time Status Last Admin Dose Admin Acetaminophen (Tylenol) 500 mg Q6HR PRN NG Fever/Headache/Mild Pain 01/16/18 23:15 02/15/18 23:14 01/19/18 10:02 Calcium Carbonate (Os-Aries) 1,250 mg THREE TIMES A DAY ORAL 01/24/18 10:00 02/23/18 09:59 Calcium Gluconate 1 gm/Sodium Chloride 120 ml @ 120 mls/hr Q12H IVPB 01/24/18 18:00 02/17/18 13:59 Chlorhexidine Gluconate (Марина-Hex 2%) 1 applic DAILY@2000 TOPIC 01/17/18 20:00 02/16/18 19:59 01/23/18 20:42 Dextrose (Dextrose 50%) 25 ml STAT PRN IV Hypoglycemia 01/24/18 06:45 02/23/18 06:44 Dextrose (Dextrose 50%) 50 ml STAT PRN IV Hypoglycemia 01/24/18 06:45 02/23/18 06:44 Dopamine HCl/ Dextrose 250 ml @ 0 mls/hr Q24H IV 01/21/18 21:30 02/20/18 21:29 01/23/18 22:40 Ergocalciferol (Drisdol) 50,000 intlu QWEEK ORAL 01/24/18 10:00 02/23/18 09:59 Insulin Aspart (NovoLOG) BEFORE MEALS AND HS SUBQ 01/24/18 11:30 02/23/18 11:29 Insulin Aspart (NovoLOG) 6 units NOVOTIAC SUBQ 01/24/18 11:50 02/23/18 11:49 Insulin Detemir (Levemir) 10 units BID SUBQ 01/24/18 09:00 02/23/18 08:59 01/24/18 08:28 Lactobacillus Acidophilus (Culturelle) 1 tab THREE TIMES A DAY ORAL 01/23/18 13:00 02/22/18 12:59 01/24/18 08:28 Lansoprazole (Prevacid) 30 mg BID ORAL 01/23/18 18:00 02/22/18 17:59 01/24/18 08:28 Metronidazole (Flagyl) 250 mg Q8HR ORAL 01/23/18 14:00 01/30/18 23:59 01/24/18 05:13 Morphine Sulfate (Morphine Sulfate) 4 mg Q4H PRN IVP Severe Pain (Pain Scale 7-10) 01/23/18 12:00 01/30/18 11:59 01/23/18 21:16 Norepinephrine Bitartrate 4 mg/ Dextrose 250 ml @ 0 mls/hr Q24H IV 01/21/18 20:00 02/20/18 19:59 Piperacillin Sod/ Tazobactam Sod 3.375 gm/Sodium Chloride 110 ml @ 27.5 mls/hr EVERY 8 HOURS IVPB 01/23/18 14:00 01/28/18 13:59 01/24/18 05:13 Potassium Chloride (K-Dur) 40 meq TID ORAL 01/24/18 09:00 02/22/18 10:14 Matt Kessler MD January 24, 2018 09:19
[2018-01-24] MEDS ORDERED: Vitamin D 50,000 units cap ORAL SCH (10:00)
--- NOTE | 2018-01-24 10:58 | Nephrology Progress Note ---
Assessment/Plan Problem List: (1) Septic shock (2) DKA (diabetic ketoacidoses) (3) Acute renal failure (ARF) Assessment acute renal failure- now Cr stable and lowering off dialysis Hypotensive on pressors- IMPROVED acute respiratory failure- ON VENT Diabetic Ketoacidosis Low Na, Low K Sepsis high lipase Plan stop lasix drip will give K IV HD last 01/19 check MARION abd : 2. Dense enlarged liver likely fatty. monitor lipase Pressors- Insulin drip DC bicitra Ca iv discussed with RN discussed with Mom and GF Betsy per orders Subjective ROS Limited/Unobtainable: No Constitutional: Reports: malaise Objective Objective Last 24 Hour Vital Signs Date Time Temp Pulse Resp B/P (MAP) Pulse Ox O2 Delivery O2 Flow Rate FiO2 01/24/18 10:11 95 Venturi Mask 10.0 45 01/24/18 08:00 15.0 01/24/18 08:00 98.8 95 15 114/74 96 Simple Mask 15.0 98.8 01/24/18 07:33 Venturi Mask 14.0 55 01/24/18 07:32 94 Venturi Mask 14.0 55 01/24/18 06:00 99.7 105 16 118/74 97 Bi-pap 40 99.7 01/24/18 05:18 103 15 97 Facial 40 01/24/18 05:00 93 15 124/70 96 Bi-pap 40 01/24/18 04:00 96 01/24/18 04:00 40 01/24/18 04:00 99.2 82 15 123/73 98 Bi-pap 40 99.2 01/24/18 03:10 84 15 96 Facial 40 01/24/18 03:00 98 13 99/65 96 Bi-pap 40 01/24/18 02:00 92 14 120/91 96 Bi-pap 40 01/24/18 01:02 103 15 96 Facial 40 01/24/18 01:00 104 12 112/58 96 Bi-pap 40 01/24/18 00:00 40 01/24/18 00:00 99.0 105 14 109/56 97 Bi-pap 40 99.0 01/24/18 00:00 98 01/23/18 23:00 98 12 111/63 96 Bi-pap 40 01/23/18 22:46 98 16 96 Facial 40 01/23/18 22:40 109/57 01/23/18 22:00 100 16 109/57 97 Bi-pap 40 01/23/18 21:28 107 17 96 Facial 40 01/23/18 21:00 99 15 114/72 97 Bi-pap 40 01/23/18 20:00 40 01/23/18 20:00 99.1 101 17 120/64 96 Bi-pap 40 99.1 01/23/18 20:00 101 01/23/18 19:40 95 Venturi Mask 14.0 55 01/23/18 19:40 Venturi Mask 14.0 55 01/23/18 19:00 104 15 119/60 96 Non-Rebreather 15.0 01/23/18 18:00 106 15 109/60 95 Non-Rebreather 15.0 01/23/18 17:30 102 18 115/75 98 Non-Rebreather 15.0 01/23/18 17:00 106 18 113/69 97 Non-Rebreather 15.0 01/23/18 16:30 105 16 114/75 95 Non-Rebreather 15.0 01/23/18 16:00 108 01/23/18 16:00 106 14 106/80 95 Non-Rebreather 15.0 01/23/18 16:00 15.0 01/23/18 15:30 107 18 110/80 96 Non-Rebreather 15.0 01/23/18 15:00 106 19 108/72 97 Non-Rebreather 15.0 01/23/18 14:49 120/72 01/23/18 14:30 102 18 106/57 95 Non-Rebreather 15.0 01/23/18 14:00 106 14 102/72 100 Non-Rebreather 15.0 01/23/18 13:30 105 18 109/73 95 Non-Rebreather 15.0 01/23/18 13:00 106 16 110/69 96 Non-Rebreather 15.0 01/23/18 12:39 98.7 01/23/18 12:30 104 18 108/80 99 Non-Rebreather 15.0 01/23/18 12:00 104 01/23/18 12:00 15.0 01/23/18 12:00 98.3 106 16 111/79 95 Non-Rebreather 15.0 98.3 01/23/18 11:58 98.7 01/23/18 11:30 105 18 108/75 95 Non-Rebreather 15.0 01/23/18 11:00 106 18 120/72 95 Non-Rebreather 15.0 Intake and Output 01/23/18 01/24/18 19:00 07:00 Intake Total 1507.513 ml 981.024 ml Output Total 2510 ml 2125 ml Balance -1002.487 ml -1143.976 ml Intake Oral 35 ml IV Total 1507.513 ml 946.024 ml Output Urine Total 2360 ml 2075 ml Stool Total 150 ml 50 ml Laboratory Tests 01/24/18 04:00: White Blood Count 12.6H, Red Blood Count 3.08L, Hemoglobin 9.7L, Hematocrit 28.1L, Mean Corpuscular Volume 91, Mean Corpuscular Hemoglobin 31.4H, Mean Corpuscular Hemoglobin Concent 34.4, Red Cell Distribution Width 12.6, Platelet Count 119#L, Mean Platelet Volume 6.9, Neutrophils (%) (Auto) 79.1H, Lymphocytes (%) (Auto) 9.7L, Monocytes (%) (Auto) 9.5, Eosinophils (%) (Auto) 1.2, Basophils (%) (Auto) 0.5, Sodium Level 147H, Potassium Level 3.3L, Chloride Level 108H, Carbon Dioxide Level 33H, Anion Gap 6, Blood Urea Nitrogen 41H, Creatinine 1.7H, Estimat Glomerular Filtration Rate 43.8, Glucose Level 153H, Uric Acid 10.1H, Calcium Level 7.9L, Phosphorus Level 3.0, Magnesium Level 1.8, Total Bilirubin 0.6, Gamma Glutamyl Transpeptidase 849H, Aspartate Amino Transf (AST/SGOT) 32, Alanine Aminotransferase (ALT/SGPT) 38, Alkaline Phosphatase 598H, Pro-B-Type Natriuretic Peptide 1905H, Total Protein 5.3L, Albumin 1.6L, Globulin 3.7, Albumin/Globulin Ratio 0.4L, Lipase 130 01/24/18 09:44: Arterial Blood pH 7.460H, Arterial Blood Partial Pressure CO2 44.7, Arterial Blood Partial Pressure O2 122.7H, Arterial Blood HCO3 31.7H, Arterial Blood Oxygen Saturation 98.0, Arterial Blood Base Excess 7.2, Harsha Test Positive Height (Feet): 5 Height (Inches): 9.00 Weight (Pounds): 309 General Appearance: no apparent distress Respiratory/Chest: decreased breath sounds Abdomen: soft ALANNA MAHONEY January 24, 2018 10:58
[2018-01-24] MEDS ORDERED: Albuterol ud Inhalation HHN PRN (11:00)
--- NOTE | 2018-01-24 11:42 | Diagnostic Imaging Report ---
Indication: Cough Comparison: 01/21/2018 A single view chest radiograph was obtained. Findings: Mild basilar atelectasis suspected. A left pleural effusion is suspected. Interstitial edema suspected. Heart size is stable. Patient has been extubated. IMPRESSION: Mild interstitial edema and left pleural effusion suspected. Postextubation
--- NOTE | 2018-01-24 11:45 | Infectious Diseases Prog Note ---
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 septic shock improving 3. pancreatitis improving 4. DKA resolved 5. renal failure improving 6. respiratory failure resolved 7. 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 continue zosyn, flagyl 2. will follow up cultures Subjective Constitutional: Denies: fever, chills Respiratory: Denies: shortness of breath, dry cough Gastrointestinal/Abdominal: Denies: nausea, vomiting, diarrhea Musculoskeletal: Denies: pain Allergies: Coded Allergies: No Known Allergies (Unverified , 01/15/18) Objective Vital Signs Last 24 Hour Vital Signs Date Time Temp Pulse Resp B/P (MAP) Pulse Ox O2 Delivery O2 Flow Rate FiO2 01/24/18 10:11 95 Venturi Mask 10.0 45 01/24/18 08:00 106 01/24/18 08:00 15.0 01/24/18 08:00 98.8 95 15 114/74 96 Simple Mask 15.0 98.8 01/24/18 07:33 Venturi Mask 14.0 55 01/24/18 07:32 94 Venturi Mask 14.0 55 01/24/18 06:00 99.7 105 16 118/74 97 Bi-pap 40 99.7 01/24/18 05:18 103 15 97 Facial 40 01/24/18 05:00 93 15 124/70 96 Bi-pap 40 01/24/18 04:00 96 01/24/18 04:00 40 01/24/18 04:00 99.2 82 15 123/73 98 Bi-pap 40 99.2 01/24/18 03:10 84 15 96 Facial 40 01/24/18 03:00 98 13 99/65 96 Bi-pap 40 01/24/18 02:00 92 14 120/91 96 Bi-pap 40 01/24/18 01:02 103 15 96 Facial 40 01/24/18 01:00 104 12 112/58 96 Bi-pap 40 01/24/18 00:00 40 01/24/18 00:00 99.0 105 14 109/56 97 Bi-pap 40 99.0 01/24/18 00:00 98 01/23/18 23:00 98 12 111/63 96 Bi-pap 40 01/23/18 22:46 98 16 96 Facial 40 01/23/18 22:40 109/57 01/23/18 22:00 100 16 109/57 97 Bi-pap 40 01/23/18 21:28 107 17 96 Facial 40 01/23/18 21:00 99 15 114/72 97 Bi-pap 40 01/23/18 20:00 40 01/23/18 20:00 99.1 101 17 120/64 96 Bi-pap 40 99.1 01/23/18 20:00 101 01/23/18 19:40 95 Venturi Mask 14.0 55 01/23/18 19:40 Venturi Mask 14.0 55 01/23/18 19:00 104 15 119/60 96 Non-Rebreather 15.0 01/23/18 18:00 106 15 109/60 95 Non-Rebreather 15.0 01/23/18 17:30 102 18 115/75 98 Non-Rebreather 15.0 01/23/18 17:00 106 18 113/69 97 Non-Rebreather 15.0 01/23/18 16:30 105 16 114/75 95 Non-Rebreather 15.0 01/23/18 16:00 108 01/23/18 16:00 106 14 106/80 95 Non-Rebreather 15.0 01/23/18 16:00 15.0 01/23/18 15:30 107 18 110/80 96 Non-Rebreather 15.0 01/23/18 15:00 106 19 108/72 97 Non-Rebreather 15.0 01/23/18 14:49 120/72 01/23/18 14:30 102 18 106/57 95 Non-Rebreather 15.0 01/23/18 14:00 106 14 102/72 100 Non-Rebreather 15.0 01/23/18 13:30 105 18 109/73 95 Non-Rebreather 15.0 01/23/18 13:00 106 16 110/69 96 Non-Rebreather 15.0 01/23/18 12:39 98.7 01/23/18 12:30 104 18 108/80 99 Non-Rebreather 15.0 01/23/18 12:00 104 01/23/18 12:00 15.0 01/23/18 12:00 98.3 106 16 111/79 95 Non-Rebreather 15.0 98.3 01/23/18 11:58 98.7 Height (Feet): 5 Height (Inches): 9.00 Weight (Pounds): 309 Respiratory/Chest: lungs clear Cardiovascular: normal rate, regular rhythm, no gallop/murmur Abdomen: soft, non tender Extremities: other - + edema bilaterally Microbiology Date/Time Source Procedure Growth Status 01/23/18 15:30 Indwelling Cath Urine Culture - Preliminary NO GROWTH Resulted Laboratory Tests Test 01/24/18 04:00 01/24/18 09:44 White Blood Count 12.6 K/UL (4.8-10.8) H Red Blood Count 3.08 M/UL (4.70-6.10) L Hemoglobin 9.7 G/DL (14.2-18.0) L Hematocrit 28.1 % (42.0-52.0) L Mean Corpuscular Volume 91 FL (80-99) Mean Corpuscular Hemoglobin 31.4 PG (27.0-31.0) H Mean Corpuscular Hemoglobin Concent 34.4 G/DL (32.0-36.0) Red Cell Distribution Width 12.6 % (11.6-14.8) Platelet Count 119 K/UL (150-450) #L Mean Platelet Volume 6.9 FL (6.5-10.1) Neutrophils (%) (Auto) 79.1 % (45.0-75.0) H Lymphocytes (%) (Auto) 9.7 % (20.0-45.0) L Monocytes (%) (Auto) 9.5 % (1.0-10.0) Eosinophils (%) (Auto) 1.2 % (0.0-3.0) Basophils (%) (Auto) 0.5 % (0.0-2.0) Sodium Level 147 MMOL/L (136-145) H Potassium Level 3.3 MMOL/L (3.5-5.1) L Chloride Level 108 MMOL/L (98-107) H Carbon Dioxide Level 33 MMOL/L (21-32) H Anion Gap 6 mmol/L (5-15) Blood Urea Nitrogen 41 mg/dL (7-18) H Creatinine 1.7 MG/DL (0.55-1.30) H Estimat Glomerular Filtration Rate 43.8 mL/min (>60) Glucose Level 153 MG/DL (74-106) H Uric Acid 10.1 MG/DL (2.6-7.2) H Calcium Level 7.9 MG/DL (8.5-10.1) L Phosphorus Level 3.0 MG/DL (2.5-4.9) Magnesium Level 1.8 MG/DL (1.8-2.4) Total Bilirubin 0.6 MG/DL (0.2-1.0) Gamma Glutamyl Transpeptidase 849 U/L (5-85) H Aspartate Amino Transf (AST/SGOT) 32 U/L (15-37) Alanine Aminotransferase (ALT/SGPT) 38 U/L (12-78) Alkaline Phosphatase 598 U/L (46-116) H Pro-B-Type Natriuretic Peptide 1905 pg/mL (0-125) H Total Protein 5.3 G/DL (6.4-8.2) L Albumin 1.6 G/DL (3.4-5.0) L Globulin 3.7 g/dL Albumin/Globulin Ratio 0.4 (1.0-2.7) L Lipase 130 U/L (73-393) Arterial Blood pH 7.460 (7.350-7.450) Arterial Blood Partial Pressure CO2 44.7 mmHg (35.0-45.0) Arterial Blood Partial Pressure O2 122.7 mmHg (75.0-100.0) H Arterial Blood HCO3 31.7 mmol/L (22.0-26.0) H Arterial Blood Oxygen Saturation 98.0 % (92.0-98.0) Arterial Blood Base Excess 7.2 Harsha Test Positive Current Medications Medications (Trade) Dose Ordered Sig/Alana Route PRN Reason Start Time Stop Time Status Last Admin Dose Admin Acetaminophen (Tylenol) 500 mg Q6HR PRN NG Fever/Headache/Mild Pain 01/16/18 23:15 02/15/18 23:14 01/19/18 10:02 Albuterol Sulfate (Proventil) 2.5 mg Q6H PRN HHN For Cough/Dyspnea 01/24/18 11:00 01/29/18 10:59 Calcium Carbonate (Os-Aries) 1,250 mg THREE TIMES A DAY ORAL 01/24/18 10:00 02/23/18 09:59 01/24/18 11:22 Calcium Gluconate 1 gm/Sodium Chloride 120 ml @ 120 mls/hr Q12H IVPB 01/24/18 18:00 02/17/18 13:59 Chlorhexidine Gluconate (Марина-Hex 2%) 1 applic DAILY@2000 TOPIC 01/17/18 20:00 02/16/18 19:59 01/23/18 20:42 Dextrose (Dextrose 50%) 25 ml STAT PRN IV Hypoglycemia 01/24/18 06:45 02/23/18 06:44 Dextrose (Dextrose 50%) 50 ml STAT PRN IV Hypoglycemia 01/24/18 06:45 02/23/18 06:44 Dopamine HCl/ Dextrose 250 ml @ 0 mls/hr Q24H IV 01/21/18 21:30 02/20/18 21:29 01/23/18 22:40 Ergocalciferol (Drisdol) 50,000 intlu QWEEK ORAL 01/24/18 10:00 02/23/18 09:59 01/24/18 10:16 Insulin Aspart (NovoLOG) BEFORE MEALS AND HS SUBQ 01/24/18 11:30 02/23/18 11:29 01/24/18 11:23 Insulin Aspart (NovoLOG) 6 units NOVOTIAC SUBQ 01/24/18 11:50 02/23/18 11:49 01/24/18 11:24 Insulin Detemir (Levemir) 10 units BID SUBQ 01/24/18 09:00 02/23/18 08:59 01/24/18 08:28 Lactobacillus Acidophilus (Culturelle) 1 tab THREE TIMES A DAY ORAL 01/23/18 13:00 02/22/18 12:59 01/24/18 08:28 Lansoprazole (Prevacid) 30 mg BID ORAL 01/23/18 18:00 02/22/18 17:59 01/24/18 08:28 Metronidazole (Flagyl) 250 mg Q8HR ORAL 01/23/18 14:00 01/30/18 23:59 01/24/18 05:13 Morphine Sulfate (Morphine Sulfate) 4 mg Q4H PRN IVP Severe Pain (Pain Scale 7-10) 01/23/18 12:00 01/30/18 11:59 01/23/18 21:16 Norepinephrine Bitartrate 4 mg/ Dextrose 250 ml @ 0 mls/hr Q24H IV 01/21/18 20:00 02/20/18 19:59 Piperacillin Sod/ Tazobactam Sod 3.375 gm/Sodium Chloride 110 ml @ 27.5 mls/hr EVERY 8 HOURS IVPB 01/23/18 14:00 01/28/18 13:59 01/24/18 05:13 Potassium Chloride (K-Dur) 40 meq TID ORAL 01/24/18 09:00 02/22/18 10:14 01/24/18 10:16 NADEGE MALIK January 24, 2018 11:45"
[2018-01-24] MEDS ORDERED: Calcium Gluconate 10% 1 GM in NS 110 ML IVPB SCH (18:00)
[2018-01-24] MEDS: Acetaminophen 650mg/20.3ml NG PRN (19:37)
[2018-01-24] MEDS: Dyna-Hex 2% Top Sol 2oz TOPIC SCH (20:00)
[2018-01-25] MEDS ORDERED: Acetaminophen 650mg/20.3ml NG PRN
[2018-01-25] MEDS: Morphine Sulfate 4mg/ml Inj IVP PRN ×3 (00:31→23:17)
[2018-01-25 04:00] VITALS: BP 127/76
[2018-01-25 04:31] LABS: BASOPHILS % (AUTO) 0.8 % (0.0-2.0); EOSINOPHILS % (AUTO) 1.6 % (0.0-3.0); HEMATOCRIT 26.9 % (42.0-52.0); HEMOGLOBIN 9.2 G/DL (14.2-18.0); LYMPHOCYTES % (AUTO) 12.4 % (20.0-45.0); MEAN CORPUSCULAR VOLUME 92 FL (80-99); MONOCYTES % (AUTO) 10.7 % (1.0-10.0); NEUTROPHILS % (AUTO) 74.5 % (45.0-75.0); PLATELET COUNT 147 K/UL (150-450); RED BLOOD COUNT 2.92 M/UL (4.70-6.10); RED CELL DISTRIBUTION WIDTH 12.7 % (11.6-14.8); WHITE BLOOD COUNT 11.2 K/UL (4.8-10.8)
[2018-01-25 04:46] LABS: ALANINE AMINOTRANSFERASE 33 U/L (12-78); ALBUMIN 1.6 G/DL (3.4-5.0); ALBUMIN/GLOBULIN RATIO 0.4 (1.0-2.7); ALKALINE PHOSPHATASE 604 U/L (46-116); ANION GAP 7 mmol/L (5-15); ASPARTATE AMINO TRANSFERASE 38 U/L (15-37); BILIRUBIN,TOTAL 0.8 MG/DL (0.2-1.0); BLOOD UREA NITROGEN 30 mg/dL (7-18); CALCIUM 7.7 MG/DL (8.5-10.1); CARBON DIOXIDE 33 MMOL/L (21-32); CHLORIDE 112 MMOL/L (98-107); CREATININE 1.4 MG/DL (0.55-1.30); GAMMA GLUTAMYL TRANSPEPTIDASE 743 U/L (5-85); PHOSPHORUS 2.9 MG/DL (2.5-4.9); POTASSIUM 3.8 MMOL/L (3.5-5.1); SODIUM 152 MMOL/L (136-145)
[2018-01-25] MEDS ORDERED: Albuterol ud Inhalation HHN PRN (05:00)
[2018-01-25] MEDS: Piperacillin/Tazobactam 3.375 GM in NS 110 ML IVPB SCH ×3 (05:13→21:49)
[2018-01-25] MEDS: metroNIDAZOLE 250mg tab ORAL SCH ×3 (05:14→22:00)
[2018-01-25] MEDS: NovoLOG Insulin Flexpen SUBQ SCH ×7 (05:15→21:07)
--- NOTE | 2018-01-25 05:45 | Progress Note ---
DATE: 01/24/2018 CARDIOLOGY PROGRESS NOTE SUBJECTIVE: The patient is off pressors and diuretics. Steroids were discontinued. He is extubated with no respiratory distress since yesterday. OBJECTIVE: VITAL SIGNS: Blood pressure 114/74, pulse 95, respirations 15, and afebrile. Monitored rhythm sinus and sinus tachycardia. LUNGS: Coarse breath sounds. No wheezing. HEART: Regular rhythm and rate. Normal S1 and S2. ABDOMEN: Soft. EXTREMITIES: Trace edema. LABORATORY DATA: White count 12.6 and hemoglobin 9.7. Sodium 147, potassium 3.3, BUN 41, creatinine 1.7, and bicarb 33. Uric acid 10. Pro-natriuretic peptide 1905, diminished significantly from 27,000. IMPRESSION: 1. Status post full arrest. 2. Diabetic ketoacidosis, resolved. 3. Respiratory failure, recovered. 4. Acute myocardial ischemia, resolved. 5. Acute renal failure, resolved. Dialysis discontinued. PLAN: 1. Orders updated. 2. Begin rehabilitation. 3. DVT prophylaxis. 4. Antimicrobials per Infectious Disease child development consultant. 5. Add low dose beta-zen and angiotensin converting enzyme inhibitor if metabolic and renal parameters can tolerate. 6. Adjust IV for free water replacement. Ernie Ahsford M.D. DR: PRANAY JOB#: [id number] CC:
[2018-01-25] MEDS ORDERED: Calcium Gluconate 10% 1 GM in NS 110 ML IVPB SCH (06:00)
[2018-01-25 08:00] VITALS: BP 145/95
--- NOTE | 2018-01-25 09:33 | Pulmonology Progress Note ---
Assessment/Plan Assessment/Plan 1. Respiratory failure. Now extubated; Nocturnal BiPAP 2. Severe hyponatremia. Improved 3. Hyperglycemia. Off insulin gtt 4. Diabetic ketoacidosis. Improved; ph now normal 5. Sepsis. on broad spectrum abx; ID following 6. Hypotension. Resolved. 7. S/p arrest DISCUSSION: Continue broad-spectrum, antibiotics, aggressive central line care, Full Code for now. Discussed with all consultants restart Lasix gtt DC steroids Off HD Has thrombocytopenia; likely drug related; stable for now; improving Slowly improving Continue diet Matt Kessler M.D. Subjective Interval Events: Very edematous; drowsy t6his AM Constitutional: Reports: no symptoms Respiratory: Reports: no symptoms Cardiovascular: Reports: no symptoms Gastrointestinal/Abdominal: Reports: no symptoms Genitourinary: Reports: no symptoms Allergies: Coded Allergies: No Known Allergies (Unverified , 01/15/18) Objective Last 24 Hour Vital Signs Date Time Temp Pulse Resp B/P (MAP) Pulse Ox O2 Delivery O2 Flow Rate FiO2 01/25/18 05:26 98.6 01/25/18 05:24 95 19 98 Facial 45 01/25/18 04:56 98.6 01/25/18 04:00 94 01/25/18 04:00 45 01/25/18 04:00 98.9 96 24 127/76 96 Bi-pap 45 98.9 01/25/18 02:52 96 16 98 Facial 45 01/25/18 00:45 40 01/25/18 00:40 88 17 96 Facial 45 01/25/18 00:31 99.0 01/25/18 00:16 97 01/24/18 22:00 100.0 98 20 109/60 96 Simple Mask 15.0 100.0 01/24/18 21:00 95 22 118/63 96 Simple Mask 15.0 01/24/18 20:07 100.0 01/24/18 20:00 98 01/24/18 20:00 100.5 96 21 110/60 95 Simple Mask 15.0 100.5 01/24/18 20:00 15.0 01/24/18 19:53 126/57 01/24/18 19:37 100.5 01/24/18 19:26 Venturi Mask 14.0 55 01/24/18 19:25 98 T-piece 6.0 28 01/24/18 19:00 98 21 126/57 96 Simple Mask 15.0 01/24/18 18:00 98 21 115/58 96 Simple Mask 15.0 01/24/18 17:00 99 22 106/77 96 Simple Mask 15.0 01/24/18 16:00 100 01/24/18 16:00 15.0 01/24/18 16:00 98.3 98 15 116/58 96 Simple Mask 15.0 98.3 01/24/18 15:00 96 22 110/51 95 Simple Mask 15.0 01/24/18 14:00 98 15 125/55 96 Simple Mask 15.0 01/24/18 13:00 93 15 124/70 96 Simple Mask 15.0 01/24/18 12:00 112 01/24/18 12:00 15.0 01/24/18 12:00 98.7 86 15 113/58 96 Simple Mask 15.0 98.7 01/24/18 11:00 85 15 108/58 96 Simple Mask 15.0 01/24/18 10:11 95 Venturi Mask 10.0 45 01/24/18 10:00 91 15 104/52 96 Simple Mask 15.0 Intake and Output 01/24/18 01/25/18 19:00 07:00 Intake Total 562.5 ml 347.5 ml Output Total 1320 ml 1375 ml Balance -757.5 ml -1027.5 ml Intake Oral 250 ml 200 ml IV Total 312.5 ml 147.5 ml Output Urine Total 1320 ml 1375 ml General Appearance: no acute distress HEENT: normocephalic Respiratory/Chest: chest wall non-tender, lungs clear Cardiovascular: normal peripheral pulses, normal rate Abdomen: normal bowel sounds, soft, non tender Microbiology Date/Time Source Procedure Growth Status 01/23/18 15:30 Indwelling Cath Urine Culture - Preliminary NO GROWTH Resulted Laboratory Tests 01/24/18 09:44: Arterial Blood pH 7.460H, Arterial Blood Partial Pressure CO2 44.7, Arterial Blood Partial Pressure O2 122.7H, Arterial Blood HCO3 31.7H, Arterial Blood Oxygen Saturation 98.0, Arterial Blood Base Excess 7.2, Harsha Test Positive 01/25/18 04:15: White Blood Count 11.2H, Red Blood Count 2.92L, Hemoglobin 9.2L, Hematocrit 26.9L, Mean Corpuscular Volume 92, Mean Corpuscular Hemoglobin 31.6H, Mean Corpuscular Hemoglobin Concent 34.3, Red Cell Distribution Width 12.7, Platelet Count 147L, Mean Platelet Volume 6.3L, Neutrophils (%) (Auto) 74.5, Lymphocytes (%) (Auto) 12.4L, Monocytes (%) (Auto) 10.7H, Eosinophils (%) (Auto) 1.6, Basophils (%) (Auto) 0.8, Sodium Level 152H, Potassium Level 3.8, Chloride Level 112H, Carbon Dioxide Level 33H, Anion Gap 7, Blood Urea Nitrogen 30H, Creatinine 1.4H, Estimat Glomerular Filtration Rate 54.8, Glucose Level 164H, Uric Acid 7.3H, Calcium Level 7.7L, Phosphorus Level 2.9, Magnesium Level 1.4L, Total Bilirubin 0.8, Gamma Glutamyl Transpeptidase 743H, Aspartate Amino Transf (AST/SGOT) 38H, Alanine Aminotransferase (ALT/SGPT) 33, Alkaline Phosphatase 604H, Total Protein 5.2L, Albumin 1.6L, Globulin 3.6, Albumin/Globulin Ratio 0.4L Current Medications Medications (Trade) Dose Ordered Sig/Alana Route PRN Reason Start Time Stop Time Status Last Admin Dose Admin Acetaminophen (Tylenol) 500 mg Q6HR PRN NG Fever/Headache/Mild Pain 01/25/18 00:00 02/15/18 23:14 Albuterol Sulfate (Proventil) 2.5 mg Q6H PRN HHN For Cough/Dyspnea 01/25/18 05:00 01/29/18 10:59 Calcium Carbonate (Os-Aries) 1,250 mg THREE TIMES A DAY ORAL 01/25/18 09:00 02/23/18 09:59 Carvedilol (Coreg) 3.125 mg EVERY 12 HOURS ORAL 01/25/18 09:00 02/24/18 08:59 Chlorhexidine Gluconate (Марина-Hex 2%) 1 applic DAILY@2000 TOPIC 01/25/18 20:00 02/16/18 19:59 Dextrose (Dextrose 50%) 25 ml STAT PRN IV Hypoglycemia 01/25/18 06:45 02/23/18 06:44 Dextrose (Dextrose 50%) 50 ml STAT PRN IV Hypoglycemia 01/25/18 06:45 02/23/18 06:44 Ergocalciferol (Drisdol) 50,000 intlu QWEEK ORAL 01/25/18 09:30 02/23/18 09:59 UNV Insulin Aspart (NovoLOG) BEFORE MEALS AND HS SUBQ 01/25/18 06:30 02/23/18 11:29 01/25/18 05:15 Insulin Aspart (NovoLOG) 6 units NOVOTIAC SUBQ 01/25/18 06:30 02/23/18 11:49 01/25/18 05:16 Insulin Detemir (Levemir) 10 units BID SUBQ 01/25/18 09:00 02/23/18 08:59 Lactobacillus Acidophilus (Culturelle) 1 tab THREE TIMES A DAY ORAL 01/25/18 09:00 02/22/18 12:59 Lansoprazole (Prevacid) 30 mg BID ORAL 01/25/18 09:00 02/22/18 17:59 Magnesium Sulfate 100 ml @ 100 mls/hr Q1H IVPB 01/25/18 09:30 01/25/18 13:29 UNV Metronidazole (Flagyl) 250 mg Q8HR ORAL 01/25/18 06:00 01/30/18 23:59 01/25/18 05:14 Morphine Sulfate (Morphine Sulfate) 4 mg Q4H PRN IVP Severe Pain (Pain Scale 7-10) 01/25/18 00:00 01/30/18 11:59 01/25/18 04:56 Piperacillin Sod/ Tazobactam Sod 3.375 gm/Sodium Chloride 110 ml @ 27.5 mls/hr EVERY 8 HOURS IVPB 01/25/18 06:00 01/28/18 13:59 01/25/18 05:13 Potassium Chloride (K-Dur) 40 meq BID ORAL 01/25/18 18:00 02/22/18 10:14 UNV Matt Kessler MD January 25, 2018 09:33
[2018-01-25] MEDS ORDERED: Gastrograffin 30ml ORAL PRN (09:45)
[2018-01-25] MEDS ORDERED: Lidocaine 1% Plain 30 ml INJ PRN (09:45)
--- NOTE | 2018-01-25 09:45 | Infectious Diseases Prog Note ---
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 Pancreatitis Acute renal failure improving Acute respiratory failure resolving DKA Pulmonary edema Psoriasis Thrombocytopenia Hypokalemia & Hypocalcemia P: Continue Zosyn & Flagyl CT scan of abdomen & Pelvis without contrast Subjective ROS Limited/Unobtainable: No Constitutional: Reports: other - doing better, out of ICU, low grade fever yesterday Respiratory: Reports: productive cough Gastrointestinal/Abdominal: Reports: other - mild epigastric pain Genitourinary: Reports: no symptoms Allergies: Coded Allergies: No Known Allergies (Unverified , 01/15/18) Objective Vital Signs Last 24 Hour Vital Signs Date Time Temp Pulse Resp B/P (MAP) Pulse Ox O2 Delivery O2 Flow Rate FiO2 01/25/18 05:26 98.6 01/25/18 05:24 95 19 98 Facial 45 01/25/18 04:56 98.6 01/25/18 04:00 94 01/25/18 04:00 45 01/25/18 04:00 98.9 96 24 127/76 96 Bi-pap 45 98.9 01/25/18 02:52 96 16 98 Facial 45 01/25/18 00:45 40 01/25/18 00:40 88 17 96 Facial 45 01/25/18 00:31 99.0 01/25/18 00:16 97 01/24/18 22:00 100.0 98 20 109/60 96 Simple Mask 15.0 100.0 01/24/18 21:00 95 22 118/63 96 Simple Mask 15.0 01/24/18 20:07 100.0 01/24/18 20:00 98 01/24/18 20:00 100.5 96 21 110/60 95 Simple Mask 15.0 100.5 01/24/18 20:00 15.0 01/24/18 19:53 126/57 01/24/18 19:37 100.5 01/24/18 19:26 Venturi Mask 14.0 55 01/24/18 19:25 98 T-piece 6.0 28 01/24/18 19:00 98 21 126/57 96 Simple Mask 15.0 01/24/18 18:00 98 21 115/58 96 Simple Mask 15.0 01/24/18 17:00 99 22 106/77 96 Simple Mask 15.0 01/24/18 16:00 100 01/24/18 16:00 15.0 01/24/18 16:00 98.3 98 15 116/58 96 Simple Mask 15.0 98.3 01/24/18 15:00 96 22 110/51 95 Simple Mask 15.0 01/24/18 14:00 98 15 125/55 96 Simple Mask 15.0 01/24/18 13:00 93 15 124/70 96 Simple Mask 15.0 01/24/18 12:00 112 01/24/18 12:00 15.0 01/24/18 12:00 98.7 86 15 113/58 96 Simple Mask 15.0 98.7 01/24/18 11:00 85 15 108/58 96 Simple Mask 15.0 01/24/18 10:11 95 Venturi Mask 10.0 45 01/24/18 10:00 91 15 104/52 96 Simple Mask 15.0 Height (Feet): 5 Height (Inches): 9.00 Weight (Pounds): 310 HEENT: mucous membranes moist Respiratory/Chest: lungs clear, other - O2 by mask Cardiovascular: normal rate, other - R femoral line Abdomen: soft, non tender, other - obese Extremities: other - generalized edema Neurologic/Psychiatric: alert, oriented x 3, responsive Microbiology Date/Time Source Procedure Growth Status 01/23/18 15:30 Indwelling Cath Urine Culture - Preliminary NO GROWTH Resulted Laboratory Tests Test 01/24/18 09:44 01/25/18 04:15 Arterial Blood pH 7.460 (7.350-7.450) Arterial Blood Partial Pressure CO2 44.7 mmHg (35.0-45.0) Arterial Blood Partial Pressure O2 122.7 mmHg (75.0-100.0) H Arterial Blood HCO3 31.7 mmol/L (22.0-26.0) H Arterial Blood Oxygen Saturation 98.0 % (92.0-98.0) Arterial Blood Base Excess 7.2 Harsha Test Positive White Blood Count 11.2 K/UL (4.8-10.8) H Red Blood Count 2.92 M/UL (4.70-6.10) L Hemoglobin 9.2 G/DL (14.2-18.0) L Hematocrit 26.9 % (42.0-52.0) L Mean Corpuscular Volume 92 FL (80-99) Mean Corpuscular Hemoglobin 31.6 PG (27.0-31.0) H Mean Corpuscular Hemoglobin Concent 34.3 G/DL (32.0-36.0) Red Cell Distribution Width 12.7 % (11.6-14.8) Platelet Count 147 K/UL (150-450) L Mean Platelet Volume 6.3 FL (6.5-10.1) L Neutrophils (%) (Auto) 74.5 % (45.0-75.0) Lymphocytes (%) (Auto) 12.4 % (20.0-45.0) L Monocytes (%) (Auto) 10.7 % (1.0-10.0) H Eosinophils (%) (Auto) 1.6 % (0.0-3.0) Basophils (%) (Auto) 0.8 % (0.0-2.0) Sodium Level 152 MMOL/L (136-145) H Potassium Level 3.8 MMOL/L (3.5-5.1) Chloride Level 112 MMOL/L (98-107) H Carbon Dioxide Level 33 MMOL/L (21-32) H Anion Gap 7 mmol/L (5-15) Blood Urea Nitrogen 30 mg/dL (7-18) H Creatinine 1.4 MG/DL (0.55-1.30) H Estimat Glomerular Filtration Rate 54.8 mL/min (>60) Glucose Level 164 MG/DL (74-106) H Uric Acid 7.3 MG/DL (2.6-7.2) H Calcium Level 7.7 MG/DL (8.5-10.1) L Phosphorus Level 2.9 MG/DL (2.5-4.9) Magnesium Level 1.4 MG/DL (1.8-2.4) L Total Bilirubin 0.8 MG/DL (0.2-1.0) Gamma Glutamyl Transpeptidase 743 U/L (5-85) H Aspartate Amino Transf (AST/SGOT) 38 U/L (15-37) H Alanine Aminotransferase (ALT/SGPT) 33 U/L (12-78) Alkaline Phosphatase 604 U/L (46-116) H Total Protein 5.2 G/DL (6.4-8.2) L Albumin 1.6 G/DL (3.4-5.0) L Globulin 3.6 g/dL Albumin/Globulin Ratio 0.4 (1.0-2.7) L Current Medications Medications (Trade) Dose Ordered Sig/Alana Route PRN Reason Start Time Stop Time Status Last Admin Dose Admin Acetaminophen (Tylenol) 500 mg Q6HR PRN NG Fever/Headache/Mild Pain 01/25/18 00:00 02/15/18 23:14 Albuterol Sulfate (Proventil) 2.5 mg Q6H PRN HHN For Cough/Dyspnea 01/25/18 05:00 01/29/18 10:59 Calcium Carbonate (Os-Aries) 1,250 mg THREE TIMES A DAY ORAL 01/25/18 09:00 02/23/18 09:59 Carvedilol (Coreg) 3.125 mg EVERY 12 HOURS ORAL 01/25/18 09:00 02/24/18 08:59 Chlorhexidine Gluconate (Марина-Hex 2%) 1 applic DAILY@1999 TOPIC 01/25/18 20:00 02/16/18 19:59 Chlorhexidine Gluconate (Марина-Hex 2%) 1 applic DAILY@1999 TOPIC 01/25/18 20:00 02/24/18 19:59 UNV Dextrose (Dextrose 50%) 25 ml STAT PRN IV Hypoglycemia 01/25/18 06:45 02/23/18 06:44 Dextrose (Dextrose 50%) 50 ml STAT PRN IV Hypoglycemia 01/25/18 06:45 02/23/18 06:44 Ergocalciferol (Drisdol) 50,000 intlu QWEEK ORAL 01/25/18 09:30 02/23/18 09:59 UNV Furosemide 100 mg/ Dextrose 100 ml @ 5 mls/hr Q20H IV 01/25/18 09:45 02/24/18 09:44 UNV Insulin Aspart (NovoLOG) BEFORE MEALS AND HS SUBQ 01/25/18 06:30 02/23/18 11:29 01/25/18 05:15 Insulin Aspart (NovoLOG) 6 units NOVOTIAC SUBQ 01/25/18 06:30 02/23/18 11:49 01/25/18 05:16 Insulin Detemir (Levemir) 10 units BID SUBQ 01/25/18 09:00 02/23/18 08:59 Lactobacillus Acidophilus (Culturelle) 1 tab THREE TIMES A DAY ORAL 01/25/18 09:00 02/22/18 12:59 Lansoprazole (Prevacid) 30 mg BID ORAL 01/25/18 09:00 02/22/18 17:59 Lidocaine HCl (Xylocaine 1% 30ml) 30 ml ONCE ONCE INJ 01/25/18 09:45 01/25/18 09:46 UNV Magnesium Sulfate 100 ml @ 100 mls/hr Q1H IVPB 01/25/18 09:30 01/25/18 13:29 UNV Metronidazole (Flagyl) 250 mg Q8HR ORAL 01/25/18 06:00 01/30/18 23:59 01/25/18 05:14 Morphine Sulfate (Morphine Sulfate) 4 mg Q4H PRN IVP Severe Pain (Pain Scale 7-10) 01/25/18 00:00 01/30/18 11:59 01/25/18 04:56 Piperacillin Sod/ Tazobactam Sod 3.375 gm/Sodium Chloride 110 ml @ 27.5 mls/hr EVERY 8 HOURS IVPB 01/25/18 06:00 01/28/18 13:59 01/25/18 05:13 Potassium Chloride (K-Dur) 40 meq BID ORAL 01/25/18 18:00 02/22/18 10:14 UNV KIRBY MONTES January 25, 2018 09:45
[2018-01-25] MEDS: Lactobacillus-GG tablet ORAL SCH ×3 (10:07→18:53)
[2018-01-25] MEDS: Levemir Flexpen SUBQ SCH ×2 (10:09→19:01)
--- NOTE | 2018-01-25 10:52 | Nephrology Progress Note ---
Assessment/Plan Problem List: (1) Septic shock (2) DKA (diabetic ketoacidoses) (3) Acute renal failure (ARF) Assessment acute renal failure- now Cr stable and lowering off dialysis Hypotensive on pressors- IMPROVED acute respiratory failure- ON VENT Diabetic Ketoacidosis Low Na, Low K Sepsis high lipase Plan start lasix drip will give K IV HD last 01/19 check MARION abd : 2. Dense enlarged liver likely fatty. monitor lipase Pressors- Insulin drip DC bicitra Ca iv discussed with RN discussed with Mom and GF Betsy per orders Subjective ROS Limited/Unobtainable: No Constitutional: Reports: malaise Objective Objective Last 24 Hour Vital Signs Date Time Temp Pulse Resp B/P (MAP) Pulse Ox O2 Delivery O2 Flow Rate FiO2 01/25/18 10:08 95 127/76 01/25/18 07:56 Venturi Mask 10.0 45 01/25/18 07:55 95 Venturi Mask 10.0 45 01/25/18 05:26 98.6 01/25/18 05:24 95 19 98 Facial 45 01/25/18 04:56 98.6 01/25/18 04:00 94 01/25/18 04:00 45 01/25/18 04:00 98.9 96 24 127/76 96 Bi-pap 45 98.9 01/25/18 02:52 96 16 98 Facial 45 01/25/18 00:45 40 01/25/18 00:40 88 17 96 Facial 45 01/25/18 00:31 99.0 01/25/18 00:16 97 01/24/18 22:00 100.0 98 20 109/60 96 Simple Mask 15.0 100.0 01/24/18 21:00 95 22 118/63 96 Simple Mask 15.0 01/24/18 20:07 100.0 01/24/18 20:00 98 01/24/18 20:00 100.5 96 21 110/60 95 Simple Mask 15.0 100.5 01/24/18 20:00 15.0 01/24/18 19:53 126/57 01/24/18 19:37 100.5 01/24/18 19:26 Venturi Mask 14.0 55 01/24/18 19:25 98 T-piece 6.0 28 01/24/18 19:00 98 21 126/57 96 Simple Mask 15.0 01/24/18 18:00 98 21 115/58 96 Simple Mask 15.0 01/24/18 17:00 99 22 106/77 96 Simple Mask 15.0 01/24/18 16:00 100 01/24/18 16:00 15.0 01/24/18 16:00 98.3 98 15 116/58 96 Simple Mask 15.0 98.3 01/24/18 15:00 96 22 110/51 95 Simple Mask 15.0 01/24/18 14:00 98 15 125/55 96 Simple Mask 15.0 01/24/18 13:00 93 15 124/70 96 Simple Mask 15.0 01/24/18 12:00 112 01/24/18 12:00 15.0 01/24/18 12:00 98.7 86 15 113/58 96 Simple Mask 15.0 98.7 01/24/18 11:00 85 15 108/58 96 Simple Mask 15.0 Intake and Output 01/24/18 01/25/18 19:00 07:00 Intake Total 562.5 ml 347.5 ml Output Total 1320 ml 1375 ml Balance -757.5 ml -1027.5 ml Intake Oral 250 ml 200 ml IV Total 312.5 ml 147.5 ml Output Urine Total 1320 ml 1375 ml Laboratory Tests 01/25/18 04:15: White Blood Count 11.2H, Red Blood Count 2.92L, Hemoglobin 9.2L, Hematocrit 26.9L, Mean Corpuscular Volume 92, Mean Corpuscular Hemoglobin 31.6H, Mean Corpuscular Hemoglobin Concent 34.3, Red Cell Distribution Width 12.7, Platelet Count 147L, Mean Platelet Volume 6.3L, Neutrophils (%) (Auto) 74.5, Lymphocytes (%) (Auto) 12.4L, Monocytes (%) (Auto) 10.7H, Eosinophils (%) (Auto) 1.6, Basophils (%) (Auto) 0.8, Sodium Level 152H, Potassium Level 3.8, Chloride Level 112H, Carbon Dioxide Level 33H, Anion Gap 7, Blood Urea Nitrogen 30H, Creatinine 1.4H, Estimat Glomerular Filtration Rate 54.8, Glucose Level 164H, Uric Acid 7.3H, Calcium Level 7.7L, Phosphorus Level 2.9, Magnesium Level 1.4L, Total Bilirubin 0.8, Gamma Glutamyl Transpeptidase 743H, Aspartate Amino Transf (AST/SGOT) 38H, Alanine Aminotransferase (ALT/SGPT) 33, Alkaline Phosphatase 604H, Total Protein 5.2L, Albumin 1.6L, Globulin 3.6, Albumin/Globulin Ratio 0.4L Height (Feet): 5 Height (Inches): 9.00 Weight (Pounds): 310 General Appearance: no apparent distress Respiratory/Chest: decreased breath sounds Abdomen: soft Extremities: other - edematous Objective no other change ALANNA MAHONEY January 25, 2018 10:52
[2018-01-25 12:00] VITALS: BP 137/81
[2018-01-25] MEDS ORDERED: Vitamin D 50,000 units cap ORAL SCH (12:00)
--- NOTE | 2018-01-25 13:51 | Diagnostic Imaging Report ---
Indication: Abdominal pain Technique: Continuous helical transaxial imaging of the abdomen and pelvis was obtained from the lung bases to the pubic symphysis. No intravenous contrast was administered. Coronal 2-D reformats were also obtained. Automatic Exposure Control was utilized. Total Dose length Product (DLP): 1214.[address] Dose Index Volume (CTDIvol): 19.75 mGy Comparison: none Findings: Small bilateral pleural effusions are present. Air bronchograms within the consolidated the lung at the posterior aspects of both lung bases noted. Some of this may be compressive atelectasis. Pneumonia is not excluded. There is a moderate degree of the peripancreatic soft tissue stranding and some fluid accumulation within the anterior pararenal space bilaterally with some fluid extending into the paracolic gutters. Findings consistent with acute pancreatitis. No IV contrast was given and as such evaluation of the pancreatic parenchyma is limited on this study. Pancreatic necrosis for example is not excludable. No obvious abscess or pseudocyst identified. No hydronephrosis identified. The gallbladder is unremarkable. No biliary ductal dilatation identified. Armenta catheter noted within the urinary bladder which is nondistended. Mild arterial calcification noted. IMPRESSION: Acute pancreatitis with moderate inflammation. Limited evaluation. Mild pancreatic ascites. Small bilateral pleural effusions and posterior basilar atelectasis. Pneumonia not excluded. Generalized subcutaneous edema/anasarca Atherosclerotic disease. The CT scanner at [facility] is accredited by the [employer] and the scans are performed using dose optimization techniques as appropriate to a performed exam including Automatic Exposure control.
[2018-01-25 16:00] VITALS: BP 144/76
--- NOTE | 2018-01-25 18:17 | General Progress Note ---
Assessment/Plan Problem List: (1) Septic shock ICD Codes: A41.9 - Sepsis, unspecified organism; R65.21 - Severe sepsis with septic shock SNOMED: 73392485 (2) DKA (diabetic ketoacidoses) ICD Codes: E13.10 - Other specified diabetes mellitus with ketoacidosis without coma SNOMED: 767988544, 36826529 (3) Acute renal failure (ARF) ICD Codes: N17.9 - Acute kidney failure, unspecified SNOMED: 36444855 Assessment/Plan - continue Levemir 10 units bid - continue Novolog 6 units ac tid - continue NISS ac / hs Subjective Allergies: Coded Allergies: No Known Allergies (Unverified , 01/15/18) All Systems: reviewed and negative except above Subjective events noted - interval notes reviewed awake and alert - ate 50% of the tray today - mother is at bedside and appreciative of the care Objective Last 24 Hour Vital Signs Date Time Temp Pulse Resp B/P (MAP) Pulse Ox O2 Delivery O2 Flow Rate FiO2 01/25/18 16:00 15.0 01/25/18 12:00 98.6 105 24 137/81 96 Bi-pap 45 98.6 01/25/18 12:00 99 01/25/18 12:00 15.0 01/25/18 11:30 15.0 01/25/18 10:08 95 127/76 01/25/18 08:00 100 01/25/18 08:00 98.1 93 24 145/95 96 Bi-pap 45 98.1 01/25/18 07:56 Venturi Mask 10.0 45 01/25/18 07:55 95 Venturi Mask 10.0 45 01/25/18 05:26 98.6 01/25/18 05:24 95 19 98 Facial 45 01/25/18 04:56 98.6 01/25/18 04:00 94 01/25/18 04:00 45 01/25/18 04:00 98.9 96 24 127/76 96 Bi-pap 45 98.9 01/25/18 02:52 96 16 98 Facial 45 01/25/18 00:45 40 01/25/18 00:40 88 17 96 Facial 45 01/25/18 00:31 99.0 01/25/18 00:16 97 01/24/18 22:00 100.0 98 20 109/60 96 Simple Mask 15.0 100.0 01/24/18 21:00 95 22 118/63 96 Simple Mask 15.0 01/24/18 20:07 100.0 01/24/18 20:00 98 01/24/18 20:00 100.5 96 21 110/60 95 Simple Mask 15.0 100.5 01/24/18 20:00 15.0 01/24/18 19:53 126/57 01/24/18 19:37 100.5 01/24/18 19:26 Venturi Mask 14.0 55 01/24/18 19:25 98 T-piece 6.0 28 01/24/18 19:00 98 21 126/57 96 Simple Mask 15.0 Intake and Output 01/24/18 01/25/18 19:00 07:00 Intake Total 562.5 ml 347.5 ml Output Total 1320 ml 1375 ml Balance -757.5 ml -1027.5 ml Intake Oral 250 ml 200 ml IV Total 312.5 ml 147.5 ml Output Urine Total 1320 ml 1375 ml Laboratory Tests 01/25/18 04:15: White Blood Count 11.2H, Red Blood Count 2.92L, Hemoglobin 9.2L, Hematocrit 26.9L, Mean Corpuscular Volume 92, Mean Corpuscular Hemoglobin 31.6H, Mean Corpuscular Hemoglobin Concent 34.3, Red Cell Distribution Width 12.7, Platelet Count 147L, Mean Platelet Volume 6.3L, Neutrophils (%) (Auto) 74.5, Lymphocytes (%) (Auto) 12.4L, Monocytes (%) (Auto) 10.7H, Eosinophils (%) (Auto) 1.6, Basophils (%) (Auto) 0.8, Sodium Level 152H, Potassium Level 3.8, Chloride Level 112H, Carbon Dioxide Level 33H, Anion Gap 7, Blood Urea Nitrogen 30H, Creatinine 1.4H, Estimat Glomerular Filtration Rate 54.8, Glucose Level 164H, Uric Acid 7.3H, Calcium Level 7.7L, Phosphorus Level 2.9, Magnesium Level 1.4L, Total Bilirubin 0.8, Gamma Glutamyl Transpeptidase 743H, Aspartate Amino Transf (AST/SGOT) 38H, Alanine Aminotransferase (ALT/SGPT) 33, Alkaline Phosphatase 604H, Total Protein 5.2L, Albumin 1.6L, Globulin 3.6, Albumin/Globulin Ratio 0.4L Height (Feet): 5 Height (Inches): 9.00 Weight (Pounds): 310 General Appearance: no apparent distress Neck: normal alignment Cardiovascular: normal rate Respiratory/Chest: decreased breath sounds Abdomen: normal bowel sounds Pelvis: normal external exam Edema: 1+ Arm (L), 1+ Arm (R), 1+ Leg (L), 1+ Leg (R), 1+ Pedal (L), 1+ Pedal ( R), 1+ Generalized Objective Current Medications Medications (Trade) Dose Ordered Sig/Alana Route PRN Reason Start Time Stop Time Status Last Admin Dose Admin Acetaminophen (Tylenol) 500 mg Q6HR PRN NG Fever/Headache/Mild Pain 01/25/18 00:00 02/15/18 23:14 Albuterol Sulfate (Proventil) 2.5 mg Q6H PRN HHN For Cough/Dyspnea 01/25/18 05:00 01/29/18 10:59 Calcium Carbonate (Os-Aries) 1,250 mg QID ORAL 01/25/18 13:00 02/23/18 09:59 01/25/18 13:24 Carvedilol (Coreg) 3.125 mg EVERY 12 HOURS ORAL 01/25/18 09:00 02/24/18 08:59 01/25/18 10:08 Chlorhexidine Gluconate (Марина-Hex 2%) 1 applic DAILY@2000 TOPIC 01/25/18 20:00 02/16/18 19:59 Dextrose (Dextrose 50%) 25 ml STAT PRN IV Hypoglycemia 01/25/18 06:45 02/23/18 06:44 Dextrose (Dextrose 50%) 50 ml STAT PRN IV Hypoglycemia 01/25/18 06:45 02/23/18 06:44 Diatrizoate Meglum/ Diatrizoate Sod (Gastrografin) 30 ml NOW PRN ORAL Radiology Procedure 01/25/18 09:45 01/27/18 09:45 Ergocalciferol (Drisdol) 50,000 intlu QWEEK ORAL 01/25/18 12:00 02/23/18 11:59 01/25/18 13:22 Furosemide 100 mg/ Dextrose 100 ml @ 5 mls/hr Q20H IV 01/25/18 12:00 02/24/18 11:59 01/25/18 13:00 Insulin Aspart (NovoLOG) BEFORE MEALS AND HS SUBQ 01/25/18 06:30 02/23/18 11:29 01/25/18 16:47 Insulin Aspart (NovoLOG) 6 units NOVOTIAC SUBQ 01/25/18 06:30 02/23/18 11:49 01/25/18 16:46 Insulin Detemir (Levemir) 10 units BID SUBQ 01/25/18 09:00 02/23/18 08:59 01/25/18 10:09 Lactobacillus Acidophilus (Culturelle) 1 tab THREE TIMES A DAY ORAL 01/25/18 09:00 02/22/18 12:59 01/25/18 13:23 Lansoprazole (Prevacid) 30 mg BID ORAL 01/25/18 09:00 02/22/18 17:59 01/25/18 10:07 Lidocaine HCl (Xylocaine 1% 30ml) 30 ml ONCE PRN INJ FOR PICC LINE PLACEMENT 01/25/18 09:45 01/26/18 23:59 Metronidazole (Flagyl) 250 mg Q8HR ORAL 01/25/18 06:00 01/30/18 23:59 01/25/18 13:24 Morphine Sulfate (Morphine Sulfate) 4 mg Q4H PRN IVP Severe Pain (Pain Scale 7-10) 01/25/18 00:00 01/30/18 11:59 01/25/18 04:56 Piperacillin Sod/ Tazobactam Sod 3.375 gm/Sodium Chloride 110 ml @ 27.5 mls/hr EVERY 8 HOURS IVPB 01/25/18 06:00 01/28/18 13:59 01/25/18 14:00 Potassium Chloride (K-Dur) 40 meq BID ORAL 01/25/18 18:00 02/22/18 10:14 Item Value Date Time Bedside Blood Glucose 118 mg/dl 01/24/18 0500 Bedside Blood Glucose 168 mg/dl H 01/24/18 0100 Bedside Blood Glucose 268 mg/dl H 01/23/18 2100 Bedside Blood Glucose 262 mg/dl H 01/23/18 1700 Bedside Blood Glucose 102 mg/dl 01/23/18 1300 Bedside Blood Glucose 93 mg/dl 01/23/18 0900 Bedside Blood Glucose 202 mg/dl H 01/25/18 1647 Bedside Blood Glucose 173 mg/dl H 01/25/18 1322 Bedside Blood Glucose 131 mg/dl H 01/25/18 1009 Bedside Blood Glucose 155 mg/dl H 01/25/18 0516 Bedside Blood Glucose 202 mg/dl H 01/24/18 2100 Bedside Blood Glucose 193 mg/dl H 01/24/18 1742 MATTEO VU January 25, 2018 18:17
[2018-01-25 20:00] VITALS: BP 130/62
[2018-01-25] MEDS ORDERED: Dyna-Hex 2% Top Sol 2oz TOPIC SCH ×2 (20:00)
[2018-01-25] MEDS ORDERED: DOPamine 400mg/250ml 250 ML IV SCH (21:30)
--- NOTE | 2018-01-25 23:45 | Progress Note ---
DATE: 01/25/2018 CARDIOLOGY PROGRESS NOTE SUBJECTIVE: The patient is slowly improving. More alert. He is on BiPAP support at night. Monitored rhythm, sinus. No atrial tachyarrhythmias noted. OBJECTIVE: VITAL SIGNS: Blood pressure 127/76, pulse 96, respiratory rate 24, and afebrile. LUNGS: Clear. CARDIAC: Regular. Normal S1 and S2 with a fourth heart sound. ABDOMEN: Soft. EXTREMITIES: With 1+ dependent edema. IMPRESSION: 1. Resolved renal failure. 2. Recovered diabetic ketoacidosis. 3. Acute on chronic diastolic congestive heart failure. 4. Acute myocardial infarction following CP arrest - now with stabilizing hemodynamic parameters. PLAN: 1. Diuresis. 2. Replace potassium. 3. Avoid pressors. 4. Insulin titration. 5. Antimicrobials. 6. Respiratory hygiene. 7. Add beta zen if BP continues to remains stable. 8. Remains high risk. Ernie Ashford M.D. DR: JOHN JOB#: [id number] CC: YESIKA
[2018-01-26] VITALS: BP 120/65
[2018-01-26 03:46] VITALS: BP 132/71
[2018-01-26] MEDS: Morphine Sulfate 4mg/ml Inj IVP PRN (04:04)
[2018-01-26] MEDS: metroNIDAZOLE 250mg tab ORAL SCH ×3 (05:50→22:00)
[2018-01-26 06:05] LABS: ANION GAP 7 mmol/L (5-15); BLOOD UREA NITROGEN 22 mg/dL (7-18); CALCIUM 7.8 MG/DL (8.5-10.1); CARBON DIOXIDE 34 MMOL/L (21-32); CHLORIDE 109 MMOL/L (98-107); CREATININE 1.3 MG/DL (0.55-1.30); POTASSIUM 3.3 MMOL/L (3.5-5.1); SODIUM 150 MMOL/L (136-145)
[2018-01-26] MEDS: Piperacillin/Tazobactam 3.375 GM in NS 110 ML IVPB SCH ×3 (06:27→22:18)
[2018-01-26 06:29] LABS: BASOPHILS % (AUTO) 0.6 % (0.0-2.0); EOSINOPHILS % (AUTO) 2.1 % (0.0-3.0); HEMATOCRIT 27.2 % (42.0-52.0); HEMOGLOBIN 9.1 G/DL (14.2-18.0); LYMPHOCYTES % (AUTO) 14.6 % (20.0-45.0); MEAN CORPUSCULAR VOLUME 94 FL (80-99); MONOCYTES % (AUTO) 10.5 % (1.0-10.0); NEUTROPHILS % (AUTO) 72.2 % (45.0-75.0); PLATELET COUNT 158 K/UL (150-450); RED BLOOD COUNT 2.91 M/UL (4.70-6.10); RED CELL DISTRIBUTION WIDTH 12.5 % (11.6-14.8); WHITE BLOOD COUNT 10.2 K/UL (4.8-10.8)
[2018-01-26] MEDS: NovoLOG Insulin Flexpen SUBQ SCH ×7 (06:31→21:13)
[2018-01-26 06:33] LABS: ALANINE AMINOTRANSFERASE 32 U/L (12-78); ALBUMIN 1.7 G/DL (3.4-5.0); ALKALINE PHOSPHATASE 618 U/L (46-116); ASPARTATE AMINO TRANSFERASE 45 U/L (15-37); BILIRUBIN,DIRECT 0.2 MG/DL (0.0-0.3); BILIRUBIN,TOTAL 0.7 MG/DL (0.2-1.0); PHOSPHORUS 2.9 MG/DL (2.5-4.9)
--- NOTE | 2018-01-26 06:36 | General Progress Note ---
Assessment/Plan Problem List: (1) Septic shock ICD Codes: A41.9 - Sepsis, unspecified organism; R65.21 - Severe sepsis with septic shock SNOMED: 79145692 (2) DKA (diabetic ketoacidoses) ICD Codes: E13.10 - Other specified diabetes mellitus with ketoacidosis without coma SNOMED: 019920878, [id number] (3) Acute renal failure (ARF) ICD Codes: N17.9 - Acute kidney failure, unspecified SNOMED: 10587351 Assessment/Plan - continue Levemir 10 units bid - continue Novolog 6 units ac tid - continue NISS ac / hs Subjective Allergies: Coded Allergies: No Known Allergies (Unverified , 01/15/18) All Systems: reviewed and negative except above Subjective events noted - interval notes reviewed Objective Last 24 Hour Vital Signs Date Time Temp Pulse Resp B/P (MAP) Pulse Ox O2 Delivery O2 Flow Rate FiO2 01/26/18 05:07 84 14 98 Facial 35 01/26/18 04:34 98.1 01/26/18 04:04 98.1 01/26/18 04:00 45 01/26/18 04:00 82 01/26/18 03:46 98.1 90 17 132/71 98 Bi-pap 35 98.1 01/26/18 03:09 87 15 99 Facial 35 01/26/18 01:19 89 18 98 Facial 45 01/26/18 00:00 92 01/26/18 00:00 97.8 92 18 120/65 98 Bi-pap 45 97.8 01/26/18 00:00 45 01/25/18 23:17 98.2 01/25/18 23:08 101 22 99 Facial 45 01/25/18 20:59 97 144/76 01/25/18 20:10 89 01/25/18 20:00 44 01/25/18 20:00 4.0 01/25/18 20:00 98.2 89 20 130/62 95 Nasal Cannula 4.0 98.2 01/25/18 19:33 Nasal Cannula 3.0 32 01/25/18 19:33 95 Nasal Cannula 3.0 32 01/25/18 16:00 15.0 01/25/18 16:00 99.2 98 24 144/76 96 Bi-pap 45 99.2 01/25/18 16:00 98 01/25/18 12:00 98.6 105 24 137/81 96 Bi-pap 45 98.6 01/25/18 12:00 99 01/25/18 12:00 15.0 01/25/18 11:30 15.0 01/25/18 10:08 95 127/76 01/25/18 08:00 100 01/25/18 08:00 98.1 93 24 145/95 96 Bi-pap 45 98.1 01/25/18 07:56 Venturi Mask 10.0 45 01/25/18 07:55 95 Venturi Mask 10.0 45 Intake and Output 01/25/18 01/26/18 19:00 07:00 Intake Total 980 ml 517.5 ml Output Total 1600 ml 2250 ml Balance -620 ml -1732.5 ml Intake Oral 850 ml 400 ml IV Total 130 ml 117.5 ml Output Urine Total 1600 ml 2250 ml # Bowel Movements 2 2 Laboratory Tests 01/26/18 03:45: White Blood Count [Pending], Red Blood Count [Pending], Hemoglobin [Pending], Hematocrit [Pending], Mean Corpuscular Volume [Pending], Mean Corpuscular Hemoglobin [Pending], Mean Corpuscular Hemoglobin Concent [Pending], Red Cell Distribution Width [Pending], Platelet Count [Pending], Mean Platelet Volume [ Pending], Neutrophils (%) (Auto) [Pending], Lymphocytes (%) (Auto) [Pending], Monocytes (%) (Auto) [Pending], Eosinophils (%) (Auto) [Pending], Basophils (%) (Auto) [Pending], Sodium Level 150H, Potassium Level 3.3L, Chloride Level 109H, Carbon Dioxide Level 34H, Anion Gap 7, Blood Urea Nitrogen 22H, Creatinine 1.3, Estimat Glomerular Filtration Rate 59.7, Glucose Level 158H, Uric Acid 5.8, Calcium Level 7.8L, Phosphorus Level 2.9, Magnesium Level 1.6L, Total Bilirubin 0.7, Direct Bilirubin 0.2, Aspartate Amino Transf (AST/SGOT) 45H, Alanine Aminotransferase (ALT/SGPT) 32, Alkaline Phosphatase 618H, Total Protein 4.7L, Albumin 1.7L Height (Feet): 5 Height (Inches): 9.00 Weight (Pounds): 307 General Appearance: no apparent distress Neck: normal alignment Cardiovascular: normal rate Respiratory/Chest: decreased breath sounds Abdomen: normal bowel sounds Pelvis: normal external exam Edema: 1+ Arm (L), 1+ Arm (R), 1+ Leg (L), 1+ Leg (R), 1+ Pedal (L), 1+ Pedal ( R), 1+ Generalized Objective Current Medications Medications (Trade) Dose Ordered Sig/Alana Route PRN Reason Start Time Stop Time Status Last Admin Dose Admin Acetaminophen (Tylenol) 500 mg Q6HR PRN NG Fever/Headache/Mild Pain 01/25/18 00:00 02/15/18 23:14 Albuterol Sulfate (Proventil) 2.5 mg Q6H PRN HHN For Cough/Dyspnea 01/25/18 05:00 01/29/18 10:59 Calcium Carbonate (Os-Aries) 1,250 mg QID ORAL 01/25/18 13:00 02/23/18 09:59 01/25/18 20:58 Carvedilol (Coreg) 3.125 mg EVERY 12 HOURS ORAL 01/25/18 09:00 02/24/18 08:59 01/25/18 20:59 Chlorhexidine Gluconate (Марина-Hex 2%) 1 applic DAILY@1999 TOPIC 01/25/18 20:00 02/16/18 19:59 01/25/18 21:03 Dextrose (Dextrose 50%) 25 ml STAT PRN IV Hypoglycemia 01/25/18 06:45 02/23/18 06:44 Dextrose (Dextrose 50%) 50 ml STAT PRN IV Hypoglycemia 01/25/18 06:45 02/23/18 06:44 Diatrizoate Meglum/ Diatrizoate Sod (Gastrografin) 30 ml NOW PRN ORAL Radiology Procedure 01/25/18 09:45 01/27/18 09:45 Ergocalciferol (Drisdol) 50,000 intlu QWEEK ORAL 01/25/18 12:00 02/23/18 11:59 01/25/18 13:22 Furosemide 100 mg/ Dextrose 100 ml @ 5 mls/hr Q20H IV 01/25/18 12:00 02/24/18 11:59 01/25/18 13:00 Insulin Aspart (NovoLOG) BEFORE MEALS AND HS SUBQ 01/25/18 06:30 02/23/18 11:29 01/25/18 21:07 Insulin Aspart (NovoLOG) 6 units NOVOTIAC SUBQ 01/25/18 06:30 02/23/18 11:49 01/25/18 16:46 Insulin Detemir (Levemir) 10 units BID SUBQ 01/25/18 09:00 02/23/18 08:59 01/25/18 19:01 Lactobacillus Acidophilus (Culturelle) 1 tab THREE TIMES A DAY ORAL 01/25/18 09:00 02/22/18 12:59 01/25/18 18:53 Lansoprazole (Prevacid) 30 mg BID ORAL 01/25/18 09:00 02/22/18 17:59 01/25/18 18:53 Lidocaine HCl (Xylocaine 1% 30ml) 30 ml ONCE PRN INJ FOR PICC LINE PLACEMENT 01/25/18 09:45 01/26/18 23:59 Metronidazole (Flagyl) 250 mg Q8HR ORAL 01/25/18 06:00 01/30/18 23:59 01/26/18 05:50 Morphine Sulfate (Morphine Sulfate) 4 mg Q4H PRN IVP Severe Pain (Pain Scale 7-10) 01/25/18 00:00 01/30/18 11:59 01/26/18 04:04 Piperacillin Sod/ Tazobactam Sod 3.375 gm/Sodium Chloride 110 ml @ 27.5 mls/hr EVERY 8 HOURS IVPB 01/25/18 06:00 01/28/18 13:59 01/25/18 21:49 Potassium Chloride (K-Dur) 40 meq BID ORAL 01/25/18 18:00 02/22/18 10:14 01/25/18 18:52 Item Value Date Time Bedside Blood Glucose 173 mg/dl H 01/26/18 0635 Bedside Blood Glucose 141 mg/dl H 01/25/18 2107 Bedside Blood Glucose 202 mg/dl H 01/25/18 1647 Bedside Blood Glucose 173 mg/dl H 01/25/18 1322 Bedside Blood Glucose 131 mg/dl H 01/25/18 1009 Bedside Blood Glucose 155 mg/dl H 01/25/18 0516 MATTEO VU January 26, 2018 06:36
[2018-01-26] MEDS ORDERED: Heparin 2000 units/Ns 1000ml INJ PRN (07:30)
[2018-01-26] MEDS ORDERED: Lidocaine 1% Plain 30 ml INJ PRN (07:30)
[2018-01-26 08:00] VITALS: BP 133/72
[2018-01-26] MEDS: Levemir Flexpen SUBQ SCH ×2 (08:40→17:40)
--- NOTE | 2018-01-26 08:40 | Pulmonology Progress Note ---
Assessment/Plan Assessment/Plan 1. Respiratory failure. Now extubated; Nocturnal BiPAP 2. Severe hyponatremia. Improved 3. Hyperglycemia. Off insulin gtt 4. Diabetic ketoacidosis. Improved; ph now normal 5. Sepsis. on broad spectrum abx; ID following 6. Hypotension. Resolved. 7. S/p arrest DISCUSSION: Continue broad-spectrum, antibiotics, aggressive central line care, needs PICC Full Code for now. Discussed with all consultants On Lasix gtt DC steroids Off HD Has thrombocytopenia; likely drug related; stable for now; improving Slowly improving Continue diet Matt Kessler M.D. Subjective Interval Events: Complaining of cough Constitutional: Reports: no symptoms HEENT: Repors: no symptoms Respiratory: Reports: no symptoms Cardiovascular: Reports: no symptoms Gastrointestinal/Abdominal: Reports: no symptoms Genitourinary: Reports: no symptoms Neurologic: Reports: no symptoms Allergies: Coded Allergies: No Known Allergies (Unverified , 01/15/18) Objective Last 24 Hour Vital Signs Date Time Temp Pulse Resp B/P (MAP) Pulse Ox O2 Delivery O2 Flow Rate FiO2 01/26/18 08:26 Nasal Cannula 3.0 32 01/26/18 08:26 96 Nasal Cannula 3.0 32 01/26/18 05:07 84 14 98 Facial 35 01/26/18 04:34 98.1 01/26/18 04:04 98.1 01/26/18 04:00 45 01/26/18 04:00 82 01/26/18 03:46 98.1 90 17 132/71 98 Bi-pap 35 98.1 01/26/18 03:09 87 15 99 Facial 35 01/26/18 01:19 89 18 98 Facial 45 01/26/18 00:00 92 01/26/18 00:00 97.8 92 18 120/65 98 Bi-pap 45 97.8 01/26/18 00:00 45 01/25/18 23:17 98.2 01/25/18 23:08 101 22 99 Facial 45 01/25/18 20:59 97 144/76 01/25/18 20:10 89 01/25/18 20:00 44 01/25/18 20:00 4.0 01/25/18 20:00 98.2 89 20 130/62 95 Nasal Cannula 4.0 98.2 01/25/18 19:33 Nasal Cannula 3.0 32 01/25/18 19:33 95 Nasal Cannula 3.0 32 01/25/18 16:00 15.0 01/25/18 16:00 99.2 98 24 144/76 96 Bi-pap 45 99.2 01/25/18 16:00 98 01/25/18 12:00 98.6 105 24 137/81 96 Bi-pap 45 98.6 01/25/18 12:00 99 01/25/18 12:00 15.0 01/25/18 11:30 15.0 01/25/18 10:08 95 127/76 Intake and Output 01/25/18 01/26/18 19:00 07:00 Intake Total 980 ml 532.5 ml Output Total 1600 ml 2250 ml Balance -620 ml -1717.5 ml Intake Oral 850 ml 400 ml IV Total 130 ml 132.5 ml Output Urine Total 1600 ml 2250 ml # Bowel Movements 2 2 General Appearance: no acute distress HEENT: normocephalic Respiratory/Chest: chest wall non-tender, lungs clear Cardiovascular: normal peripheral pulses, normal rate Abdomen: normal bowel sounds Microbiology Date/Time Source Procedure Growth Status 01/23/18 15:30 Indwelling Cath Urine Culture - Final [place] Parapsilosis Complete Laboratory Tests 01/26/18 03:45: White Blood Count 10.2, Red Blood Count 2.91L, Hemoglobin 9.1L, Hematocrit 27.2L , Mean Corpuscular Volume 94, Mean Corpuscular Hemoglobin 31.1H, Mean Corpuscular Hemoglobin Concent 33.3, Red Cell Distribution Width 12.5, Platelet Count 158, Mean Platelet Volume 6.5, Neutrophils (%) (Auto) 72.2, Lymphocytes (% ) (Auto) 14.6L, Monocytes (%) (Auto) 10.5H, Eosinophils (%) (Auto) 2.1, Basophils (%) (Auto) 0.6, Sodium Level 150H, Potassium Level 3.3L, Chloride Level 109H, Carbon Dioxide Level 34H, Anion Gap 7, Blood Urea Nitrogen 22H, Creatinine 1.3, Estimat Glomerular Filtration Rate 59.7, Glucose Level 158H, Uric Acid 5.8, Calcium Level 7.8L, Phosphorus Level 2.9, Magnesium Level 1.6L, Total Bilirubin 0.7, Direct Bilirubin 0.2, Aspartate Amino Transf (AST/SGOT) 45H , Alanine Aminotransferase (ALT/SGPT) 32, Alkaline Phosphatase 618H, Total Protein 4.7L, Albumin 1.7L Current Medications Medications (Trade) Dose Ordered Sig/Alana Route PRN Reason Start Time Stop Time Status Last Admin Dose Admin Acetaminophen (Tylenol) 500 mg Q6HR PRN NG Fever/Headache/Mild Pain 01/25/18 00:00 02/15/18 23:14 Albuterol Sulfate (Proventil) 2.5 mg Q6H PRN HHN For Cough/Dyspnea 01/25/18 05:00 01/29/18 10:59 Calcium Carbonate (Os-Aries) 1,250 mg QID ORAL 01/25/18 13:00 02/23/18 09:59 01/25/18 20:58 Carvedilol (Coreg) 3.125 mg EVERY 12 HOURS ORAL 01/25/18 09:00 02/24/18 08:59 01/25/18 20:59 Chlorhexidine Gluconate (Марина-Hex 2%) 1 applic DAILY@2000 TOPIC 01/26/18 20:00 02/25/18 19:59 Dextrose (Dextrose 50%) 25 ml STAT PRN IV Hypoglycemia 01/25/18 06:45 02/23/18 06:44 Dextrose (Dextrose 50%) 50 ml STAT PRN IV Hypoglycemia 01/25/18 06:45 02/23/18 06:44 Diatrizoate Meglum/ Diatrizoate Sod (Gastrografin) 30 ml NOW PRN ORAL Radiology Procedure 01/25/18 09:45 01/27/18 09:45 Ergocalciferol (Drisdol) 50,000 intlu QWEEK ORAL 01/25/18 12:00 02/23/18 11:59 01/25/18 13:22 Furosemide 100 mg/ Dextrose 100 ml @ 5 mls/hr Q20H IV 01/25/18 12:00 02/24/18 11:59 01/25/18 13:00 Heparin Sodium/ Sodium Chloride (Heparin 2000 units/Ns 1000ml premix) 2,000 unit ONCE PRN INJ PICC PLACEMENT 01/26/18 07:30 01/26/18 23:59 Insulin Aspart (NovoLOG) BEFORE MEALS AND HS SUBQ 01/25/18 06:30 02/23/18 11:29 01/26/18 06:31 Insulin Aspart (NovoLOG) 6 units NOVOTIAC SUBQ 01/25/18 06:30 02/23/18 11:49 01/26/18 06:35 Insulin Detemir (Levemir) 10 units BID SUBQ 01/25/18 09:00 02/23/18 08:59 01/25/18 19:01 Lactobacillus Acidophilus (Culturelle) 1 tab THREE TIMES A DAY ORAL 01/25/18 09:00 02/22/18 12:59 01/25/18 18:53 Lansoprazole (Prevacid) 30 mg BID ORAL 01/25/18 09:00 02/22/18 17:59 01/25/18 18:53 Lidocaine HCl (Xylocaine 1% 30ml) 30 ml ONCE PRN INJ FOR PICC LINE PLACEMENT 01/25/18 09:45 01/26/18 23:59 Metronidazole (Flagyl) 250 mg Q8HR ORAL 01/25/18 06:00 01/30/18 23:59 01/26/18 05:50 Morphine Sulfate (Morphine Sulfate) 4 mg Q4H PRN IVP Severe Pain (Pain Scale 7-10) 01/25/18 00:00 01/30/18 11:59 01/26/18 04:04 Piperacillin Sod/ Tazobactam Sod 3.375 gm/Sodium Chloride 110 ml @ 27.5 mls/hr EVERY 8 HOURS IVPB 01/25/18 06:00 01/28/18 13:59 01/26/18 06:27 Potassium Chloride (K-Dur) 40 meq BID ORAL 01/25/18 18:00 02/22/18 10:14 01/25/18 18:52 Matt Kessler MD January 26, 2018 08:40
[2018-01-26] MEDS: Lactobacillus-GG tablet ORAL SCH ×3 (08:42→17:35)
[2018-01-26] MEDS ORDERED: Pantoprazole Inj IVP SCH (09:00)
--- NOTE | 2018-01-26 11:11 | Infectious Diseases Prog Note ---
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 septic shock resolved 3. pancreatitis improving 4. DKA resolved 5. renal failure improving 6. respiratory failure resolved 7. 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 fungal UTI 11, pseudomonas pneumonia P 1. continue zosyn, flagyl 2. start fluconazole 3. will follow up cultures Subjective ROS Limited/Unobtainable: Yes Allergies: Coded Allergies: No Known Allergies (Unverified , 01/15/18) Objective Vital Signs Last 24 Hour Vital Signs Date Time Temp Pulse Resp B/P (MAP) Pulse Ox O2 Delivery O2 Flow Rate FiO2 01/26/18 08:41 86 131/70 01/26/18 08:26 Nasal Cannula 3.0 32 01/26/18 08:26 96 Nasal Cannula 3.0 32 01/26/18 08:00 78 01/26/18 08:00 97.2 91 18 133/72 95 Bi-pap 35 97.2 01/26/18 08:00 35 01/26/18 05:07 84 14 98 Facial 35 01/26/18 04:34 98.1 01/26/18 04:04 98.1 01/26/18 04:00 45 01/26/18 04:00 82 01/26/18 03:46 98.1 90 17 132/71 98 Bi-pap 35 98.1 01/26/18 03:09 87 15 99 Facial 35 01/26/18 01:19 89 18 98 Facial 45 01/26/18 00:00 92 01/26/18 00:00 97.8 92 18 120/65 98 Bi-pap 45 97.8 01/26/18 00:00 45 01/25/18 23:17 98.2 01/25/18 23:08 101 22 99 Facial 45 01/25/18 20:59 97 144/76 01/25/18 20:10 89 01/25/18 20:00 44 01/25/18 20:00 4.0 01/25/18 20:00 98.2 89 20 130/62 95 Nasal Cannula 4.0 98.2 01/25/18 19:33 Nasal Cannula 3.0 32 01/25/18 19:33 95 Nasal Cannula 3.0 32 01/25/18 16:00 15.0 01/25/18 16:00 99.2 98 24 144/76 96 Bi-pap 45 99.2 01/25/18 16:00 98 01/25/18 12:00 98.6 105 24 137/81 96 Bi-pap 45 98.6 01/25/18 12:00 99 01/25/18 12:00 15.0 01/25/18 11:30 15.0 Height (Feet): 5 Height (Inches): 9.00 Weight (Pounds): 307 Respiratory/Chest: lungs clear Cardiovascular: normal rate, regular rhythm, no gallop/murmur Abdomen: soft, non tender Extremities: other - + edema Microbiology Date/Time Source Procedure Growth Status 01/23/18 15:30 Indwelling Cath Urine Culture - Final [place] Parapsilosis Complete Laboratory Tests Test 01/26/18 03:45 White Blood Count 10.2 K/UL (4.8-10.8) Red Blood Count 2.91 M/UL (4.70-6.10) L Hemoglobin 9.1 G/DL (14.2-18.0) L Hematocrit 27.2 % (42.0-52.0) L Mean Corpuscular Volume 94 FL (80-99) Mean Corpuscular Hemoglobin 31.1 PG (27.0-31.0) H Mean Corpuscular Hemoglobin Concent 33.3 G/DL (32.0-36.0) Red Cell Distribution Width 12.5 % (11.6-14.8) Platelet Count 158 K/UL (150-450) Mean Platelet Volume 6.5 FL (6.5-10.1) Neutrophils (%) (Auto) 72.2 % (45.0-75.0) Lymphocytes (%) (Auto) 14.6 % (20.0-45.0) L Monocytes (%) (Auto) 10.5 % (1.0-10.0) H Eosinophils (%) (Auto) 2.1 % (0.0-3.0) Basophils (%) (Auto) 0.6 % (0.0-2.0) Sodium Level 150 MMOL/L (136-145) H Potassium Level 3.3 MMOL/L (3.5-5.1) L Chloride Level 109 MMOL/L (98-107) H Carbon Dioxide Level 34 MMOL/L (21-32) H Anion Gap 7 mmol/L (5-15) Blood Urea Nitrogen 22 mg/dL (7-18) H Creatinine 1.3 MG/DL (0.55-1.30) Estimat Glomerular Filtration Rate 59.7 mL/min (>60) Glucose Level 158 MG/DL (74-106) H Uric Acid 5.8 MG/DL (2.6-7.2) Calcium Level 7.8 MG/DL (8.5-10.1) L Phosphorus Level 2.9 MG/DL (2.5-4.9) Magnesium Level 1.6 MG/DL (1.8-2.4) L Total Bilirubin 0.7 MG/DL (0.2-1.0) Direct Bilirubin 0.2 MG/DL (0.0-0.3) Aspartate Amino Transf (AST/SGOT) 45 U/L (15-37) H Alanine Aminotransferase (ALT/SGPT) 32 U/L (12-78) Alkaline Phosphatase 618 U/L (46-116) H Total Protein 4.7 G/DL (6.4-8.2) L Albumin 1.7 G/DL (3.4-5.0) L Current Medications Medications (Trade) Dose Ordered Sig/Alana Route PRN Reason Start Time Stop Time Status Last Admin Dose Admin Acetaminophen (Tylenol) 500 mg Q6HR PRN NG Fever/Headache/Mild Pain 01/25/18 00:00 02/15/18 23:14 Albuterol Sulfate (Proventil) 2.5 mg Q6H PRN HHN For Cough/Dyspnea 01/25/18 05:00 01/29/18 10:59 Calcium Carbonate (Os-Aries) 1,250 mg QID ORAL 01/25/18 13:00 02/23/18 09:59 01/26/18 08:41 Carvedilol (Coreg) 3.125 mg EVERY 12 HOURS ORAL 01/25/18 09:00 02/24/18 08:59 01/26/18 08:41 Chlorhexidine Gluconate (Марина-Hex 2%) 1 applic DAILY@1999 TOPIC 01/26/18 20:00 02/25/18 19:59 Dextrose (Dextrose 50%) 25 ml STAT PRN IV Hypoglycemia 01/25/18 06:45 02/23/18 06:44 Dextrose (Dextrose 50%) 50 ml STAT PRN IV Hypoglycemia 01/25/18 06:45 02/23/18 06:44 Diatrizoate Meglum/ Diatrizoate Sod (Gastrografin) 30 ml NOW PRN ORAL Radiology Procedure 01/25/18 09:45 01/27/18 09:45 Furosemide 100 mg/ Dextrose 100 ml @ 5 mls/hr Q20H IV 01/25/18 12:00 02/24/18 11:59 01/26/18 08:40 Heparin Sodium/ Sodium Chloride (Heparin 2000 units/Ns 1000ml premix) 2,000 unit ONCE PRN INJ PICC PLACEMENT 01/26/18 07:30 01/26/18 23:59 Insulin Aspart (NovoLOG) BEFORE MEALS AND HS SUBQ 01/25/18 06:30 02/23/18 11:29 01/26/18 06:31 Insulin Aspart (NovoLOG) 6 units NOVOTIAC SUBQ 01/25/18 06:30 02/23/18 11:49 01/26/18 06:35 Insulin Detemir (Levemir) 10 units BID SUBQ 01/25/18 09:00 02/23/18 08:59 01/26/18 08:40 Lactobacillus Acidophilus (Culturelle) 1 tab THREE TIMES A DAY ORAL 01/25/18 09:00 02/22/18 12:59 01/26/18 08:42 Lidocaine HCl (Xylocaine 1% 30ml) 30 ml ONCE PRN INJ FOR PICC LINE PLACEMENT 01/25/18 09:45 01/26/18 23:59 Magnesium Sulfate 100 ml @ 100 mls/hr Q1H IVPB 01/26/18 12:00 01/26/18 15:59 Metronidazole (Flagyl) 250 mg Q8HR ORAL 01/25/18 06:00 01/30/18 23:59 01/26/18 05:50 Morphine Sulfate (Morphine Sulfate) 4 mg Q4H PRN IVP Severe Pain (Pain Scale 7-10) 01/25/18 00:00 01/30/18 11:59 01/26/18 04:04 Pantoprazole (Protonix) 40 mg EVERY 12 HOURS ORAL 01/26/18 21:00 02/25/18 20:59 Piperacillin Sod/ Tazobactam Sod 3.375 gm/Sodium Chloride 110 ml @ 27.5 mls/hr EVERY 8 HOURS IVPB 01/25/18 06:00 01/28/18 13:59 01/26/18 06:27 Potassium Chloride 100 ml @ 100 mls/hr Q1H IVPB 01/26/18 12:00 01/26/18 15:59 Potassium Chloride (K-Dur) 40 meq BID ORAL 01/25/18 18:00 02/22/18 10:14 01/26/18 08:41 Vitamin D (Vitamin D) 5,000 intlu DAILY ORAL 01/27/18 09:00 02/26/18 08:59 NADEGE MALIK January 26, 2018 11:11"
--- NOTE | 2018-01-26 11:13 | Nephrology Progress Note ---
Assessment/Plan Problem List: (1) Septic shock (2) DKA (diabetic ketoacidoses) (3) Acute renal failure (ARF) Assessment acute renal failure- now Cr stable and lowering off dialysis Hypotensive on pressors- IMPROVED acute respiratory failure- ON VENT Diabetic Ketoacidosis Low Na, Low K Sepsis high lipase Plan Iron panel and B12 and folate on lasix drip will give K IV HD last 01/19 check MARION abd : 2. Dense enlarged liver likely fatty. Insulin drip DC bicitra discussed with RN discussed with Mom and GF Betsy per orders Subjective ROS Limited/Unobtainable: No Constitutional: Reports: malaise, weakness Objective Objective Last 24 Hour Vital Signs Date Time Temp Pulse Resp B/P (MAP) Pulse Ox O2 Delivery O2 Flow Rate FiO2 01/26/18 08:41 86 131/70 01/26/18 08:26 Nasal Cannula 3.0 32 01/26/18 08:26 96 Nasal Cannula 3.0 32 01/26/18 08:00 78 01/26/18 08:00 97.2 91 18 133/72 95 Bi-pap 35 97.2 01/26/18 08:00 35 01/26/18 05:07 84 14 98 Facial 35 01/26/18 04:34 98.1 01/26/18 04:04 98.1 01/26/18 04:00 45 01/26/18 04:00 82 01/26/18 03:46 98.1 90 17 132/71 98 Bi-pap 35 98.1 01/26/18 03:09 87 15 99 Facial 35 01/26/18 01:19 89 18 98 Facial 45 01/26/18 00:00 92 01/26/18 00:00 97.8 92 18 120/65 98 Bi-pap 45 97.8 01/26/18 00:00 45 01/25/18 23:17 98.2 01/25/18 23:08 101 22 99 Facial 45 01/25/18 20:59 97 144/76 01/25/18 20:10 89 01/25/18 20:00 44 01/25/18 20:00 4.0 01/25/18 20:00 98.2 89 20 130/62 95 Nasal Cannula 4.0 98.2 01/25/18 19:33 Nasal Cannula 3.0 32 01/25/18 19:33 95 Nasal Cannula 3.0 32 01/25/18 16:00 15.0 01/25/18 16:00 99.2 98 24 144/76 96 Bi-pap 45 99.2 01/25/18 16:00 98 01/25/18 12:00 98.6 105 24 137/81 96 Bi-pap 45 98.6 01/25/18 12:00 99 01/25/18 12:00 15.0 01/25/18 11:30 15.0 Intake and Output 01/25/18 01/26/18 19:00 07:00 Intake Total 980 ml 537.5 ml Output Total 1600 ml 2250 ml Balance -620 ml -1712.5 ml Intake Oral 850 ml 400 ml IV Total 130 ml 137.5 ml Output Urine Total 1600 ml 2250 ml # Bowel Movements 2 2 Laboratory Tests 01/26/18 03:45: White Blood Count 10.2, Red Blood Count 2.91L, Hemoglobin 9.1L, Hematocrit 27.2L , Mean Corpuscular Volume 94, Mean Corpuscular Hemoglobin 31.1H, Mean Corpuscular Hemoglobin Concent 33.3, Red Cell Distribution Width 12.5, Platelet Count 158, Mean Platelet Volume 6.5, Neutrophils (%) (Auto) 72.2, Lymphocytes (% ) (Auto) 14.6L, Monocytes (%) (Auto) 10.5H, Eosinophils (%) (Auto) 2.1, Basophils (%) (Auto) 0.6, Sodium Level 150H, Potassium Level 3.3L, Chloride Level 109H, Carbon Dioxide Level 34H, Anion Gap 7, Blood Urea Nitrogen 22H, Creatinine 1.3, Estimat Glomerular Filtration Rate 59.7, Glucose Level 158H, Uric Acid 5.8, Calcium Level 7.8L, Phosphorus Level 2.9, Magnesium Level 1.6L, Total Bilirubin 0.7, Direct Bilirubin 0.2, Aspartate Amino Transf (AST/SGOT) 45H , Alanine Aminotransferase (ALT/SGPT) 32, Alkaline Phosphatase 618H, Total Protein 4.7L, Albumin 1.7L Height (Feet): 5 Height (Inches): 9.00 Weight (Pounds): 307 General Appearance: no apparent distress Respiratory/Chest: decreased breath sounds Abdomen: soft Extremities: other - edematous Objective no other change FOULADIAN,ALANNA January 26, 2018 11:13
[2018-01-26 12:00] VITALS: BP 137/72
[2018-01-26 12:12] LABS: FERRITIN 1058 NG/ML (8-388)
[2018-01-26] MEDS: Fluconazole 100mg tab ORAL SCH (12:24)
[2018-01-26 12:57] LABS: % IRON SATURATION 17 % (15-50); IRON 25 ug/dL (50-175); TOTAL IRON BINDING CAPACITY 148 ug/dL (250-450)
[2018-01-26 16:00] VITALS: BP 147/82
--- NOTE | 2018-01-26 16:58 | Diagnostic Imaging Report ---
Indication: Status post PICC repositioning Technique: One view of the chest Comparison: 01/24/2018 Findings: Interim repositioning of PICC, tip position now satisfactory. Other findings are unchanged Impression: Improved and now satisfactory position of PICC
--- NOTE | 2018-01-26 17:02 | Diagnostic Imaging Report ---
Indications: Needs long-term IV access Technique: Procedure performed at bedside. Procedural timeout performed. Ultrasound confirms patent compressible left brachiobasilic vein. Total sterile technique, including sterile probe cover and sterile gel, sterile gloves, hand hygiene, hat, mask,, sterile gown, large sterile drape, and preparation with 2% chlorhexidine utilized. Local anesthesia with 1% lidocaine. Under real-time ultrasound guidance, puncture brachiobasilic vein using 21-gauge needle, passage 0.018 guidewire, exchange for 5 [place] peel-away sheath. 5 [place] Bard dual-lumen power PICC cut to 51 cm. It was inserted through the peel-away sheath. Peel-away sheath and guidewire removed. Catheter fixed to the skin. Both catheter ports aspirated and flushed. Patient tolerated procedure well, without immediate complication. Followup chest x-ray obtained, documents catheter tip position at the deep right atrium. This was subsequently readjusted Impression: Successful bedside placement of left arm PICC under sonographic guidance, as described above.
[2018-01-26 20:00] VITALS: BP 142/72
[2018-01-26] MEDS: Dyna-Hex 2% Top Sol 2oz TOPIC SCH (20:50)
[2018-01-27] VITALS: BP 123/69
[2018-01-27 04:00] VITALS: BP 134/75
[2018-01-27 05:45] LABS: HEMATOCRIT 26.5 % (42.0-52.0); HEMOGLOBIN 8.5 G/DL (14.2-18.0); MEAN CORPUSCULAR VOLUME 94 FL (80-99); PLATELET COUNT 148 K/UL (150-450); RED BLOOD COUNT 2.82 M/UL (4.70-6.10); RED CELL DISTRIBUTION WIDTH 12.5 % (11.6-14.8); WHITE BLOOD COUNT 8.6 K/UL (4.8-10.8)
[2018-01-27 05:54] LABS: ANION GAP 6 mmol/L (5-15); BLOOD UREA NITROGEN 24 mg/dL (7-18); CALCIUM 7.6 MG/DL (8.5-10.1); CARBON DIOXIDE 37 MMOL/L (21-32); CHLORIDE 104 MMOL/L (98-107); CREATININE 1.2 MG/DL (0.55-1.30); POTASSIUM 3.1 MMOL/L (3.5-5.1); SODIUM 147 MMOL/L (136-145)
[2018-01-27 06:03] LABS: ALANINE AMINOTRANSFERASE 30 U/L (12-78); ALBUMIN 1.7 G/DL (3.4-5.0); ALKALINE PHOSPHATASE 667 U/L (46-116); ASPARTATE AMINO TRANSFERASE 36 U/L (15-37); BILIRUBIN,DIRECT 0.3 MG/DL (0.0-0.3); BILIRUBIN,TOTAL 0.7 MG/DL (0.2-1.0); PHOSPHORUS 2.7 MG/DL (2.5-4.9)
[2018-01-27] MEDS: Piperacillin/Tazobactam 3.375 GM in NS 110 ML IVPB SCH ×3 (06:06→21:34)
[2018-01-27] MEDS: metroNIDAZOLE 250mg tab ORAL SCH ×3 (06:06→21:27)
[2018-01-27] MEDS: NovoLOG Insulin Flexpen SUBQ SCH ×7 (06:49→21:32)
[2018-01-27 08:00] VITALS: BP 140/76
--- NOTE | 2018-01-27 10:46 | Nephrology Progress Note ---
Assessment/Plan Problem List: (1) Septic shock (2) DKA (diabetic ketoacidoses) (3) Acute renal failure (ARF) Assessment acute renal failure- now Cr stable and lowering off dialysis Hypotensive on pressors- IMPROVED acute respiratory failure- ON VENT Diabetic Ketoacidosis Low Na, Low K Sepsis high lipase Plan K and Mag supp. Iron panel and B12 and folate on lasix drip HD last 01/19 check MARION abd : 2. Dense enlarged liver likely fatty. Insulin drip DC bicitra discussed with RN discussed with Mom and GF Betsy per orders Subjective ROS Limited/Unobtainable: No Constitutional: Reports: malaise Objective Objective Last 24 Hour Vital Signs Date Time Temp Pulse Resp B/P (MAP) Pulse Ox O2 Delivery O2 Flow Rate FiO2 01/27/18 08:03 96 Nasal Cannula 3.0 32 01/27/18 08:03 Nasal Cannula 3.0 32 01/27/18 08:00 99.5 97 18 140/76 97 Nasal Cannula 4.0 99.5 01/27/18 04:00 98.2 91 20 134/75 96 Nasal Cannula 4.0 98.2 01/27/18 04:00 42 01/27/18 00:00 93 01/27/18 00:00 98.4 95 20 123/69 96 Nasal Cannula 4.0 98.4 01/26/18 22:50 95 Nasal Cannula 3.0 32 01/26/18 22:50 Nasal Cannula 3.0 32 01/26/18 20:52 95 126/77 01/26/18 20:00 89 01/26/18 20:00 98.2 89 24 142/72 95 Nasal Cannula 4.0 98.2 01/26/18 16:00 99 01/26/18 16:00 99.1 102 16 147/82 95 Nasal Cannula 4.0 99.1 01/26/18 12:00 87 01/26/18 12:00 98.4 88 18 137/72 96 Nasal Cannula 4.0 98.4 Intake and Output 01/26/18 01/27/18 19:00 07:00 Intake Total 725.0 ml 870.0 ml Output Total 1300 ml 2850 ml Balance -575.0 ml -1980.0 ml Intake Oral 480 ml 600 ml IV Total 245.0 ml 270.0 ml Output Urine Total 1300 ml 2850 ml # Bowel Movements 5 3 Laboratory Tests 01/27/18 03:30: White Blood Count 8.6, Red Blood Count 2.82L, Hemoglobin 8.5L, Hematocrit 26.5L , Mean Corpuscular Volume 94, Mean Corpuscular Hemoglobin 30.3, Mean Corpuscular Hemoglobin Concent 32.2, Red Cell Distribution Width 12.5, Platelet Count 148L, Mean Platelet Volume 6.7, Neutrophils (%) (Auto) , Lymphocytes (%) ( Auto) , Monocytes (%) (Auto) , Eosinophils (%) (Auto) , Basophils (%) (Auto) , Differential Total Cells Counted 100, Neutrophils % (Manual) 67, Lymphocytes % ( Manual) 20, Monocytes % (Manual) 13H, Eosinophils % (Manual) 0, Basophils % ( Manual) 0, Band Neutrophils 0, Platelet Estimate Adequate, Platelet Morphology Normal, Hypochromasia 1+, Sodium Level 147H, Potassium Level 3.1L, Chloride Level 104, Carbon Dioxide Level 37H, Anion Gap 6, Blood Urea Nitrogen 24H, Creatinine 1.2, Estimat Glomerular Filtration Rate > 60, Glucose Level 324#H, Calcium Level 7.6L, Phosphorus Level 2.7, Magnesium Level 1.5L, Total Bilirubin 0.7, Direct Bilirubin 0.3, Aspartate Amino Transf (AST/SGOT) 36, Alanine Aminotransferase (ALT/SGPT) 30, Alkaline Phosphatase 667H, Total Protein 5.5L, Albumin 1.7L Height (Feet): 5 Height (Inches): 9.00 Weight (Pounds): 307 General Appearance: no apparent distress Objective no other change ALANNA MAHONEY January 27, 2018 10:46
[2018-01-27] MEDS ORDERED: Tubing IV Secondary IV ONE ×3 (11:01→11:11)
[2018-01-27] MEDS ORDERED: D5NS 1000ml IV ONE ×2 (11:01→11:04)
[2018-01-27] MEDS: Levemir Flexpen SUBQ SCH ×2 (11:01→17:28)
[2018-01-27] MEDS ORDERED: Tubing Blood Filter IV ONE (11:01)
[2018-01-27] MEDS ORDERED: NS 500ML ONE (11:01)
[2018-01-27] MEDS ORDERED: D5W 275ml ONE (11:04)
[2018-01-27] MEDS: Fluconazole 100mg tab ORAL SCH (11:05)
[2018-01-27] MEDS: Lactobacillus-GG tablet ORAL SCH ×3 (11:05→18:04)
[2018-01-27] MEDS ORDERED: NS 275ml ONE (11:11)
[2018-01-27] MEDS: Vitamin D 1000 IU Tab ORAL SCH (11:15)
[2018-01-27 12:00] VITALS: BP 133/71
--- NOTE | 2018-01-27 12:32 | Consultation ---
History of Present Illness General Chief Complaint: Altered Mental Status Reason for Consultation: multiple wounds Present Illness HPI 47M currently hospitalized for some time now. known to me from prior temporary HD catheter insertion performed in ICU for urgent dialysis. given medical condition has developed multiple skin wounds. surgery called to evaluate wounds and assist with management. patient seen, chart reviewed, patient examined. Allergies: Coded Allergies: No Known Allergies (Unverified , 01/15/18) Patient History History Provided By: Patient, Family Member, Medical Record, PMD Healthcare decision maker AKUA CRAWFORD Resuscitation status Full Code Advanced Directive on File No Past Medical/Surgical History Past Medical/Surgical History: (1) Sacral decubitus ulcer, stage II (2) Acute renal failure (ARF) (3) Septic shock (4) DKA (diabetic ketoacidoses) (5) Afib Review of Systems All Other Systems: negative except mentioned in HPI Physical Exam General Appearance: no apparent distress Lines, tubes and drains: PICC HEENT: atraumatic Neck: normal inspection Respiratory/Chest: normal breath sounds, no respiratory distress, no accessory muscle use Cardiovascular/Chest: normal peripheral pulses Abdomen: soft, no organomegaly, no mass Extremities: inflammation, other - multiple superficial bruises Skin Exam: normal pigmentation Neurologic: alert, responsive Last 24 Hour Vital Signs Date Time Temp Pulse Resp B/P (MAP) Pulse Ox O2 Delivery O2 Flow Rate FiO2 01/27/18 11:15 97 140/76 01/27/18 08:03 96 Nasal Cannula 3.0 32 01/27/18 08:03 Nasal Cannula 3.0 32 01/27/18 08:00 99.5 97 18 140/76 97 Nasal Cannula 4.0 99.5 01/27/18 04:00 98.2 91 20 134/75 96 Nasal Cannula 4.0 98.2 01/27/18 04:00 42 01/27/18 00:00 93 01/27/18 00:00 98.4 95 20 123/69 96 Nasal Cannula 4.0 98.4 01/26/18 22:50 95 Nasal Cannula 3.0 32 01/26/18 22:50 Nasal Cannula 3.0 32 01/26/18 20:52 95 126/77 01/26/18 20:00 89 01/26/18 20:00 98.2 89 24 142/72 95 Nasal Cannula 4.0 98.2 01/26/18 16:00 99 01/26/18 16:00 99.1 102 16 147/82 95 Nasal Cannula 4.0 99.1 Intake and Output 01/26/18 01/27/18 19:00 07:00 Intake Total 725.0 ml 870.0 ml Output Total 1300 ml 2850 ml Balance -575.0 ml -1980.0 ml Intake Oral 480 ml 600 ml IV Total 245.0 ml 270.0 ml Output Urine Total 1300 ml 2850 ml # Bowel Movements 5 3 Laboratory Tests Test 01/27/18 03:30 White Blood Count 8.6 K/UL (4.8-10.8) Red Blood Count 2.82 M/UL (4.70-6.10) L Hemoglobin 8.5 G/DL (14.2-18.0) L Hematocrit 26.5 % (42.0-52.0) L Mean Corpuscular Volume 94 FL (80-99) Mean Corpuscular Hemoglobin 30.3 PG (27.0-31.0) Mean Corpuscular Hemoglobin Concent 32.2 G/DL (32.0-36.0) Red Cell Distribution Width 12.5 % (11.6-14.8) Platelet Count 148 K/UL (150-450) L Mean Platelet Volume 6.7 FL (6.5-10.1) Neutrophils (%) (Auto) % (45.0-75.0) Lymphocytes (%) (Auto) % (20.0-45.0) Monocytes (%) (Auto) % (1.0-10.0) Eosinophils (%) (Auto) % (0.0-3.0) Basophils (%) (Auto) % (0.0-2.0) Differential Total Cells Counted 100 Neutrophils % (Manual) 67 % (45-75) Lymphocytes % (Manual) 20 % (20-45) Monocytes % (Manual) 13 % (1-10) H Eosinophils % (Manual) 0 % (0-3) Basophils % (Manual) 0 % (0-2) Band Neutrophils 0 % (0-8) Platelet Estimate Adequate Platelet Morphology Normal Hypochromasia 1+ Sodium Level 147 MMOL/L (136-145) H Potassium Level 3.1 MMOL/L (3.5-5.1) L Chloride Level 104 MMOL/L (98-107) Carbon Dioxide Level 37 MMOL/L (21-32) H Anion Gap 6 mmol/L (5-15) Blood Urea Nitrogen 24 mg/dL (7-18) H Creatinine 1.2 MG/DL (0.55-1.30) Estimat Glomerular Filtration Rate > 60 mL/min (>60) Glucose Level 324 MG/DL (74-106) #H Calcium Level 7.6 MG/DL (8.5-10.1) L Phosphorus Level 2.7 MG/DL (2.5-4.9) Magnesium Level 1.5 MG/DL (1.8-2.4) L Total Bilirubin 0.7 MG/DL (0.2-1.0) Direct Bilirubin 0.3 MG/DL (0.0-0.3) Aspartate Amino Transf (AST/SGOT) 36 U/L (15-37) Alanine Aminotransferase (ALT/SGPT) 30 U/L (12-78) Alkaline Phosphatase 667 U/L (46-116) H Total Protein 5.5 G/DL (6.4-8.2) L Albumin 1.7 G/DL (3.4-5.0) L Height (Feet): 5 Height (Inches): 9.00 Weight (Pounds): 307 Medications Current Medications Medications (Trade) Dose Ordered Sig/Alana Route PRN Reason Start Time Stop Time Status Last Admin Dose Admin Acetaminophen (Tylenol) 500 mg Q6HR PRN NG Fever/Headache/Mild Pain 01/25/18 00:00 02/15/18 23:14 Albuterol Sulfate (Proventil) 2.5 mg Q6H PRN HHN For Cough/Dyspnea 01/25/18 05:00 01/29/18 10:59 Calcium Carbonate (Os-Aries) 1,250 mg QID ORAL 01/25/18 13:00 02/23/18 09:59 01/27/18 11:05 Carvedilol (Coreg) 3.125 mg EVERY 12 HOURS ORAL 01/25/18 09:00 02/24/18 08:59 01/27/18 11:15 Chlorhexidine Gluconate (Марина-Hex 2%) 1 applic DAILY@1999 TOPIC 01/26/18 20:00 02/25/18 19:59 01/26/18 20:50 Dextrose (Dextrose 50%) 25 ml STAT PRN IV Hypoglycemia 01/25/18 06:45 02/23/18 06:44 Dextrose (Dextrose 50%) 50 ml STAT PRN IV Hypoglycemia 01/25/18 06:45 02/23/18 06:44 Fluconazole (Diflucan) 100 mg DAILY ORAL 01/26/18 11:30 02/02/18 11:29 01/27/18 11:05 Folic Acid (Folate) 1 mg DAILY ORAL 01/27/18 09:00 02/26/18 08:59 01/27/18 11:06 Furosemide 100 mg/ Dextrose 100 ml @ 5 mls/hr Q20H IV 01/25/18 12:00 02/24/18 11:59 01/27/18 01:09 Insulin Aspart (NovoLOG) BEFORE MEALS AND HS SUBQ 01/25/18 06:30 02/23/18 11:29 01/27/18 06:50 Insulin Aspart (NovoLOG) 6 units NOVOTIAC SUBQ 01/25/18 06:30 02/23/18 11:49 01/27/18 06:49 Insulin Detemir (Levemir) 10 units BID SUBQ 01/25/18 09:00 02/23/18 08:59 01/27/18 11:01 Lactobacillus Acidophilus (Culturelle) 1 tab THREE TIMES A DAY ORAL 01/25/18 09:00 02/22/18 12:59 01/27/18 11:05 Magnesium Sulfate 100 ml @ 100 mls/hr Q1H IVPB 01/27/18 09:30 01/27/18 13:29 01/27/18 11:37 Metronidazole (Flagyl) 250 mg Q8HR ORAL 01/25/18 06:00 01/30/18 23:59 01/27/18 06:06 Morphine Sulfate (Morphine Sulfate) 4 mg Q4H PRN IVP Severe Pain (Pain Scale 7-10) 01/25/18 00:00 01/30/18 11:59 01/26/18 04:04 Pantoprazole (Protonix) 40 mg EVERY 12 HOURS ORAL 01/26/18 21:00 02/25/18 20:59 01/27/18 11:05 Piperacillin Sod/ Tazobactam Sod 3.375 gm/Sodium Chloride 110 ml @ 27.5 mls/hr EVERY 8 HOURS IVPB 01/25/18 06:00 01/28/18 13:59 01/27/18 06:06 Potassium Chloride (K-Dur) 40 meq THREE TIMES A DAY ORAL 01/27/18 13:00 02/22/18 10:14 01/27/18 11:07 Vitamin D (Vitamin D) 5,000 intlu DAILY ORAL 01/27/18 09:00 02/26/18 08:59 01/27/18 11:15 Assessment/Plan Problem List: (1) Sacral decubitus ulcer, stage II Assessment & Plan: bilateral lower extremity superficial skin bruising and blisters. some are from prior edema which is improving since renal function improved. some are from patient moving around. --keep pressure off wounds. leave blisters as they are. if drain that is okay but will allow it to happen spontaneously. okay for bacitracin on wounds. please place foam dressings sacral state 2 decubitus ulcer --keep off wound by turning q2h. keep site clean, okay for foam dressing onto wound. no debridement currently necessary. thank you for this consultation. will follow intermittently with wound evaluation and care recommendations. ICD Codes: L89.152 - Pressure ulcer of sacral region, stage 2 SNOMED: [id number], [id number] Status: stable Екатерина Sosaya January 27, 2018 12:32
--- NOTE | 2018-01-27 13:00 | Progress Note ---
DATE: 01/26/2018 CARDIOLOGY PROGRESS NOTE SUBJECTIVE: The patient is awake and alert. Oxygenating adequately on 3 liters nasal cannula. He continues on insulin drip and furosemide drip with potassium replacement being given. Blood pressure is stable off pressor support. PHYSICAL EXAMINATION: VITAL SIGNS: Blood pressure 142/72, pulse 89, respirations 18 and afebrile. LUNGS: Bilateral breath sounds. Few rhonchi. HEART: Regular rhythm and rate. Normal S1, S2 with a fourth heart sound. ABDOMEN: Soft, slightly distended. EXTREMITIES: With dependent edema. LABORATORY DATA: White count 10, hemoglobin 9, platelet count is now normalizing. Impression: remains tenuous PLAN: Adjust IVF. Insulin titration. Replace lytes. Initiate beta zen and aspirin fdc. Ernie Ashford M.D. DR: FAMILIA JOB#: [id number] CC: YESIKA
--- NOTE | 2018-01-27 15:47 | Pulmonology Progress Note ---
Assessment/Plan Assessment/Plan Assessment/Plan 1. Respiratory failure. Nocturnal BiPAP 2. hyponatremia. now with hypernatremia 3. Hyperglycemia. 4. Diabetic ketoacidosis. 5. Sepsis. 6. Hypotension. Resolved. 7. S/p arrest DISCUSSION: broad-spectrum, antibiotics, dc central line and maintain PICC Off HD Slowly improving Continue diet cards - re pauses Subjective Allergies: Coded Allergies: No Known Allergies (Unverified , 01/15/18) Subjective awake having pauses Objective Last 24 Hour Vital Signs Date Time Temp Pulse Resp B/P (MAP) Pulse Ox O2 Delivery O2 Flow Rate FiO2 01/27/18 12:00 104 01/27/18 11:15 97 140/76 01/27/18 08:03 96 Nasal Cannula 3.0 32 01/27/18 08:03 Nasal Cannula 3.0 32 01/27/18 08:00 79 01/27/18 08:00 99.5 97 18 140/76 97 Nasal Cannula 4.0 99.5 01/27/18 04:00 98.2 91 20 134/75 96 Nasal Cannula 4.0 98.2 01/27/18 04:00 42 01/27/18 00:00 93 01/27/18 00:00 98.4 95 20 123/69 96 Nasal Cannula 4.0 98.4 01/26/18 22:50 95 Nasal Cannula 3.0 32 01/26/18 22:50 Nasal Cannula 3.0 32 01/26/18 20:52 95 126/77 01/26/18 20:00 89 01/26/18 20:00 98.2 89 24 142/72 95 Nasal Cannula 4.0 98.2 01/26/18 16:00 99 01/26/18 16:00 99.1 102 16 147/82 95 Nasal Cannula 4.0 99.1 Intake and Output 01/26/18 01/27/18 19:00 07:00 Intake Total 725.0 ml 870.0 ml Output Total 1300 ml 2850 ml Balance -575.0 ml -1980.0 ml Intake Oral 480 ml 600 ml IV Total 245.0 ml 270.0 ml Output Urine Total 1300 ml 2850 ml # Bowel Movements 5 3 Objective WDWN NAD clear breath sounds bilaterally without rhonchi or wheeze [id number] NABS nontender no CC noted edema nonfocal Laboratory Tests 01/27/18 03:30: White Blood Count 8.6, Red Blood Count 2.82L, Hemoglobin 8.5L, Hematocrit 26.5L , Mean Corpuscular Volume 94, Mean Corpuscular Hemoglobin 30.3, Mean Corpuscular Hemoglobin Concent 32.2, Red Cell Distribution Width 12.5, Platelet Count 148L, Mean Platelet Volume 6.7, Neutrophils (%) (Auto) , Lymphocytes (%) ( Auto) , Monocytes (%) (Auto) , Eosinophils (%) (Auto) , Basophils (%) (Auto) , Differential Total Cells Counted 100, Neutrophils % (Manual) 67, Lymphocytes % ( Manual) 20, Monocytes % (Manual) 13H, Eosinophils % (Manual) 0, Basophils % ( Manual) 0, Band Neutrophils 0, Platelet Estimate Adequate, Platelet Morphology Normal, Hypochromasia 1+, Sodium Level 147H, Potassium Level 3.1L, Chloride Level 104, Carbon Dioxide Level 37H, Anion Gap 6, Blood Urea Nitrogen 24H, Creatinine 1.2, Estimat Glomerular Filtration Rate > 60, Glucose Level 324#H, Calcium Level 7.6L, Phosphorus Level 2.7, Magnesium Level 1.5L, Total Bilirubin 0.7, Direct Bilirubin 0.3, Aspartate Amino Transf (AST/SGOT) 36, Alanine Aminotransferase (ALT/SGPT) 30, Alkaline Phosphatase 667H, Total Protein 5.5L, Albumin 1.7L Current Medications Medications (Trade) Dose Ordered Sig/Alana Route PRN Reason Start Time Stop Time Status Last Admin Dose Admin Acetaminophen (Tylenol) 500 mg Q6HR PRN NG Fever/Headache/Mild Pain 01/25/18 00:00 02/15/18 23:14 Albuterol Sulfate (Proventil) 2.5 mg Q6H PRN HHN For Cough/Dyspnea 01/25/18 05:00 01/29/18 10:59 Calcium Carbonate (Os-Aries) 1,250 mg QID ORAL 01/25/18 13:00 02/23/18 09:59 01/27/18 13:57 Carvedilol (Coreg) 3.125 mg EVERY 12 HOURS ORAL 01/25/18 09:00 02/24/18 08:59 01/27/18 11:15 Chlorhexidine Gluconate (Марина-Hex 2%) 1 applic DAILY@1999 TOPIC 01/26/18 20:00 02/25/18 19:59 01/26/18 20:50 Dextrose (Dextrose 50%) 25 ml STAT PRN IV Hypoglycemia 01/25/18 06:45 02/23/18 06:44 Dextrose (Dextrose 50%) 50 ml STAT PRN IV Hypoglycemia 01/25/18 06:45 02/23/18 06:44 Fluconazole (Diflucan) 100 mg DAILY ORAL 01/26/18 11:30 02/02/18 11:29 01/27/18 11:05 Folic Acid (Folate) 1 mg DAILY ORAL 01/27/18 09:00 02/26/18 08:59 01/27/18 11:06 Furosemide 100 mg/ Dextrose 100 ml @ 5 mls/hr Q20H IV 01/25/18 12:00 02/24/18 11:59 01/27/18 01:09 Insulin Aspart (NovoLOG) BEFORE MEALS AND HS SUBQ 01/25/18 06:30 02/23/18 11:29 01/27/18 13:38 Insulin Aspart (NovoLOG) 6 units NOVOTIAC SUBQ 01/25/18 06:30 02/23/18 11:49 01/27/18 13:37 Insulin Detemir (Levemir) 10 units BID SUBQ 01/25/18 09:00 02/23/18 08:59 01/27/18 11:01 Lactobacillus Acidophilus (Culturelle) 1 tab THREE TIMES A DAY ORAL 01/25/18 09:00 02/22/18 12:59 01/27/18 13:57 Metronidazole (Flagyl) 250 mg Q8HR ORAL 01/25/18 06:00 01/30/18 23:59 01/27/18 13:57 Morphine Sulfate (Morphine Sulfate) 4 mg Q4H PRN IVP Severe Pain (Pain Scale 7-10) 01/25/18 00:00 01/30/18 11:59 01/26/18 04:04 Pantoprazole (Protonix) 40 mg EVERY 12 HOURS ORAL 01/26/18 21:00 02/25/18 20:59 01/27/18 11:05 Piperacillin Sod/ Tazobactam Sod 3.375 gm/Sodium Chloride 110 ml @ 27.5 mls/hr EVERY 8 HOURS IVPB 5/24/18 06:00 01/30/18 23:59 01/27/18 14:28 Potassium Chloride (K-Dur) 40 meq THREE TIMES A DAY ORAL 01/27/18 13:00 02/22/18 10:14 01/27/18 11:07 Vitamin D (Vitamin D) 5,000 intlu DAILY ORAL 01/27/18 09:00 02/26/18 08:59 01/27/18 11:15 Walter Murphy MD January 27, 2018 15:46
[2018-01-27 16:00] VITALS: BP 143/71
[2018-01-27 20:00] VITALS: BP 121/60
[2018-01-27] MEDS: Dyna-Hex 2% Top Sol 2oz TOPIC SCH (21:27)
[2018-01-28] VITALS: BP 126/68
[2018-01-28 04:00] VITALS: BP 139/79
[2018-01-28] MEDS: metroNIDAZOLE 250mg tab ORAL SCH ×3 (06:11→21:38)
[2018-01-28] MEDS: Piperacillin/Tazobactam 3.375 GM in NS 110 ML IVPB SCH ×3 (06:11→21:40)
[2018-01-28] MEDS: NovoLOG Insulin Flexpen SUBQ SCH ×6 (06:13→21:36)
--- NOTE | 2018-01-28 06:49 | Pulmonology Progress Note ---
Assessment/Plan Assessment/Plan Assessment/Plan 1. Respiratory failure. Nocturnal BiPAP 2. hyponatremia. now with hypernatremia 3. Hyperglycemia. 4. Diabetic ketoacidosis. 5. Sepsis. 6. Hypotension. Resolved. 7. S/p arrest 8. sinus pauses DISCUSSION: broad-spectrum, antibiotics, maintain PICC Off HD Slowly improving Continue diet cards - follow up Subjective Allergies: Coded Allergies: No Known Allergies (Unverified , 01/15/18) Subjective awake consultants appreciated Objective Last 24 Hour Vital Signs Date Time Temp Pulse Resp B/P (MAP) Pulse Ox O2 Delivery O2 Flow Rate FiO2 01/28/18 04:41 88 18 96 Facial 35 01/28/18 04:00 99.2 82 17 139/79 96 Bi-pap 35 99.2 01/28/18 03:30 93 01/28/18 02:47 95 17 96 Facial 35 01/28/18 01:11 91 18 97 Facial 35 01/28/18 00:00 98.7 93 20 126/68 97 Nasal Cannula 4.0 98.7 01/27/18 23:37 89 01/27/18 21:28 94 121/60 01/27/18 20:00 98.4 94 20 121/60 98 Nasal Cannula 4.0 98.4 01/27/18 19:53 95 Nasal Cannula 3.0 32 01/27/18 19:53 Nasal Cannula 3.0 32 01/27/18 19:38 99 01/27/18 16:06 99 01/27/18 16:00 99.4 94 20 143/71 94 Nasal Cannula 4.0 99.4 01/27/18 12:00 104 01/27/18 12:00 97.9 88 21 133/71 88 Nasal Cannula 4.0 97.9 01/27/18 11:15 97 140/76 01/27/18 08:03 96 Nasal Cannula 3.0 32 01/27/18 08:03 Nasal Cannula 3.0 32 01/27/18 08:00 79 01/27/18 08:00 99.5 97 18 140/76 97 Nasal Cannula 4.0 99.5 Intake and Output 01/27/18 01/28/18 19:00 07:00 Intake Total 570.0 ml 860.0 ml Output Total 2700 ml 4350 ml Balance -2130.0 ml -3490.0 ml Intake Oral 700 ml IV Total 570.0 ml 160.0 ml Output Urine Total 2700 ml 4350 ml # Bowel Movements 4 5 Objective WDWN NAD clear breath sounds bilaterally without rhonchi or wheeze [id number] NABS nontender no CC noted edema nonfocal Microbiology Date/Time Source Procedure Growth Status 01/27/18 05:00 Stool Clostridium difficile Toxin Assay - Final Complete Current Medications Medications (Trade) Dose Ordered Sig/Alana Route PRN Reason Start Time Stop Time Status Last Admin Dose Admin Acetaminophen (Tylenol) 500 mg Q6HR PRN NG Fever/Headache/Mild Pain 01/25/18 00:00 02/15/18 23:14 Albuterol Sulfate (Proventil) 2.5 mg Q6H PRN HHN For Cough/Dyspnea 01/25/18 05:00 01/29/18 10:59 Calcium Carbonate (Os-Aries) 1,250 mg QID ORAL 01/25/18 13:00 02/23/18 09:59 01/27/18 21:27 Carvedilol (Coreg) 3.125 mg EVERY 12 HOURS ORAL 01/25/18 09:00 02/24/18 08:59 01/27/18 21:28 Chlorhexidine Gluconate (Марина-Hex 2%) 1 applic DAILY@2000 TOPIC 01/26/18 20:00 02/25/18 19:59 01/27/18 21:27 Dextrose (Dextrose 50%) 25 ml STAT PRN IV Hypoglycemia 01/25/18 06:45 02/23/18 06:44 Dextrose (Dextrose 50%) 50 ml STAT PRN IV Hypoglycemia 01/25/18 06:45 02/23/18 06:44 Fluconazole (Diflucan) 100 mg DAILY ORAL 01/26/18 11:30 02/02/18 11:29 01/27/18 11:05 Folic Acid (Folate) 1 mg DAILY ORAL 01/27/18 09:00 02/26/18 08:59 01/27/18 11:06 Furosemide 100 mg/ Dextrose 100 ml @ 5 mls/hr Q20H IV 01/25/18 12:00 02/24/18 11:59 01/27/18 18:06 Insulin Aspart (NovoLOG) BEFORE MEALS AND HS SUBQ 01/25/18 06:30 02/23/18 11:29 01/28/18 06:13 Insulin Aspart (NovoLOG) 6 units NOVOTIAC SUBQ 01/25/18 06:30 02/23/18 11:49 01/28/18 06:14 Insulin Detemir (Levemir) 10 units BID SUBQ 01/25/18 09:00 02/23/18 08:59 01/27/18 17:28 Lactobacillus Acidophilus (Culturelle) 1 tab THREE TIMES A DAY ORAL 01/25/18 09:00 02/22/18 12:59 01/27/18 18:04 Metronidazole (Flagyl) 250 mg Q8HR ORAL 01/25/18 06:00 01/30/18 23:59 01/28/18 06:11 Morphine Sulfate (Morphine Sulfate) 4 mg Q4H PRN IVP Severe Pain (Pain Scale 7-10) 01/25/18 00:00 01/30/18 11:59 01/26/18 04:04 Pantoprazole (Protonix) 40 mg EVERY 12 HOURS ORAL 01/26/18 21:00 02/25/18 20:59 01/27/18 21:27 Piperacillin Sod/ Tazobactam Sod 3.375 gm/Sodium Chloride 110 ml @ 27.5 mls/hr EVERY 8 HOURS IVPB 01/25/18 06:00 01/30/18 23:59 01/28/18 06:11 Potassium Chloride (K-Dur) 40 meq THREE TIMES A DAY ORAL 01/27/18 13:00 02/22/18 10:14 01/27/18 18:05 Vitamin D (Vitamin D) 5,000 intlu DAILY ORAL 01/27/18 09:00 02/26/18 08:59 01/27/18 11:15 Walter Murphy MD January 28, 2018 06:49
[2018-01-28 08:00] VITALS: BP 137/74
[2018-01-28] MEDS: Vitamin D 1000 IU Tab ORAL SCH (09:31)
[2018-01-28] MEDS: Fluconazole 100mg tab ORAL SCH (09:32)
[2018-01-28] MEDS: Lactobacillus-GG tablet ORAL SCH ×3 (09:32→17:05)
[2018-01-28] MEDS: Levemir Flexpen SUBQ SCH (09:38)
--- NOTE | 2018-01-28 10:05 | Nephrology Progress Note ---
Assessment/Plan Problem List: (1) Septic shock (2) DKA (diabetic ketoacidoses) (3) Acute renal failure (ARF) Assessment acute renal failure- now Cr stable and lowering off dialysis Hypotensive on pressors- IMPROVED acute respiratory failure- ON VENT Diabetic Ketoacidosis Low Na, Low K Sepsis high lipase Plan no labs today K and Mag supp. as needed Iron panel and B12 and folate on lasix drip HD last 01/19 check MARION abd : 2. Dense enlarged liver likely fatty. Insulin drip DC bicitra discussed with RN discussed with Mom and GF Betsy per orders Subjective ROS Limited/Unobtainable: No Constitutional: Reports: malaise Objective Objective Last 24 Hour Vital Signs Date Time Temp Pulse Resp B/P (MAP) Pulse Ox O2 Delivery O2 Flow Rate FiO2 01/28/18 09:32 98 137/74 01/28/18 08:00 99.1 98 19 137/74 95 Nasal Cannula 4.0 99.1 01/28/18 04:41 88 18 96 Facial 35 01/28/18 04:00 99.2 82 17 139/79 96 Bi-pap 35 99.2 01/28/18 03:30 93 01/28/18 02:47 95 17 96 Facial 35 01/28/18 01:11 91 18 97 Facial 35 01/28/18 00:00 98.7 93 20 126/68 97 Nasal Cannula 4.0 98.7 01/27/18 23:37 89 01/27/18 21:28 94 121/60 01/27/18 20:00 98.4 94 20 121/60 98 Nasal Cannula 4.0 98.4 01/27/18 19:53 95 Nasal Cannula 3.0 32 01/27/18 19:53 Nasal Cannula 3.0 32 01/27/18 19:38 99 01/27/18 16:06 99 01/27/18 16:00 99.4 94 20 143/71 94 Nasal Cannula 4.0 99.4 01/27/18 12:00 104 01/27/18 12:00 97.9 88 21 133/71 88 Nasal Cannula 4.0 97.9 01/27/18 11:15 97 140/76 Intake and Output 01/27/18 01/28/18 19:00 07:00 Intake Total 570.0 ml 887.5 ml Output Total 2700 ml 4350 ml Balance -2130.0 ml -3462.5 ml Intake Oral 700 ml IV Total 570.0 ml 187.5 ml Output Urine Total 2700 ml 4350 ml # Bowel Movements 4 5 Height (Feet): 5 Height (Inches): 9.00 Weight (Pounds): 280 General Appearance: no apparent distress Objective no other change ALANNA MAHONEY January 28, 2018 10:05
--- NOTE | 2018-01-28 10:23 | Infectious Diseases Prog Note ---
Assessment/Plan Assessment/Plan A; Septic shock resolved Bacteremia with Peptostreptococcus & Actinomyces Fungal UTI Diarrhea, C. difficile negative VRE & MRSA colonization Pancreatitis Acute renal failure improving Acute respiratory failure resolving DKA Pulmonary edema Psoriasis Thrombocytopenia Hypokalemia & Hypocalcemia P: Continue Zosyn , Flagyl, Fluconazole Subjective ROS Limited/Unobtainable: No Constitutional: Reports: no symptoms Gastrointestinal/Abdominal: Reports: diarrhea Musculoskeletal: Reports: swelling Allergies: Coded Allergies: No Known Allergies (Unverified , 01/15/18) Objective Vital Signs Last 24 Hour Vital Signs Date Time Temp Pulse Resp B/P (MAP) Pulse Ox O2 Delivery O2 Flow Rate FiO2 01/28/18 09:32 98 137/74 01/28/18 08:00 99.1 98 19 137/74 95 Nasal Cannula 4.0 99.1 01/28/18 04:41 88 18 96 Facial 35 01/28/18 04:00 99.2 82 17 139/79 96 Bi-pap 35 99.2 01/28/18 03:30 93 01/28/18 02:47 95 17 96 Facial 35 01/28/18 01:11 91 18 97 Facial 35 01/28/18 00:00 98.7 93 20 126/68 97 Nasal Cannula 4.0 98.7 01/27/18 23:37 89 01/27/18 21:28 94 121/60 01/27/18 20:00 98.4 94 20 121/60 98 Nasal Cannula 4.0 98.4 01/27/18 19:53 95 Nasal Cannula 3.0 32 01/27/18 19:53 Nasal Cannula 3.0 32 01/27/18 19:38 99 01/27/18 16:06 99 01/27/18 16:00 99.4 94 20 143/71 94 Nasal Cannula 4.0 99.4 01/27/18 12:00 104 01/27/18 12:00 97.9 88 21 133/71 88 Nasal Cannula 4.0 97.9 01/27/18 11:15 97 140/76 Height (Feet): 5 Height (Inches): 9.00 Weight (Pounds): 280 General Appearance: no acute distress HEENT: mucous membranes moist Respiratory/Chest: lungs clear Cardiovascular: normal rate, other - left arm PICC line Abdomen: soft, non tender Extremities: other - edema in hands & feet Skin: ulcers, other - surperfical blisters in legs, sacral stage 2 ulcer Neurologic/Psychiatric: alert, oriented x 3, responsive Microbiology Date/Time Source Procedure Growth Status 01/27/18 05:00 Stool Clostridium difficile Toxin Assay - Final Complete Current Medications Medications (Trade) Dose Ordered Sig/Alana Route PRN Reason Start Time Stop Time Status Last Admin Dose Admin Acetaminophen (Tylenol) 500 mg Q6HR PRN NG Fever/Headache/Mild Pain 01/25/18 00:00 02/15/18 23:14 Albuterol Sulfate (Proventil) 2.5 mg Q6H PRN HHN For Cough/Dyspnea 01/25/18 05:00 01/29/18 10:59 Bacitracin (Bacitracin 15gm tube) 1 applic DAILY TOPIC 01/29/18 06:00 02/28/18 05:59 Calcium Carbonate (Os-Aries) 1,250 mg QID ORAL 01/25/18 13:00 02/23/18 09:59 01/28/18 09:32 Carvedilol (Coreg) 3.125 mg EVERY 12 HOURS ORAL 01/25/18 09:00 02/24/18 08:59 01/28/18 09:32 Chlorhexidine Gluconate (Марина-Hex 2%) 1 applic DAILY@2000 TOPIC 01/26/18 20:00 02/25/18 19:59 01/27/18 21:27 Dextrose (Dextrose 50%) 25 ml STAT PRN IV Hypoglycemia 01/25/18 06:45 02/23/18 06:44 Dextrose (Dextrose 50%) 50 ml STAT PRN IV Hypoglycemia 01/25/18 06:45 02/23/18 06:44 Fluconazole (Diflucan) 100 mg DAILY ORAL 01/26/18 11:30 02/02/18 11:29 01/28/18 09:32 Folic Acid (Folate) 1 mg DAILY ORAL 01/27/18 09:00 02/26/18 08:59 01/28/18 09:32 Furosemide 100 mg/ Dextrose 100 ml @ 5 mls/hr Q20H IV 01/25/18 12:00 02/24/18 11:59 01/27/18 18:06 Insulin Aspart (NovoLOG) BEFORE MEALS AND HS SUBQ 01/25/18 06:30 02/23/18 11:29 01/28/18 06:13 Insulin Aspart (NovoLOG) 6 units NOVOTIAC SUBQ 01/25/18 06:30 02/23/18 11:49 01/28/18 06:14 Insulin Detemir (Levemir) 10 units BID SUBQ 01/25/18 09:00 02/23/18 08:59 01/28/18 09:38 Lactobacillus Acidophilus (Culturelle) 1 tab THREE TIMES A DAY ORAL 01/25/18 09:00 02/22/18 12:59 01/28/18 09:32 Metronidazole (Flagyl) 250 mg Q8HR ORAL 01/25/18 06:00 01/30/18 23:59 01/28/18 06:11 Morphine Sulfate (Morphine Sulfate) 4 mg Q4H PRN IVP Severe Pain (Pain Scale 7-10) 01/25/18 00:00 01/30/18 11:59 01/26/18 04:04 Pantoprazole (Protonix) 40 mg EVERY 12 HOURS ORAL 01/26/18 21:00 02/25/18 20:59 01/28/18 09:32 Piperacillin Sod/ Tazobactam Sod 3.375 gm/Sodium Chloride 110 ml @ 27.5 mls/hr EVERY 8 HOURS IVPB 01/25/18 06:00 01/30/18 23:59 01/28/18 06:11 Potassium Chloride (K-Dur) 40 meq THREE TIMES A DAY ORAL 01/27/18 13:00 02/22/18 10:14 01/28/18 09:31 Vitamin D (Vitamin D) 5,000 intlu DAILY ORAL 01/27/18 09:00 02/26/18 08:59 01/28/18 09:31 KIRBY MONTES January 28, 2018 10:23
[2018-01-28 12:00] VITALS: BP 134/76
[2018-01-28] MEDS ORDERED: NS 275ml ONE (14:02)
[2018-01-28] MEDS ORDERED: Acetaminophen 650mg/20.3ml NG PRN (15:30)
[2018-01-28] MEDS ORDERED: Albuterol ud Inhalation HHN PRN (15:30)
[2018-01-28 16:00] VITALS: BP 149/87
[2018-01-28] MEDS ORDERED: Morphine Sulfate 4mg/ml Inj IVP PRN (16:00)
[2018-01-28] MEDS ORDERED: NovoLOG Insulin Flexpen SUBQ SCH (16:50)
[2018-01-28] MEDS ORDERED: Levemir Flexpen SUBQ SCH (18:00)
[2018-01-28 20:00] VITALS: BP 126/68
[2018-01-28] MEDS ORDERED: Heparin 5000 units/ml inj SUBQ SCH (21:00)
[2018-01-28] MEDS: Dyna-Hex 2% Top Sol 2oz TOPIC SCH (21:33)
[2018-01-28] MEDS: Heparin 5000 units/ml inj SUBQ SCH (21:35)
[2018-01-29] VITALS: BP 134/71
[2018-01-29 04:00] VITALS: BP 125/82
[2018-01-29] MEDS ORDERED: Bacitracin Oint 15gm Tube TOPIC SCH (06:00)
[2018-01-29] MEDS: NovoLOG Insulin Flexpen SUBQ SCH ×7 (06:42→21:05)
[2018-01-29] MEDS: Piperacillin/Tazobactam 3.375 GM in NS 110 ML IVPB SCH ×3 (06:44→22:15)
[2018-01-29] MEDS: metroNIDAZOLE 250mg tab ORAL SCH (06:45)
[2018-01-29] MEDS: Bacitracin Oint 15gm Tube TOPIC SCH (06:45)
[2018-01-29 07:33] LABS: BASOPHILS % (AUTO) 2.5 % (0.0-2.0); EOSINOPHILS % (AUTO) 2.2 % (0.0-3.0); HEMATOCRIT 27.2 % (42.0-52.0); HEMOGLOBIN 8.7 G/DL (14.2-18.0); LYMPHOCYTES % (AUTO) 27.2 % (20.0-45.0); MEAN CORPUSCULAR VOLUME 94 FL (80-99); MONOCYTES % (AUTO) 10.6 % (1.0-10.0); NEUTROPHILS % (AUTO) 57.5 % (45.0-75.0); PLATELET COUNT 161 K/UL (150-450); RED BLOOD COUNT 2.89 M/UL (4.70-6.10); RED CELL DISTRIBUTION WIDTH 13.1 % (11.6-14.8); WHITE BLOOD COUNT 6.9 K/UL (4.8-10.8)
[2018-01-29 07:46] LABS: ALANINE AMINOTRANSFERASE 24 U/L (12-78); ALBUMIN 1.9 G/DL (3.4-5.0); ALBUMIN/GLOBULIN RATIO 0.5 (1.0-2.7); ALKALINE PHOSPHATASE 512 U/L (46-116); ANION GAP 6 mmol/L (5-15); ASPARTATE AMINO TRANSFERASE 30 U/L (15-37); BILIRUBIN,TOTAL 0.7 MG/DL (0.2-1.0); BLOOD UREA NITROGEN 27 mg/dL (7-18); CALCIUM 8.5 MG/DL (8.5-10.1); CARBON DIOXIDE 37 MMOL/L (21-32); CHLORIDE 108 MMOL/L (98-107); CREATININE 1.1 MG/DL (0.55-1.30); PHOSPHORUS 3.5 MG/DL (2.5-4.9); POTASSIUM 3.2 MMOL/L (3.5-5.1); SODIUM 151 MMOL/L (136-145)
--- NOTE | 2018-01-29 07:49 | General Progress Note ---
Assessment/Plan Problem List: (1) Septic shock ICD Codes: A41.9 - Sepsis, unspecified organism; R65.21 - Severe sepsis with septic shock SNOMED: 69023573 (2) DKA (diabetic ketoacidoses) ICD Codes: E13.10 - Other specified diabetes mellitus with ketoacidosis without coma SNOMED: 834435244, 71764902 (3) Acute renal failure (ARF) ICD Codes: N17.9 - Acute kidney failure, unspecified SNOMED: 51026245 Assessment/Plan - continue Levemir 15 units bid - continue Novolog 10 units ac tid - continue NISS ac / hs Subjective Allergies: Coded Allergies: No Known Allergies (Unverified , 01/15/18) All Systems: reviewed and negative except above Subjective events noted - interval notes reviewed Objective Last 24 Hour Vital Signs Date Time Temp Pulse Resp B/P (MAP) Pulse Ox O2 Delivery O2 Flow Rate FiO2 01/29/18 05:30 88 28 96 Facial 35 01/29/18 04:00 82 01/29/18 04:00 97.7 86 22 125/82 95 Nasal Cannula 3.0 97.7 01/29/18 01:34 92 26 95 Facial 35 01/29/18 00:00 97.5 98 19 134/71 95 Nasal Cannula 3.0 97.5 01/29/18 00:00 95 01/28/18 21:38 99 126/68 01/28/18 20:00 97 01/28/18 20:00 98.1 99 22 126/68 94 Nasal Cannula 3.0 98.1 01/28/18 19:09 96 Nasal Cannula 3.0 32 01/28/18 19:09 Nasal Cannula 3.0 32 01/28/18 16:00 97 01/28/18 16:00 99.3 98 20 149/87 95 Nasal Cannula 4.0 99.3 01/28/18 12:00 99.0 101 21 134/76 97 Nasal Cannula 4.0 99.0 01/28/18 12:00 98 01/28/18 09:32 98 137/74 01/28/18 09:00 106 01/28/18 08:27 Nasal Cannula 3.0 32 01/28/18 08:27 97 Nasal Cannula 3.0 32 01/28/18 08:26 98 20 Nasal Cannula 3.0 32 01/28/18 08:00 99.1 98 19 137/74 95 Nasal Cannula 4.0 99.1 Intake and Output 01/28/18 01/29/18 19:00 07:00 Intake Total 900.0 ml Output Total 2300 ml 950 ml Balance -1400.0 ml -950 ml Intake Oral 705 ml IV Total 195.0 ml Output Urine Total 2300 ml 950 ml # Voids 1 # Bowel Movements 3 1 Laboratory Tests 01/29/18 05:15: White Blood Count 6.9, Red Blood Count 2.89L, Hemoglobin 8.7L, Hematocrit 27.2L , Mean Corpuscular Volume 94, Mean Corpuscular Hemoglobin 30.0, Mean Corpuscular Hemoglobin Concent 31.9L, Red Cell Distribution Width 13.1, Platelet Count 161, Mean Platelet Volume 6.9, Neutrophils (%) (Auto) 57.5, Lymphocytes (%) (Auto) 27.2, Monocytes (%) (Auto) 10.6H, Eosinophils (%) (Auto) 2.2, Basophils (%) (Auto) 2.5H, Sodium Level 151H, Potassium Level 3.2L, Chloride Level 108H, Carbon Dioxide Level 37H, Anion Gap 6, Blood Urea Nitrogen 27H, Creatinine 1.1, Estimat Glomerular Filtration Rate > 60, Glucose Level 287H , Uric Acid 4.0, Calcium Level 8.5, Phosphorus Level 3.5, Magnesium Level 1.2L, Total Bilirubin 0.7, Aspartate Amino Transf (AST/SGOT) 30, Alanine Aminotransferase (ALT/SGPT) 24, Alkaline Phosphatase 512H, Total Protein 5.9L, Albumin 1.9L, Globulin 4.0, Albumin/Globulin Ratio 0.5L Height (Feet): 5 Height (Inches): 9.00 Weight (Pounds): 281 General Appearance: no apparent distress Cardiovascular: normal rate Respiratory/Chest: lungs clear Abdomen: normal bowel sounds Edema: no edema noted Arm (L), no edema noted Arm (R), no edema noted Leg (L), no edema noted Leg (R), no edema noted Pedal (L), no edema noted Pedal (R), no edema noted Generalized Objective Current Medications Medications (Trade) Dose Ordered Sig/Alana Route PRN Reason Start Time Stop Time Status Last Admin Dose Admin Acetaminophen (Tylenol) 500 mg Q6H PRN NG Fever/Headache/Mild Pain 01/28/18 15:30 02/27/18 15:29 Albuterol Sulfate (Proventil) 2.5 mg Q6H PRN HHN For Cough/Dyspnea 01/28/18 15:30 01/29/18 15:29 Bacitracin (Bacitracin 15gm tube) 1 applic DAILY TOPIC 01/29/18 06:00 02/28/18 05:59 01/29/18 06:45 Calcium Carbonate (Os-Aries) 1,250 mg QID ORAL 01/28/18 18:00 02/23/18 09:59 01/28/18 21:38 Carvedilol (Coreg) 3.125 mg EVERY 12 HOURS ORAL 01/28/18 21:00 02/24/18 20:59 01/28/18 21:38 Chlorhexidine Gluconate (Марина-Hex 2%) 1 applic DAILY@2000 TOPIC 01/28/18 20:00 02/25/18 19:59 01/28/18 21:33 Dextrose (Dextrose 50%) 25 ml STAT PRN IV Hypoglycemia 01/28/18 15:30 02/27/18 15:29 Dextrose (Dextrose 50%) 50 ml STAT PRN IV Hypoglycemia 01/28/18 15:30 02/27/18 15:29 Fluconazole (Diflucan) 100 mg DAILY ORAL 01/29/18 09:00 02/02/18 11:29 Folic Acid (Folate) 1 mg DAILY ORAL 01/29/18 09:00 02/26/18 08:59 Furosemide 100 mg/ Dextrose 100 ml @ 5 mls/hr Q20H IV 01/28/18 16:30 02/27/18 16:29 01/28/18 17:10 Heparin Sodium (Porcine) (Heparin 5000 units/ml) 5,000 units EVERY 12 HOURS SUBQ 01/28/18 21:00 02/27/18 20:59 01/28/18 21:35 Insulin Aspart (NovoLOG) BEFORE MEALS AND HS SUBQ 01/28/18 16:30 02/23/18 11:29 01/29/18 06:42 Insulin Aspart (NovoLOG) 10 units NOVOTIAC SUBQ 01/29/18 06:30 02/23/18 11:49 01/29/18 06:43 Insulin Detemir (Levemir) 15 units Q12HR SUBQ 01/29/18 09:00 02/23/18 08:59 Lactobacillus Acidophilus (Culturelle) 1 tab THREE TIMES A DAY ORAL 01/28/18 18:00 02/22/18 17:59 01/28/18 17:05 Metronidazole (Flagyl) 250 mg Q8HR ORAL 01/28/18 22:00 01/30/18 21:59 01/29/18 06:45 Morphine Sulfate (Morphine Sulfate) 4 mg Q4H PRN IVP Severe Pain (Pain Scale 7-10) 01/28/18 16:00 01/30/18 11:59 Pantoprazole (Protonix) 40 mg EVERY 12 HOURS ORAL 01/28/18 21:00 02/25/18 20:59 01/28/18 21:37 Piperacillin Sod/ Tazobactam Sod 3.375 gm/Sodium Chloride 110 ml @ 27.5 mls/hr EVERY 8 HOURS IVPB 01/28/18 22:00 01/30/18 21:59 01/29/18 06:44 Potassium Chloride (K-Dur) 40 meq THREE TIMES A DAY ORAL 01/28/18 18:00 02/22/18 17:59 01/28/18 17:05 Vitamin D (Vitamin D) 5,000 intlu DAILY ORAL 01/29/18 09:00 02/26/18 08:59 Item Value Date Time Bedside Blood Glucose 279 mg/dl H 01/29/18 0643 Bedside Blood Glucose 301 mg/dl H 01/28/18 2136 Bedside Blood Glucose 292 mg/dl H 01/28/18 1708 Bedside Blood Glucose 355 mg/dl H 01/28/18 1216 Bedside Blood Glucose 279 mg/dl H 01/28/18 0938 Bedside Blood Glucose 236 mg/dl H 01/28/18 0630 MATTEO VU January 29, 2018 07:49
--- NOTE | 2018-01-29 07:56 | Pulmonology Progress Note ---
Assessment/Plan Assessment/Plan Assessment/Plan 1. Respiratory failure. Nocturnal BiPAP 2. hypernatremia 3. Hyperglycemia. 4. Diabetes 5. Sepsis. 6. Hypotension. Resolved. 7. S/p arrest 8. sinus pauses DISCUSSION: broad-spectrum, antibiotics, maintain PICC Off HD Slowly improving Continue diet cards - follow up hypotonic fluids per renal monitor sodium levels PT Subjective Allergies: Coded Allergies: No Known Allergies (Unverified , 01/15/18) Subjective awake alert eating consultants appreciated Objective Last 24 Hour Vital Signs Date Time Temp Pulse Resp B/P (MAP) Pulse Ox O2 Delivery O2 Flow Rate FiO2 01/29/18 05:30 88 28 96 Facial 35 01/29/18 04:00 82 01/29/18 04:00 97.7 86 22 125/82 95 Nasal Cannula 3.0 97.7 01/29/18 01:34 92 26 95 Facial 35 01/29/18 00:00 97.5 98 19 134/71 95 Nasal Cannula 3.0 97.5 01/29/18 00:00 95 01/28/18 21:38 99 126/68 01/28/18 20:00 97 01/28/18 20:00 98.1 99 22 126/68 94 Nasal Cannula 3.0 98.1 01/28/18 19:09 96 Nasal Cannula 3.0 32 01/28/18 19:09 Nasal Cannula 3.0 32 01/28/18 16:00 97 01/28/18 16:00 99.3 98 20 149/87 95 Nasal Cannula 4.0 99.3 01/28/18 12:00 99.0 101 21 134/76 97 Nasal Cannula 4.0 99.0 01/28/18 12:00 98 01/28/18 09:32 98 137/74 01/28/18 09:00 106 01/28/18 08:27 Nasal Cannula 3.0 32 01/28/18 08:27 97 Nasal Cannula 3.0 32 01/28/18 08:26 98 20 Nasal Cannula 3.0 32 01/28/18 08:00 99.1 98 19 137/74 95 Nasal Cannula 4.0 99.1 Intake and Output 01/28/18 01/29/18 19:00 07:00 Intake Total 900.0 ml Output Total 2300 ml 950 ml Balance -1400.0 ml -950 ml Intake Oral 705 ml IV Total 195.0 ml Output Urine Total 2300 ml 950 ml # Voids 1 # Bowel Movements 3 1 Objective WDWN NAD clear breath sounds bilaterally without rhonchi or wheeze [id number] NABS nontender no CC noted edema skin breakdown LE nonfocal Microbiology Date/Time Source Procedure Growth Status 01/27/18 05:00 Stool Clostridium difficile Toxin Assay - Final Complete Laboratory Tests 01/29/18 05:15: White Blood Count 6.9, Red Blood Count 2.89L, Hemoglobin 8.7L, Hematocrit 27.2L , Mean Corpuscular Volume 94, Mean Corpuscular Hemoglobin 30.0, Mean Corpuscular Hemoglobin Concent 31.9L, Red Cell Distribution Width 13.1, Platelet Count 161, Mean Platelet Volume 6.9, Neutrophils (%) (Auto) 57.5, Lymphocytes (%) (Auto) 27.2, Monocytes (%) (Auto) 10.6H, Eosinophils (%) (Auto) 2.2, Basophils (%) (Auto) 2.5H, Sodium Level 151H, Potassium Level 3.2L, Chloride Level 108H, Carbon Dioxide Level 37H, Anion Gap 6, Blood Urea Nitrogen 27H, Creatinine 1.1, Estimat Glomerular Filtration Rate > 60, Glucose Level 287H , Uric Acid 4.0, Calcium Level 8.5, Phosphorus Level 3.5, Magnesium Level 1.2L, Total Bilirubin 0.7, Aspartate Amino Transf (AST/SGOT) 30, Alanine Aminotransferase (ALT/SGPT) 24, Alkaline Phosphatase 512H, Total Protein 5.9L, Albumin 1.9L, Globulin 4.0, Albumin/Globulin Ratio 0.5L Current Medications Medications (Trade) Dose Ordered Sig/Alana Route PRN Reason Start Time Stop Time Status Last Admin Dose Admin Acetaminophen (Tylenol) 500 mg Q6H PRN NG Fever/Headache/Mild Pain 01/28/18 15:30 02/27/18 15:29 Albuterol Sulfate (Proventil) 2.5 mg Q6H PRN HHN For Cough/Dyspnea 01/28/18 15:30 01/29/18 15:29 Bacitracin (Bacitracin 15gm tube) 1 applic DAILY TOPIC 01/29/18 06:00 02/28/18 05:59 01/29/18 06:45 Calcium Carbonate (Os-Aries) 1,250 mg QID ORAL 01/28/18 18:00 02/23/18 09:59 01/28/18 21:38 Carvedilol (Coreg) 3.125 mg EVERY 12 HOURS ORAL 01/28/18 21:00 02/24/18 20:59 01/28/18 21:38 Chlorhexidine Gluconate (Марина-Hex 2%) 1 applic DAILY@2000 TOPIC 01/28/18 20:00 02/25/18 19:59 01/28/18 21:33 Dextrose (Dextrose 50%) 25 ml STAT PRN IV Hypoglycemia 01/28/18 15:30 02/27/18 15:29 Dextrose (Dextrose 50%) 50 ml STAT PRN IV Hypoglycemia 01/28/18 15:30 02/27/18 15:29 Fluconazole (Diflucan) 100 mg DAILY ORAL 01/29/18 09:00 02/02/18 11:29 Folic Acid (Folate) 1 mg DAILY ORAL 01/29/18 09:00 02/26/18 08:59 Furosemide 100 mg/ Dextrose 100 ml @ 5 mls/hr Q20H IV 01/28/18 16:30 02/27/18 16:29 01/28/18 17:10 Heparin Sodium (Porcine) (Heparin 5000 units/ml) 5,000 units EVERY 12 HOURS SUBQ 01/28/18 21:00 02/27/18 20:59 01/28/18 21:35 Insulin Aspart (NovoLOG) BEFORE MEALS AND HS SUBQ 01/28/18 16:30 02/23/18 11:29 01/29/18 06:42 Insulin Aspart (NovoLOG) 10 units NOVOTIAC SUBQ 01/29/18 06:30 02/23/18 11:49 01/29/18 06:43 Insulin Detemir (Levemir) 15 units Q12HR SUBQ 01/29/18 09:00 02/23/18 08:59 Lactobacillus Acidophilus (Culturelle) 1 tab THREE TIMES A DAY ORAL 01/28/18 18:00 02/22/18 17:59 01/28/18 17:05 Metronidazole (Flagyl) 250 mg Q8HR ORAL 01/28/18 22:00 01/30/18 21:59 01/29/18 06:45 Morphine Sulfate (Morphine Sulfate) 4 mg Q4H PRN IVP Severe Pain (Pain Scale 7-10) 01/28/18 16:00 01/30/18 11:59 Pantoprazole (Protonix) 40 mg EVERY 12 HOURS ORAL 01/28/18 21:00 02/25/18 20:59 01/28/18 21:37 Piperacillin Sod/ Tazobactam Sod 3.375 gm/Sodium Chloride 110 ml @ 27.5 mls/hr EVERY 8 HOURS IVPB 01/28/18 22:00 01/30/18 21:59 01/29/18 06:44 Potassium Chloride (K-Dur) 40 meq THREE TIMES A DAY ORAL 01/28/18 18:00 02/22/18 17:59 01/28/18 17:05 Vitamin D (Vitamin D) 5,000 intlu DAILY ORAL 01/29/18 09:00 02/26/18 08:59 Walter Murphy MD January 29, 2018 07:56
[2018-01-29 08:00] VITALS: BP 135/80
[2018-01-29] MEDS: Lactobacillus-GG tablet ORAL SCH ×3 (09:27→18:06)
[2018-01-29] MEDS: Vitamin D 1000 IU Tab ORAL SCH (09:27)
[2018-01-29] MEDS: Fluconazole 100mg tab ORAL SCH (09:29)
[2018-01-29] MEDS: Heparin 5000 units/ml inj SUBQ SCH ×2 (09:31→21:02)
[2018-01-29] MEDS: Levemir Flexpen SUBQ SCH ×2 (10:02→21:04)
--- NOTE | 2018-01-29 10:35 | Infectious Diseases Prog Note ---
Assessment/Plan Assessment/Plan A; Septic shock resolved Bacteremia with Peptostreptococcus & Actinomyces Fungal UTI Diarrhea, C. difficile negative VRE & MRSA colonization Pancreatitis Acute renal failure improving Acute respiratory failure resolving DKA Pulmonary edema Psoriasis Thrombocytopenia Hypokalemia & Hypocalcemia P: Continue Zosyn & Fluconazole Discontinue Flagyl, Subjective ROS Limited/Unobtainable: No Constitutional: Reports: no symptoms HEENT: Reports: visual change, other - blurred vision since admission Respiratory: Reports: dry cough Gastrointestinal/Abdominal: Reports: diarrhea Genitourinary: Reports: no symptoms Musculoskeletal: Reports: no symptoms Allergies: Coded Allergies: No Known Allergies (Unverified , 01/15/18) Objective Vital Signs Last 24 Hour Vital Signs Date Time Temp Pulse Resp B/P (MAP) Pulse Ox O2 Delivery O2 Flow Rate FiO2 01/29/18 09:28 101 135/80 01/29/18 08:52 96 Nasal Cannula 3.0 32 01/29/18 08:52 Nasal Cannula 3.0 32 01/29/18 08:00 98.0 101 20 135/80 93 Nasal Cannula 3.0 98.0 01/29/18 05:30 88 28 96 Facial 35 01/29/18 04:00 82 01/29/18 04:00 97.7 86 22 125/82 95 Nasal Cannula 3.0 97.7 01/29/18 01:34 92 26 95 Facial 35 01/29/18 00:00 97.5 98 19 134/71 95 Nasal Cannula 3.0 97.5 01/29/18 00:00 95 01/28/18 21:38 99 126/68 01/28/18 20:00 97 01/28/18 20:00 98.1 99 22 126/68 94 Nasal Cannula 3.0 98.1 01/28/18 19:09 96 Nasal Cannula 3.0 32 01/28/18 19:09 Nasal Cannula 3.0 32 01/28/18 16:00 97 01/28/18 16:00 99.3 98 20 149/87 95 Nasal Cannula 4.0 99.3 01/28/18 12:00 99.0 101 21 134/76 97 Nasal Cannula 4.0 99.0 01/28/18 12:00 98 Height (Feet): 5 Height (Inches): 9.00 Weight (Pounds): 281 General Appearance: no acute distress HEENT: mucous membranes moist Respiratory/Chest: lungs clear Cardiovascular: tachycardia Abdomen: soft, non tender Extremities: other - edema decreasing Skin: ulcers, other - on legs Neurologic/Psychiatric: alert, oriented x 3, responsive Microbiology Date/Time Source Procedure Growth Status 01/27/18 05:00 Stool Clostridium difficile Toxin Assay - Final Complete Laboratory Tests Test 01/29/18 05:15 White Blood Count 6.9 K/UL (4.8-10.8) Red Blood Count 2.89 M/UL (4.70-6.10) L Hemoglobin 8.7 G/DL (14.2-18.0) L Hematocrit 27.2 % (42.0-52.0) L Mean Corpuscular Volume 94 FL (80-99) Mean Corpuscular Hemoglobin 30.0 PG (27.0-31.0) Mean Corpuscular Hemoglobin Concent 31.9 G/DL (32.0-36.0) L Red Cell Distribution Width 13.1 % (11.6-14.8) Platelet Count 161 K/UL (150-450) Mean Platelet Volume 6.9 FL (6.5-10.1) Neutrophils (%) (Auto) 57.5 % (45.0-75.0) Lymphocytes (%) (Auto) 27.2 % (20.0-45.0) Monocytes (%) (Auto) 10.6 % (1.0-10.0) H Eosinophils (%) (Auto) 2.2 % (0.0-3.0) Basophils (%) (Auto) 2.5 % (0.0-2.0) H Sodium Level 151 MMOL/L (136-145) H Potassium Level 3.2 MMOL/L (3.5-5.1) L Chloride Level 108 MMOL/L (98-107) H Carbon Dioxide Level 37 MMOL/L (21-32) H Anion Gap 6 mmol/L (5-15) Blood Urea Nitrogen 27 mg/dL (7-18) H Creatinine 1.1 MG/DL (0.55-1.30) Estimat Glomerular Filtration Rate > 60 mL/min (>60) Glucose Level 287 MG/DL (74-106) H Uric Acid 4.0 MG/DL (2.6-7.2) Calcium Level 8.5 MG/DL (8.5-10.1) Phosphorus Level 3.5 MG/DL (2.5-4.9) Magnesium Level 1.2 MG/DL (1.8-2.4) L Total Bilirubin 0.7 MG/DL (0.2-1.0) Aspartate Amino Transf (AST/SGOT) 30 U/L (15-37) Alanine Aminotransferase (ALT/SGPT) 24 U/L (12-78) Alkaline Phosphatase 512 U/L (46-116) H Total Protein 5.9 G/DL (6.4-8.2) L Albumin 1.9 G/DL (3.4-5.0) L Globulin 4.0 g/dL Albumin/Globulin Ratio 0.5 (1.0-2.7) L Current Medications Medications (Trade) Dose Ordered Sig/Alana Route PRN Reason Start Time Stop Time Status Last Admin Dose Admin Acetaminophen (Tylenol) 500 mg Q6H PRN NG Fever/Headache/Mild Pain 01/28/18 15:30 02/27/18 15:29 Albuterol Sulfate (Proventil) 2.5 mg Q6H PRN HHN For Cough/Dyspnea 01/28/18 15:30 01/29/18 15:29 Bacitracin (Bacitracin 15gm tube) 1 applic DAILY TOPIC 01/29/18 06:00 02/28/18 05:59 01/29/18 06:45 Calcium Carbonate (Os-Aries) 1,250 mg QID ORAL 01/28/18 18:00 02/23/18 09:59 01/29/18 09:29 Carvedilol (Coreg) 3.125 mg EVERY 12 HOURS ORAL 01/28/18 21:00 02/24/18 20:59 01/29/18 09:28 Chlorhexidine Gluconate (Марина-Hex 2%) 1 applic DAILY@1999 TOPIC 01/28/18 20:00 02/25/18 19:59 01/28/18 21:33 Dextrose (Dextrose 50%) 25 ml STAT PRN IV Hypoglycemia 01/28/18 15:30 02/27/18 15:29 Dextrose (Dextrose 50%) 50 ml STAT PRN IV Hypoglycemia 01/28/18 15:30 02/27/18 15:29 Fluconazole (Diflucan) 100 mg DAILY ORAL 01/29/18 09:00 02/02/18 11:29 01/29/18 09:29 Folic Acid (Folate) 1 mg DAILY ORAL 01/29/18 09:00 02/26/18 08:59 01/29/18 09:28 Furosemide 100 mg/ Dextrose 100 ml @ 5 mls/hr Q20H IV 01/28/18 16:30 02/27/18 16:29 01/28/18 17:10 Heparin Sodium (Porcine) (Heparin 5000 units/ml) 5,000 units EVERY 12 HOURS SUBQ 01/28/18 21:00 02/27/18 20:59 01/29/18 09:31 Insulin Aspart (NovoLOG) BEFORE MEALS AND HS SUBQ 01/28/18 16:30 02/23/18 11:29 01/29/18 06:42 Insulin Aspart (NovoLOG) 10 units NOVOTIAC SUBQ 01/29/18 06:30 02/23/18 11:49 01/29/18 06:43 Insulin Detemir (Levemir) 15 units Q12HR SUBQ 01/29/18 09:00 02/23/18 08:59 01/29/18 10:02 Lactobacillus Acidophilus (Culturelle) 1 tab THREE TIMES A DAY ORAL 01/28/18 18:00 02/22/18 17:59 01/29/18 09:27 Magnesium Sulfate 100 ml @ 100 mls/hr Q1H IVPB 01/29/18 10:30 01/29/18 14:29 UNV Metronidazole (Flagyl) 250 mg Q8HR ORAL 01/28/18 22:00 01/30/18 21:59 01/29/18 06:45 Morphine Sulfate (Morphine Sulfate) 4 mg Q4H PRN IVP Severe Pain (Pain Scale 7-10) 01/28/18 16:00 01/30/18 11:59 Pantoprazole (Protonix) 40 mg EVERY 12 HOURS ORAL 01/28/18 21:00 02/25/18 20:59 01/29/18 09:29 Piperacillin Sod/ Tazobactam Sod 3.375 gm/Sodium Chloride 110 ml @ 27.5 mls/hr EVERY 8 HOURS IVPB 01/28/18 22:00 01/30/18 21:59 01/29/18 06:44 Potassium Chloride (K-Dur) 40 meq THREE TIMES A DAY ORAL 01/28/18 18:00 02/22/18 17:59 01/29/18 09:28 Vitamin D (Vitamin D) 5,000 intlu DAILY ORAL 01/29/18 09:00 02/26/18 08:59 01/29/18 09:27 KIRBY MONTES January 29, 2018 10:35
--- NOTE | 2018-01-29 11:15 | Geriatric Medicine Prog Note ---
DATE: 01/28/2018 SUBJECTIVE: The patient's diabetes came under control. He is tolerating BiPAP therapy. OBJECTIVE: VITAL SIGNS: Blood pressure 134/71, pulse 90, respiratory rate 20, and temperature 97.5. Weight 127 kg. RESPIRATORY: Clear. CARDIOVASCULAR: Regular. LABORATORY DATA: Blood glucose . ASSESSMENT: 1. Diabetes mellitus type 2, currently controlled. 2. Respiratory failure, improving. 3. Septic shock, resolved. PLAN: Increase Levemir from 10 to 15
[2018-01-29 12:00] VITALS: BP 130/77
--- NOTE | 2018-01-29 12:06 | Nephrology Progress Note ---
Assessment/Plan Problem List: (1) Septic shock (2) DKA (diabetic ketoacidoses) (3) Acute renal failure (ARF) Assessment acute renal failure- now Cr stable and lowering off dialysis Hypotensive on pressors- IMPROVED acute respiratory failure- ON VENT Diabetic Ketoacidosis Low Na, Low K Sepsis high lipase Plan stop lasix drip K and Mag supp. as needed Iron panel and B12 and folate HD last 01/19 check MARION abd : 2. Dense enlarged liver likely fatty. Insulin drip DC bicitra discussed with RN discussed with Mom and GF Betsy per orders aggresive pt and ot Subjective ROS Limited/Unobtainable: No Objective Objective Last 24 Hour Vital Signs Date Time Temp Pulse Resp B/P (MAP) Pulse Ox O2 Delivery O2 Flow Rate FiO2 01/29/18 09:28 101 135/80 01/29/18 08:52 96 Nasal Cannula 3.0 32 01/29/18 08:52 Nasal Cannula 3.0 32 01/29/18 08:00 109 01/29/18 08:00 98.0 101 20 135/80 93 Nasal Cannula 3.0 98.0 01/29/18 05:30 88 28 96 Facial 35 01/29/18 04:00 82 01/29/18 04:00 97.7 86 22 125/82 95 Nasal Cannula 3.0 97.7 01/29/18 01:34 92 26 95 Facial 35 01/29/18 00:00 97.5 98 19 134/71 95 Nasal Cannula 3.0 97.5 01/29/18 00:00 95 01/28/18 21:38 99 126/68 01/28/18 20:00 97 01/28/18 20:00 98.1 99 22 126/68 94 Nasal Cannula 3.0 98.1 01/28/18 19:09 96 Nasal Cannula 3.0 32 01/28/18 19:09 Nasal Cannula 3.0 32 01/28/18 16:00 97 01/28/18 16:00 99.3 98 20 149/87 95 Nasal Cannula 4.0 99.3 Intake and Output 01/28/18 01/29/18 19:00 07:00 Intake Total 900.0 ml Output Total 2300 ml 950 ml Balance -1400.0 ml -950 ml Intake Oral 705 ml IV Total 195.0 ml Output Urine Total 2300 ml 950 ml # Voids 1 # Bowel Movements 3 1 Laboratory Tests 01/29/18 05:15: White Blood Count 6.9, Red Blood Count 2.89L, Hemoglobin 8.7L, Hematocrit 27.2L , Mean Corpuscular Volume 94, Mean Corpuscular Hemoglobin 30.0, Mean Corpuscular Hemoglobin Concent 31.9L, Red Cell Distribution Width 13.1, Platelet Count 161, Mean Platelet Volume 6.9, Neutrophils (%) (Auto) 57.5, Lymphocytes (%) (Auto) 27.2, Monocytes (%) (Auto) 10.6H, Eosinophils (%) (Auto) 2.2, Basophils (%) (Auto) 2.5H, Sodium Level 151H, Potassium Level 3.2L, Chloride Level 108H, Carbon Dioxide Level 37H, Anion Gap 6, Blood Urea Nitrogen 27H, Creatinine 1.1, Estimat Glomerular Filtration Rate > 60, Glucose Level 287H , Uric Acid 4.0, Calcium Level 8.5, Phosphorus Level 3.5, Magnesium Level 1.2L, Total Bilirubin 0.7, Aspartate Amino Transf (AST/SGOT) 30, Alanine Aminotransferase (ALT/SGPT) 24, Alkaline Phosphatase 512H, Total Protein 5.9L, Albumin 1.9L, Globulin 4.0, Albumin/Globulin Ratio 0.5L Height (Feet): 5 Height (Inches): 9.00 Weight (Pounds): 281 General Appearance: no apparent distress Extremities: other - less edematous Objective no other change ALANNA MAHONEY January 29, 2018 12:06
--- NOTE | 2018-01-29 14:10 | General Progress Note ---
Progress Note Progress Note Surgery: left upper extremity mild edema identified today. examined and does have some mild edema as compared to right side. PICC line on left. prior left subclavian HD cath. possible left upper extremity DVT? will order duplex to evaluate for LUE dvt elevated left upper extremity Presley Sosa January 29, 2018 14:10
[2018-01-29 16:00] VITALS: BP 116/75
[2018-01-29 20:00] VITALS: BP 123/78
[2018-01-29] MEDS: Dyna-Hex 2% Top Sol 2oz TOPIC SCH (20:57)
--- NOTE | 2018-01-29 23:30 | Progress Note ---
DATE: 01/29/2018 CARDIOLOGY PROGRESS NOTE SUBJECTIVE: The patient remains on insulin drip. The patient continues to require close monitoring of electrolytes with replacement therapy on a regular basis adjusted. The patient's blood pressure remains stable. OBJECTIVE: VITAL SIGNS: Blood pressure 135/80, pulse 101, respiratory rate 20 and afebrile. LUNGS: Good breath sounds. No wheezing or rales. HEART: Regular rhythm and rate. Normal S1 and S2. ABDOMEN: Soft. EXTREMITIES: No edema. LABORATORY AND DIAGNOSTIC DATA: White count 6.9 and hemoglobin 8.7. Sodium 151, potassium 3.2, bicarbonate 37, BUN 27 and creatinine 1.1. Magnesium 1.2. Albumin 1.9. IMPRESSION: 1. DKA 2. Dehydration. 3. Hyponatremia. 4. Hypomagnesemia. 5. Hypokalemia. 6. Status post cardiopulmonary arrest. 7. No signs of acute hemodynamics instability at this time. PLAN: 1. Respiratory hygiene. 2. Insulin titration. 3. Replace magnesium and potassium. 4. Free water replacement. 5. DVT prophylaxis. 6. Mobilization. 7. Titrate beta-zen. Ernie Ashford M.D. DR: JOHN JOB#: [id number] CC:
[2018-01-30] VITALS: BP 143/83
[2018-01-30 04:00] VITALS: BP 138/85
[2018-01-30 05:52] LABS: BASOPHILS % (AUTO) 2.3 % (0.0-2.0); EOSINOPHILS % (AUTO) 2.8 % (0.0-3.0); HEMOGLOBIN 8.4 G/DL (14.2-18.0); LYMPHOCYTES % (AUTO) 26.6 % (20.0-45.0); MEAN CORPUSCULAR VOLUME 94 FL (80-99); MONOCYTES % (AUTO) 8.5 % (1.0-10.0); NEUTROPHILS % (AUTO) 59.8 % (45.0-75.0); PLATELET COUNT 163 K/UL (150-450); RED BLOOD COUNT 2.77 M/UL (4.70-6.10); RED CELL DISTRIBUTION WIDTH 12.7 % (11.6-14.8); WHITE BLOOD COUNT 7.6 K/UL (4.8-10.8)
[2018-01-30] MEDS: Piperacillin/Tazobactam 3.375 GM in NS 110 ML IVPB SCH (06:12)
[2018-01-30] MEDS: NovoLOG Insulin Flexpen SUBQ SCH ×7 (06:14→21:00)
[2018-01-30 06:23] LABS: ALANINE AMINOTRANSFERASE 22 U/L (12-78); ALBUMIN/GLOBULIN RATIO 0.5 (1.0-2.7); ALKALINE PHOSPHATASE 428 U/L (46-116); ANION GAP 4 mmol/L (5-15); ASPARTATE AMINO TRANSFERASE 26 U/L (15-37); BILIRUBIN,TOTAL 0.5 MG/DL (0.2-1.0); BLOOD UREA NITROGEN 26 mg/dL (7-18); CARBON DIOXIDE 36 MMOL/L (21-32); CHLORIDE 110 MMOL/L (98-107); CREATININE 1.1 MG/DL (0.55-1.30); GAMMA GLUTAMYL TRANSPEPTIDASE 597 U/L (5-85); PHOSPHORUS 3.4 MG/DL (2.5-4.9); POTASSIUM 3.6 MMOL/L (3.5-5.1); SODIUM 150 MMOL/L (136-145)
--- NOTE | 2018-01-30 07:26 | General Progress Note ---
Assessment/Plan Problem List: (1) Septic shock ICD Codes: A41.9 - Sepsis, unspecified organism; R65.21 - Severe sepsis with septic shock SNOMED: 99365624 (2) DKA (diabetic ketoacidoses) ICD Codes: E13.10 - Other specified diabetes mellitus with ketoacidosis without coma SNOMED: 040764117, 99969845 (3) Acute renal failure (ARF) ICD Codes: N17.9 - Acute kidney failure, unspecified SNOMED: 17943725 Assessment/Plan - increase Levemir to 20 units bid - increase Novolog to 16 units ac tid - continue NISS ac / hs Subjective Allergies: Coded Allergies: No Known Allergies (Unverified , 01/15/18) All Systems: reviewed and negative except above Subjective events noted - interval notes reviewed BG values are elevated Objective Last 24 Hour Vital Signs Date Time Temp Pulse Resp B/P (MAP) Pulse Ox O2 Delivery O2 Flow Rate FiO2 01/30/18 05:38 86 19 97 Facial 35 01/30/18 04:00 85 01/30/18 04:00 99.5 90 16 138/85 99 Nasal Cannula 3.0 99.5 01/30/18 03:14 83 17 98 Facial 35 01/30/18 01:11 89 16 97 Facial 35 01/30/18 00:00 98.6 89 20 143/83 96 Nasal Cannula 3.0 98.6 01/30/18 00:00 97 01/29/18 21:00 101 123/78 01/29/18 20:14 96 Nasal Cannula 3.0 32 01/29/18 20:14 Nasal Cannula 3.0 32 01/29/18 20:00 98.3 101 20 123/78 96 Nasal Cannula 3.0 98.3 01/29/18 20:00 99 01/29/18 16:00 98.2 96 18 116/75 98 Nasal Cannula 3.0 98.2 01/29/18 16:00 93 01/29/18 12:00 98 01/29/18 12:00 98.0 99 20 130/77 96 Nasal Cannula 3.0 98.0 01/29/18 09:28 101 135/80 01/29/18 08:52 96 Nasal Cannula 3.0 32 01/29/18 08:52 Nasal Cannula 3.0 32 01/29/18 08:00 109 01/29/18 08:00 98.0 101 20 135/80 93 Nasal Cannula 3.0 98.0 Intake and Output 01/29/18 01/30/18 19:00 07:00 Intake Total 720 ml 350.0 ml Output Total 2400 ml 1000 ml Balance -1680 ml -650.0 ml Intake Oral 720 ml 240 ml IV Total 110.0 ml Output Urine Total 2400 ml 1000 ml # Bowel Movements 2 3 Laboratory Tests 01/30/18 05:25: White Blood Count 7.6, Red Blood Count 2.77L, Hemoglobin 8.4L, Hematocrit 26.0L , Mean Corpuscular Volume 94, Mean Corpuscular Hemoglobin 30.4, Mean Corpuscular Hemoglobin Concent 32.4, Red Cell Distribution Width 12.7, Platelet Count 163, Mean Platelet Volume 7.1, Neutrophils (%) (Auto) 59.8, Lymphocytes (% ) (Auto) 26.6, Monocytes (%) (Auto) 8.5, Eosinophils (%) (Auto) 2.8, Basophils ( %) (Auto) 2.3H, Sodium Level 150H, Potassium Level 3.6, Chloride Level 110H, Carbon Dioxide Level 36H, Anion Gap 4L, Blood Urea Nitrogen 26H, Creatinine 1.1 , Estimat Glomerular Filtration Rate > 60, Glucose Level 213H, Uric Acid 3.4, Calcium Level 9.0, Phosphorus Level 3.4, Magnesium Level 1.6L, Total Bilirubin 0.5, Gamma Glutamyl Transpeptidase 597H, Aspartate Amino Transf (AST/SGOT) 26, Alanine Aminotransferase (ALT/SGPT) 22, Alkaline Phosphatase 428H, C-Reactive Protein, Quantitative 6.4H, Total Protein 6.0L, Albumin 2.0L, Globulin 4.0, Albumin/Globulin Ratio 0.5L, Vitamin B12 Level 1623H, Folate 9.0 Height (Feet): 5 Height (Inches): 9.00 Weight (Pounds): 265 General Appearance: no apparent distress Neck: normal alignment Cardiovascular: normal rate Respiratory/Chest: lungs clear Abdomen: normal bowel sounds Pelvis: normal external exam Objective Current Medications Medications (Trade) Dose Ordered Sig/Alana Route PRN Reason Start Time Stop Time Status Last Admin Dose Admin Acetaminophen (Tylenol) 500 mg Q6H PRN NG Fever/Headache/Mild Pain 01/28/18 15:30 6/26/18 15:29 Aspirin (ASA) 81 mg DAILY ORAL 01/30/18 09:00 03/01/18 08:59 Bacitracin (Bacitracin 15gm tube) 1 applic DAILY TOPIC 01/29/18 06:00 02/28/18 05:59 01/29/18 06:45 Calcium Carbonate (Os-Aries) 1,250 mg BID ORAL 01/29/18 18:00 02/23/18 09:59 01/29/18 18:04 Carvedilol (Coreg) 6.25 mg EVERY 12 HOURS ORAL 01/30/18 09:00 03/01/18 08:59 Chlorhexidine Gluconate (Марина-Hex 2%) 1 applic DAILY@1999 TOPIC 01/28/18 20:00 02/25/18 19:59 01/29/18 20:57 Dextrose (Dextrose 50%) 25 ml STAT PRN IV Hypoglycemia 01/28/18 15:30 02/27/18 15:29 Dextrose (Dextrose 50%) 50 ml STAT PRN IV Hypoglycemia 01/28/18 15:30 02/27/18 15:29 Fluconazole (Diflucan) 100 mg DAILY ORAL 01/29/18 09:00 02/02/18 11:29 01/29/18 09:29 Folic Acid (Folate) 1 mg DAILY ORAL 01/29/18 09:00 02/26/18 08:59 01/29/18 09:28 Furosemide (Lasix) 80 mg DAILY ORAL 01/30/18 09:00 03/01/18 08:59 Heparin Sodium (Porcine) (Heparin 5000 units/ml) 5,000 units EVERY 12 HOURS SUBQ 01/28/18 21:00 02/27/18 20:59 01/29/18 21:02 Insulin Aspart (NovoLOG) BEFORE MEALS AND HS SUBQ 01/28/18 16:30 02/23/18 11:29 01/30/18 06:14 Insulin Aspart (NovoLOG) 10 units NOVOTIAC SUBQ 01/29/18 06:30 02/23/18 11:49 01/30/18 06:15 Insulin Detemir (Levemir) 15 units Q12HR SUBQ 01/29/18 09:00 02/23/18 08:59 01/29/18 21:04 Lactobacillus Acidophilus (Culturelle) 1 tab THREE TIMES A DAY ORAL 01/28/18 18:00 02/22/18 17:59 01/29/18 18:06 Morphine Sulfate (Morphine Sulfate) 4 mg Q4H PRN IVP Severe Pain (Pain Scale 7-10) 01/28/18 16:00 01/30/18 11:59 Pantoprazole (Protonix) 40 mg EVERY 12 HOURS ORAL 01/28/18 21:00 02/25/18 20:59 01/29/18 20:59 Piperacillin Sod/ Tazobactam Sod 3.375 gm/Sodium Chloride 110 ml @ 27.5 mls/hr EVERY 8 HOURS IVPB 01/28/18 22:00 02/01/18 23:59 01/30/18 06:12 Potassium Chloride (K-Dur) 40 meq THREE TIMES A DAY ORAL 01/28/18 18:00 02/22/18 17:59 01/29/18 18:04 Vitamin D (Vitamin D) 5,000 intlu DAILY ORAL 01/29/18 09:00 02/26/18 08:59 01/29/18 09:27 Item Value Date Time Bedside Blood Glucose 216 mg/dl H 01/30/18 0615 Bedside Blood Glucose 250 mg/dl H 01/29/18 2105 Bedside Blood Glucose 315 mg/dl H 01/29/18 1812 Bedside Blood Glucose 418 mg/dl H 01/29/18 1210 Bedside Blood Glucose 363 mg/dl H 01/29/18 1002 Bedside Blood Glucose 279 mg/dl H 01/29/18 0643 MATTEO VU January 30, 2018 07:26
--- NOTE | 2018-01-30 07:38 | General Progress Note ---
Assessment/Plan Problem List: (1) Septic shock ICD Codes: A41.9 - Sepsis, unspecified organism; R65.21 - Severe sepsis with septic shock SNOMED: 65615473 (2) DKA (diabetic ketoacidoses) ICD Codes: E13.10 - Other specified diabetes mellitus with ketoacidosis without coma SNOMED: 391426051, 33564549 (3) Acute renal failure (ARF) ICD Codes: N17.9 - Acute kidney failure, unspecified SNOMED: 61539202 Assessment/Plan - continue Levemir 15 units bid - continue Novolog 10 units ac tid - continue NISS ac / hs Subjective Allergies: Coded Allergies: No Known Allergies (Unverified , 01/15/18) All Systems: reviewed and negative except above Subjective events noted - interval notes reviewed Objective Last 24 Hour Vital Signs Date Time Temp Pulse Resp B/P (MAP) Pulse Ox O2 Delivery O2 Flow Rate FiO2 01/30/18 05:38 86 19 97 Facial 35 01/30/18 04:00 85 01/30/18 04:00 99.5 90 16 138/85 99 Nasal Cannula 3.0 99.5 01/30/18 03:14 83 17 98 Facial 35 01/30/18 01:11 89 16 97 Facial 35 01/30/18 00:00 98.6 89 20 143/83 96 Nasal Cannula 3.0 98.6 01/30/18 00:00 97 01/29/18 21:00 101 123/78 01/29/18 20:14 96 Nasal Cannula 3.0 32 01/29/18 20:14 Nasal Cannula 3.0 32 01/29/18 20:00 98.3 101 20 123/78 96 Nasal Cannula 3.0 98.3 01/29/18 20:00 99 01/29/18 16:00 98.2 96 18 116/75 98 Nasal Cannula 3.0 98.2 01/29/18 16:00 93 01/29/18 12:00 98 01/29/18 12:00 98.0 99 20 130/77 96 Nasal Cannula 3.0 98.0 01/29/18 09:28 101 135/80 01/29/18 08:52 96 Nasal Cannula 3.0 32 01/29/18 08:52 Nasal Cannula 3.0 32 01/29/18 08:00 109 01/29/18 08:00 98.0 101 20 135/80 93 Nasal Cannula 3.0 98.0 Intake and Output 01/29/18 01/30/18 19:00 07:00 Intake Total 720 ml 350.0 ml Output Total 2400 ml 1000 ml Balance -1680 ml -650.0 ml Intake Oral 720 ml 240 ml IV Total 110.0 ml Output Urine Total 2400 ml 1000 ml # Bowel Movements 2 3 Laboratory Tests 01/30/18 05:25: White Blood Count 7.6, Red Blood Count 2.77L, Hemoglobin 8.4L, Hematocrit 26.0L , Mean Corpuscular Volume 94, Mean Corpuscular Hemoglobin 30.4, Mean Corpuscular Hemoglobin Concent 32.4, Red Cell Distribution Width 12.7, Platelet Count 163, Mean Platelet Volume 7.1, Neutrophils (%) (Auto) 59.8, Lymphocytes (% ) (Auto) 26.6, Monocytes (%) (Auto) 8.5, Eosinophils (%) (Auto) 2.8, Basophils ( %) (Auto) 2.3H, Sodium Level 150H, Potassium Level 3.6, Chloride Level 110H, Carbon Dioxide Level 36H, Anion Gap 4L, Blood Urea Nitrogen 26H, Creatinine 1.1 , Estimat Glomerular Filtration Rate > 60, Glucose Level 213H, Uric Acid 3.4, Calcium Level 9.0, Phosphorus Level 3.4, Magnesium Level 1.6L, Total Bilirubin 0.5, Gamma Glutamyl Transpeptidase 597H, Aspartate Amino Transf (AST/SGOT) 26, Alanine Aminotransferase (ALT/SGPT) 22, Alkaline Phosphatase 428H, C-Reactive Protein, Quantitative 6.4H, Total Protein 6.0L, Albumin 2.0L, Globulin 4.0, Albumin/Globulin Ratio 0.5L, Vitamin B12 Level [Pending], Folate [Pending] Height (Feet): 5 Height (Inches): 9.00 Weight (Pounds): 265 Objective Current Medications Medications (Trade) Dose Ordered Sig/Alana Route PRN Reason Start Time Stop Time Status Last Admin Dose Admin Acetaminophen (Tylenol) 500 mg Q6H PRN NG Fever/Headache/Mild Pain 01/28/18 15:30 02/27/18 15:29 Albuterol Sulfate (Proventil) 2.5 mg Q6H PRN HHN For Cough/Dyspnea 01/28/18 15:30 01/29/18 15:29 Bacitracin (Bacitracin 15gm tube) 1 applic DAILY TOPIC 01/29/18 06:00 02/28/18 05:59 01/29/18 06:45 Calcium Carbonate (Os-Aries) 1,250 mg QID ORAL 01/28/18 18:00 02/23/18 09:59 01/28/18 21:38 Carvedilol (Coreg) 3.125 mg EVERY 12 HOURS ORAL 01/28/18 21:00 02/24/18 20:59 01/28/18 21:38 Chlorhexidine Gluconate (Марина-Hex 2%) 1 applic DAILY@2000 TOPIC 01/28/18 20:00 02/25/18 19:59 01/28/18 21:33 Dextrose (Dextrose 50%) 25 ml STAT PRN IV Hypoglycemia 01/28/18 15:30 02/27/18 15:29 Dextrose (Dextrose 50%) 50 ml STAT PRN IV Hypoglycemia 01/28/18 15:30 02/27/18 15:29 Fluconazole (Diflucan) 100 mg DAILY ORAL 01/29/18 09:00 02/02/18 11:29 Folic Acid (Folate) 1 mg DAILY ORAL 01/29/18 09:00 02/26/18 08:59 Furosemide 100 mg/ Dextrose 100 ml @ 5 mls/hr Q20H IV 01/28/18 16:30 02/27/18 16:29 01/28/18 17:10 Heparin Sodium (Porcine) (Heparin 5000 units/ml) 5,000 units EVERY 12 HOURS SUBQ 01/28/18 21:00 02/27/18 20:59 01/28/18 21:35 Insulin Aspart (NovoLOG) BEFORE MEALS AND HS SUBQ 01/28/18 16:30 02/23/18 11:29 01/29/18 06:42 Insulin Aspart (NovoLOG) 10 units NOVOTIAC SUBQ 01/29/18 06:30 02/23/18 11:49 01/29/18 06:43 Insulin Detemir (Levemir) 15 units Q12HR SUBQ 01/29/18 09:00 02/23/18 08:59 Lactobacillus Acidophilus (Culturelle) 1 tab THREE TIMES A DAY ORAL 01/28/18 18:00 02/22/18 17:59 01/28/18 17:05 Metronidazole (Flagyl) 250 mg Q8HR ORAL 01/28/18 22:00 01/30/18 21:59 01/29/18 06:45 Morphine Sulfate (Morphine Sulfate) 4 mg Q4H PRN IVP Severe Pain (Pain Scale 7-10) 01/28/18 16:00 01/30/18 11:59 Pantoprazole (Protonix) 40 mg EVERY 12 HOURS ORAL 01/28/18 21:00 02/25/18 20:59 01/28/18 21:37 Piperacillin Sod/ Tazobactam Sod 3.375 gm/Sodium Chloride 110 ml @ 27.5 mls/hr EVERY 8 HOURS IVPB 01/28/18 22:00 01/30/18 21:59 01/29/18 06:44 Potassium Chloride (K-Dur) 40 meq THREE TIMES A DAY ORAL 01/28/18 18:00 02/22/18 17:59 01/28/18 17:05 Vitamin D (Vitamin D) 5,000 intlu DAILY ORAL 01/29/18 09:00 02/26/18 08:59 Item Value Date Time Bedside Blood Glucose 279 mg/dl H 01/29/18 0643 Bedside Blood Glucose 301 mg/dl H 01/28/18 2136 Bedside Blood Glucose 292 mg/dl H 01/28/18 1708 Bedside Blood Glucose 355 mg/dl H 01/28/18 1216 Bedside Blood Glucose 279 mg/dl H 01/28/18 0938 Bedside Blood Glucose 236 mg/dl H 01/28/18 0630 MATTEO VU January 30, 2018 07:38
[2018-01-30 08:00] VITALS: BP 129/77
[2018-01-30] MEDS ORDERED: Furosemide 80mg tab ORAL SCH (09:00)
[2018-01-30] MEDS: Aspirin Baby 81mg ORAL SCH (09:23)
[2018-01-30] MEDS: Vitamin D 1000 IU Tab ORAL SCH (09:23)
[2018-01-30] MEDS: Lactobacillus-GG tablet ORAL SCH ×3 (09:24→17:15)
[2018-01-30] MEDS: Fluconazole 100mg tab ORAL SCH (09:25)
[2018-01-30] MEDS: Levemir Flexpen SUBQ SCH ×2 (09:28→21:13)
[2018-01-30] MEDS: Heparin 5000 units/ml inj SUBQ SCH ×2 (09:28→21:14)
[2018-01-30] MEDS: Bacitracin Oint 15gm Tube TOPIC SCH (09:29)
--- NOTE | 2018-01-30 09:45 | Pulmonology Progress Note ---
Assessment/Plan Assessment/Plan 1. Respiratory failure. Now extubated; Nocturnal BiPAP 2. Severe hyponatremia. Improved; now hypernatremic 3. Hyperglycemia. Off insulin gtt; on subq 4. Diabetic ketoacidosis. Improved; ph now normal 5. Sepsis. on broad spectrum abx; ID following 6. Hypotension. Resolved. 7. S/p arrest DISCUSSION: Continue broad-spectrum, antibiotics, aggressive central line care, has PICC Full Code for now. Discussed with all consultants Off Lasix gtt; will decrease to 40 mg Po daily DC steroids Off HD Has thrombocytopenia; likely drug related; stable for now; improving Slowly improving Continue diet dc ghulam PT DC planning for home in AM ? DC abx ; will discuss with ID Add Zuni for low back pain Add Ambuien Matt Kessler M.D. Subjective Interval Events: Has PICC associated DVT RUE Constitutional: Reports: no symptoms; Denies: fever, chills, fatigue, anorexia , drenching sweats, other HEENT: Repors: no symptoms Respiratory: Reports: no symptoms Cardiovascular: Reports: no symptoms Allergies: Coded Allergies: No Known Allergies (Unverified , 01/15/18) Objective Last 24 Hour Vital Signs Date Time Temp Pulse Resp B/P (MAP) Pulse Ox O2 Delivery O2 Flow Rate FiO2 01/30/18 09:24 106 135/88 01/30/18 07:40 98 Nasal Cannula 3.0 32 01/30/18 07:40 Nasal Cannula 3.0 32 01/30/18 05:38 86 19 97 Facial 35 01/30/18 04:00 85 01/30/18 04:00 99.5 90 16 138/85 99 Nasal Cannula 3.0 99.5 01/30/18 03:14 83 17 98 Facial 35 01/30/18 01:11 89 16 97 Facial 35 01/30/18 00:00 98.6 89 20 143/83 96 Nasal Cannula 3.0 98.6 01/30/18 00:00 97 01/29/18 21:00 101 123/78 01/29/18 20:14 96 Nasal Cannula 3.0 32 01/29/18 20:14 Nasal Cannula 3.0 32 01/29/18 20:00 98.3 101 20 123/78 96 Nasal Cannula 3.0 98.3 01/29/18 20:00 99 01/29/18 16:00 98.2 96 18 116/75 98 Nasal Cannula 3.0 98.2 01/29/18 16:00 93 01/29/18 12:00 98 01/29/18 12:00 98.0 99 20 130/77 96 Nasal Cannula 3.0 98.0 Intake and Output 01/29/18 01/30/18 19:00 07:00 Intake Total 720 ml 350.0 ml Output Total 2400 ml 1000 ml Balance -1680 ml -650.0 ml Intake Oral 720 ml 240 ml IV Total 110.0 ml Output Urine Total 2400 ml 1000 ml # Bowel Movements 2 3 General Appearance: no acute distress HEENT: normocephalic Respiratory/Chest: chest wall non-tender, lungs clear Cardiovascular: normal peripheral pulses, normal rate Abdomen: normal bowel sounds Laboratory Tests 01/30/18 05:25: White Blood Count 7.6, Red Blood Count 2.77L, Hemoglobin 8.4L, Hematocrit 26.0L , Mean Corpuscular Volume 94, Mean Corpuscular Hemoglobin 30.4, Mean Corpuscular Hemoglobin Concent 32.4, Red Cell Distribution Width 12.7, Platelet Count 163, Mean Platelet Volume 7.1, Neutrophils (%) (Auto) 59.8, Lymphocytes (% ) (Auto) 26.6, Monocytes (%) (Auto) 8.5, Eosinophils (%) (Auto) 2.8, Basophils ( %) (Auto) 2.3H, Sodium Level 150H, Potassium Level 3.6, Chloride Level 110H, Carbon Dioxide Level 36H, Anion Gap 4L, Blood Urea Nitrogen 26H, Creatinine 1.1 , Estimat Glomerular Filtration Rate > 60, Glucose Level 213H, Uric Acid 3.4, Calcium Level 9.0, Phosphorus Level 3.4, Magnesium Level 1.6L, Total Bilirubin 0.5, Gamma Glutamyl Transpeptidase 597H, Aspartate Amino Transf (AST/SGOT) 26, Alanine Aminotransferase (ALT/SGPT) 22, Alkaline Phosphatase 428H, C-Reactive Protein, Quantitative 6.4H, Total Protein 6.0L, Albumin 2.0L, Globulin 4.0, Albumin/Globulin Ratio 0.5L, Vitamin B12 Level 1623H, Folate 9.0 Current Medications Medications (Trade) Dose Ordered Sig/Alana Route PRN Reason Start Time Stop Time Status Last Admin Dose Admin Acetaminophen (Tylenol) 500 mg Q6H PRN NG Fever/Headache/Mild Pain 01/28/18 15:30 02/27/18 15:29 Aspirin (ASA) 81 mg DAILY ORAL 01/30/18 09:00 03/01/18 08:59 01/30/18 09:23 Bacitracin (Bacitracin 15gm tube) 1 applic DAILY TOPIC 01/29/18 06:00 02/28/18 05:59 01/30/18 09:29 Calcium Carbonate (Os-Aries) 1,250 mg BID ORAL 01/29/18 18:00 02/23/18 09:59 01/30/18 09:24 Carvedilol (Coreg) 6.25 mg EVERY 12 HOURS ORAL 01/30/18 09:00 03/01/18 08:59 01/30/18 09:24 Chlorhexidine Gluconate (Марина-Hex 2%) 1 applic DAILY@2000 TOPIC 01/28/18 20:00 02/25/18 19:59 01/29/18 20:57 Dextrose (Dextrose 50%) 25 ml STAT PRN IV Hypoglycemia 01/28/18 15:30 02/27/18 15:29 Dextrose (Dextrose 50%) 50 ml STAT PRN IV Hypoglycemia 01/28/18 15:30 02/27/18 15:29 Fluconazole (Diflucan) 100 mg DAILY ORAL 01/29/18 09:00 02/02/18 11:29 01/30/18 09:25 Folic Acid (Folate) 1 mg DAILY ORAL 01/29/18 09:00 02/26/18 08:59 01/30/18 09:25 Furosemide (Lasix) 80 mg DAILY ORAL 01/30/18 09:00 03/01/18 08:59 01/30/18 09:24 Heparin Sodium (Porcine) (Heparin 5000 units/ml) 5,000 units EVERY 12 HOURS SUBQ 01/28/18 21:00 02/27/18 20:59 01/30/18 09:28 Insulin Aspart (NovoLOG) BEFORE MEALS AND HS SUBQ 01/28/18 16:30 02/23/18 11:29 01/30/18 06:14 Insulin Aspart (NovoLOG) 16 units NOVOTIAC SUBQ 01/30/18 11:50 02/23/18 11:49 Insulin Detemir (Levemir) 20 units Q12HR SUBQ 01/30/18 09:00 02/23/18 08:59 01/30/18 09:28 Lactobacillus Acidophilus (Culturelle) 1 tab THREE TIMES A DAY ORAL 01/28/18 18:00 02/22/18 17:59 01/30/18 09:24 Morphine Sulfate (Morphine Sulfate) 4 mg Q4H PRN IVP Severe Pain (Pain Scale 7-10) 01/28/18 16:00 01/30/18 11:59 Pantoprazole (Protonix) 40 mg EVERY 12 HOURS ORAL 01/28/18 21:00 02/25/18 20:59 01/30/18 09:25 Piperacillin Sod/ Tazobactam Sod 3.375 gm/Sodium Chloride 110 ml @ 27.5 mls/hr EVERY 8 HOURS IVPB 01/28/18 22:00 02/01/18 23:59 01/30/18 06:12 Potassium Chloride (K-Dur) 40 meq THREE TIMES A DAY ORAL 01/28/18 18:00 02/22/18 17:59 01/30/18 09:25 Vitamin D (Vitamin D) 5,000 intlu DAILY ORAL 01/29/18 09:00 02/26/18 08:59 01/30/18 09:23 Matt Kessler MD January 30, 2018 09:45
--- NOTE | 2018-01-30 10:21 | Nephrology Progress Note ---
Assessment/Plan Problem List: (1) Septic shock (2) DKA (diabetic ketoacidoses) (3) Acute renal failure (ARF) Assessment acute renal failure- now Cr stable and lowering off dialysis Hypotensive on pressors- IMPROVED acute respiratory failure- ON VENT Diabetic Ketoacidosis Low Na, Low K Sepsis high lipase Plan on po lasix K and Mag supp. as needed Iron panel and B12 and folate HD last 01/19 check MARION abd : 2. Dense enlarged liver likely fatty. Insulin drip DC bicitra discussed with RN discussed with Mom and GF Betsy per orders aggresive pt and ot Subjective ROS Limited/Unobtainable: No Constitutional: Reports: malaise Objective Objective Last 24 Hour Vital Signs Date Time Temp Pulse Resp B/P (MAP) Pulse Ox O2 Delivery O2 Flow Rate FiO2 01/30/18 09:24 106 135/88 01/30/18 07:40 98 Nasal Cannula 3.0 32 01/30/18 07:40 Nasal Cannula 3.0 32 01/30/18 05:38 86 19 97 Facial 35 01/30/18 04:00 85 01/30/18 04:00 99.5 90 16 138/85 99 Nasal Cannula 3.0 99.5 01/30/18 03:14 83 17 98 Facial 35 01/30/18 01:11 89 16 97 Facial 35 01/30/18 00:00 98.6 89 20 143/83 96 Nasal Cannula 3.0 98.6 01/30/18 00:00 97 01/29/18 21:00 101 123/78 01/29/18 20:14 96 Nasal Cannula 3.0 32 01/29/18 20:14 Nasal Cannula 3.0 32 01/29/18 20:00 98.3 101 20 123/78 96 Nasal Cannula 3.0 98.3 01/29/18 20:00 99 01/29/18 16:00 98.2 96 18 116/75 98 Nasal Cannula 3.0 98.2 01/29/18 16:00 93 01/29/18 12:00 98 01/29/18 12:00 98.0 99 20 130/77 96 Nasal Cannula 3.0 98.0 Intake and Output 01/29/18 01/30/18 19:00 07:00 Intake Total 720 ml 350.0 ml Output Total 2400 ml 1000 ml Balance -1680 ml -650.0 ml Intake Oral 720 ml 240 ml IV Total 110.0 ml Output Urine Total 2400 ml 1000 ml # Bowel Movements 2 3 Laboratory Tests 01/30/18 05:25: White Blood Count 7.6, Red Blood Count 2.77L, Hemoglobin 8.4L, Hematocrit 26.0L , Mean Corpuscular Volume 94, Mean Corpuscular Hemoglobin 30.4, Mean Corpuscular Hemoglobin Concent 32.4, Red Cell Distribution Width 12.7, Platelet Count 163, Mean Platelet Volume 7.1, Neutrophils (%) (Auto) 59.8, Lymphocytes (% ) (Auto) 26.6, Monocytes (%) (Auto) 8.5, Eosinophils (%) (Auto) 2.8, Basophils ( %) (Auto) 2.3H, Sodium Level 150H, Potassium Level 3.6, Chloride Level 110H, Carbon Dioxide Level 36H, Anion Gap 4L, Blood Urea Nitrogen 26H, Creatinine 1.1 , Estimat Glomerular Filtration Rate > 60, Glucose Level 213H, Uric Acid 3.4, Calcium Level 9.0, Phosphorus Level 3.4, Magnesium Level 1.6L, Total Bilirubin 0.5, Gamma Glutamyl Transpeptidase 597H, Aspartate Amino Transf (AST/SGOT) 26, Alanine Aminotransferase (ALT/SGPT) 22, Alkaline Phosphatase 428H, C-Reactive Protein, Quantitative 6.4H, Total Protein 6.0L, Albumin 2.0L, Globulin 4.0, Albumin/Globulin Ratio 0.5L, Vitamin B12 Level 1623H, Folate 9.0 Height (Feet): 5 Height (Inches): 9.00 Weight (Pounds): 265 General Appearance: no apparent distress Respiratory/Chest: decreased breath sounds Abdomen: distended Objective no other change ALANNA MAHONEY January 30, 2018 10:21
--- NOTE | 2018-01-30 11:17 | Infectious Diseases Prog Note ---
"Assessment/Plan Assessment/Plan antibiotics :zosyn, fluconazole A 1. 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 septic shock resolved 3. pancreatitis improving 4. DKA resolved 5. renal failure resolved 6. respiratory failure resolved 7. 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 fungal UTI 11, pseudomonas pneumonia s/p rx P 1. d/c zosyn 2. start and continue amoxicillin 164 more days 3. continue fluconazole 2 more days 4. will follow up cultures Subjective Constitutional: Denies: fever, chills Respiratory: Reports: shortness of breath, dry cough Gastrointestinal/Abdominal: Reports: diarrhea; Denies: nausea, vomiting Musculoskeletal: Reports: pain Allergies: Coded Allergies: No Known Allergies (Unverified , 01/15/18) Objective Vital Signs Last 24 Hour Vital Signs Date Time Temp Pulse Resp B/P (MAP) Pulse Ox O2 Delivery O2 Flow Rate FiO2 01/30/18 09:24 106 135/88 01/30/18 08:00 85 01/30/18 08:00 97.3 96 19 129/77 98 Nasal Cannula 3.0 32 97.3 01/30/18 07:40 98 Nasal Cannula 3.0 32 01/30/18 07:40 Nasal Cannula 3.0 32 01/30/18 05:38 86 19 97 Facial 35 01/30/18 04:00 85 01/30/18 04:00 99.5 90 16 138/85 99 Nasal Cannula 3.0 99.5 01/30/18 03:14 83 17 98 Facial 35 01/30/18 01:11 89 16 97 Facial 35 01/30/18 00:00 98.6 89 20 143/83 96 Nasal Cannula 3.0 98.6 01/30/18 00:00 97 01/29/18 21:00 101 123/78 01/29/18 20:14 96 Nasal Cannula 3.0 32 01/29/18 20:14 Nasal Cannula 3.0 32 01/29/18 20:00 98.3 101 20 123/78 96 Nasal Cannula 3.0 98.3 01/29/18 20:00 99 01/29/18 16:00 98.2 96 18 116/75 98 Nasal Cannula 3.0 98.2 01/29/18 16:00 93 01/29/18 12:00 98 01/29/18 12:00 98.0 99 20 130/77 96 Nasal Cannula 3.0 98.0 Height (Feet): 5 Height (Inches): 9.00 Weight (Pounds): 265 Respiratory/Chest: lungs clear Cardiovascular: normal rate, regular rhythm, no gallop/murmur Abdomen: soft, non tender Extremities: no edema, other - left arm PICC Laboratory Tests Test 01/30/18 05:25 White Blood Count 7.6 K/UL (4.8-10.8) Red Blood Count 2.77 M/UL (4.70-6.10) L Hemoglobin 8.4 G/DL (14.2-18.0) L Hematocrit 26.0 % (42.0-52.0) L Mean Corpuscular Volume 94 FL (80-99) Mean Corpuscular Hemoglobin 30.4 PG (27.0-31.0) Mean Corpuscular Hemoglobin Concent 32.4 G/DL (32.0-36.0) Red Cell Distribution Width 12.7 % (11.6-14.8) Platelet Count 163 K/UL (150-450) Mean Platelet Volume 7.1 FL (6.5-10.1) Neutrophils (%) (Auto) 59.8 % (45.0-75.0) Lymphocytes (%) (Auto) 26.6 % (20.0-45.0) Monocytes (%) (Auto) 8.5 % (1.0-10.0) Eosinophils (%) (Auto) 2.8 % (0.0-3.0) Basophils (%) (Auto) 2.3 % (0.0-2.0) H Sodium Level 150 MMOL/L (136-145) H Potassium Level 3.6 MMOL/L (3.5-5.1) Chloride Level 110 MMOL/L (98-107) H Carbon Dioxide Level 36 MMOL/L (21-32) H Anion Gap 4 mmol/L (5-15) L Blood Urea Nitrogen 26 mg/dL (7-18) H Creatinine 1.1 MG/DL (0.55-1.30) Estimat Glomerular Filtration Rate > 60 mL/min (>60) Glucose Level 213 MG/DL (74-106) H Uric Acid 3.4 MG/DL (2.6-7.2) Calcium Level 9.0 MG/DL (8.5-10.1) Phosphorus Level 3.4 MG/DL (2.5-4.9) Magnesium Level 1.6 MG/DL (1.8-2.4) L Total Bilirubin 0.5 MG/DL (0.2-1.0) Gamma Glutamyl Transpeptidase 597 U/L (5-85) H Aspartate Amino Transf (AST/SGOT) 26 U/L (15-37) Alanine Aminotransferase (ALT/SGPT) 22 U/L (12-78) Alkaline Phosphatase 428 U/L (46-116) H C-Reactive Protein, Quantitative 6.4 mg/dL (0.00-0.90) H Total Protein 6.0 G/DL (6.4-8.2) L Albumin 2.0 G/DL (3.4-5.0) L Globulin 4.0 g/dL Albumin/Globulin Ratio 0.5 (1.0-2.7) L Vitamin B12 Level 1623 PG/ML (193-986) H Folate 9.0 NG/ML (8.6-58.9) Current Medications Medications (Trade) Dose Ordered Sig/Alana Route PRN Reason Start Time Stop Time Status Last Admin Dose Admin Acetaminophen (Tylenol) 500 mg Q6H PRN NG Fever/Headache/Mild Pain 01/28/18 15:30 02/27/18 15:29 Acetaminophen/ Hydrocodone Bitart ([place] 10/325) 1 tab Q4H PRN ORAL Moderate Pain (Pain Scale 4-6) 01/30/18 09:45 02/06/18 09:44 Amoxicillin (Amoxil) 500 mg EVERY 8 HOURS ORAL 01/30/18 14:00 03/31/18 13:59 Aspirin (ASA) 81 mg DAILY ORAL 01/30/18 09:00 03/01/18 08:59 01/30/18 09:23 Bacitracin (Bacitracin 15gm tube) 1 applic DAILY TOPIC 01/29/18 06:00 02/28/18 05:59 01/30/18 09:29 Calcium Carbonate (Os-Aries) 1,250 mg BID ORAL 01/29/18 18:00 02/23/18 09:59 01/30/18 09:24 Carvedilol (Coreg) 6.25 mg EVERY 12 HOURS ORAL 01/30/18 09:00 03/01/18 08:59 01/30/18 09:24 Chlorhexidine Gluconate (Марина-Hex 2%) 1 applic DAILY@2000 TOPIC 01/28/18 20:00 02/25/18 19:59 01/29/18 20:57 Dextrose (Dextrose 50%) 25 ml STAT PRN IV Hypoglycemia 01/28/18 15:30 02/27/18 15:29 Dextrose (Dextrose 50%) 50 ml STAT PRN IV Hypoglycemia 01/28/18 15:30 02/27/18 15:29 Fluconazole (Diflucan) 100 mg DAILY ORAL 01/29/18 09:00 02/02/18 11:29 01/30/18 09:25 Folic Acid (Folate) 1 mg DAILY ORAL 01/29/18 09:00 02/26/18 08:59 01/30/18 09:25 Furosemide (Lasix) 40 mg DAILY ORAL 01/31/18 09:00 03/01/18 08:59 Heparin Sodium (Porcine) (Heparin 5000 units/ml) 5,000 units EVERY 12 HOURS SUBQ 01/28/18 21:00 02/27/18 20:59 01/30/18 09:28 Insulin Aspart (NovoLOG) BEFORE MEALS AND HS SUBQ 01/28/18 16:30 02/23/18 11:29 01/30/18 06:14 Insulin Aspart (NovoLOG) 16 units NOVOTIAC SUBQ 01/30/18 11:50 02/23/18 11:49 Insulin Detemir (Levemir) 20 units Q12HR SUBQ 01/30/18 09:00 02/23/18 08:59 01/30/18 09:28 Lactobacillus Acidophilus (Culturelle) 1 tab THREE TIMES A DAY ORAL 01/28/18 18:00 02/22/18 17:59 01/30/18 09:24 Magnesium Sulfate 100 ml @ 100 mls/hr Q1H IVPB 01/30/18 10:30 01/30/18 14:29 01/30/18 10:47 Morphine Sulfate (Morphine Sulfate) 4 mg Q4H PRN IVP Severe Pain (Pain Scale 7-10) 01/28/18 16:00 01/30/18 11:59 Pantoprazole (Protonix) 40 mg EVERY 12 HOURS ORAL 01/28/18 21:00 02/25/18 20:59 01/30/18 09:25 Piperacillin Sod/ Tazobactam Sod 3.375 gm/Sodium Chloride 110 ml @ 27.5 mls/hr EVERY 8 HOURS IVPB 01/28/18 22:00 02/01/18 23:59 01/30/18 06:12 Potassium Chloride (K-Dur) 40 meq BID ORAL 01/30/18 18:00 02/22/18 17:59 Vitamin D (Vitamin D) 5,000 intlu DAILY ORAL 01/29/18 09:00 02/26/18 08:59 01/30/18 09:23 Zolpidem Tartrate (Ambien) 5 mg HSPRN PRN ORAL Insomnia 01/30/18 21:00 02/06/18 20:59 NADEGE MALIK January 30, 2018 11:17"
--- NOTE | 2018-01-30 11:29 | Diagnostic Imaging Report ---
Indication: Dyspnea Comparison: 01/26/2018 A single view chest radiograph was obtained. Findings: PICC line is stable. There is left basilar airspace disease and right basal atelectasis demonstrated. Technique is quite different on the current exam. IMPRESSION: Possible pneumonia left lung base with airspace disease noted. Suspect right basal atelectasis.
[2018-01-30] MEDS: HYDROcodone/Acetamin 10/325 tab ORAL PRN ×2 (11:57→22:19)
[2018-01-30 12:00] VITALS: BP 128/88
[2018-01-30 16:00] VITALS: BP 121/65
[2018-01-30 20:00] VITALS: BP 124/77
[2018-01-30] MEDS: Dyna-Hex 2% Top Sol 2oz TOPIC SCH (21:11)
[2018-01-30] MEDS ORDERED: Tamsulosin 0.4mg cap ORAL SCH (22:45)
[2018-01-31] VITALS: BP 122/77
[2018-01-31 04:00] VITALS: BP 126/77
[2018-01-31 04:50] LABS: BASOPHILS % (AUTO) 1.9 % (0.0-2.0); EOSINOPHILS % (AUTO) 3.2 % (0.0-3.0); HEMATOCRIT 25.9 % (42.0-52.0); HEMOGLOBIN 8.5 G/DL (14.2-18.0); LYMPHOCYTES % (AUTO) 29.2 % (20.0-45.0); MEAN CORPUSCULAR VOLUME 93 FL (80-99); NEUTROPHILS % (AUTO) 56.7 % (45.0-75.0); PLATELET COUNT 192 K/UL (150-450); RED BLOOD COUNT 2.77 M/UL (4.70-6.10); RED CELL DISTRIBUTION WIDTH 12.8 % (11.6-14.8); WHITE BLOOD COUNT 8.9 K/UL (4.8-10.8)
[2018-01-31 05:04] LABS: ANION GAP 5 mmol/L (5-15); BLOOD UREA NITROGEN 24 mg/dL (7-18); CALCIUM 8.8 MG/DL (8.5-10.1); CARBON DIOXIDE 32 MMOL/L (21-32); CHLORIDE 109 MMOL/L (98-107); CREATININE 0.9 MG/DL (0.55-1.30); SODIUM 146 MMOL/L (136-145)
[2018-01-31] MEDS: NovoLOG Insulin Flexpen SUBQ SCH ×7 (07:26→21:00)
--- NOTE | 2018-01-31 07:45 | Progress Note ---
DATE: 01/30/2018 CARDIOLOGY PROGRESS NOTE SUBJECTIVE: The patient is off IV furosemide, maintenance dosing initiated. His blood pressure remains stable. OBJECTIVE: VITAL SIGNS: Blood pressure is 138/85, heart rate 90, respiratory rate 16. He is off ventilator support with no respiratory distress. LUNGS: Diminished breath sounds. Few rhonchi. HEART: Regular rhythm and rate. Normal S1 and S2. ABDOMEN: Soft. EXTREMITIES: With trace dependent edema. LABORATORY DATA: White count 7.5 and hemoglobin 8.4. Sodium 150, potassium 3.6, BUN 26, and creatinine 1.1. Magnesium 1.6. IMPRESSION: 1. Status post cardiopulmonary arrest. 2. Acute myocardial infarction. 3. Acute diastolic congestive heart failure. 4. Status post DKA. 5. Dehydration. 6. Hypernatremia. 7. Hypomagnesemia. 8. Hypokalemia. PLAN: 1. Free water replacement. 2. IV magnesium. 3. Titrate beta zen. 4. Replace potassium. 5. Would hold diuretics until metabolic parameters corrected. 6. Long-term SULEMAN inhibitor therapy to be titrated as well. Ernie Ashford M.D. DR: TEMI JOB#: [id number] CC:
[2018-01-31 08:00] VITALS: BP 127/66
--- NOTE | 2018-01-31 08:15 | Progress Note ---
DATE: 01/30/2018 CARDIOLOGY PROGRESS NOTE SUBJECTIVE: The patient is off IV furosemide, maintenance dosing initiated. His blood pressure remains stable. OBJECTIVE: VITAL SIGNS: Blood pressure is 138/85, heart rate 90, and respiratory rate 16. He is off ventilator support with no respiratory distress. LUNGS: Diminished breath sounds. Few rhonchi. HEART: Regular rhythm and rate. Normal S1 and S2. ABDOMEN: Soft. EXTREMITIES: With trace dependent edema. LABORATORY DATA: White count 7.5 and hemoglobin 8.4. Sodium 150, potassium 3.6, BUN 26, and creatinine 1.1. Magnesium 1.6. IMPRESSION: 1. Status post full arrest. 2. Acute myocardial infarction. 3. Acute diastolic congestive heart failure. 4. Status post DKA. 5. Dehydration. 6. Hypernatremia. 7. Hypomagnesemia. 8. Hypokalemia. PLAN: 1. Free water replacement. 2. IV magnesium. 3. Titrate beta zen. 4. Replace potassium. 5. Would hold diuretics until metabolic parameters corrected. 6. Long-term SULEMAN inhibitor therapy to be titrated as well. Ernie Ashford M.D. DR: TEMI JOB#: [id number] CC:
[2018-01-31] MEDS: Vitamin D 1000 IU Tab ORAL SCH (08:40)
[2018-01-31] MEDS: Fluconazole 100mg tab ORAL SCH (08:41)
[2018-01-31] MEDS: Furosemide 40mg tab ORAL SCH (08:41)
[2018-01-31] MEDS: Aspirin Baby 81mg ORAL SCH (08:41)
[2018-01-31] MEDS: Lactobacillus-GG tablet ORAL SCH ×3 (08:42→17:50)
[2018-01-31] MEDS: Heparin 5000 units/ml inj SUBQ SCH ×2 (08:49→21:45)
[2018-01-31] MEDS: Bacitracin Oint 15gm Tube TOPIC SCH (08:51)
[2018-01-31] MEDS: Levemir Flexpen SUBQ SCH ×2 (08:51→21:58)
--- NOTE | 2018-01-31 09:32 | Diagnostic Imaging Report ---
APPROVED REPORT CPT Code: 76295 Present Symptoms Comments: Left upper extremity edema Hx of Brachiobasilic PICC line 2D Evaluation LEFT UPPER EXTREMITY: Imaging reveals acute partially occlusive thrombus in the axillary and brachial veins. Remainder of the deep venous system is within normal limits. There is no evidence of thrombus within the internal jugular, subclavian, radial and ulnar veins. The cephalic and basilic veins are within normal limits. JAVON Guallpa was notified of abnormal results at 0945 hours.
[2018-01-31] MEDS ORDERED: Vitamin D 50,000 units cap ORAL SCH (10:00)
--- NOTE | 2018-01-31 10:03 | Nephrology Progress Note ---
Assessment/Plan Problem List: (1) Septic shock (2) DKA (diabetic ketoacidoses) (3) Acute renal failure (ARF) Assessment left arm swollen, has Picc and thrombosis acute renal failure- now Cr stable and lowering off dialysis Hypotensive on pressors- IMPROVED acute respiratory failure- ON VENT Diabetic Ketoacidosis Low Na, Low K Sepsis high lipase Plan parmar out had to be straight cathed increase flomax on po lasix K and Mag supp. as needed Iron panel and B12 and folate ? remove Picc ?? defer to PMD HD last 01/19 check MARION abd : 2. Dense enlarged liver likely fatty. Insulin drip DC bicitra discussed with RN discussed with Mom and GF Betsy per orders aggresive pt and ot Subjective ROS Limited/Unobtainable: No Objective Objective Last 24 Hour Vital Signs Date Time Temp Pulse Resp B/P (MAP) Pulse Ox O2 Delivery O2 Flow Rate FiO2 01/31/18 08:43 103 127/66 01/31/18 08:25 Nasal Cannula 3.0 32 01/31/18 05:16 78 16 99 Facial 35 01/31/18 04:00 93 01/31/18 04:00 98.4 95 22 126/77 99 Bi-pap 98.4 01/31/18 03:00 76 15 97 Facial 35 01/31/18 00:30 80 18 96 Facial 35 01/31/18 00:00 90 01/31/18 00:00 97.9 94 19 122/77 97 Nasal Cannula 3.0 32 97.9 01/30/18 21:12 96 124/77 01/30/18 20:00 98.4 96 20 124/77 99 Nasal Cannula 3.0 32 98.4 01/30/18 20:00 94 01/30/18 19:30 98 Nasal Cannula 3.0 32 01/30/18 19:30 Nasal Cannula 3.0 32 01/30/18 16:00 97.7 92 19 121/65 98 Nasal Cannula 3.0 32 97.7 01/30/18 16:00 96 01/30/18 12:56 97.3 01/30/18 12:00 98.1 98 19 128/88 98 Nasal Cannula 3.0 32 98.1 01/30/18 12:00 104 01/30/18 11:57 97.3 Intake and Output 01/30/18 01/31/18 19:00 07:00 Intake Total 980 ml Output Total 400 ml 700 ml Balance 580 ml -700 ml Intake Oral 980 ml Output Urine Total 400 ml 700 ml # Voids 2 # Bowel Movements 1 3 Laboratory Tests 01/31/18 04:00: White Blood Count 8.9, Red Blood Count 2.77L, Hemoglobin 8.5L, Hematocrit 25.9L , Mean Corpuscular Volume 93, Mean Corpuscular Hemoglobin 30.6, Mean Corpuscular Hemoglobin Concent 32.7, Red Cell Distribution Width 12.8, Platelet Count 192, Mean Platelet Volume 7.4, Neutrophils (%) (Auto) 56.7, Lymphocytes (% ) (Auto) 29.2, Monocytes (%) (Auto) 9.0, Eosinophils (%) (Auto) 3.2H, Basophils (%) (Auto) 1.9, Sodium Level 146H, Potassium Level 4.0, Chloride Level 109H, Carbon Dioxide Level 32, Anion Gap 5, Blood Urea Nitrogen 24H, Creatinine 0.9, Estimat Glomerular Filtration Rate > 60, Glucose Level 135H, Calcium Level 8.8 Height (Feet): 5 Height (Inches): 9.00 Weight (Pounds): 272 General Appearance: mild distress Respiratory/Chest: decreased breath sounds Abdomen: soft Extremities: other - left arm swollen Objective no other change ALANNA MAHONEY January 31, 2018 10:03
[2018-01-31] MEDS: Tamsulosin 0.4mg cap ORAL SCH ×2 (10:05→17:51)
[2018-01-31] MEDS: HYDROcodone/Acetamin 10/325 tab ORAL PRN (11:29)
[2018-01-31 12:00] VITALS: BP 136/79
--- NOTE | 2018-01-31 13:02 | General Surgery Progress Note ---
General Surgery-Progress Note Subjective Procedure Performed left subclavian temp HD catheter insertion Additional Comments left upper extremity DVT noted on ultrasound Objective Last 24 Hour Vital Signs Date Time Temp Pulse Resp B/P (MAP) Pulse Ox O2 Delivery O2 Flow Rate FiO2 01/31/18 11:29 98.2 01/31/18 08:43 103 127/66 01/31/18 08:25 Nasal Cannula 3.0 32 01/31/18 08:00 98.2 96 18 127/66 99 3.0 35 98.2 01/31/18 05:16 78 16 99 Facial 35 01/31/18 04:00 93 01/31/18 04:00 98.4 95 22 126/77 99 Bi-pap 98.4 01/31/18 03:00 76 15 97 Facial 35 01/31/18 00:30 80 18 96 Facial 35 01/31/18 00:00 90 01/31/18 00:00 97.9 94 19 122/77 97 Nasal Cannula 3.0 32 97.9 01/30/18 21:12 96 124/77 01/30/18 20:00 98.4 96 20 124/77 99 Nasal Cannula 3.0 32 98.4 01/30/18 20:00 94 01/30/18 19:30 98 Nasal Cannula 3.0 32 01/30/18 19:30 Nasal Cannula 3.0 32 01/30/18 16:00 97.7 92 19 121/65 98 Nasal Cannula 3.0 32 97.7 01/30/18 16:00 96 I&O Intake and Output 01/30/18 01/31/18 19:00 07:00 Intake Total 980 ml Output Total 400 ml 700 ml Balance 580 ml -700 ml Intake Oral 980 ml Output Urine Total 400 ml 700 ml # Voids 2 # Bowel Movements 1 3 Drains: none Cardiovascular: RSR Respiratory: clear Abdomen: soft, flat, non-tender Extremities: edema, no cyanosis Laboratory Tests Test 01/31/18 04:00 White Blood Count 8.9 K/UL (4.8-10.8) Red Blood Count 2.77 M/UL (4.70-6.10) L Hemoglobin 8.5 G/DL (14.2-18.0) L Hematocrit 25.9 % (42.0-52.0) L Mean Corpuscular Volume 93 FL (80-99) Mean Corpuscular Hemoglobin 30.6 PG (27.0-31.0) Mean Corpuscular Hemoglobin Concent 32.7 G/DL (32.0-36.0) Red Cell Distribution Width 12.8 % (11.6-14.8) Platelet Count 192 K/UL (150-450) Mean Platelet Volume 7.4 FL (6.5-10.1) Neutrophils (%) (Auto) 56.7 % (45.0-75.0) Lymphocytes (%) (Auto) 29.2 % (20.0-45.0) Monocytes (%) (Auto) 9.0 % (1.0-10.0) Eosinophils (%) (Auto) 3.2 % (0.0-3.0) H Basophils (%) (Auto) 1.9 % (0.0-2.0) Sodium Level 146 MMOL/L (136-145) H Potassium Level 4.0 MMOL/L (3.5-5.1) Chloride Level 109 MMOL/L (98-107) H Carbon Dioxide Level 32 MMOL/L (21-32) Anion Gap 5 mmol/L (5-15) Blood Urea Nitrogen 24 mg/dL (7-18) H Creatinine 0.9 MG/DL (0.55-1.30) Estimat Glomerular Filtration Rate > 60 mL/min (>60) Glucose Level 135 MG/DL (74-106) H Calcium Level 8.8 MG/DL (8.5-10.1) Plan Problems: (1) Sacral decubitus ulcer, stage II Assessment & Plan: bilateral lower extremity superficial skin bruising and blisters. some are from prior edema which is improving since renal function improved. some are from patient moving around. --keep pressure off wounds. leave blisters as they are. if drain that is okay but will allow it to happen spontaneously. okay for bacitracin on wounds. please place foam dressings sacral state 2 decubitus ulcer --keep off wound by turning q2h. keep site clean, okay for foam dressing onto wound. no debridement currently necessary. Left upper extremity DVT acute, line related --d/c PICC --activity as tolerated thank you for this consultation. will follow intermittently with wound evaluation and care recommendations. Presley Sosa January 31, 2018 13:02
[2018-01-31 16:00] VITALS: BP 133/75
--- NOTE | 2018-01-31 19:06 | Pulmonology Progress Note ---
Assessment/Plan Problems: (1) DVT of upper extremity (deep vein thrombosis) Assessment & Plan: S/P PICC, NOW REMOVED (2) DKA (diabetic ketoacidoses) Assessment & Plan: RESOLVED (3) Sacral decubitus ulcer, stage II (4) Septic shock Assessment & Plan: RESOLVED and HEMODYNAMICALLY STABLE (5) Acute renal failure (ARF) Assessment & Plan: RESOLVED Assessment/Plan -Continue Amox & Flucon per ID. D/W ID RE: duration -Monitor diarrhea and abdominal pain, work up further if persists -Repeat CXR -Monitor volumes and renal function, continue PO Lasix -Continue current insulin regimen, monitor BS -PT/OT/GEAR LAPPER -Aspiration precautions -DVT Px: Hep SQ -Pain control/supportive care Subjective Allergies: Coded Allergies: No Known Allergies (Unverified , 01/15/18) Subjective AFVSS, O2 needs stable PICC removed No F/C, no CP, no SOB, + cough, + abd pain, + diarrhea Working with PT and OT, has barely been OOB Objective Last 24 Hour Vital Signs Date Time Temp Pulse Resp B/P (MAP) Pulse Ox O2 Delivery O2 Flow Rate FiO2 01/31/18 18:21 96 Nasal Cannula 3.0 32 01/31/18 16:00 98.1 105 18 133/75 99 Nasal Cannula 3.0 32 98.1 01/31/18 16:00 106 01/31/18 12:28 98.2 01/31/18 12:00 98.3 107 18 136/79 99 Nasal Cannula 3.0 32 98.3 01/31/18 12:00 109 01/31/18 11:29 98.2 01/31/18 08:43 103 127/66 01/31/18 08:25 Nasal Cannula 3.0 32 01/31/18 08:00 98.2 96 18 127/66 99 3.0 35 98.2 01/31/18 08:00 107 01/31/18 05:16 78 16 99 Facial 35 01/31/18 04:00 93 01/31/18 04:00 98.4 95 22 126/77 99 Bi-pap 98.4 01/31/18 03:00 76 15 97 Facial 35 01/31/18 00:30 80 18 96 Facial 35 01/31/18 00:00 90 01/31/18 00:00 97.9 94 19 122/77 97 Nasal Cannula 3.0 32 97.9 01/30/18 21:12 96 124/77 01/30/18 20:00 98.4 96 20 124/77 99 Nasal Cannula 3.0 32 98.4 01/30/18 20:00 94 01/30/18 19:30 98 Nasal Cannula 3.0 32 01/30/18 19:30 Nasal Cannula 3.0 32 Intake and Output 01/30/18 01/31/18 19:00 07:00 Intake Total 980 ml Output Total 400 ml 700 ml Balance 580 ml -700 ml Intake Oral 980 ml Output Urine Total 400 ml 700 ml # Voids 2 # Bowel Movements 1 3 General Appearance: WD/WN, no acute distress HEENT: normocephalic, atraumatic, anicteric, mucous membranes moist Respiratory/Chest: chest wall non-tender, lungs clear, normal breath sounds, no respiratory distress Cardiovascular: normal peripheral pulses, normal rate, regular rhythm Abdomen: normal bowel sounds, tender - mild diffuse, other - soft, NABS Extremities: no cyanosis, no clubbing, other - 1+ JOSSELINE edema Laboratory Tests 01/31/18 04:00: White Blood Count 8.9, Red Blood Count 2.77L, Hemoglobin 8.5L, Hematocrit 25.9L , Mean Corpuscular Volume 93, Mean Corpuscular Hemoglobin 30.6, Mean Corpuscular Hemoglobin Concent 32.7, Red Cell Distribution Width 12.8, Platelet Count 192, Mean Platelet Volume 7.4, Neutrophils (%) (Auto) 56.7, Lymphocytes (% ) (Auto) 29.2, Monocytes (%) (Auto) 9.0, Eosinophils (%) (Auto) 3.2H, Basophils (%) (Auto) 1.9, Sodium Level 146H, Potassium Level 4.0, Chloride Level 109H, Carbon Dioxide Level 32, Anion Gap 5, Blood Urea Nitrogen 24H, Creatinine 0.9, Estimat Glomerular Filtration Rate > 60, Glucose Level 135H, Calcium Level 8.8 Current Medications Medications (Trade) Dose Ordered Sig/Alana Route PRN Reason Start Time Stop Time Status Last Admin Dose Admin Acetaminophen (Tylenol) 500 mg Q6H PRN NG Fever/Headache/Mild Pain 01/28/18 15:30 02/27/18 15:29 Acetaminophen/ Hydrocodone Bitart ([place] 10/325) 1 tab Q4H PRN ORAL Moderate Pain (Pain Scale 4-6) 01/30/18 09:45 02/06/18 09:44 01/31/18 11:29 Amoxicillin (Amoxil) 500 mg EVERY 8 HOURS ORAL 01/30/18 14:00 03/31/18 13:59 01/31/18 13:36 Aspirin (ASA) 81 mg DAILY ORAL 01/30/18 09:00 03/01/18 08:59 01/31/18 08:41 Bacitracin (Bacitracin 15gm tube) 1 applic DAILY TOPIC 01/29/18 06:00 02/28/18 05:59 01/31/18 08:51 Calcium Carbonate (Os-Aries) 1,250 mg BID ORAL 01/29/18 18:00 02/23/18 09:59 01/31/18 17:50 Carvedilol (Coreg) 6.25 mg EVERY 12 HOURS ORAL 01/30/18 09:00 03/01/18 08:59 01/31/18 08:43 Chlorhexidine Gluconate (Марина-Hex 2%) 1 applic DAILY@1999 TOPIC 01/28/18 20:00 02/25/18 19:59 01/30/18 21:11 Dextrose (Dextrose 50%) 25 ml STAT PRN IV Hypoglycemia 01/28/18 15:30 02/27/18 15:29 Dextrose (Dextrose 50%) 50 ml STAT PRN IV Hypoglycemia 01/28/18 15:30 02/27/18 15:29 Fluconazole (Diflucan) 100 mg DAILY ORAL 01/29/18 09:00 02/01/18 23:59 01/31/18 08:41 Folic Acid (Folate) 1 mg DAILY ORAL 01/29/18 09:00 02/26/18 08:59 01/31/18 08:41 Furosemide (Lasix) 40 mg DAILY ORAL 01/31/18 09:00 03/01/18 08:59 01/31/18 08:41 Heparin Sodium (Porcine) (Heparin 5000 units/ml) 5,000 units EVERY 12 HOURS SUBQ 01/28/18 21:00 02/27/18 20:59 01/31/18 08:49 Insulin Aspart (NovoLOG) BEFORE MEALS AND HS SUBQ 01/28/18 16:30 02/23/18 11:29 01/31/18 12:27 Insulin Aspart (NovoLOG) 16 units NOVOTIAC SUBQ 01/30/18 11:50 02/23/18 11:49 01/31/18 12:27 Insulin Detemir (Levemir) 20 units Q12HR SUBQ 01/30/18 09:00 02/23/18 08:59 01/31/18 08:51 Lactobacillus Acidophilus (Culturelle) 1 tab THREE TIMES A DAY ORAL 01/28/18 18:00 02/22/18 17:59 01/31/18 17:50 Pantoprazole (Protonix) 40 mg EVERY 12 HOURS ORAL 01/28/18 21:00 02/25/18 20:59 01/31/18 08:42 Potassium Chloride (K-Dur) 40 meq DAILY ORAL 01/31/18 09:00 02/22/18 17:59 01/31/18 08:41 Tamsulosin HCl (Flomax) 0.4 mg BID ORAL 01/31/18 09:30 03/02/18 09:29 01/31/18 17:51 Vitamin D (Vitamin D) 5,000 intlu DAILY ORAL 01/29/18 09:00 02/26/18 08:59 01/31/18 08:40 Zolpidem Tartrate (Ambien) 5 mg HSPRN PRN ORAL Insomnia 01/30/18 21:00 02/06/18 20:59 BANDAR VERONICA M.D. January 31, 2018 19:06
[2018-01-31 20:00] VITALS: BP 139/87
[2018-01-31] MEDS: Dyna-Hex 2% Top Sol 2oz TOPIC SCH (20:00)
[2018-02-01] VITALS: BP 140/71
[2018-02-01] MEDS: HYDROcodone/Acetamin 10/325 tab ORAL PRN ×3 (02:48→21:06)
--- NOTE | 2018-02-01 03:15 | Progress Note ---
DATE: 01/31/2018 CARDIOLOGY PROGRESS NOTE SUBJECTIVE: The patient is without respiratory distress. Monitored rhythm is sinus and sinus tachycardia. OBJECTIVE: VITAL SIGNS: Blood pressure 127/61, heart rate 103, and respiratory rate 16. NECK: Supple. LUNGS: With coarse breath sounds. No wheezing. CARDIAC: Regular rhythm. Rapid rate. Normal S1, S2. There is no murmur. ABDOMEN: Soft, slightly distended. EXTREMITIES: With trace dependent edema. The left arm PICC line site is now without bleeding as the line was removed due to thrombosis earlier today. LABORATORY AND DIAGNOSTIC DATA: White count 8.9 and hemoglobin 8.5. Potassium 4.0, sodium 146, bicarbonate 32, BUN 24, and creatinine 0.9. Chest x-ray reveals possible left basilar pneumonia. IMPRESSION: 1. Status post sepsis with shock. 2. Recovered diabetic ketoacidosis. 3. Thrombosis left upper extremity due to PICC line. 4. Status post cardiac arrest. 5. Secondary sinus tachycardia, recovering. 6. Dehydration and hypernatremia. 7. Acute myocardial infarction. PLAN: 1. Free water replacement. 2. Respiratory hygiene. 3. Titrate beta-zen. 4. Antiplatelet therapy with aspirin. 5. DVT prophylaxis. 6. No plan for full anticoagulation since PICC line has been removed in the upper extremity. Ernie Ashford M.D. DR: Hoang JOB#: [id number] CC:
[2018-02-01 04:00] VITALS: BP 133/76
[2018-02-01] MEDS: NovoLOG Insulin Flexpen SUBQ SCH ×6 (06:27→20:38)
--- NOTE | 2018-02-01 07:28 | General Progress Note ---
Assessment/Plan Problem List: (1) Septic shock ICD Codes: A41.9 - Sepsis, unspecified organism; R65.21 - Severe sepsis with septic shock SNOMED: 97560210 (2) DKA (diabetic ketoacidoses) ICD Codes: E13.10 - Other specified diabetes mellitus with ketoacidosis without coma SNOMED: 293140454, 70622159 (3) Acute renal failure (ARF) ICD Codes: N17.9 - Acute kidney failure, unspecified SNOMED: 71571874 Assessment/Plan - continue Levemir 20 units bid - reduce Novolog to 12 units ac tid - continue NISS ac / hs Subjective Allergies: Coded Allergies: No Known Allergies (Unverified , 01/15/18) All Systems: reviewed and negative except above Subjective events noted - interval notes reviewed Objective Last 24 Hour Vital Signs Date Time Temp Pulse Resp B/P (MAP) Pulse Ox O2 Delivery O2 Flow Rate FiO2 02/01/18 05:12 98 15 97 Facial 35 02/01/18 04:00 97.8 102 20 133/76 98 Nasal Cannula 3.0 97.8 02/01/18 04:00 99 02/01/18 03:00 113 19 96 Facial 35 02/01/18 00:00 96.2 112 19 140/71 96 Nasal Cannula 3.0 96.2 02/01/18 00:00 111 15 95 Facial 35 02/01/18 00:00 109 01/31/18 21:44 106 139/87 01/31/18 20:00 112 01/31/18 20:00 98.2 106 22 139/87 94 Nasal Cannula 3.0 98.2 01/31/18 19:00 95 Nasal Cannula 3.0 32 01/31/18 19:00 Nasal Cannula 3.0 32 01/31/18 18:21 96 Nasal Cannula 3.0 32 01/31/18 16:00 98.1 105 18 133/75 99 Nasal Cannula 3.0 32 98.1 01/31/18 16:00 106 01/31/18 12:28 98.2 01/31/18 12:00 98.3 107 18 136/79 99 Nasal Cannula 3.0 32 98.3 01/31/18 12:00 109 01/31/18 11:29 98.2 01/31/18 08:43 103 127/66 01/31/18 08:25 Nasal Cannula 3.0 32 01/31/18 08:00 98.2 96 18 127/66 99 3.0 35 98.2 01/31/18 08:00 107 Intake and Output 01/31/18 02/01/18 19:00 07:00 Intake Total 800 ml Output Total 1100 ml Balance -300 ml Intake Oral 800 ml Output Urine Total 1100 ml # Voids 1 # Bowel Movements 4 3 Height (Feet): 5 Height (Inches): 9.00 Weight (Pounds): 271 General Appearance: no apparent distress Neck: normal alignment Cardiovascular: normal rate Respiratory/Chest: lungs clear Abdomen: normal bowel sounds Pelvis: normal external exam Objective Current Medications Medications (Trade) Dose Ordered Sig/Alana Route PRN Reason Start Time Stop Time Status Last Admin Dose Admin Acetaminophen (Tylenol) 500 mg Q6H PRN NG Fever/Headache/Mild Pain 01/28/18 15:30 02/27/18 15:29 Acetaminophen/ Hydrocodone Bitart ([place] 10/325) 1 tab Q4H PRN ORAL Moderate Pain (Pain Scale 4-6) 01/30/18 09:45 02/06/18 09:44 02/01/18 02:48 Amoxicillin (Amoxil) 500 mg EVERY 8 HOURS ORAL 01/30/18 14:00 03/31/18 13:59 02/01/18 05:35 Aspirin (ASA) 81 mg DAILY ORAL 01/30/18 09:00 03/01/18 08:59 01/31/18 08:41 Bacitracin (Bacitracin 15gm tube) 1 applic DAILY TOPIC 01/29/18 06:00 02/28/18 05:59 01/31/18 08:51 Calcium Carbonate (Os-Aries) 1,250 mg BID ORAL 01/29/18 18:00 02/23/18 09:59 01/31/18 17:50 Carvedilol (Coreg) 6.25 mg EVERY 12 HOURS ORAL 01/30/18 09:00 03/01/18 08:59 01/31/18 21:44 Chlorhexidine Gluconate (Марина-Hex 2%) 1 applic DAILY@2000 TOPIC 01/28/18 20:00 02/25/18 19:59 01/30/18 21:11 Dextrose (Dextrose 50%) 25 ml STAT PRN IV Hypoglycemia 01/28/18 15:30 6/26/18 15:29 Dextrose (Dextrose 50%) 50 ml STAT PRN IV Hypoglycemia 01/28/18 15:30 02/27/18 15:29 Fluconazole (Diflucan) 100 mg DAILY ORAL 01/29/18 09:00 02/01/18 23:59 01/31/18 08:41 Folic Acid (Folate) 1 mg DAILY ORAL 01/29/18 09:00 02/26/18 08:59 01/31/18 08:41 Furosemide (Lasix) 40 mg DAILY ORAL 01/31/18 09:00 03/01/18 08:59 01/31/18 08:41 Heparin Sodium (Porcine) (Heparin 5000 units/ml) 5,000 units EVERY 12 HOURS SUBQ 01/28/18 21:00 02/27/18 20:59 01/31/18 21:45 Insulin Aspart (NovoLOG) BEFORE MEALS AND HS SUBQ 01/28/18 16:30 02/23/18 11:29 02/01/18 06:27 Insulin Aspart (NovoLOG) 16 units NOVOTIAC SUBQ 01/30/18 11:50 02/23/18 11:49 01/31/18 12:27 Insulin Detemir (Levemir) 20 units Q12HR SUBQ 01/30/18 09:00 02/23/18 08:59 01/31/18 21:58 Lactobacillus Acidophilus (Culturelle) 1 tab THREE TIMES A DAY ORAL 01/28/18 18:00 02/22/18 17:59 01/31/18 17:50 Pantoprazole (Protonix) 40 mg EVERY 12 HOURS ORAL 01/28/18 21:00 02/25/18 20:59 01/31/18 21:44 Potassium Chloride (K-Dur) 40 meq DAILY ORAL 01/31/18 09:00 02/22/18 17:59 01/31/18 08:41 Tamsulosin HCl (Flomax) 0.4 mg BID ORAL 01/31/18 09:30 03/02/18 09:29 01/31/18 17:51 Vitamin D (Vitamin D) 5,000 intlu DAILY ORAL 01/29/18 09:00 02/26/18 08:59 01/31/18 08:40 Zolpidem Tartrate (Ambien) 5 mg HSPRN PRN ORAL Insomnia 5/29/18 21:00 02/06/18 20:59 Item Value Date Time Bedside Blood Glucose 216 mg/dl H 01/30/18 0615 Bedside Blood Glucose 250 mg/dl H 01/29/18 2105 Bedside Blood Glucose 315 mg/dl H 01/29/18 1812 Bedside Blood Glucose 418 mg/dl H 01/29/18 1210 Bedside Blood Glucose 363 mg/dl H 01/29/18 1002 Bedside Blood Glucose 279 mg/dl H 01/29/18 0643 Bedside Blood Glucose 168 mg/dl H 02/01/18 0627 Bedside Blood Glucose 163 mg/dl H 01/31/18 2158 Bedside Blood Glucose 100 mg/dl 01/31/18 1650 Bedside Blood Glucose 204 mg/dl H 01/31/18 1227 Bedside Blood Glucose 135 mg/dl H 01/31/18 0851 Bedside Blood Glucose 135 mg/dl H 01/31/18 0537 MATTEO VU February 01, 2018 07:28
[2018-02-01 08:00] VITALS: BP 120/71
[2018-02-01] MEDS: Fluconazole 100mg tab ORAL SCH (09:04)
[2018-02-01] MEDS: Aspirin Baby 81mg ORAL SCH (09:04)
[2018-02-01] MEDS: Lactobacillus-GG tablet ORAL SCH ×3 (09:05→17:02)
[2018-02-01] MEDS: Tamsulosin 0.4mg cap ORAL SCH ×2 (09:05→17:02)
[2018-02-01] MEDS: Vitamin D 1000 IU Tab ORAL SCH (09:05)
[2018-02-01] MEDS: Furosemide 40mg tab ORAL SCH (09:06)
[2018-02-01] MEDS: Bacitracin Oint 15gm Tube TOPIC SCH (09:07)
[2018-02-01] MEDS: Heparin 5000 units/ml inj SUBQ SCH ×2 (09:08→21:00)
[2018-02-01] MEDS: Levemir Flexpen SUBQ SCH ×2 (09:08→21:01)
--- NOTE | 2018-02-01 09:42 | Pulmonology Progress Note ---
Assessment/Plan Assessment/Plan 1. Respiratory failure. Now extubated; Nocturnal BiPAP 2. Severe hyponatremia. Improved; now hypernatremic 3. Hyperglycemia. Off insulin gtt; on subq 4. Diabetic ketoacidosis. Improved; ph now normal 5. Sepsis. on broad spectrum abx; ID following 6. Hypotension. Resolved. 7. S/p arrest DISCUSSION: Continue broad-spectrum, antibiotics, aggressive central line care, has PICC Full Code for now. Discussed with all consultants Off Lasix gtt; now on 40 mg Po daily DC steroids Off HD Has thrombocytopenia; likely drug related; stable for now; improving Slowly improving Continue diet PT DC planning for home On Amoxil and Dilflucan per ID Added [place] for low back pain Added Ambien Matt Kessler M.D. Subjective Interval Events: Better Constitutional: Reports: no symptoms HEENT: Repors: no symptoms Respiratory: Reports: no symptoms Cardiovascular: Reports: no symptoms Gastrointestinal/Abdominal: Reports: no symptoms Allergies: Coded Allergies: No Known Allergies (Unverified , 01/15/18) Objective Last 24 Hour Vital Signs Date Time Temp Pulse Resp B/P (MAP) Pulse Ox O2 Delivery O2 Flow Rate FiO2 02/01/18 09:04 98 120/71 02/01/18 08:00 97.5 98 22 120/71 98 Nasal Cannula 3.0 97.5 02/01/18 05:12 98 15 97 Facial 35 02/01/18 04:00 97.8 102 20 133/76 98 Nasal Cannula 3.0 97.8 02/01/18 04:00 99 02/01/18 03:00 113 19 96 Facial 35 02/01/18 00:00 96.2 112 19 140/71 96 Nasal Cannula 3.0 96.2 02/01/18 00:00 111 15 95 Facial 35 02/01/18 00:00 109 01/31/18 21:44 106 139/87 01/31/18 20:00 112 01/31/18 20:00 98.2 106 22 139/87 94 Nasal Cannula 3.0 98.2 01/31/18 19:00 95 Nasal Cannula 3.0 32 01/31/18 19:00 Nasal Cannula 3.0 32 01/31/18 18:21 96 Nasal Cannula 3.0 32 01/31/18 16:00 98.1 105 18 133/75 99 Nasal Cannula 3.0 32 98.1 01/31/18 16:00 106 01/31/18 12:28 98.2 01/31/18 12:00 98.3 107 18 136/79 99 Nasal Cannula 3.0 32 98.3 01/31/18 12:00 109 01/31/18 11:29 98.2 Intake and Output 01/31/18 02/01/18 19:00 07:00 Intake Total 800 ml Output Total 1100 ml Balance -300 ml Intake Oral 800 ml Output Urine Total 1100 ml # Voids 1 # Bowel Movements 4 3 General Appearance: no acute distress HEENT: normocephalic Respiratory/Chest: chest wall non-tender, lungs clear Cardiovascular: normal peripheral pulses Abdomen: normal bowel sounds, soft, non tender Current Medications Medications (Trade) Dose Ordered Sig/Alana Route PRN Reason Start Time Stop Time Status Last Admin Dose Admin Acetaminophen (Tylenol) 500 mg Q6H PRN NG Fever/Headache/Mild Pain 01/28/18 15:30 02/27/18 15:29 Acetaminophen/ Hydrocodone Bitart ([place] 10/325) 1 tab Q4H PRN ORAL Moderate Pain (Pain Scale 4-6) 01/30/18 09:45 02/06/18 09:44 02/01/18 02:48 Amoxicillin (Amoxil) 500 mg EVERY 8 HOURS ORAL 01/30/18 14:00 03/31/18 13:59 02/01/18 05:35 Aspirin (ASA) 81 mg DAILY ORAL 01/30/18 09:00 03/01/18 08:59 02/01/18 09:04 Bacitracin (Bacitracin 15gm tube) 1 applic DAILY TOPIC 01/29/18 06:00 02/28/18 05:59 02/01/18 09:07 Calcium Carbonate (Os-Aries) 1,250 mg BID ORAL 01/29/18 18:00 02/23/18 09:59 02/01/18 09:06 Carvedilol (Coreg) 6.25 mg EVERY 12 HOURS ORAL 01/30/18 09:00 6/28/18 08:59 02/01/18 09:04 Dextrose (Dextrose 50%) 25 ml STAT PRN IV Hypoglycemia 01/28/18 15:30 02/27/18 15:29 Dextrose (Dextrose 50%) 50 ml STAT PRN IV Hypoglycemia 01/28/18 15:30 02/27/18 15:29 Fluconazole (Diflucan) 100 mg DAILY ORAL 01/29/18 09:00 02/01/18 23:59 02/01/18 09:04 Folic Acid (Folate) 1 mg DAILY ORAL 01/29/18 09:00 02/26/18 08:59 02/01/18 09:04 Furosemide (Lasix) 40 mg DAILY ORAL 01/31/18 09:00 03/01/18 08:59 02/01/18 09:06 Heparin Sodium (Porcine) (Heparin 5000 units/ml) 5,000 units EVERY 12 HOURS SUBQ 01/28/18 21:00 02/27/18 20:59 02/01/18 09:08 Insulin Aspart (NovoLOG) BEFORE MEALS AND HS SUBQ 01/28/18 16:30 02/23/18 11:29 02/01/18 06:27 Insulin Aspart (NovoLOG) 12 units NOVOTIAC SUBQ 02/01/18 11:50 02/23/18 11:49 Insulin Detemir (Levemir) 20 units Q12HR SUBQ 01/30/18 09:00 02/23/18 08:59 02/01/18 09:08 Lactobacillus Acidophilus (Culturelle) 1 tab THREE TIMES A DAY ORAL 01/28/18 18:00 02/22/18 17:59 02/01/18 09:05 Pantoprazole (Protonix) 40 mg EVERY 12 HOURS ORAL 01/28/18 21:00 02/25/18 20:59 02/01/18 09:05 Potassium Chloride (K-Dur) 40 meq DAILY ORAL 01/31/18 09:00 02/22/18 17:59 02/01/18 09:04 Tamsulosin HCl (Flomax) 0.4 mg BID ORAL 01/31/18 09:30 03/02/18 09:29 02/01/18 09:05 Vitamin D (Vitamin D) 5,000 intlu DAILY ORAL 01/29/18 09:00 02/26/18 08:59 02/01/18 09:05 Zolpidem Tartrate (Ambien) 5 mg HSPRN PRN ORAL Insomnia 01/30/18 21:00 02/06/18 20:59 Matt Kessler MD February 01, 2018 09:42
--- NOTE | 2018-02-01 10:48 | GI Initial Consult Note ---
History of Present Illness General Date patient seen: February 01, 2018 Time patient seen: 13:43 Reason for Hospitalization: Altered Mental Status Referring physician: ANDREAS ASHER Reason for Consultation: ACUTE DIARRHEA Present Illness HPI This is a 47-year-old male with history of psoriasis, on biologic agent Humira. The patient has been admitted to an outside hospital and was discharged. He was brought to the hospital today with hyperglycemia. He was also hypotensive. He required to be intubated. Because he is unable to provide any history, his /caregiver at the bedside provided most of the history. The patient is hypotensive. The patient has a previous history of Red man syndrome, etiology uncertain. The patient received a central line and IV antibiotics in the emergency room and [place]. He was was admitted to the hospital for further management and care. GI consulted for acute diarrhea. Pt seen, awake A&Ox4 denies N/V, has c/o of acute diarrhea lasting 3-4 days. Denies any chronic history of diarrhea. Patient admitted for new onset of diabetes mellitus. Believes that medication could be the cause of his diarrhea. Presents today with anemia, elevated alkaline phosphatase, hypoalbuminemia, elevated CRP and hypomagnesemia. No history of endoscopy / colonoscopy. Med list reviewed/reconciled: Yes Allergies: Coded Allergies: No Known Allergies (Unverified , 01/15/18) Patient History History Provided By: Patient, Medical Record H Narrative Psoriasis only. There is no clear history of diabetes mellitus. Social History: Denies: smoking, alcohol use, drug use, other Review of Systems All Other Systems: negative except mentioned in HPI Physical Exam Vital Signs Date Time Temp Pulse Resp B/P (MAP) Pulse Ox O2 Delivery O2 Flow Rate FiO2 01/28/18 08:00 99.1 98 19 137/74 95 Nasal Cannula 4.0 99.1 01/28/18 08:26 32 Sp02 EP Interpretation: reviewed, normal General Appearance: well appearing, no apparent distress, alert, obese Head: normocephalic EENT: PERRL/EOMI, normal ENT inspection Neck: supple Respiratory: normal breath sounds, no respiratory distress Cardiovascular: normal rate Gastrointestinal: normal inspection, non tender, soft, normal bowel sounds, non -distended Rectal: deferred Genitourinary: deferred Musculoskeletal: normal inspection, back normal Neurologic: normal inspection, alert, oriented x3, responsive Psychiatric: normal inspection, judgement/insight normal, memory normal Skin: normal inspection, normal color, no rash, warm/dry, palpation normal, well hydrated Lymphatic: normal inspection, no adenopathy Current Medications Current Medications Medications (Trade) Dose Ordered Sig/Alana Route PRN Reason Start Time Stop Time Status Last Admin Dose Admin Acetaminophen (Tylenol) 500 mg Q6H PRN NG Fever/Headache/Mild Pain 01/28/18 15:30 02/27/18 15:29 Acetaminophen/ Hydrocodone Bitart ([place] 10/325) 1 tab Q4H PRN ORAL Moderate Pain (Pain Scale 4-6) 01/30/18 09:45 02/06/18 09:44 02/01/18 02:48 Amoxicillin (Amoxil) 500 mg EVERY 8 HOURS ORAL 01/30/18 14:00 03/31/18 13:59 02/01/18 05:35 Aspirin (ASA) 81 mg DAILY ORAL 01/30/18 09:00 03/01/18 08:59 02/01/18 09:04 Bacitracin (Bacitracin 15gm tube) 1 applic DAILY TOPIC 01/29/18 06:00 02/28/18 05:59 02/01/18 09:07 Calcium Carbonate (Os-Aries) 1,250 mg BID ORAL 01/29/18 18:00 02/23/18 09:59 02/01/18 09:06 Carvedilol (Coreg) 6.25 mg EVERY 12 HOURS ORAL 01/30/18 09:00 03/01/18 08:59 02/01/18 09:04 Dextrose (Dextrose 50%) 25 ml STAT PRN IV Hypoglycemia 01/28/18 15:30 02/27/18 15:29 Dextrose (Dextrose 50%) 50 ml STAT PRN IV Hypoglycemia 01/28/18 15:30 02/27/18 15:29 Fluconazole (Diflucan) 100 mg DAILY ORAL 01/29/18 09:00 02/01/18 23:59 02/01/18 09:04 Folic Acid (Folate) 1 mg DAILY ORAL 01/29/18 09:00 02/26/18 08:59 02/01/18 09:04 Furosemide (Lasix) 40 mg DAILY ORAL 01/31/18 09:00 03/01/18 08:59 02/01/18 09:06 Heparin Sodium (Porcine) (Heparin 5000 units/ml) 5,000 units EVERY 12 HOURS SUBQ 01/28/18 21:00 02/27/18 20:59 02/01/18 09:08 Insulin Aspart (NovoLOG) BEFORE MEALS AND HS SUBQ 01/28/18 16:30 02/23/18 11:29 02/01/18 06:27 Insulin Aspart (NovoLOG) 12 units NOVOTIAC SUBQ 02/01/18 11:50 02/23/18 11:49 Insulin Detemir (Levemir) 20 units Q12HR SUBQ 01/30/18 09:00 02/23/18 08:59 02/01/18 09:08 Lactobacillus Acidophilus (Culturelle) 1 tab THREE TIMES A DAY ORAL 01/28/18 18:00 02/22/18 17:59 02/01/18 09:05 Pantoprazole (Protonix) 40 mg EVERY 12 HOURS ORAL 01/28/18 21:00 02/25/18 20:59 02/01/18 09:05 Potassium Chloride (K-Dur) 40 meq DAILY ORAL 01/31/18 09:00 02/22/18 17:59 02/01/18 09:04 Tamsulosin HCl (Flomax) 0.4 mg BID ORAL 01/31/18 09:30 03/02/18 09:29 02/01/18 09:05 Vitamin D (Vitamin D) 5,000 intlu DAILY ORAL 01/29/18 09:00 02/26/18 08:59 02/01/18 09:05 Zolpidem Tartrate (Ambien) 5 mg HSPRN PRN ORAL Insomnia 01/30/18 21:00 02/06/18 20:59 GI: Plan Problems: (1) Severe diarrhea (2) Dehydration (3) Electrolyte imbalance (4) Anemia Plan cdiff negative x 2 normocytic normochromic anemia acute diarrhea anemia work up reviewed >> folate deficiency OB stool positive >> stable H&H lactose free diet cont lactobacillus add metamucil imodium prn DM mgmt anemia work up send addition OB stool monitor H&H, prn transfusions bowel regime dc ppi, H2B BID fu labs Discussed with Dr. Durbin. Thank you for this patient referral, we will follow. The patient was seen and examined at bedside and all new and available data was reviewed in the patients chart. I agree with the above findings, impression and plan. (Patient seen earlier today. Signature stamp does not reflect patient encounter time.). - MD Jessica Roberson AnhOleg MONAHAN February 01, 2018 10:48
--- NOTE | 2018-02-01 10:58 | Diagnostic Imaging Report ---
Indication: Cough Comparison: 01/30/2018 A single view chest radiograph was obtained. Findings: Persistent low lung volumes demonstrated. Basilar infiltrates versus atelectasis again noted. Heart size is stable. PICC line is been removed. IMPRESSION: Basilar infiltrate versus atelectasis
[2018-02-01] MEDS: Loperamide 2mg cap ORAL PRN (11:40)
[2018-02-01 11:56] VITALS: BP 114/65
--- NOTE | 2018-02-01 12:27 | Infectious Diseases Prog Note ---
Assessment/Plan Assessment/Plan A; Septic shock resolved Bacteremia with Peptostreptococcus & Actinomyces Fungal UTI Diarrhea, C. difficile negative VRE & MRSA colonization Pancreatitis Acute renal failure improving Acute respiratory failure resolving DKA Pulmonary edema Psoriasis Thrombocytopenia Hypokalemia & Hypocalcemia P: Continue Amoxicillin, discontinue Fluconazole Subjective ROS Limited/Unobtainable: No Constitutional: Reports: no symptoms Respiratory: Reports: dry cough Gastrointestinal/Abdominal: Reports: diarrhea Genitourinary: Reports: no symptoms Neurologic: Reports: no symptoms Allergies: Coded Allergies: No Known Allergies (Unverified , 01/15/18) Objective Vital Signs Last 24 Hour Vital Signs Date Time Temp Pulse Resp B/P (MAP) Pulse Ox O2 Delivery O2 Flow Rate FiO2 02/01/18 11:56 98.2 108 20 114/65 94 Nasal Cannula 3.0 98.2 02/01/18 09:55 97 Nasal Cannula 3.0 32 02/01/18 09:55 Nasal Cannula 3.0 32 02/01/18 09:04 98 120/71 02/01/18 08:00 99 02/01/18 08:00 97.5 98 22 120/71 98 Nasal Cannula 3.0 97.5 02/01/18 05:12 98 15 97 Facial 35 02/01/18 04:00 97.8 102 20 133/76 98 Nasal Cannula 3.0 97.8 02/01/18 04:00 99 02/01/18 03:00 113 19 96 Facial 35 02/01/18 00:00 96.2 112 19 140/71 96 Nasal Cannula 3.0 96.2 02/01/18 00:00 111 15 95 Facial 35 02/01/18 00:00 109 01/31/18 21:44 106 139/87 01/31/18 20:00 112 01/31/18 20:00 98.2 106 22 139/87 94 Nasal Cannula 3.0 98.2 01/31/18 19:00 95 Nasal Cannula 3.0 32 01/31/18 19:00 Nasal Cannula 3.0 32 01/31/18 18:21 96 Nasal Cannula 3.0 32 01/31/18 16:00 98.1 105 18 133/75 99 Nasal Cannula 3.0 32 98.1 01/31/18 16:00 106 01/31/18 12:28 98.2 Height (Feet): 5 Height (Inches): 9.00 Weight (Pounds): 271 HEENT: mucous membranes moist Respiratory/Chest: lungs clear Cardiovascular: normal rate Abdomen: soft, non tender Extremities: other - edema of left arm Skin: ulcers, other - on legs Neurologic/Psychiatric: alert, oriented x 3, responsive Current Medications Medications (Trade) Dose Ordered Sig/Alana Route PRN Reason Start Time Stop Time Status Last Admin Dose Admin Acetaminophen (Tylenol) 500 mg Q6H PRN NG Fever/Headache/Mild Pain 01/28/18 15:30 02/27/18 15:29 Acetaminophen/ Hydrocodone Bitart ([place] 10/325) 1 tab Q4H PRN ORAL Moderate Pain (Pain Scale 4-6) 01/30/18 09:45 02/06/18 09:44 02/01/18 02:48 Amoxicillin (Amoxil) 500 mg EVERY 8 HOURS ORAL 01/30/18 14:00 03/31/18 13:59 02/01/18 05:35 Aspirin (ASA) 81 mg DAILY ORAL 01/30/18 09:00 03/01/18 08:59 02/01/18 09:04 Bacitracin (Bacitracin 15gm tube) 1 applic DAILY TOPIC 01/29/18 06:00 02/28/18 05:59 02/01/18 09:07 Calcium Carbonate (Os-Aries) 1,250 mg BID ORAL 01/29/18 18:00 02/23/18 09:59 02/01/18 09:06 Carvedilol (Coreg) 6.25 mg EVERY 12 HOURS ORAL 01/30/18 09:00 03/01/18 08:59 02/01/18 09:04 Dextrose (Dextrose 50%) 25 ml STAT PRN IV Hypoglycemia 01/28/18 15:30 02/27/18 15:29 Dextrose (Dextrose 50%) 50 ml STAT PRN IV Hypoglycemia 01/28/18 15:30 02/27/18 15:29 Famotidine (Pepcid I.v.) 20 mg Q12HR IVP 02/01/18 21:00 03/03/18 20:59 Fluconazole (Diflucan) 100 mg DAILY ORAL 01/29/18 09:00 02/01/18 23:59 02/01/18 09:04 Folic Acid (Folate) 1 mg DAILY ORAL 01/29/18 09:00 02/26/18 08:59 02/01/18 09:04 Furosemide (Lasix) 40 mg DAILY ORAL 01/31/18 09:00 03/01/18 08:59 02/01/18 09:06 Heparin Sodium (Porcine) (Heparin 5000 units/ml) 5,000 units EVERY 12 HOURS SUBQ 01/28/18 21:00 02/27/18 20:59 02/01/18 09:08 Insulin Aspart (NovoLOG) BEFORE MEALS AND HS SUBQ 01/28/18 16:30 02/23/18 11:29 02/01/18 11:43 Insulin Aspart (NovoLOG) 12 units NOVOTIAC SUBQ 02/01/18 11:50 02/23/18 11:49 02/01/18 11:46 Insulin Detemir (Levemir) 20 units Q12HR SUBQ 01/30/18 09:00 02/23/18 08:59 02/01/18 09:08 Lactobacillus Acidophilus (Culturelle) 1 tab THREE TIMES A DAY ORAL 01/28/18 18:00 02/22/18 17:59 02/01/18 09:05 Loperamide HCl (Imodium) 2 mg Q4H PRN ORAL Diarrhea 02/01/18 11:00 03/03/18 10:59 02/01/18 11:40 Potassium Chloride (K-Dur) 40 meq DAILY ORAL 01/31/18 09:00 02/22/18 17:59 02/01/18 09:04 Psyllium Hydrophilic Mucilloid (Metamucil) 1 pkt THREE TIMES A DAY ORAL 02/01/18 13:00 03/03/18 12:59 Tamsulosin HCl (Flomax) 0.4 mg BID ORAL 01/31/18 09:30 03/02/18 09:29 02/01/18 09:05 Vitamin D (Vitamin D) 5,000 intlu DAILY ORAL 01/29/18 09:00 02/26/18 08:59 02/01/18 09:05 Zolpidem Tartrate (Ambien) 5 mg HSPRN PRN ORAL Insomnia 01/30/18 21:00 02/06/18 20:59 Efren Ornelas MD February 01, 2018 12:27
--- NOTE | 2018-02-01 12:31 | Nephrology Progress Note ---
Assessment/Plan Problem List: (1) Septic shock (2) DKA (diabetic ketoacidoses) (3) Acute renal failure (ARF) Assessment left arm swollen, has Picc and thrombosis acute renal failure- now Cr stable and lowering off dialysis Hypotensive on pressors- IMPROVED acute respiratory failure- ON VENT Diabetic Ketoacidosis Low Na, Low K Sepsis high lipase Plan parmar in no labs today need placement increase flomax on po lasix K and Mag supp. as needed Iron panel and B12 and folate ? remove Picc ?? defer to PMD HD last 01/19 check MARION abd : 2. Dense enlarged liver likely fatty. Insulin drip DC bicitra discussed with RN discussed with Mom and GF Betsy per orders aggresive pt and ot Subjective ROS Limited/Unobtainable: No Constitutional: Reports: malaise Objective Objective Last 24 Hour Vital Signs Date Time Temp Pulse Resp B/P (MAP) Pulse Ox O2 Delivery O2 Flow Rate FiO2 02/01/18 11:56 98.2 108 20 114/65 94 Nasal Cannula 3.0 98.2 02/01/18 09:55 97 Nasal Cannula 3.0 32 02/01/18 09:55 Nasal Cannula 3.0 32 02/01/18 09:04 98 120/71 02/01/18 08:00 99 02/01/18 08:00 97.5 98 22 120/71 98 Nasal Cannula 3.0 97.5 02/01/18 05:12 98 15 97 Facial 35 02/01/18 04:00 97.8 102 20 133/76 98 Nasal Cannula 3.0 97.8 02/01/18 04:00 99 02/01/18 03:00 113 19 96 Facial 35 02/01/18 00:00 96.2 112 19 140/71 96 Nasal Cannula 3.0 96.2 02/01/18 00:00 111 15 95 Facial 35 02/01/18 00:00 109 01/31/18 21:44 106 139/87 01/31/18 20:00 112 01/31/18 20:00 98.2 106 22 139/87 94 Nasal Cannula 3.0 98.2 01/31/18 19:00 95 Nasal Cannula 3.0 32 01/31/18 19:00 Nasal Cannula 3.0 32 01/31/18 18:21 96 Nasal Cannula 3.0 32 01/31/18 16:00 98.1 105 18 133/75 99 Nasal Cannula 3.0 32 98.1 01/31/18 16:00 106 Intake and Output 01/31/18 02/01/18 19:00 07:00 Intake Total 800 ml Output Total 1100 ml Balance -300 ml Intake Oral 800 ml Output Urine Total 1100 ml # Voids 1 # Bowel Movements 4 3 Height (Feet): 5 Height (Inches): 9.00 Weight (Pounds): 271 General Appearance: no apparent distress Objective no other change ALANNA MAHONEY February 01, 2018 12:31
[2018-02-01] MEDS: Metamucil Pkt ORAL SCH ×2 (13:04→17:02)
[2018-02-01 16:00] VITALS: BP 113/81
[2018-02-01 20:00] VITALS: BP 117/71
[2018-02-01] MEDS: Carvedilol 12.5mg tab ORAL SCH (20:56)
--- NOTE | 2018-02-01 23:15 | Progress Note ---
DATE: 02/01/2018 CARDIOLOGY PROGRESS NOTE SUBJECTIVE: The patient remains alert. Tolerating diet with improving clinical parameters. He is off IV fluids and has not been requiring dialysis. OBJECTIVE: VITAL SIGNS: Blood pressure 113/81, pulse 115, respiratory rate 20 and temperature 99.1 degrees. LUNGS: Bilateral breath sounds. Few rhonchi. HEART: Regular rhythm. Rapid rate. Normal S1 and S2 with a fourth heart sound. ABDOMEN: Obese. Soft. EXTREMITY: Trace dependent edema. LABORATORY AND DIAGNOSTIC DATA: White count 8.9 and hemoglobin 8.5. Sodium 146, potassium 4, bicarbonate 32, BUN 24 and creatinine 0.9. IMPRESSION: 1. Status post DKA. 2. Status post sepsis with shock. 3. Status post respiratory failure. 4. Recovering dehydration and hyponatremia. 5. Resolving acute renal failure. 6. Hypertensive heart disease. 7. Secondary sinus tachycardia. 8. Atelectasis. 9. Status post non-ST elevation myocardial infarction. PLAN: We will decrease diuresis. Continue respiratory hygiene. Advance beta-zen. Consider addition of angiotensin-converting enzyme inhibitor. Continue anti-platelet therapy with aspirin. Ernie Ashford M.D. DR: JOHN JOB#: [id number] CC:
[2018-02-02] VITALS: BP 125/83
[2018-02-02] MEDS: Loperamide 2mg cap ORAL PRN ×2 (01:43→14:51)
[2018-02-02] MEDS: Zolpidem 5mg tab ORAL PRN ×2 (01:43→22:42)
[2018-02-02 04:00] VITALS: BP_SYST 117; BP_SYST 119; BP_DIAS 60; BP_DIAS 71
[2018-02-02 05:50] LABS: HEMATOCRIT 22.7 % (42.0-52.0); HEMOGLOBIN 7.5 G/DL (14.2-18.0); MEAN CORPUSCULAR VOLUME 92 FL (80-99); PLATELET COUNT 227 K/UL (150-450); RED BLOOD COUNT 2.47 M/UL (4.70-6.10); RED CELL DISTRIBUTION WIDTH 13.1 % (11.6-14.8); WHITE BLOOD COUNT 8.3 K/UL (4.8-10.8)
[2018-02-02] MEDS: NovoLOG Insulin Flexpen SUBQ SCH ×7 (06:10→20:47)
[2018-02-02 06:25] LABS: ALANINE AMINOTRANSFERASE 22 U/L (12-78); ALBUMIN 1.9 G/DL (3.4-5.0); ALBUMIN/GLOBULIN RATIO 0.5 (1.0-2.7); ALKALINE PHOSPHATASE 246 U/L (46-116); ANION GAP 5 mmol/L (5-15); ASPARTATE AMINO TRANSFERASE 36 U/L (15-37); BILIRUBIN,TOTAL 0.3 MG/DL (0.2-1.0); BLOOD UREA NITROGEN 13 mg/dL (7-18); CALCIUM 8.4 MG/DL (8.5-10.1); CARBON DIOXIDE 31 MMOL/L (21-32); CHLORIDE 107 MMOL/L (98-107); CREATININE 0.9 MG/DL (0.55-1.30); PHOSPHORUS 4.6 MG/DL (2.5-4.9); POTASSIUM 3.3 MMOL/L (3.5-5.1); SODIUM 143 MMOL/L (136-145)
--- NOTE | 2018-02-02 06:57 | General Progress Note ---
Assessment/Plan Problem List: (1) Septic shock ICD Codes: A41.9 - Sepsis, unspecified organism; R65.21 - Severe sepsis with septic shock SNOMED: 12372005 (2) DKA (diabetic ketoacidoses) ICD Codes: E13.10 - Other specified diabetes mellitus with ketoacidosis without coma SNOMED: 713977612, 24482157 (3) Acute renal failure (ARF) ICD Codes: N17.9 - Acute kidney failure, unspecified SNOMED: 01192226 Assessment/Plan - continue Levemir 20 units bid - continue Novolog 12 units ac tid - continue NISS ac / hs Subjective Allergies: Coded Allergies: No Known Allergies (Unverified , 01/15/18) All Systems: reviewed and negative except above Subjective events noted - interval notes reviewed Objective Last 24 Hour Vital Signs Date Time Temp Pulse Resp B/P (MAP) Pulse Ox O2 Delivery O2 Flow Rate FiO2 02/02/18 04:00 98.4 108 21 119/60 96 Nasal Cannula 2.0 98.4 02/02/18 04:00 99 02/02/18 00:00 107 02/02/18 00:00 100.4 105 21 125/83 95 Nasal Cannula 2.0 100.4 02/01/18 20:56 109 113/81 02/01/18 20:00 109 02/01/18 20:00 98.8 111 23 117/71 94 Nasal Cannula 2.0 98.8 02/01/18 19:58 Nasal Cannula 2.0 28 02/01/18 19:58 93 Nasal Cannula 2.0 28 02/01/18 16:00 114 02/01/18 16:00 99.1 115 20 113/81 98 Room Air 99.1 02/01/18 12:00 102 02/01/18 11:56 98.2 108 20 114/65 94 Nasal Cannula 3.0 98.2 02/01/18 09:55 97 Nasal Cannula 3.0 32 02/01/18 09:55 Nasal Cannula 3.0 32 02/01/18 09:04 98 120/71 02/01/18 08:00 99 02/01/18 08:00 97.5 98 22 120/71 98 Nasal Cannula 3.0 97.5 Intake and Output 02/01/18 02/02/18 19:00 07:00 Intake Total 600 ml Output Total 1700 ml Balance -1100 ml Intake Oral 600 ml Output Urine Total 1700 ml # Bowel Movements 1 Laboratory Tests 02/01/18 13:25: C-Reactive Protein, Quantitative 6.8H 02/02/18 01:30: Stool Occult Blood [Pending] 02/02/18 05:05: White Blood Count 8.3, Red Blood Count 2.47L, Hemoglobin 7.5L, Hematocrit 22.7L , Mean Corpuscular Volume 92, Mean Corpuscular Hemoglobin 30.5, Mean Corpuscular Hemoglobin Concent 33.2, Red Cell Distribution Width 13.1, Platelet Count 227, Mean Platelet Volume 7.2, Neutrophils (%) (Auto) , Lymphocytes (%) ( Auto) , Monocytes (%) (Auto) , Eosinophils (%) (Auto) , Basophils (%) (Auto) , Neutrophils % (Manual) [Pending], Lymphocytes % (Manual) [Pending], Platelet Estimate [Pending], Platelet Morphology [Pending], Sodium Level 143, Potassium Level 3.3L, Chloride Level 107, Carbon Dioxide Level 31, Anion Gap 5, Blood Urea Nitrogen 13, Creatinine 0.9, Estimat Glomerular Filtration Rate > 60, Glucose Level 111H, Uric Acid 4.6, Calcium Level 8.4L, Phosphorus Level 4.6, Magnesium Level 1.3L, Total Bilirubin 0.3, Aspartate Amino Transf (AST/SGOT) 36 , Alanine Aminotransferase (ALT/SGPT) 22, Alkaline Phosphatase 246H, Pro-B-Type Natriuretic Peptide 328H, Total Protein 5.4L, Albumin 1.9L, Globulin 3.5, Albumin/Globulin Ratio 0.5L Height (Feet): 5 Height (Inches): 9.00 Weight (Pounds): 269 General Appearance: no apparent distress Neck: normal alignment Cardiovascular: normal rate Respiratory/Chest: lungs clear Abdomen: normal bowel sounds Objective Current Medications Medications (Trade) Dose Ordered Sig/Alana Route PRN Reason Start Time Stop Time Status Last Admin Dose Admin Acetaminophen (Tylenol) 500 mg Q6H PRN NG Fever/Headache/Mild Pain 01/28/18 15:30 02/27/18 15:29 Acetaminophen/ Hydrocodone Bitart ([place] 10/325) 1 tab Q4H PRN ORAL Moderate Pain (Pain Scale 4-6) 01/30/18 09:45 6/5/18 09:44 02/01/18 21:06 Amoxicillin (Amoxil) 500 mg EVERY 8 HOURS ORAL 01/30/18 14:00 03/31/18 13:59 02/02/18 06:09 Aspirin (ASA) 81 mg DAILY ORAL 01/30/18 09:00 03/01/18 08:59 02/01/18 09:04 Bacitracin (Bacitracin 15gm tube) 1 applic DAILY TOPIC 01/29/18 06:00 02/28/18 05:59 02/01/18 09:07 Calcium Carbonate (Os-Aries) 1,250 mg BID ORAL 01/29/18 18:00 02/23/18 09:59 02/01/18 17:02 Carvedilol (Coreg) 12.5 mg EVERY 12 HOURS ORAL 02/01/18 21:00 03/03/18 20:59 02/01/18 20:56 Dextrose (Dextrose 50%) 25 ml STAT PRN IV Hypoglycemia 01/28/18 15:30 02/27/18 15:29 Dextrose (Dextrose 50%) 50 ml STAT PRN IV Hypoglycemia 01/28/18 15:30 02/27/18 15:29 Famotidine (Pepcid) 20 mg EVERY 12 HOURS ORAL 02/01/18 21:00 03/03/18 20:59 02/01/18 21:02 Folic Acid (Folate) 1 mg DAILY ORAL 01/29/18 09:00 02/26/18 08:59 02/01/18 09:04 Furosemide (Lasix) 40 mg DAILY ORAL 01/31/18 09:00 03/01/18 08:59 02/01/18 09:06 Heparin Sodium (Porcine) (Heparin 5000 units/ml) 5,000 units EVERY 12 HOURS SUBQ 01/28/18 21:00 02/27/18 20:59 02/01/18 21:00 Insulin Aspart (NovoLOG) BEFORE MEALS AND HS SUBQ 01/28/18 16:30 02/23/18 11:29 02/02/18 06:12 Insulin Aspart (NovoLOG) 12 units NOVOTIAC SUBQ 02/01/18 11:50 02/23/18 11:49 02/02/18 06:10 Insulin Detemir (Levemir) 20 units Q12HR SUBQ 01/30/18 09:00 02/23/18 08:59 02/01/18 21:01 Lactobacillus Acidophilus (Culturelle) 1 tab THREE TIMES A DAY ORAL 01/28/18 18:00 02/22/18 17:59 02/01/18 17:02 Loperamide HCl (Imodium) 2 mg Q4H PRN ORAL Diarrhea 02/01/18 11:00 03/03/18 10:59 02/02/18 01:43 Potassium Chloride (K-Dur) 40 meq DAILY ORAL 01/31/18 09:00 02/22/18 17:59 02/01/18 09:04 Psyllium Hydrophilic Mucilloid (Metamucil) 1 pkt THREE TIMES A DAY ORAL 02/01/18 13:00 03/03/18 12:59 02/01/18 17:02 Tamsulosin HCl (Flomax) 0.4 mg BID ORAL 01/31/18 09:30 03/02/18 09:29 02/01/18 17:02 Vitamin D (Vitamin D) 5,000 intlu DAILY ORAL 01/29/18 09:00 02/26/18 08:59 02/01/18 09:05 Zolpidem Tartrate (Ambien) 5 mg HSPRN PRN ORAL Insomnia 01/30/18 21:00 02/06/18 20:59 02/02/18 01:43 Item Value Date Time Bedside Blood Glucose 119 mg/dl 02/02/18 0630 Bedside Blood Glucose 96 mg/dl 02/01/18 2101 Bedside Blood Glucose 135 mg/dl H 02/01/18 1705 Bedside Blood Glucose 178 mg/dl H 02/01/18 1146 Bedside Blood Glucose 168 mg/dl H 02/01/18 0908 Bedside Blood Glucose 168 mg/dl H 02/01/18 0627 Milton Denis MD Feb 02, 2018 06:57
[2018-02-02 08:00] VITALS: BP 120/61
[2018-02-02] MEDS: Aspirin Baby 81mg ORAL SCH (09:00)
[2018-02-02] MEDS: Heparin 5000 units/ml inj SUBQ SCH ×2 (09:00→20:46)
[2018-02-02] MEDS: Tamsulosin 0.4mg cap ORAL SCH ×2 (09:20→17:10)
[2018-02-02] MEDS: Furosemide 40mg tab ORAL SCH (09:21)
[2018-02-02] MEDS: Lactobacillus-GG tablet ORAL SCH ×3 (09:21→17:08)
[2018-02-02] MEDS: Vitamin D 1000 IU Tab ORAL SCH (09:21)
[2018-02-02] MEDS: Carvedilol 12.5mg tab ORAL SCH ×2 (09:21→20:31)
[2018-02-02] MEDS: Metamucil Pkt ORAL SCH ×3 (09:22→17:10)
[2018-02-02] MEDS: Bacitracin Oint 15gm Tube TOPIC SCH (09:22)
[2018-02-02] MEDS: Levemir Flexpen SUBQ SCH ×2 (09:27→20:47)
--- NOTE | 2018-02-02 10:39 | GI Progress Note ---
Assessment/Plan Problems: (1) Dehydration ICD Codes: E86.0 - Dehydration SNOMED: 62414305 (2) Anemia ICD Codes: D64.9 - Anemia, unspecified SNOMED: 918539858 (3) Electrolyte imbalance ICD Codes: E87.8 - Other disorders of electrolyte and fluid balance, not elsewhere classified SNOMED: 847999929 (4) Severe diarrhea ICD Codes: K52.9 - Noninfective gastroenteritis and colitis, unspecified SNOMED: 870537958 Status: progressing, unchanged Status Narrative Discussed with Dr. Durbin. Assessment/Plan cdiff negative x 2 normocytic normochromic anemia acute diarrhea anemia work up reviewed >> folate deficiency OB stool positive lactose free diet cont lactobacillus add metamucil imodium prn DM mgmt anemia work up send addition OB stool monitor H&H, prn transfusions bowel regime dc ppi, H2B BID fu labs Subjective Subjective had episode of diarrhea x 1 diarrhea has improved denies abdominal pain Objective Last 24 Hour Vital Signs Date Time Temp Pulse Resp B/P (MAP) Pulse Ox O2 Delivery O2 Flow Rate FiO2 02/02/18 09:21 86 120/61 02/02/18 08:18 86 16 Nasal Cannula 2.0 28 02/02/18 08:00 95 02/02/18 08:00 96.3 99 18 120/61 96 Nasal Cannula 2.0 96.3 02/02/18 07:55 Nasal Cannula 2.0 28 02/02/18 07:55 95 Nasal Cannula 2.0 28 02/02/18 04:00 98.4 108 21 119/60 96 Nasal Cannula 2.0 98.4 02/02/18 04:00 99 02/02/18 00:00 107 02/02/18 00:00 100.4 105 21 125/83 95 Nasal Cannula 2.0 100.4 02/01/18 20:56 109 113/81 02/01/18 20:00 109 02/01/18 20:00 98.8 111 23 117/71 94 Nasal Cannula 2.0 98.8 02/01/18 19:58 Nasal Cannula 2.0 28 02/01/18 19:58 93 Nasal Cannula 2.0 28 02/01/18 16:00 114 02/01/18 16:00 99.1 115 20 113/81 98 Room Air 99.1 02/01/18 12:00 102 02/01/18 11:56 98.2 108 20 114/65 94 Nasal Cannula 3.0 98.2 Intake and Output 02/01/18 02/02/18 19:00 07:00 Intake Total 600 ml 360 ml Output Total 1700 ml 800 ml Balance -1100 ml -440 ml Intake Oral 600 ml 360 ml Output Urine Total 1700 ml 800 ml # Bowel Movements 1 1 Laboratory Tests Test 02/01/18 13:25 02/02/18 01:30 02/02/18 05:05 C-Reactive Protein, Quantitative 6.8 mg/dL (0.00-0.90) H Stool Occult Blood Pending White Blood Count 8.3 K/UL (4.8-10.8) Red Blood Count 2.47 M/UL (4.70-6.10) L Hemoglobin 7.5 G/DL (14.2-18.0) L Hematocrit 22.7 % (42.0-52.0) L Mean Corpuscular Volume 92 FL (80-99) Mean Corpuscular Hemoglobin 30.5 PG (27.0-31.0) Mean Corpuscular Hemoglobin Concent 33.2 G/DL (32.0-36.0) Red Cell Distribution Width 13.1 % (11.6-14.8) Platelet Count 227 K/UL (150-450) Mean Platelet Volume 7.2 FL (6.5-10.1) Neutrophils (%) (Auto) % (45.0-75.0) Lymphocytes (%) (Auto) % (20.0-45.0) Monocytes (%) (Auto) % (1.0-10.0) Eosinophils (%) (Auto) % (0.0-3.0) Basophils (%) (Auto) % (0.0-2.0) Differential Total Cells Counted 100 Neutrophils % (Manual) 53 % (45-75) Lymphocytes % (Manual) 25 % (20-45) Monocytes % (Manual) 17 % (1-10) H Eosinophils % (Manual) 4 % (0-3) H Basophils % (Manual) 1 % (0-2) Band Neutrophils 0 % (0-8) Platelet Estimate Adequate Platelet Morphology Normal Polychromasia 1+ Sodium Level 143 MMOL/L (136-145) Potassium Level 3.3 MMOL/L (3.5-5.1) L Chloride Level 107 MMOL/L (98-107) Carbon Dioxide Level 31 MMOL/L (21-32) Anion Gap 5 mmol/L (5-15) Blood Urea Nitrogen 13 mg/dL (7-18) Creatinine 0.9 MG/DL (0.55-1.30) Estimat Glomerular Filtration Rate > 60 mL/min (>60) Glucose Level 111 MG/DL (74-106) H Uric Acid 4.6 MG/DL (2.6-7.2) Calcium Level 8.4 MG/DL (8.5-10.1) L Phosphorus Level 4.6 MG/DL (2.5-4.9) Magnesium Level 1.3 MG/DL (1.8-2.4) L Total Bilirubin 0.3 MG/DL (0.2-1.0) Aspartate Amino Transf (AST/SGOT) 36 U/L (15-37) Alanine Aminotransferase (ALT/SGPT) 22 U/L (12-78) Alkaline Phosphatase 246 U/L (46-116) H Pro-B-Type Natriuretic Peptide 328 pg/mL (0-125) H Total Protein 5.4 G/DL (6.4-8.2) L Albumin 1.9 G/DL (3.4-5.0) L Globulin 3.5 g/dL Albumin/Globulin Ratio 0.5 (1.0-2.7) L Height (Feet): 5 Height (Inches): 9.00 Weight (Pounds): 269 General Appearance: WD/WN, no apparent distress, alert Cardiovascular: normal rate Respiratory/Chest: normal breath sounds, no respiratory distress Abdominal Exam: normal bowel sounds, non tender, soft Extremities: non-tender Ada Lopez NP Feb 02, 2018 10:39
--- NOTE | 2018-02-02 10:58 | Infectious Diseases Prog Note ---
"Assessment/Plan Assessment/Plan antibiotics : amoxicillin A 1. 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 septic shock resolved 3. pancreatitis improving 4. DKA resolved 5. renal failure resolved 6. respiratory failure resolved 7. 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 fungal UTI s/p rx 11, pseudomonas pneumonia s/p rx P 1. continue amoxicillin 161 more days 2. will follow up cultures Subjective ROS Limited/Unobtainable: Yes Allergies: Coded Allergies: No Known Allergies (Unverified , 01/15/18) Objective Vital Signs Last 24 Hour Vital Signs Date Time Temp Pulse Resp B/P (MAP) Pulse Ox O2 Delivery O2 Flow Rate FiO2 02/02/18 09:21 86 120/61 02/02/18 08:18 86 16 Nasal Cannula 2.0 28 02/02/18 08:00 95 02/02/18 08:00 96.3 99 18 120/61 96 Nasal Cannula 2.0 96.3 02/02/18 07:55 Nasal Cannula 2.0 28 02/02/18 07:55 95 Nasal Cannula 2.0 28 02/02/18 04:00 98.4 108 21 119/60 96 Nasal Cannula 2.0 98.4 02/02/18 04:00 99 02/02/18 00:00 107 02/02/18 00:00 100.4 105 21 125/83 95 Nasal Cannula 2.0 100.4 02/01/18 20:56 109 113/81 02/01/18 20:00 109 02/01/18 20:00 98.8 111 23 117/71 94 Nasal Cannula 2.0 98.8 02/01/18 19:58 Nasal Cannula 2.0 28 02/01/18 19:58 93 Nasal Cannula 2.0 28 02/01/18 16:00 114 02/01/18 16:00 99.1 115 20 113/81 98 Room Air 99.1 02/01/18 12:00 102 02/01/18 11:56 98.2 108 20 114/65 94 Nasal Cannula 3.0 98.2 Height (Feet): 5 Height (Inches): 9.00 Weight (Pounds): 269 Respiratory/Chest: lungs clear Cardiovascular: normal rate, regular rhythm, no gallop/murmur Abdomen: soft, non tender Extremities: no edema Laboratory Tests Test 02/01/18 13:25 6/1/18 01:30 02/02/18 05:05 C-Reactive Protein, Quantitative 6.8 mg/dL (0.00-0.90) H Stool Occult Blood Pending White Blood Count 8.3 K/UL (4.8-10.8) Red Blood Count 2.47 M/UL (4.70-6.10) L Hemoglobin 7.5 G/DL (14.2-18.0) L Hematocrit 22.7 % (42.0-52.0) L Mean Corpuscular Volume 92 FL (80-99) Mean Corpuscular Hemoglobin 30.5 PG (27.0-31.0) Mean Corpuscular Hemoglobin Concent 33.2 G/DL (32.0-36.0) Red Cell Distribution Width 13.1 % (11.6-14.8) Platelet Count 227 K/UL (150-450) Mean Platelet Volume 7.2 FL (6.5-10.1) Neutrophils (%) (Auto) % (45.0-75.0) Lymphocytes (%) (Auto) % (20.0-45.0) Monocytes (%) (Auto) % (1.0-10.0) Eosinophils (%) (Auto) % (0.0-3.0) Basophils (%) (Auto) % (0.0-2.0) Differential Total Cells Counted 100 Neutrophils % (Manual) 53 % (45-75) Lymphocytes % (Manual) 25 % (20-45) Monocytes % (Manual) 17 % (1-10) H Eosinophils % (Manual) 4 % (0-3) H Basophils % (Manual) 1 % (0-2) Band Neutrophils 0 % (0-8) Platelet Estimate Adequate Platelet Morphology Normal Polychromasia 1+ Sodium Level 143 MMOL/L (136-145) Potassium Level 3.3 MMOL/L (3.5-5.1) L Chloride Level 107 MMOL/L (98-107) Carbon Dioxide Level 31 MMOL/L (21-32) Anion Gap 5 mmol/L (5-15) Blood Urea Nitrogen 13 mg/dL (7-18) Creatinine 0.9 MG/DL (0.55-1.30) Estimat Glomerular Filtration Rate > 60 mL/min (>60) Glucose Level 111 MG/DL (74-106) H Uric Acid 4.6 MG/DL (2.6-7.2) Calcium Level 8.4 MG/DL (8.5-10.1) L Phosphorus Level 4.6 MG/DL (2.5-4.9) Magnesium Level 1.3 MG/DL (1.8-2.4) L Total Bilirubin 0.3 MG/DL (0.2-1.0) Aspartate Amino Transf (AST/SGOT) 36 U/L (15-37) Alanine Aminotransferase (ALT/SGPT) 22 U/L (12-78) Alkaline Phosphatase 246 U/L (46-116) H Pro-B-Type Natriuretic Peptide 328 pg/mL (0-125) H Total Protein 5.4 G/DL (6.4-8.2) L Albumin 1.9 G/DL (3.4-5.0) L Globulin 3.5 g/dL Albumin/Globulin Ratio 0.5 (1.0-2.7) L Current Medications Medications (Trade) Dose Ordered Sig/Alana Route PRN Reason Start Time Stop Time Status Last Admin Dose Admin Acetaminophen (Tylenol) 500 mg Q6H PRN NG Fever/Headache/Mild Pain 01/28/18 15:30 02/27/18 15:29 Acetaminophen/ Hydrocodone Bitart ([place] 10/325) 1 tab Q4H PRN ORAL Moderate Pain (Pain Scale 4-6) 01/30/18 09:45 02/06/18 09:44 02/01/18 21:06 Amoxicillin (Amoxil) 500 mg EVERY 8 HOURS ORAL 01/30/18 14:00 03/31/18 13:59 02/02/18 06:09 Aspirin (ASA) 81 mg DAILY ORAL 01/30/18 09:00 03/01/18 08:59 02/01/18 09:04 Bacitracin (Bacitracin 15gm tube) 1 applic DAILY TOPIC 01/29/18 06:00 02/28/18 05:59 02/02/18 09:22 Calcium Carbonate (Os-Aries) 1,250 mg BID ORAL 01/29/18 18:00 02/23/18 09:59 02/02/18 09:21 Carvedilol (Coreg) 12.5 mg EVERY 12 HOURS ORAL 02/01/18 21:00 03/03/18 20:59 02/02/18 09:21 Dextrose (Dextrose 50%) 25 ml STAT PRN IV Hypoglycemia 01/28/18 15:30 02/27/18 15:29 Dextrose (Dextrose 50%) 50 ml STAT PRN IV Hypoglycemia 01/28/18 15:30 02/27/18 15:29 Famotidine (Pepcid) 20 mg EVERY 12 HOURS ORAL 02/01/18 21:00 03/03/18 20:59 02/02/18 09:21 Folic Acid (Folate) 1 mg DAILY ORAL 01/29/18 09:00 02/26/18 08:59 02/02/18 09:21 Furosemide (Lasix) 40 mg DAILY ORAL 01/31/18 09:00 03/01/18 08:59 02/02/18 09:21 Heparin Sodium (Porcine) (Heparin 5000 units/ml) 5,000 units EVERY 12 HOURS SUBQ 01/28/18 21:00 02/27/18 20:59 02/01/18 21:00 Insulin Aspart (NovoLOG) BEFORE MEALS AND HS SUBQ 01/28/18 16:30 02/23/18 11:29 02/02/18 06:12 Insulin Aspart (NovoLOG) 12 units NOVOTIAC SUBQ 02/01/18 11:50 02/23/18 11:49 02/02/18 06:10 Insulin Detemir (Levemir) 20 units Q12HR SUBQ 01/30/18 09:00 02/23/18 08:59 02/02/18 09:27 Lactobacillus Acidophilus (Culturelle) 1 tab THREE TIMES A DAY ORAL 01/28/18 18:00 02/22/18 17:59 02/02/18 09:21 Loperamide HCl (Imodium) 2 mg Q4H PRN ORAL Diarrhea 02/01/18 11:00 03/03/18 10:59 02/02/18 01:43 Magnesium Sulfate 100 ml @ 100 mls/hr Q1H IVPB 02/02/18 10:45 02/02/18 12:44 Magnesium Sulfate 100 ml @ 100 mls/hr Q1H IVPB 02/02/18 11:00 02/02/18 14:59 UNV Potassium Chloride (K-Dur) 40 meq DAILY ORAL 01/31/18 09:00 02/22/18 17:59 02/02/18 09:21 Psyllium Hydrophilic Mucilloid (Metamucil) 1 pkt THREE TIMES A DAY ORAL 02/01/18 13:00 03/03/18 12:59 02/02/18 09:22 Tamsulosin HCl (Flomax) 0.4 mg BID ORAL 01/31/18 09:30 03/02/18 09:29 02/02/18 09:20 Vitamin D (Vitamin D) 5,000 intlu DAILY ORAL 01/29/18 09:00 02/26/18 08:59 02/02/18 09:21 Zolpidem Tartrate (Ambien) 5 mg HSPRN PRN ORAL Insomnia 01/30/18 21:00 02/06/18 20:59 02/02/18 01:43 NADEGE MALIK Feb 02, 2018 10:58"
[2018-02-02 11:44] VITALS: BP 128/73
[2018-02-02] MEDS ORDERED: Magnesium Oxide 400mg tab ORAL SCH ×2 (13:00→14:30)
--- NOTE | 2018-02-02 13:27 | Nephrology Progress Note ---
Assessment/Plan Problem List: (1) Septic shock (2) DKA (diabetic ketoacidoses) (3) Acute renal failure (ARF) Assessment left arm swollen, has Picc and thrombosis acute renal failure- now Cr stable and lowering off dialysis Hypotensive on pressors- IMPROVED acute respiratory failure- ON VENT Diabetic Ketoacidosis Low Na, Low K Sepsis high lipase Plan parmar i mag and K supplements need placement increase flomax on po lasix K and Mag supp. as needed Iron panel and B12 and folate ? remove Picc ?? defer to PMD HD last 01/19 check MARION abd : 2. Dense enlarged liver likely fatty. Insulin drip DC bicitra discussed with RN discussed with Mom and GF Betsy per orders aggresive pt and ot Subjective ROS Limited/Unobtainable: No Constitutional: Reports: malaise Objective Objective Last 24 Hour Vital Signs Date Time Temp Pulse Resp B/P (MAP) Pulse Ox O2 Delivery O2 Flow Rate FiO2 02/02/18 12:00 106 02/02/18 11:44 98.4 103 18 128/73 96 Nasal Cannula 2.0 98.4 02/02/18 09:21 86 120/61 02/02/18 08:18 86 16 Nasal Cannula 2.0 28 02/02/18 08:00 95 02/02/18 08:00 96.3 99 18 120/61 96 Nasal Cannula 2.0 96.3 02/02/18 07:55 Nasal Cannula 2.0 28 02/02/18 07:55 95 Nasal Cannula 2.0 28 02/02/18 04:00 98.4 108 21 119/60 96 Nasal Cannula 2.0 98.4 02/02/18 04:00 99 02/02/18 00:00 107 02/02/18 00:00 100.4 105 21 125/83 95 Nasal Cannula 2.0 100.4 02/01/18 20:56 109 113/81 02/01/18 20:00 109 02/01/18 20:00 98.8 111 23 117/71 94 Nasal Cannula 2.0 98.8 02/01/18 19:58 Nasal Cannula 2.0 28 02/01/18 19:58 93 Nasal Cannula 2.0 28 02/01/18 16:00 114 02/01/18 16:00 99.1 115 20 113/81 98 Room Air 99.1 Intake and Output 02/01/18 02/02/18 19:00 07:00 Intake Total 600 ml 360 ml Output Total 1700 ml 800 ml Balance -1100 ml -440 ml Intake Oral 600 ml 360 ml Output Urine Total 1700 ml 800 ml # Bowel Movements 1 1 Laboratory Tests 02/02/18 01:30: Stool Occult Blood Negative 02/02/18 05:05: White Blood Count 8.3, Red Blood Count 2.47L, Hemoglobin 7.5L, Hematocrit 22.7L , Mean Corpuscular Volume 92, Mean Corpuscular Hemoglobin 30.5, Mean Corpuscular Hemoglobin Concent 33.2, Red Cell Distribution Width 13.1, Platelet Count 227, Mean Platelet Volume 7.2, Neutrophils (%) (Auto) , Lymphocytes (%) ( Auto) , Monocytes (%) (Auto) , Eosinophils (%) (Auto) , Basophils (%) (Auto) , Differential Total Cells Counted 100, Neutrophils % (Manual) 53, Lymphocytes % ( Manual) 25, Monocytes % (Manual) 17H, Eosinophils % (Manual) 4H, Basophils % ( Manual) 1, Band Neutrophils 0, Platelet Estimate Adequate, Platelet Morphology Normal, Polychromasia 1+, Sodium Level 143, Potassium Level 3.3L, Chloride Level 107, Carbon Dioxide Level 31, Anion Gap 5, Blood Urea Nitrogen 13, Creatinine 0.9, Estimat Glomerular Filtration Rate > 60, Glucose Level 111H, Uric Acid 4.6, Calcium Level 8.4L, Phosphorus Level 4.6, Magnesium Level 1.3L, Total Bilirubin 0.3, Aspartate Amino Transf (AST/SGOT) 36, Alanine Aminotransferase (ALT/SGPT) 22, Alkaline Phosphatase 246H, Pro-B-Type Natriuretic Peptide 328H, Total Protein 5.4L, Albumin 1.9L, Globulin 3.5, Albumin/Globulin Ratio 0.5L Height (Feet): 5 Height (Inches): 9.00 Weight (Pounds): 269 General Appearance: no apparent distress Cardiovascular: tachycardia Respiratory/Chest: decreased breath sounds Abdomen: distended Objective no other change ALANNA MAHONEY Feb 02, 2018 13:27
[2018-02-02] MEDS: HYDROcodone/Acetamin 10/325 tab ORAL PRN (13:42)
[2018-02-02 15:54] VITALS: BP 129/65
--- NOTE | 2018-02-02 17:01 | Progress Note ---
DATE: 02/02/2018 CARDIOLOGY PROGRESS NOTE SUBJECTIVE: The patient has no shortness of breath. He remains on antimicrobials. OBJECTIVE: VITAL SIGNS: Blood pressure 120/60, heart rate 86, respiratory rate 16 to 21, and T-max is 100.4. GENERAL: Continues to have episodes of diarrhea, but is improving. No abdominal pain. Monitored rhythm is sinus and sinus tachycardia. LUNGS: Coarse breath sounds. HEART: Regular rhythm rate. Normal S1, S2. ABDOMEN: Soft. No focal tenderness. Moderately obese. EXTREMITIES: With trace edema. LABORATORY DATA: White count 8.3 and hemoglobin 7.5. Sodium 143, potassium 3.3, magnesium 1.3, BUN 13, and creatinine 0.9. Albumin 1.9. IMPRESSION: 1. Acute myocardial infarction status post full arrest. 2. Sepsis with shock. 3. Hypomagnesemia. 4. Hypokalemia. 5. Status post diabetic ketoacidosis. 6. Severe protein-calorie malnutrition. PLAN: 1. Replacement of magnesium and potassium initiated. 2. Continue and titrate beta-zen. 3. Maintain anti-platelet therapy with aspirin. 4. 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 Ernie Ashford M.D. DR: PRANAY JOB#: [id number] CC:
[2018-02-02] MEDS: Magnesium Oxide 400mg tab ORAL SCH (17:10)
--- NOTE | 2018-02-02 18:00 | Pulmonology Progress Note ---
Assessment/Plan Problems: (1) DVT of upper extremity (deep vein thrombosis) Assessment & Plan: S/P PICC, NOW REMOVED (2) DKA (diabetic ketoacidoses) Assessment & Plan: RESOLVED (3) Sacral decubitus ulcer, stage II (4) Septic shock Assessment & Plan: RESOLVED and HEMODYNAMICALLY STABLE (5) Acute renal failure (ARF) Assessment & Plan: RESOLVED (6) Anemia Assessment/Plan -Continue Amox &161 more days per ID, completed flucon -Transfuse PRBC, monitor H/H -F/U GI recs, continue H2B -CXR likely with atx, encourage OOB and IS -Monitor volumes and renal function, continue PO Lasix -Continue current insulin regimen, monitor BS -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 -Aspiration precautions -DVT Px: Hep SQ -Pain control/supportive care Subjective Allergies: Coded Allergies: No Known Allergies (Unverified , 01/15/18) Subjective AFVSS, O2 needs stable Dispo held 2/2 HB 7.5, repeat FOBT negative No F/C, no CP, no SOB, rupesh cough, no abd pain, no further diarrhea Working with PT and OT, has barely been OOB Objective Last 24 Hour Vital Signs Date Time Temp Pulse Resp B/P (MAP) Pulse Ox O2 Delivery O2 Flow Rate FiO2 02/02/18 16:00 91 02/02/18 15:54 98.4 96 18 129/65 100 Nasal Cannula 2.0 98.4 02/02/18 12:00 106 02/02/18 11:44 98.4 103 18 128/73 96 Nasal Cannula 2.0 98.4 02/02/18 09:21 86 120/61 02/02/18 08:18 86 16 Nasal Cannula 2.0 28 02/02/18 08:00 95 02/02/18 08:00 96.3 99 18 120/61 96 Nasal Cannula 2.0 96.3 02/02/18 07:55 Nasal Cannula 2.0 28 02/02/18 07:55 95 Nasal Cannula 2.0 28 02/02/18 04:00 98.4 108 21 119/60 96 Nasal Cannula 2.0 98.4 02/02/18 04:00 99 02/02/18 00:00 107 02/02/18 00:00 100.4 105 21 125/83 95 Nasal Cannula 2.0 100.4 02/01/18 20:56 109 113/81 02/01/18 20:00 109 02/01/18 20:00 98.8 111 23 117/71 94 Nasal Cannula 2.0 98.8 02/01/18 19:58 Nasal Cannula 2.0 28 02/01/18 19:58 93 Nasal Cannula 2.0 28 Intake and Output 02/01/18 02/02/18 19:00 07:00 Intake Total 600 ml 360 ml Output Total 1700 ml 800 ml Balance -1100 ml -440 ml Intake Oral 600 ml 360 ml Output Urine Total 1700 ml 800 ml # Bowel Movements 1 1 General Appearance: WD/WN, no acute distress HEENT: normocephalic, atraumatic, anicteric, mucous membranes moist Respiratory/Chest: chest wall non-tender, lungs clear, normal breath sounds, no respiratory distress Cardiovascular: normal peripheral pulses, normal rate, regular rhythm Abdomen: normal bowel sounds, soft, non tender, no organomegaly, non distended Extremities: no cyanosis, no clubbing, no edema Laboratory Tests 02/02/18 01:30: Stool Occult Blood Negative 02/02/18 05:05: White Blood Count 8.3, Red Blood Count 2.47L, Hemoglobin 7.5L, Hematocrit 22.7L , Mean Corpuscular Volume 92, Mean Corpuscular Hemoglobin 30.5, Mean Corpuscular Hemoglobin Concent 33.2, Red Cell Distribution Width 13.1, Platelet Count 227, Mean Platelet Volume 7.2, Neutrophils (%) (Auto) , Lymphocytes (%) ( Auto) , Monocytes (%) (Auto) , Eosinophils (%) (Auto) , Basophils (%) (Auto) , Differential Total Cells Counted 100, Neutrophils % (Manual) 53, Lymphocytes % ( Manual) 25, Monocytes % (Manual) 17H, Eosinophils % (Manual) 4H, Basophils % ( Manual) 1, Band Neutrophils 0, Platelet Estimate Adequate, Platelet Morphology Normal, Polychromasia 1+, Sodium Level 143, Potassium Level 3.3L, Chloride Level 107, Carbon Dioxide Level 31, Anion Gap 5, Blood Urea Nitrogen 13, Creatinine 0.9, Estimat Glomerular Filtration Rate > 60, Glucose Level 111H, Uric Acid 4.6, Calcium Level 8.4L, Phosphorus Level 4.6, Magnesium Level 1.3L, Total Bilirubin 0.3, Aspartate Amino Transf (AST/SGOT) 36, Alanine Aminotransferase (ALT/SGPT) 22, Alkaline Phosphatase 246H, Pro-B-Type Natriuretic Peptide 328H, Total Protein 5.4L, Albumin 1.9L, Globulin 3.5, Albumin/Globulin Ratio 0.5L Current Medications Medications (Trade) Dose Ordered Sig/Alana Route PRN Reason Start Time Stop Time Status Last Admin Dose Admin Acetaminophen (Tylenol) 500 mg Q6H PRN NG Fever/Headache/Mild Pain 01/28/18 15:30 02/27/18 15:29 Acetaminophen/ Hydrocodone Bitart ([place] 10/325) 1 tab Q4H PRN ORAL Moderate Pain (Pain Scale 4-6) 01/30/18 09:45 02/06/18 09:44 02/02/18 13:42 Amoxicillin (Amoxil) 500 mg EVERY 8 HOURS ORAL 01/30/18 14:00 03/31/18 13:59 02/02/18 13:15 Aspirin (ASA) 81 mg DAILY ORAL 01/30/18 09:00 03/01/18 08:59 02/01/18 09:04 Bacitracin (Bacitracin 15gm tube) 1 applic DAILY TOPIC 01/29/18 06:00 02/28/18 05:59 02/02/18 09:22 Calcium Carbonate (Os-Aries) 1,250 mg BID ORAL 01/29/18 18:00 02/23/18 09:59 02/02/18 17:10 Carvedilol (Coreg) 12.5 mg EVERY 12 HOURS ORAL 02/01/18 21:00 03/03/18 20:59 02/02/18 09:21 Dextrose (Dextrose 50%) 25 ml STAT PRN IV Hypoglycemia 01/28/18 15:30 02/27/18 15:29 Dextrose (Dextrose 50%) 50 ml STAT PRN IV Hypoglycemia 01/28/18 15:30 02/27/18 15:29 Famotidine (Pepcid) 20 mg EVERY 12 HOURS ORAL 02/01/18 21:00 03/03/18 20:59 02/02/18 09:21 Folic Acid (Folate) 1 mg DAILY ORAL 01/29/18 09:00 02/26/18 08:59 02/02/18 09:21 Furosemide (Lasix) 40 mg DAILY ORAL 01/31/18 09:00 03/01/18 08:59 02/02/18 09:21 Heparin Sodium (Porcine) (Heparin 5000 units/ml) 5,000 units EVERY 12 HOURS SUBQ 01/28/18 21:00 02/27/18 20:59 02/01/18 21:00 Insulin Aspart (NovoLOG) BEFORE MEALS AND HS SUBQ 01/28/18 16:30 02/23/18 11:29 02/02/18 17:12 Insulin Aspart (NovoLOG) 12 units NOVOTIAC SUBQ 02/01/18 11:50 02/23/18 11:49 02/02/18 17:12 Insulin Detemir (Levemir) 20 units Q12HR SUBQ 01/30/18 09:00 02/23/18 08:59 02/02/18 09:27 Lactobacillus Acidophilus (Culturelle) 1 tab THREE TIMES A DAY ORAL 01/28/18 18:00 02/22/18 17:59 02/02/18 17:08 Loperamide HCl (Imodium) 2 mg Q4H PRN ORAL Diarrhea 02/01/18 11:00 03/03/18 10:59 02/02/18 14:51 Magnesium Oxide (Mag-Ox 400mg) 400 mg THREE TIMES A DAY ORAL 02/02/18 18:00 03/04/18 17:59 02/02/18 17:10 Potassium Chloride (K-Dur) 40 meq BID ORAL 02/02/18 18:00 02/22/18 17:59 02/02/18 17:09 Psyllium Hydrophilic Mucilloid (Metamucil) 1 pkt THREE TIMES A DAY ORAL 02/01/18 13:00 03/03/18 12:59 02/02/18 17:10 Tamsulosin HCl (Flomax) 0.4 mg BID ORAL 01/31/18 09:30 03/02/18 09:29 02/02/18 17:10 Vitamin D (Vitamin D) 5,000 intlu DAILY ORAL 01/29/18 09:00 02/26/18 08:59 02/02/18 09:21 Zolpidem Tartrate (Ambien) 5 mg HSPRN PRN ORAL Insomnia 01/30/18 21:00 02/06/18 20:59 02/02/18 01:43 Christiano Ndiaye MD Feb 02, 2018 18:00
[2018-02-02 20:00] VITALS: BP 118/79
[2018-02-03] VITALS: BP 105/65
[2018-02-03] MEDS: Zolpidem 5mg tab ORAL PRN ×2 (01:19→22:04)
[2018-02-03] MEDS: Loperamide 2mg cap ORAL PRN ×2 (01:19→10:46)
[2018-02-03] MEDS: HYDROcodone/Acetamin 10/325 tab ORAL PRN ×4 (01:20→22:04)
[2018-02-03 04:00] VITALS: BP 118/79
[2018-02-03] MEDS: NovoLOG Insulin Flexpen SUBQ SCH ×7 (07:10→21:05)
[2018-02-03 08:00] VITALS: BP_SYST 104; BP_SYST 168; BP_DIAS 103; BP_DIAS 59
[2018-02-03 08:09] LABS: BASOPHILS % (AUTO) 2.4 % (0.0-2.0); HEMATOCRIT 25.5 % (42.0-52.0); HEMOGLOBIN 8.6 G/DL (14.2-18.0); LYMPHOCYTES % (AUTO) 30.9 % (20.0-45.0); MEAN CORPUSCULAR VOLUME 92 FL (80-99); MONOCYTES % (AUTO) 13.3 % (1.0-10.0); NEUTROPHILS % (AUTO) 49.5 % (45.0-75.0); PLATELET COUNT 271 K/UL (150-450); RED BLOOD COUNT 2.78 M/UL (4.70-6.10); RED CELL DISTRIBUTION WIDTH 13.1 % (11.6-14.8); WHITE BLOOD COUNT 8.3 K/UL (4.8-10.8)
--- NOTE | 2018-02-03 08:10 | General Progress Note ---
Assessment/Plan Problem List: (1) Septic shock ICD Codes: A41.9 - Sepsis, unspecified organism; R65.21 - Severe sepsis with septic shock SNOMED: 73657790 (2) DKA (diabetic ketoacidoses) ICD Codes: E13.10 - Other specified diabetes mellitus with ketoacidosis without coma SNOMED: 171471382, 62427580 (3) Acute renal failure (ARF) ICD Codes: N17.9 - Acute kidney failure, unspecified SNOMED: 81738058 Assessment/Plan - reduce Levemir to 16 units bid - reduce Novolog to 8 units ac tid - continue NISS ac / hs Subjective Allergies: Coded Allergies: No Known Allergies (Unverified , 01/15/18) All Systems: reviewed and negative except above Subjective events noted - interval notes reviewed Objective Last 24 Hour Vital Signs Date Time Temp Pulse Resp B/P (MAP) Pulse Ox O2 Delivery O2 Flow Rate FiO2 02/03/18 04:00 95 02/03/18 04:00 97.9 104 20 118/79 96 Nasal Cannula 2.0 97.9 02/03/18 01:53 96 2.0 28 02/03/18 00:00 98.8 102 20 105/65 97 Nasal Cannula 2.0 98.8 02/03/18 00:00 102 02/02/18 20:31 104 118/79 02/02/18 20:00 100 02/02/18 20:00 97.9 104 17 118/79 96 Nasal Cannula 2.0 97.9 02/02/18 19:30 93 Nasal Cannula 2.0 28 02/02/18 19:30 Nasal Cannula 2.0 28 02/02/18 16:00 91 02/02/18 15:54 98.4 96 18 129/65 100 Nasal Cannula 2.0 98.4 02/02/18 12:00 106 02/02/18 11:44 98.4 103 18 128/73 96 Nasal Cannula 2.0 98.4 02/02/18 09:21 86 120/61 02/02/18 08:18 86 16 Nasal Cannula 2.0 28 Intake and Output 02/02/18 02/03/18 19:00 07:00 Intake Total 480 ml Output Total 2200 ml 700 ml Balance -1720 ml -700 ml Intake Oral 480 ml Output Urine Total 2200 ml 700 ml # Bowel Movements 1 Laboratory Tests 02/03/18 05:40: White Blood Count [Pending], Red Blood Count [Pending], Hemoglobin [Pending], Hematocrit [Pending], Mean Corpuscular Volume [Pending], Mean Corpuscular Hemoglobin [Pending], Mean Corpuscular Hemoglobin Concent [Pending], Red Cell Distribution Width [Pending], Platelet Count [Pending], Mean Platelet Volume [ Pending], Neutrophils (%) (Auto) [Pending], Lymphocytes (%) (Auto) [Pending], Monocytes (%) (Auto) [Pending], Eosinophils (%) (Auto) [Pending], Basophils (%) (Auto) [Pending], Sodium Level [Pending], Potassium Level [Pending], Chloride Level [Pending], Carbon Dioxide Level [Pending], Blood Urea Nitrogen [Pending], Creatinine [Pending], Estimat Glomerular Filtration Rate [Pending], Glucose Level [Pending], Calcium Level [Pending], Magnesium Level [Pending], Triglycerides Level [Pending], Cholesterol Level [Pending], LDL Cholesterol [ Pending], HDL Cholesterol [Pending], Cholesterol/HDL Ratio [Pending] Height (Feet): 5 Height (Inches): 9.00 Weight (Pounds): 279 General Appearance: no apparent distress Neck: normal alignment Cardiovascular: normal rate Respiratory/Chest: decreased breath sounds Abdomen: normal bowel sounds Objective Item Value Date Time Bedside Blood Glucose 128 mg/dl H 02/03/18 0715 Bedside Blood Glucose 128 mg/dl H 02/03/18 0633 Bedside Blood Glucose 80 mg/dl 02/02/18 2100 Bedside Blood Glucose 147 mg/dl H 02/02/18 1712 Bedside Blood Glucose 79 mg/dl 02/02/18 1116 Bedside Blood Glucose 119 mg/dl 02/02/18 0927 Bedside Blood Glucose 119 mg/dl 02/02/18 0630 Milton Denis MD Feb 03, 2018 08:10
[2018-02-03 08:46] LABS: ANION GAP 9 mmol/L (5-15); BLOOD UREA NITROGEN 9 mg/dL (7-18); CALCIUM 8.4 MG/DL (8.5-10.1); CARBON DIOXIDE 26 MMOL/L (21-32); CHLORIDE 106 MMOL/L (98-107); CHOLESTEROL 117 MG/DL (< 200); CREATININE 0.9 MG/DL (0.55-1.30); HDL CHOLESTEROL 26 MG/DL (40-60); POTASSIUM 3.4 MMOL/L (3.5-5.1); SODIUM 141 MMOL/L (136-145); TRIGLYCERIDES 182 MG/DL (30-150)
--- NOTE | 2018-02-03 10:21 | General Progress Note ---
Assessment/Plan Assessment/Plan cdiff negative x 2 normocytic normochromic anemia acute diarrhea anemia work up reviewed >> folate deficiency OB stool positive lactose free diet cont lactobacillus imodium prn DM mgmt anemia work up send addition OB stool monitor H&H, prn transfusions bowel regime dc ppi, H2B BID fu labs Subjective ROS Limited/Unobtainable: Yes Allergies: Coded Allergies: No Known Allergies (Unverified , 01/15/18) Objective Last 24 Hour Vital Signs Date Time Temp Pulse Resp B/P (MAP) Pulse Ox O2 Delivery O2 Flow Rate FiO2 02/03/18 09:52 96 Nasal Cannula 2.0 28 02/03/18 09:52 Nasal Cannula 2.0 28 02/03/18 08:00 97.2 113 20 104/59 100 Nasal Cannula 2.0 97.2 02/03/18 04:00 95 02/03/18 04:00 97.9 104 20 118/79 96 Nasal Cannula 2.0 97.9 02/03/18 01:53 96 2.0 28 02/03/18 00:00 98.8 102 20 105/65 97 Nasal Cannula 2.0 98.8 02/03/18 00:00 102 02/02/18 20:31 104 118/79 02/02/18 20:00 100 02/02/18 20:00 97.9 104 17 118/79 96 Nasal Cannula 2.0 97.9 02/02/18 19:30 93 Nasal Cannula 2.0 28 02/02/18 19:30 Nasal Cannula 2.0 28 02/02/18 16:00 91 02/02/18 15:54 98.4 96 18 129/65 100 Nasal Cannula 2.0 98.4 02/02/18 12:00 106 02/02/18 11:44 98.4 103 18 128/73 96 Nasal Cannula 2.0 98.4 Intake and Output 02/02/18 02/03/18 19:00 07:00 Intake Total 480 ml Output Total 2200 ml 700 ml Balance -1720 ml -700 ml Intake Oral 480 ml Output Urine Total 2200 ml 700 ml # Bowel Movements 1 Laboratory Tests 02/03/18 05:40: White Blood Count 8.3, Red Blood Count 2.78L, Hemoglobin 8.6L, Hematocrit 25.5L , Mean Corpuscular Volume 92, Mean Corpuscular Hemoglobin 30.9, Mean Corpuscular Hemoglobin Concent 33.7, Red Cell Distribution Width 13.1, Platelet Count 271, Mean Platelet Volume 6.7, Neutrophils (%) (Auto) 49.5, Lymphocytes (% ) (Auto) 30.9, Monocytes (%) (Auto) 13.3H, Eosinophils (%) (Auto) 4.0H, Basophils (%) (Auto) 2.4H, Sodium Level 141, Potassium Level 3.4L, Chloride Level 106, Carbon Dioxide Level 26, Anion Gap 9, Blood Urea Nitrogen 9, Creatinine 0.9, Estimat Glomerular Filtration Rate > 60, Glucose Level 117H, Calcium Level 8.4L, Magnesium Level 1.4L, Triglycerides Level 182H, Cholesterol Level 117, LDL Cholesterol 76, HDL Cholesterol 26L, Cholesterol/HDL Ratio 4.5H Height (Feet): 5 Height (Inches): 9.00 Weight (Pounds): 279 General Appearance: no apparent distress EENT: normal ENT inspection Neck: supple Cardiovascular: normal rate Respiratory/Chest: decreased breath sounds Abdomen: normal bowel sounds, non tender, soft Edema: 2+ Leg (L), 2+ Leg (R) Man Durbin MD Feb 03, 2018 10:21
[2018-02-03] MEDS: Tamsulosin 0.4mg cap ORAL SCH ×2 (10:46→17:34)
[2018-02-03] MEDS: Aspirin Baby 81mg ORAL SCH (10:46)
[2018-02-03] MEDS: Lactobacillus-GG tablet ORAL SCH ×3 (10:46→17:35)
[2018-02-03] MEDS: Carvedilol 12.5mg tab ORAL SCH ×2 (10:46→20:46)
[2018-02-03] MEDS: Vitamin D 1000 IU Tab ORAL SCH (10:47)
[2018-02-03] MEDS: Magnesium Oxide 400mg tab ORAL SCH (10:47)
[2018-02-03] MEDS: Furosemide 40mg tab ORAL SCH (10:47)
[2018-02-03] MEDS: Heparin 5000 units/ml inj SUBQ SCH ×2 (10:53→20:56)
[2018-02-03] MEDS: Bacitracin Oint 15gm Tube TOPIC SCH (11:00)
[2018-02-03] MEDS: Levemir Flexpen SUBQ SCH ×2 (11:15→21:05)
--- NOTE | 2018-02-03 11:19 | General Progress Note ---
Assessment/Plan Status: unchanged Assessment/Plan IM coverage for DR Kessler: (1) DVT of upper extremity (deep vein thrombosis) Assessment & Plan: S/P PICC, NOW REMOVED (2) DKA (diabetic ketoacidoses) Assessment & Plan: RESOLVED (3) Sacral decubitus ulcer, stage II (4) Septic shock Assessment & Plan: RESOLVED and HEMODYNAMICALLY STABLE (5) Acute renal failure (ARF) Assessment & Plan: RESOLVED (6) Anemia Assessment/Plan -Aspiration precautions -DVT Px: Hep SQ -Pain control/supportive care current management Subjective Allergies: Coded Allergies: No Known Allergies (Unverified , 01/15/18) Subjective AFVSS, O2 needs stable Dispo held 10/06 HB 7.5, repeat FOBT negative No F/C, no CP, no SOB, rupesh cough, no abd pain, no further diarrhea Working with PT and OT, has barely been OOB General Appearance: WD/WN, no acute distress HEENT: normocephalic, atraumatic, anicteric, mucous membranes moist Respiratory/Chest: chest wall non-tender, lungs clear, normal breath sounds, no respiratory distress Cardiovascular: normal peripheral pulses, normal rate, regular rhythm Abdomen: normal bowel sounds, soft, non tender, no organomegaly, non distended Extremities: no cyanosis, no clubbing, no edema Subjective Allergies: Coded Allergies: No Known Allergies (Unverified , 01/15/18) Objective Last 24 Hour Vital Signs Date Time Temp Pulse Resp B/P (MAP) Pulse Ox O2 Delivery O2 Flow Rate FiO2 02/03/18 09:52 96 Nasal Cannula 2.0 28 02/03/18 09:52 Nasal Cannula 2.0 28 02/03/18 08:00 97.2 113 20 104/59 100 Nasal Cannula 2.0 97.2 02/03/18 04:00 95 02/03/18 04:00 97.9 104 20 118/79 96 Nasal Cannula 2.0 97.9 02/03/18 01:53 96 2.0 28 02/03/18 00:00 98.8 102 20 105/65 97 Nasal Cannula 2.0 98.8 02/03/18 00:00 102 02/02/18 20:31 104 118/79 02/02/18 20:00 100 02/02/18 20:00 97.9 104 17 118/79 96 Nasal Cannula 2.0 97.9 02/02/18 19:30 93 Nasal Cannula 2.0 28 02/02/18 19:30 Nasal Cannula 2.0 28 02/02/18 16:00 91 02/02/18 15:54 98.4 96 18 129/65 100 Nasal Cannula 2.0 98.4 02/02/18 12:00 106 02/02/18 11:44 98.4 103 18 128/73 96 Nasal Cannula 2.0 98.4 Intake and Output 02/02/18 02/03/18 19:00 07:00 Intake Total 480 ml Output Total 2200 ml 700 ml Balance -1720 ml -700 ml Intake Oral 480 ml Output Urine Total 2200 ml 700 ml # Bowel Movements 1 Laboratory Tests 02/03/18 05:40: White Blood Count 8.3, Red Blood Count 2.78L, Hemoglobin 8.6L, Hematocrit 25.5L , Mean Corpuscular Volume 92, Mean Corpuscular Hemoglobin 30.9, Mean Corpuscular Hemoglobin Concent 33.7, Red Cell Distribution Width 13.1, Platelet Count 271, Mean Platelet Volume 6.7, Neutrophils (%) (Auto) 49.5, Lymphocytes (% ) (Auto) 30.9, Monocytes (%) (Auto) 13.3H, Eosinophils (%) (Auto) 4.0H, Basophils (%) (Auto) 2.4H, Sodium Level 141, Potassium Level 3.4L, Chloride Level 106, Carbon Dioxide Level 26, Anion Gap 9, Blood Urea Nitrogen 9, Creatinine 0.9, Estimat Glomerular Filtration Rate > 60, Glucose Level 117H, Calcium Level 8.4L, Magnesium Level 1.4L, Triglycerides Level 182H, Cholesterol Level 117, LDL Cholesterol 76, HDL Cholesterol 26L, Cholesterol/HDL Ratio 4.5H Height (Feet): 5 Height (Inches): 9.00 Weight (Pounds): 279 Leslie Mathis MD Feb 03, 2018 11:19
[2018-02-03 12:00] VITALS: BP 118/71
[2018-02-03 16:00] VITALS: BP 108/65
[2018-02-03 20:00] VITALS: BP 112/74
--- NOTE | 2018-02-03 23:31 | Progress Note ---
DATE: 02/03/2018 CARDIOLOGY PROGRESS NOTE SUBJECTIVE: The patient remains with limited mobility. Hemoglobin is 7.5 yesterday. OBJECTIVE: VITAL SIGNS: Blood pressure 104/59, pulse 113, respiratory rate 20, afebrile. HEENT: PICC line site without bleeding, now removed. LUNGS: Clear. CARDIAC: Regular rhythm. Rapid rate. Normal S1, S2. EXTREMITIES: With trace edema. IMPRESSION: 1. Upper extremity deep venous thrombosis. 2. Recovered DKA. 3. Severe functional decline. 4. Severe anemia. 5. Secondary sinus tachycardia. 6. Recovered septic shock. 7. Resolved acute renal failure. 8. Hypokalemia. 9. Hypomagnesemia PLAN: 1. Transfuse to hemoglobin above 8. 2. Cautious mobilization. 3. Replace electrolytes. 4. Titrate beta-zen. 5. DVT prophylaxis. Erine Ashford M.D. DR: Hoang JOB#: [id number] CC:
[2018-02-04] VITALS: BP 108/66
[2018-02-04 04:00] VITALS: BP 121/76
[2018-02-04] MEDS: HYDROcodone/Acetamin 10/325 tab ORAL PRN (04:03)
[2018-02-04] MEDS: NovoLOG Insulin Flexpen SUBQ SCH ×2 (06:13→06:15)
--- NOTE | 2018-02-04 07:03 | General Progress Note ---
Assessment/Plan Problem List: (1) Septic shock ICD Codes: A41.9 - Sepsis, unspecified organism; R65.21 - Severe sepsis with septic shock SNOMED: 38882421 (2) DKA (diabetic ketoacidoses) ICD Codes: E13.10 - Other specified diabetes mellitus with ketoacidosis without coma SNOMED: 284921304, 77970940 (3) Acute renal failure (ARF) ICD Codes: N17.9 - Acute kidney failure, unspecified SNOMED: 78403592 Assessment/Plan - continue Levemir 16 units bid - increase Novolog to 10 units ac tid - continue NISS ac / hs Subjective Allergies: Coded Allergies: No Known Allergies (Unverified , 01/15/18) All Systems: reviewed and negative except above Subjective events noted - interval notes reviewed Objective Last 24 Hour Vital Signs Date Time Temp Pulse Resp B/P (MAP) Pulse Ox O2 Delivery O2 Flow Rate FiO2 02/04/18 04:00 87 02/04/18 00:00 90 02/04/18 00:00 97.6 99 20 108/66 97 Nasal Cannula 2.0 97.6 02/03/18 20:46 98 131/80 02/03/18 20:00 98.7 102 20 112/74 96 Nasal Cannula 2.0 98.7 02/03/18 20:00 97 02/03/18 19:30 96 Nasal Cannula 2.0 28 02/03/18 19:30 Nasal Cannula 2.0 28 02/03/18 16:00 82 02/03/18 16:00 98.6 99 18 108/65 96 Nasal Cannula 2.0 98.6 02/03/18 12:00 104 02/03/18 12:00 98.5 99 20 118/71 100 Nasal Cannula 2.0 98.5 02/03/18 11:44 97.2 02/03/18 10:46 113 104/59 02/03/18 10:45 97.2 02/03/18 09:52 96 Nasal Cannula 2.0 28 02/03/18 09:52 Nasal Cannula 2.0 28 02/03/18 08:00 97.2 113 20 104/59 100 Nasal Cannula 2.0 97.2 02/03/18 08:00 112 Intake and Output 02/03/18 02/04/18 19:00 07:00 Intake Total 240 ml 400 ml Output Total 1150 ml 1400 ml Balance -910 ml -1000 ml Intake Oral 240 ml 400 ml Output Urine Total 1150 ml 1400 ml Height (Feet): 5 Height (Inches): 9.00 Weight (Pounds): 274 General Appearance: no apparent distress Neck: normal alignment Cardiovascular: normal rate Respiratory/Chest: lungs clear Pelvis: normal external exam Edema: no edema noted Arm (L), no edema noted Arm (R), no edema noted Leg (L), no edema noted Leg (R), no edema noted Pedal (L), no edema noted Pedal (R), no edema noted Generalized Objective Current Medications Medications (Trade) Dose Ordered Sig/Alana Route PRN Reason Start Time Stop Time Status Last Admin Dose Admin Acetaminophen (Tylenol) 500 mg Q6H PRN NG Fever/Headache/Mild Pain 01/28/18 15:30 02/27/18 15:29 Acetaminophen/ Hydrocodone Bitart ([place] 10/325) 1 tab Q4H PRN ORAL Moderate Pain (Pain Scale 4-6) 01/30/18 09:45 02/06/18 09:44 02/04/18 04:03 Amoxicillin (Amoxil) 500 mg EVERY 8 HOURS ORAL 01/30/18 14:00 03/31/18 13:59 02/04/18 06:03 Aspirin (ASA) 81 mg DAILY ORAL 01/30/18 09:00 03/01/18 08:59 02/03/18 10:46 Bacitracin (Bacitracin 15gm tube) 1 applic DAILY TOPIC 01/29/18 06:00 02/28/18 05:59 02/03/18 11:00 Calcium Carbonate (Os-Aries) 1,250 mg BID ORAL 01/29/18 18:00 02/23/18 09:59 02/03/18 17:35 Carvedilol (Coreg) 12.5 mg EVERY 12 HOURS ORAL 02/01/18 21:00 03/03/18 20:59 02/03/18 20:46 Dextrose (Dextrose 50%) 25 ml STAT PRN IV Hypoglycemia 01/28/18 15:30 02/27/18 15:29 Dextrose (Dextrose 50%) 50 ml STAT PRN IV Hypoglycemia 01/28/18 15:30 02/27/18 15:29 Famotidine (Pepcid) 20 mg EVERY 12 HOURS ORAL 02/01/18 21:00 03/03/18 20:59 02/03/18 20:43 Folic Acid (Folate) 1 mg DAILY ORAL 01/29/18 09:00 02/26/18 08:59 02/03/18 10:46 Furosemide (Lasix) 40 mg DAILY ORAL 01/31/18 09:00 03/01/18 08:59 02/03/18 10:47 Gabapentin (Neurontin) 300 mg THREE TIMES A DAY ORAL 02/03/18 09:00 03/05/18 08:59 02/03/18 17:34 Heparin Sodium (Porcine) (Heparin 5000 units/ml) 5,000 units EVERY 12 HOURS SUBQ 01/28/18 21:00 02/27/18 20:59 02/03/18 20:56 Insulin Aspart (NovoLOG) BEFORE MEALS AND HS SUBQ 01/28/18 16:30 02/23/18 11:29 02/04/18 06:15 Insulin Aspart (NovoLOG) 8 units NOVOTIAC SUBQ 02/03/18 11:50 02/23/18 11:49 02/04/18 06:13 Insulin Detemir (Levemir) 16 units Q12HR SUBQ 02/03/18 09:30 02/23/18 09:29 02/03/18 21:05 Lactobacillus Acidophilus (Culturelle) 1 tab THREE TIMES A DAY ORAL 01/28/18 18:00 02/22/18 17:59 02/03/18 17:35 Loperamide HCl (Imodium) 2 mg Q4H PRN ORAL Diarrhea 02/01/18 11:00 03/03/18 10:59 02/03/18 10:46 Potassium Chloride (K-Dur) 40 meq BID ORAL 02/02/18 18:00 02/22/18 17:59 02/03/18 17:35 Tamsulosin HCl (Flomax) 0.4 mg BID ORAL 01/31/18 09:30 03/02/18 09:29 02/03/18 17:34 Vitamin D (Vitamin D) 5,000 intlu DAILY ORAL 01/29/18 09:00 02/26/18 08:59 02/03/18 10:47 Zolpidem Tartrate (Ambien) 5 mg HSPRN PRN ORAL Insomnia 01/30/18 21:00 6/5/18 20:59 02/03/18 22:04 Item Value Date Time Bedside Blood Glucose 174 mg/dl H 02/04/18 0623 Bedside Blood Glucose 205 mg/dl H 02/03/18 2105 Bedside Blood Glucose 189 mg/dl H 02/03/18 1746 Bedside Blood Glucose 204 mg/dl H 02/03/18 1130 Milton Denis MD Feb 04, 2018 07:03
[2018-02-04 08:00] VITALS: BP 115/74
[2018-02-04] MEDS ORDERED: Tubing Blood Filter IV ONE (08:29)
[2018-02-04] MEDS ORDERED: NS 500ML ONE (08:29)
[2018-02-04 08:41] LABS: BASOPHILS % (AUTO) 2.5 % (0.0-2.0); EOSINOPHILS % (AUTO) 4.7 % (0.0-3.0); HEMATOCRIT 26.9 % (42.0-52.0); HEMOGLOBIN 9.1 G/DL (14.2-18.0); LYMPHOCYTES % (AUTO) 28.6 % (20.0-45.0); MEAN CORPUSCULAR VOLUME 93 FL (80-99); MONOCYTES % (AUTO) 9.8 % (1.0-10.0); NEUTROPHILS % (AUTO) 54.5 % (45.0-75.0); PLATELET COUNT 338 K/UL (150-450); RED BLOOD COUNT 2.89 M/UL (4.70-6.10); RED CELL DISTRIBUTION WIDTH 13.4 % (11.6-14.8); WHITE BLOOD COUNT 8.2 K/UL (4.8-10.8)
--- NOTE | 2018-02-04 09:10 | Urology Progress Note ---
Assessment/Plan Assessment/Plan urinary retention BPH neurogenic bladder hematuria proteinuria RODRIGUEZ hx, resolved go to [facility] with parmar voiding trial and cysto as outpt Subjective Allergies: Coded Allergies: No Known Allergies (Unverified , 01/15/18) Subjective all noted, going to [facility] today Objective Last 24 Hour Vital Signs Date Time Temp Pulse Resp B/P (MAP) Pulse Ox O2 Delivery O2 Flow Rate FiO2 02/04/18 07:34 Nasal Cannula 2.0 28 02/04/18 07:33 99 Nasal Cannula 2.0 28 02/04/18 04:00 98.2 92 18 121/76 96 Nasal Cannula 2.0 98.2 02/04/18 04:00 87 02/04/18 00:00 90 02/04/18 00:00 97.6 99 20 108/66 97 Nasal Cannula 2.0 97.6 02/03/18 20:46 98 131/80 02/03/18 20:00 98.7 102 20 112/74 96 Nasal Cannula 2.0 98.7 02/03/18 20:00 97 02/03/18 19:30 96 Nasal Cannula 2.0 28 02/03/18 19:30 Nasal Cannula 2.0 28 02/03/18 16:00 82 02/03/18 16:00 98.6 99 18 108/65 96 Nasal Cannula 2.0 98.6 02/03/18 12:00 104 02/03/18 12:00 98.5 99 20 118/71 100 Nasal Cannula 2.0 98.5 02/03/18 11:44 97.2 02/03/18 10:46 113 104/59 02/03/18 10:45 97.2 02/03/18 09:52 96 Nasal Cannula 2.0 28 02/03/18 09:52 Nasal Cannula 2.0 28 Intake and Output 02/03/18 02/04/18 19:00 07:00 Intake Total 240 ml 400 ml Output Total 1150 ml 1400 ml Balance -910 ml -1000 ml Intake Oral 240 ml 400 ml Output Urine Total 1150 ml 1400 ml Microbiology Date/Time Source Procedure Growth Status 01/15/18 21:28 Blood Blood Culture - Final Actinomyces Odontolyticus Complete 01/20/18 18:30 Sputum Gram Stain - Final Complete 01/20/18 18:30 Sputum Culture - Final Pseudomonas Fluorescens Complete 01/27/18 05:00 Stool Clostridium difficile Toxin Assay - Final Complete 01/23/18 15:30 Indwelling Cath Urine Culture - Final [place] Parapsilosis Complete 01/15/18 21:20 Rectum VRE Culture - Final Enterococcus Faecalis - Vre Complete Current Medications Medications (Trade) Dose Ordered Sig/Alana Route PRN Reason Start Time Stop Time Status Last Admin Dose Admin Acetaminophen (Tylenol) 500 mg Q6H PRN NG Fever/Headache/Mild Pain 01/28/18 15:30 02/27/18 15:29 Acetaminophen/ Hydrocodone Bitart (Madison 10/325) 1 tab Q4H PRN ORAL Moderate Pain (Pain Scale 4-6) 01/30/18 09:45 02/06/18 09:44 02/04/18 04:03 Amoxicillin (Amoxil) 500 mg EVERY 8 HOURS ORAL 01/30/18 14:00 03/31/18 13:59 02/04/18 06:03 Aspirin (ASA) 81 mg DAILY ORAL 01/30/18 09:00 03/01/18 08:59 02/03/18 10:46 Bacitracin (Bacitracin 15gm tube) 1 applic DAILY TOPIC 01/29/18 06:00 02/28/18 05:59 02/03/18 11:00 Calcium Carbonate (Os-Aries) 1,250 mg BID ORAL 01/29/18 18:00 02/23/18 09:59 02/03/18 17:35 Carvedilol (Coreg) 12.5 mg EVERY 12 HOURS ORAL 02/01/18 21:00 03/03/18 20:59 02/03/18 20:46 Dextrose (Dextrose 50%) 25 ml STAT PRN IV Hypoglycemia 01/28/18 15:30 02/27/18 15:29 Dextrose (Dextrose 50%) 50 ml STAT PRN IV Hypoglycemia 01/28/18 15:30 02/27/18 15:29 Famotidine (Pepcid) 20 mg EVERY 12 HOURS ORAL 02/01/18 21:00 03/03/18 20:59 02/03/18 20:43 Folic Acid (Folate) 1 mg DAILY ORAL 01/29/18 09:00 02/26/18 08:59 02/03/18 10:46 Furosemide (Lasix) 40 mg DAILY ORAL 01/31/18 09:00 03/01/18 08:59 02/03/18 10:47 Gabapentin (Neurontin) 300 mg THREE TIMES A DAY ORAL 02/03/18 09:00 03/05/18 08:59 02/03/18 17:34 Heparin Sodium (Porcine) (Heparin 5000 units/ml) 5,000 units EVERY 12 HOURS SUBQ 01/28/18 21:00 02/27/18 20:59 02/03/18 20:56 Insulin Aspart (NovoLOG) BEFORE MEALS AND HS SUBQ 01/28/18 16:30 02/23/18 11:29 02/04/18 06:15 Insulin Aspart (NovoLOG) 10 units NOVOTIAC SUBQ 02/04/18 11:50 02/23/18 11:49 Insulin Detemir (Levemir) 16 units Q12HR SUBQ 02/03/18 09:30 02/23/18 09:29 02/03/18 21:05 Lactobacillus Acidophilus (Culturelle) 1 tab THREE TIMES A DAY ORAL 01/28/18 18:00 02/22/18 17:59 02/03/18 17:35 Loperamide HCl (Imodium) 2 mg Q4H PRN ORAL Diarrhea 02/01/18 11:00 03/03/18 10:59 02/03/18 10:46 Potassium Chloride (K-Dur) 40 meq BID ORAL 02/02/18 18:00 02/22/18 17:59 02/03/18 17:35 Tamsulosin HCl (Flomax) 0.4 mg BID ORAL 01/31/18 09:30 03/02/18 09:29 02/03/18 17:34 Vitamin D (Vitamin D) 5,000 intlu DAILY ORAL 01/29/18 09:00 02/26/18 08:59 02/03/18 10:47 Zolpidem Tartrate (Ambien) 5 mg HSPRN PRN ORAL Insomnia 01/30/18 21:00 02/06/18 20:59 02/03/18 22:04 Laboratory Tests 02/04/18 07:10: White Blood Count 8.2, Red Blood Count 2.89L, Hemoglobin 9.1L, Hematocrit 26.9L , Mean Corpuscular Volume 93, Mean Corpuscular Hemoglobin 31.7H, Mean Corpuscular Hemoglobin Concent 34.1, Red Cell Distribution Width 13.4, Platelet Count 338, Mean Platelet Volume 5.7L, Neutrophils (%) (Auto) 54.5, Lymphocytes ( %) (Auto) 28.6, Monocytes (%) (Auto) 9.8, Eosinophils (%) (Auto) 4.7H, Basophils (%) (Auto) 2.5H, Sodium Level [Pending], Potassium Level [Pending], Chloride Level [Pending], Carbon Dioxide Level [Pending], Blood Urea Nitrogen [ Pending], Creatinine [Pending], Estimat Glomerular Filtration Rate [Pending], Glucose Level [Pending], Calcium Level [Pending], Magnesium Level [Pending], Total Bilirubin [Pending], Aspartate Amino Transf (AST/SGOT) [Pending], Alanine Aminotransferase (ALT/SGPT) [Pending], Alkaline Phosphatase [Pending], Pro-B- Type Natriuretic Peptide [Pending], Total Protein [Pending], Albumin [Pending], Globulin [Pending] Height (Feet): 5 Height (Inches): 9.00 Weight (Pounds): 274 PAULETTE SANCHES Feb 04, 2018 09:10
[2018-02-04 09:14] LABS: ALANINE AMINOTRANSFERASE 33 U/L (12-78); ALBUMIN 2.1 G/DL (3.4-5.0); ALBUMIN/GLOBULIN RATIO 0.5 (1.0-2.7); ALKALINE PHOSPHATASE 237 U/L (46-116); ANION GAP 9 mmol/L (5-15); ASPARTATE AMINO TRANSFERASE 49 U/L (15-37); BILIRUBIN,TOTAL 0.4 MG/DL (0.2-1.0); BLOOD UREA NITROGEN 8 mg/dL (7-18); CALCIUM 8.6 MG/DL (8.5-10.1); CARBON DIOXIDE 26 MMOL/L (21-32); CHLORIDE 105 MMOL/L (98-107); CREATININE 0.9 MG/DL (0.55-1.30); POTASSIUM 3.8 MMOL/L (3.5-5.1); SODIUM 140 MMOL/L (136-145)
[2018-02-04] MEDS ORDERED: NovoLOG Insulin Flexpen SUBQ SCH (11:50)
--- NOTE | 2018-02-05 01:00 | Progress Note ---
DATE: 02/04/2018 SUBJECTIVE: Discharge plan in progress. The patient with no shortness of breath. OBJECTIVE: VITAL SIGNS: Blood pressure 121/76, pulse 87, respiratory rate 18 and afebrile. LUNGS: Bilateral breath sounds. No wheezing. CARDIAC: Regular rhythm and rate. Normal S1 and S2 with a fourth heart sound. ABDOMEN: Soft, slightly distended. EXTREMITIES: Trace dependent edema. LABORATORY AND DIAGNOSTIC DATA: White count 8.2 and hemoglobin 9.1. Potassium 3.8. Magnesium 1.8. Pro-natriuretic peptide 408. IMPRESSION: 1. Status post sepsis with shock. 2. Acute myocardial infarction. 3. Acute diastolic congestive heart failure. 4. Status post respiratory failure. 5. Status post DKA. 6. Severe protein calorie malnutrition. 7. Hypokalemia and hypomagnesemia corrected. 8. Functional decline. PLAN: 1. Outpatient followup. 2. Maintain anti-platelet therapy. 3. Statin drug and angiotensin-converting enzyme inhibitor superintendent container terminal as well as beta-zen for indefinite . 4. Discharge medication regimen reviewed. Ernie Ashford M.D. DR: JOHN JOB#: [id number] CC:
--- NOTE | 2018-02-05 12:15 | Consultation ---
DATE OF CONSULTATION: 02/03/2018 NOTE: "POOR AUDIO QUALITY" CONSULTING PHYSICIAN: Eliud Johnson M.D. REFERRING PHYSICIAN: Leslie Mathis M.D. REASON FOR CONSULTATION: Evaluation of urinary retention. HISTORY OF PRESENT ILLNESS: This is a 47-year-old male. He has had a long hospital course, was improving, admitted with hyperglycemia. He was intubated. He has acute kidney injury, urinary retention. He had a Ramenta catheter indwelling, which was not draining well and was removed. He was then catheterized and eventually Armenta was placed back. The Armenta is draining . PAST MEDICAL HISTORY: Noted, again diabetic ketoacidosis, DVT, septic shock, and acute renal failure. PAST SURGICAL HISTORY: None known. MEDICATIONS: Medication list in the hospital was reviewed. ALLERGIES: No known drug allergies. PHYSICAL EXAMINATION: VITAL SIGNS: Stable. ABDOMEN: Soft. GENITOURINARY: Armenta placed. Urine is grossly yellow. LABORATORY DATA: Reviewed. on admission with creatinine of 0.9. White count is 8.3 and hemoglobin 8.6. UA showed 3 to 4 rbc. DIAGNOSTIC IMAGING STUDIES: He had a CT scan of the abdomen and pelvis which was reviewed. IMPRESSION: 1. Urinary retention. 2. BPH. 3. Neurogenic bladder. 4. Hematuria. 5. Proteinuria. 6. History of acute kidney injury . PLAN: Again, a new Armenta catheter has been placed. Use Flomax. senior care facility and is on outpatient followup for Armenta and cystoscopy. Thank you for this consultation. Eliud Johnson M.D. DR: DOMINGO JOB#: [id number] CC:
--- NOTE | 2018-02-05 13:48 | Discharge Summary ---
Discharge Summary Hospital Course Date of Admission January 15, 2018 at 21:02 Date of Discharge Feb 04, 2018 at 08:30 Admitting Diagnosis diabetic ketoacidosis HPI Ernie Moore is a 47 year old male who was admitted on January 15, 2018 at 21:02 for Diabetic Ketoacidosis Hospital Course dc summary #[id number] Discharge Medications Medication Profile: No Active Prescriptions or Reported Meds Discharge Condition Upon Discharge: stable Discharge Disposition Patient was discharged to [facility] (04) Discharge Instructions Discharge Instructions Special Instructions I have been assigned to complete a D/C Summary on this account. I was not involved in the patient management Shelly Cevallos NP Feb 05, 2018 13:48
--- NOTE | 2018-02-06 04:30 | Discharge Summary ---
DATE OF ADMISSION: 01/15/2018 DATE OF DISCHARGE: 02/04/2018 REASON FOR ADMISSION: 47-year-old male with history of psoriatic arthritis, who was treated with Humira recently at the [facility], was brought to the hospital with generalized weakness. During the evaluation in the emergency department, the patient was hypoxic and severely hyperglycemic. The patient required placement of central line in anticipation for pressor and emergency oral intubation. Upon evaluation, WBC 22.9, sodium 111, BUN 79, creatinine 5.9, CO2 -8, potassium stable, 3.8, anion gap -29, and lactic acid- 3.3. Urine toxicology screen was negative. Blood glucose -1296. Lipase - 13,427. Urinalysis revealed no evidence of urinary tract infection, but showed +4 glucose and +3 ketones. The patient was started on pressors and aggressive fluid resuscitation. The patient was pancultured and started on empiric antibiotics. The patient was started on insulin drip. The patient was admitted with diagnoses of septic shock, diabetic ketoacidosis , acute respiratory failure. acute renal failure, severe hyponatremia; elevated lipase, probably pancreatitis. The patient was transferred to ICU for further management. CONSULTANTS: 1. Eliud Johnson M.D., Urology. 2. Presley Sosa M.D., Surgeon. 3. Ernie Ashford M.D., Application Development Consultant. 4. Milton Denis M.D., Export Traffic Department Manager. 5. Bruce Waller M.D., ID specialist. 6. Brian Aguirre M.D., Nematology Teacher. 7. Man Durbin M.D., GI. HOSPITAL COURSE: The patient was admitted to intensive care unit. The patient was on aggressive IV hydration along with antibiotics. Ventilator support and pulmonary toilet provided. The patient was followed up with daily ABG and chest x-ray. The patient was on pressors to keep systolic blood pressure above 90. Pressors titrated as per day camp unit leader. On 01/18/2018, the patient sustained a cardiopulmonary arrest when he found to be in asystole. Code Blue was initiated as per ACLS protocol. The patient subsequently regained palpable pulses and intensive care unit care was continued. The patient later was on renal dose of dopamine with close monitoring of blood pressure. The patient was able eventually to be weaned from pressors, The patient subsequently was extubated. BiPAP was on the standby at night as needed. Supplemental oxygen then titrated to keep pulse oximetry above 92%. Pulmonary toilet provided as needed. Chest x-ray revealed evidence of pneumonia. Sputum culture showed Pseudomonas. Blood culture initially revealed Actinomyces and Peptostreptococcus. Repeated blood culture showed Actinomyces. Urine culture showed [place]. Antibiotic management provided as per ID specialist direction. The patient status post treatment for pneumonia and urinary tract infection. However, for persistent bacteremia, the patient needs further treatment. The patient will continue oral amoxicillin for additional days, as specified by ID specialist. The patient was on probiotics. Prior to discharge, the patient was on two liters of oxygen of nasal cannula with stable pulse oximetry. Export Traffic Department Manager closely followed. The patient initially was on insulin drip as per protocol. When anion gap closed, the patient was transitioned to short-acting premeal insulin and long-acting insulin as well as sliding scale of insulin as needed. Hemoglobin A1c- 13.1. Apparently, the patient was not aware that he had diabetes. The patient will need close monitoring of blood sugar in the snf facility to bring hemoglobin A1c under control with aggressive regimen of anti-glycemic medication. Blood sugar stabilized with current regimen in the hospital. Nematology Teacher closely followed. Hemodialysis catheter was placed on 01/17/2018 via left subclavian vein by general surgeon. Patient was on renal dose of Dopamine, without improvement in renal parameters. Patient was subsequently started on hemodialysis. Renal parameters and electrolytes were closely monitored. Electrolytes corrected as needed. Renal parameters were slowly improving. The patient was able to be weaned from hemodialysis. Acute renal failure resolved, likely was due to combination of septic shock , dehydration and diabetes ketoacidosis. Prior to discharge, BUN 8 and creatinine 0.9. Sodium 140. Magnesium and potassium were replaced. Later, the patient was found to be in diastolic congestive heart failure due to the volume overload and renal failure . Patient started on diuresis with close monitoring of cardiorenal parameters and volumes. At that time hemodialysis was initiated and continued until renal function stabilized. Noted elevated troponin. Initial troponin was negative, however, on 01/17/2018 , troponin - 0.661 and then started slowly trending down. Last troponin was negative. According to day camp unit leader, the patient had acute myocardial infarction secondary to hypoperfusion. Echocardiogram revealed preserved ejection fraction of 75%. No evidence of left ventricular hypertrophy. No evidence of pericardial effusion. No aortic regurgitation. Right ventricular systolic pressure of 21. When blood pressure stabilized, the patient was started on low dose of Coreg. Pro BNP from initial 5311 down to 408. Follow up chest x-ray indicated improvement. Antiplatelet therapy was continued. The patient will need to start on SULEMAN inhibitor when more stable. Lipase was closely monitored, lipase down from 13,[address] of the abdomen and pelvis revealed acute pancreatitis with moderate inflammation and mild pancreatic ascites. Prior to that, abdominal ultrasound revealed dense enlarged liver, likely fatty liver, but no definite cholelithiasis or acute cholecystitis. No hydronephrosis. Gastrointestinal specialist closely followed. The patient had diarrhea. Stool for C. difficile was negative x2. Lactobacillus was continued in lieu of diarrhea and anticipated long treatment with antibiotics. The patient was on lactose- free diet. Imodium was provided as needed. Metamucil added to existing diet. Diarrhea resoled. Hemoglobin and hematocrit were closely monitored. The patient required transfusion of 3 units of packed red blood cells. Anemia workup revealed normocytic normochromic anemia and folate deficiency. The patient was started on folic acid. Stool for occult blood was positive. The patient was on H2 zen. DVT prophylaxis provided. Follow up chest x-ray showed likely atelectasis. Patient was encouraged to be out of bed and ambulate wit physical therapy as tolerated. Pain management was addressed. Incentive spirometer was provided at the bedside and patient was encouraged to use it. Urologist seen the patient for urinary retention. The patient had Armenta catheter that was not draining. Armenta catheter was replaced and was draining sufficient amount of urine. Per urologist, the patient likely had neurogenic bladder with BPH and urinary retention. He recommended to continue Flomax for now. He also recommended outpatient followup with urologist and outpatient cystoscopy. General surgeon seen and evaluated the patient for sacral decubitus. Surgeon recommended to keep patient off the wound by turning every.2 hours. Keep site clean. Recommended foam dressing for the wound. No debridement was necessary. Wound care to be continued at the snf facility as recommended by surgeon. Nutritional recommendations were implemented in plan of care to improve nutritional status. All consultants cleared the patient for discharge to snf facility, [facility], with close followup. FINAL DIAGNOSES: 1. Septic shock with sepsis. 2. Actinomyces/Peptostreptococcus sepsis. 3. Multiorgan system failure, resolved 4. Diabetic ketoacidosis, resolved. 5. Status post cardiopulmonary arrest on 01/18/2018. 6. Acute respiratory failure requiring intubation.( s/p extubation, resolved) 7. Severe hyponatremia, resolved 8. Acute renal failure, resolved. 9. Dehydration. 10. Acute diastolic congestive heart failure. 11. Severe diarrhea, resolved 12. Pancreatitis, improving. 13. Fungal urinary tract infection, status post treatment. 14. Pseudomonas pneumonia, status post treatment. 15. Severe anemia requiring blood transfusion. 16. Severe protein-calorie malnutrition. 17. Psoriasis. 18. Electrolyte imbalances:hypokalemia and hypomagnesemia. 19. Sacral decubitus stage II DISCHARGE MEDICATIONS: List of medication was sent to accepting facility. DISCHARGE INSTRUCTIONS: The patient was discharged to snf facility. Follow up with the health care provider in the facility. Matt Kessler M.D. Shelly GuevaraPaula triplett DR: JOHNSON JOB#: [id number] CC: [email or web address]
== END 2018-02-04 08:30 | DRG 720 ==
LOC: EDBD 20:19 → EMR 20:48 → ICU 21:02 → EDBEDREQ 01-16 05:56 → 2W 01-24 23:54 → 2E 01-28 10:54
PROC: 5A1955Z Respiratory Ventilation, Greater than 96 Consecutive Hours (ICD-10-PCS; principal; 2018-01-15)
PROC: 0BH17EZ Insertion of Endotracheal Airway into Trachea, Via Natural or Artificial Opening (ICD-10-PCS; 2018-01-15)
PROC: 06HM33Z Insertion of Infusion Device into Right Femoral Vein, Percutaneous Approach (ICD-10-PCS; 2018-01-15)
PROC: 05H633Z Insertion of Infusion Device into Left Subclavian Vein, Percutaneous Approach (ICD-10-PCS; 2018-01-17)
PROC: 5A1D70Z Performance of Urinary Filtration, Intermittent, Less than 6 Hours Per Day (ICD-10-PCS; 2018-01-17)
PROC: 5A12012 Performance of Cardiac Output, Single, Manual (ICD-10-PCS; 2018-01-18)
PROC: 02HV33Z Insertion of Infusion Device into Superior Vena Cava, Percutaneous Approach (ICD-10-PCS; 2018-01-26)
PROC: B548ZZA Ultrasonography of Superior Vena Cava, Guidance (ICD-10-PCS; 2018-01-26)
DX: A40.8 Other streptococcal sepsis (principal); J96.00 Acute respiratory failure, unspecified whether with hypoxia or hypercapnia; I21.4 Non-ST elevation (NSTEMI) myocardial infarction; R65.21 Severe sepsis with septic shock; E43 Unspecified severe protein-calorie malnutrition; I50.31 Acute diastolic (congestive) heart failure; L89.152 Pressure ulcer of sacral region, stage 2; B49 Unspecified mycosis; J15.1 Pneumonia due to Pseudomonas; K85.90 Acute pancreatitis without necrosis or infection, unspecified; N17.9 Acute kidney failure, unspecified; I11.0 Hypertensive heart disease with heart failure; I46.2 Cardiac arrest due to underlying cardiac condition; E11.10 Type 2 diabetes mellitus with ketoacidosis without coma; E11.65 Type 2 diabetes mellitus with hyperglycemia; E87.1 Hypo-osmolality and hyponatremia; E86.0 Dehydration; I48.0 Paroxysmal atrial fibrillation; N40.1 Benign prostatic hyperplasia with lower urinary tract symptoms; R33.8 Other retention of urine; N31.9 Neuromuscular dysfunction of bladder, unspecified; R19.7 Diarrhea, unspecified; E83.42 Hypomagnesemia; D52.9 Folate deficiency anemia, unspecified; Z68.41 Body mass index [BMI] 40.0-44.9, adult; N39.0 Urinary tract infection, site not specified; D69.6 Thrombocytopenia, unspecified; E87.6 Hypokalemia; E83.51 Hypocalcemia; R31.9 Hematuria, unspecified; R80.9 Proteinuria, unspecified; I82.622 Acute embolism and thrombosis of deep veins of left upper extremity; T82.868A Thrombosis due to vascular prosthetic devices, implants and grafts, initial encounter; Z22.322 Carrier or suspected carrier of Methicillin resistant Staphylococcus aureus; L40.50 Arthropathic psoriasis, unspecified
CPT/HCPCS: 31500; 36415; 36569; 36600; 71045; 74018; 74176; 76700; 76937; 80048; 80053; 80061; 80076; 80202; 80307; 80329; 81003; 82009; 82140; 82248; 82270; 82550; 82553; 82607; 82728; 82746; 82803; 82962; 82977; 83036; 83540; 83550; 83605; 83690; 83735; 83880; 83930; 84100; 84478; 84484; 84550; 85007; 85025; 85610; 85730; 86140; 86850; 86870; 86900; 86901; 86920; 87040; 87070; 87081; 87086; 87181; 87205; 87324; 93005; 93306; 93971; 94002; 94003; 94660; 94664; 94760; 99285; 99291; J0171; J1815; J8499; S5561